=== PATIENT | male | born 1950 | race Caucasian/White ===

== ENCOUNTER → 2017-04-29 | Outpatient (CLI) | payer MEDICARE ==
[2017-04-29 09:25] LABS: ALT 41 U/L (21-72); AST 29 U/L (17-59); Cholesterol 135 mg/dL (<200); HDL Cholesterol 42 mg/dL (40-60); Triglycerides 126 mg/dL (<150)
== END | disposition home or self-care (01) ==
LOC: LABWHC1 08:36
PROVIDERS: ATTEND Internal Medicine Interventional Cardiology
DX: E78.2 Mixed hyperlipidemia (principal)
CPT/HCPCS: 36415; 80061; 84450; 84460

== ENCOUNTER → 2017-10-21 | Outpatient (CLI) | payer MEDICARE ==
[2017-10-21 09:44] LABS: Basophils % (A) 1 %; Eosinophils # (A) 0.2 k/uL (0-0.7); Eosinophils % (A) 3 %; HCT 46.2 % (39.0-53.0); HDW 2.48; HGB 14.9 gm/dL (13.0-17.5); Luc # (Auto) 0.08; Luc % (Auto) 2; Lymphocytes # (A) 1.2 k/uL (1.0-4.8); Lymphocytes % (A) 25 %; MCH 28.5 pg (25.0-35.0); MCHC 32.2 g/dL (31.0-37.0); MCV 88.6 fL (80.0-100.0); Monocytes # (A) 0.5 k/uL (0-1.0); Monocytes % (A) 10 %; Neutrophils # (A) 2.8 k/uL (1.3-7.7); Neutrophils % (A) 59 %; RBC 5.21 m/uL (4.30-5.90); RDW 14.8 % (11.5-15.5); WBC 4.7 k/uL (3.8-10.6); WBC (Perox) 4.46
[2017-10-21 10:01] LABS: ALT 43 U/L (21-72); AST 32 U/L (17-59); Alkaline Phosphatase 36 U/L (38-126); Anion Gap 9 mmol/L; Blood Urea Nitrogen 24 mg/dL (9-20); Calcium 9.2 mg/dL (8.4-10.2); Carbon Dioxide 26 mmol/L (22-30); Chloride 108 mmol/L (98-107); Cholesterol 153 mg/dL (<200); Glucose 90 mg/dL (74-99); HDL Cholesterol 40 mg/dL (40-60); Non-African American GFR(MDRD) >60 (>60 ml/min/1.73 sqM); Sodium 143 mmol/L (137-145); Total Bilirubin 0.7 mg/dL (0.2-1.3); Total Protein 6.7 g/dL (6.3-8.2)
[2017-10-21 10:23] LABS: Prostate Specific Antigen 2.08 ng/mL (0.00-4.00)
[2017-10-21 10:36] LABS: Appearance,Urine Clear (Clear); Bilirubin,Urine Negative (Negative); Glucose,Urine (UA) Negative (Negative); Ketones,Urine Negative (Negative); Leukocyte Esterase,Urine Trace (Negative); Mucus,Urine Rare /hpf; Nitrite,Urine Negative (Negative); Particle Count 2015; Protein,Urine Negative (Negative); RBC,Urine 1 /hpf (0-5); Specific Gravity,Urine 1.017 (1.001-1.035); UA Billing (MACRO vs. MICRO) MICRO; Urobilinogen,Urine <2.0 mg/dL (<2.0); WBC,Urine 3 /hpf (0-5)
== END | disposition home or self-care (01) ==
LOC: LABWHC1 08:40
PROVIDERS: ATTEND Internal Medicine
DX: E78.5 Hyperlipidemia, unspecified (principal); E55.9 Vitamin D deficiency, unspecified; Z12.5 Encounter for screening for malignant neoplasm of prostate; Z13.9 Encounter for screening, unspecified
CPT/HCPCS: 36415; 80053; 80061; 81001; 82306; 84153; 85025; 86803

== ENCOUNTER 2018-01-30 21:24 | Emergency (ER) | payer MEDICARE ==
[2018-01-30 21:34] VITALS: RESP 18
--- NOTE | 2018-01-30 22:09 | ED ---
Head Injury HPI - General Chief complaint: Head Injury Stated complaint: Fell/Head injury Time Seen by Provider: 01/30/18 22:06 Source: patient Mode of arrival: ambulatory Limitations: no limitations - History of Present Illness Initial comments: Patient presents for follow-up head injury. Patient states she was outside when he got tangled up underneath his dog and tripped and fell. Patient hit the top of his head on a metal cabinet. Patient is on Coumadin. Patient states he walked into the house when he felt lightheaded and passed out a second time. Patient denies any injuries from a second fall. Patient states he has pain at site of laceration on the top of his head and behind right eye at this time. Patient denies vision changes, confusion, speech problems, numbness, weakness. Patient denies injuries to any other area of the body other than his head. Denies neck pain, back pain, extremity pain or swelling. Patient denies any abrasions or skin problems anywhere on his body except the top of his head. Patient has been ambulatory since accident without difficulty. MD Complaint: head injury, fall - Related Data Home Medications Medication Instructions Recorded Confirmed Cholecalciferol [Vitamin D3] 1,000 unit PO DAILY 01/30/18 01/30/18 Hydrochlorothiazide [Hydrodiuril] 25 mg PO DAILY 01/30/18 01/30/18 Lisinopril [Prinivil] 10 mg PO DAILY 01/30/18 01/30/18 Multivitamins, Thera [Multivitamin 1 tab PO DAILY 01/30/18 01/30/18 (formulary)] Simvastatin [Zocor] 10 mg PO HS 01/30/18 01/30/18 Warfarin Sodium [Coumadin] 5 mg PO MOFR 01/30/18 01/30/18 Warfarin Sodium [Warfarin Sodium] 2.5 mg PO SUTUWETHSA 01/30/18 01/30/18 Allergies/Adverse reactions: Allergies Allergy/AdvReac Type Severity Reaction Status Date / Time No Known Allergies Allergy Verified 01/30/18 22:24 Review of Systems ROS Statement: Those systems with pertinent positive or pertinent negative responses have been documented in the HPI. ROS Other: All systems not noted in ROS Statement are negative. Constitutional: Denies: fever, chills, weakness Eyes: Denies: eye pain, eye discharge, vision change ENT: Denies: ear pain, dental pain Respiratory: Denies: dyspnea Cardiovascular: Reports: syncope. Denies: chest pain, palpitations Endocrine: Denies: fatigue Gastrointestinal: Denies: abdominal pain, nausea, vomiting Genitourinary: Reports: other (Denies flank pain) Musculoskeletal: Denies: back pain, joint swelling, arthralgia Skin: Reports: other (Abrasion to the top of the) Neurological: Reports: headache. Denies: weakness, numbness, paresthesias, confusion, abnormal gait Past Medical History Past Medical History: Hyperlipidemia, Hypertension History of Any Multi-Drug Resistant Organisms: None Reported Past Surgical History: Cardiac Valve Replacement, Hernia Repair, Orthopedic Surgery, Tonsillectomy Additional Past Surgical History / Comment(s): Aortic valve replacement, bilateral shoulder repair Past Psychological History: No Psychological Hx Reported Smoking Status: Never smoker Past Alcohol Use History: Occasional Past Drug Use History: None Reported General Exam - General Exam Comments Initial Comments: Sitting up on side of bed. No acute shows. Conversing normally. Calm, pleasant. Does not appear in pain. Limitations: no limitations General appearance: alert, in no apparent distress Head exam: Present: normocephalic, other (2 cm V-shaped superficial laceration top of head, minimal bleeding. No facial abnormalities appreciated) Eye exam: Present: normal appearance, PERRL, EOMI. Absent: periorbital swelling , periorbital tenderness (Pupils equal and reactive bilaterally. Eye movements intact bilaterally.) ENT exam: Present: normal exam, mucous membranes moist (Normal.) Neck exam: Present: other (C-collar in place. No midline tenderness.). Absent : tenderness Respiratory exam: Present: normal lung sounds bilaterally. Absent: respiratory distress, wheezes, rales, rhonchi Cardiovascular Exam: Present: regular rate, normal rhythm GI/Abdominal exam: Present: soft. Absent: distended, tenderness Extremities exam: Present: normal inspection, full ROM, normal capillary refill , other (Full range of motion all extremities. No edema, bony tenderness, deformities of that Shoney's appreciated.). Absent: tenderness, joint swelling Back exam: Present: normal inspection. Absent: tenderness, paraspinal tenderness, vertebral tenderness Neurological exam: Present: alert, oriented X3, CN II-XII intact (Cranial nerves II through XII intact. Muscle strength 5 out of 5 in all extremity. Sensation intact in all extremities. Ambulatory in the ER without difficulty. Pertinent drift negative. Finger to nose chlorinated bilaterally.) Psychiatric exam: Present: normal affect, normal mood Skin exam: Present: warm, dry, normal color, other (Laceration top of head.) Course Vital Signs 01/30/18 21:26 Temperature 98.6 F Pulse Rate 62 Respiratory 18 Rate Blood Pressure 175/82 O2 Sat by Pulse 98 Oximetry Procedures - Laceration Laceration #1 Consent Obtained: verbal consent Time Out Performed: Yes Indication: laceration Site: scalp Description: linear Depth: simple, single layer Type of Sutures: other ([place]) Number of Sutures: 3 Technique: simple, interrupted Patient Tolerated Procedure: well Medical Decision Making - Medical Decision Making Pt roomed 22:06 22:07 Imaging and lab orders placed. 22:28 EKG sinus rhythm with PACs, rate 63, no ST or T-wave changes appreciated. INR 3.2 23:11 CT head/neck negative. Transfer team [facility] paged for overnight observation of patient given syncope and coumadin use. 23:28 Laceration repaired with 3 fani, patient tolerated procedure well. No competitions. Bacitracin and gauze applied. Notified by lab some blood hemolyzed, RN redrawing labs now 23:34 Spoke with physician at [facility], updated patient condition and results, agrees to transfer, accepting physician Dr. Cooper. Chest x-ray showed no acute process per ED. Patient family updated with all results and plan. Patient agrees to transfer. EMTALA signed. Will transfer. Awaiting results of basic metabolic profile and, will not delay transfer, blood already drawn, results will be available for follow-up by [facility] physician team. 23:37 Transfer ordered placed. - Lab Data Result diagrams: 01/30/18 22:31 Lab Results 01/30/18 01/30/18 Range/Units 22:31 22:31 WBC 5.4 (3.8-10.6) k/uL RBC 5.46 (4.30-5.90) m/uL Hgb 16.1 (13.0-17.5) gm/dL Hct 46.0 (39.0-53.0) % MCV 84.3 (80.0-100.0) fL MCH 29.5 (25.0-35.0) pg MCHC 35.0 (31.0-37.0) g/dL RDW 13.5 (11.5-15.5) % Plt Count 212 (150-450) k/uL Neutrophils % 58 % Lymphocytes % 28 % Monocytes % 7 % Eosinophils % 4 % Basophils % 1 % Neutrophils # 3.1 (1.3-7.7) k/uL Lymphocytes # 1.5 (1.0-4.8) k/uL Monocytes # 0.4 (0-1.0) k/uL Eosinophils # 0.2 (0-0.7) k/uL Basophils # 0.1 (0-0.2) k/uL PT 28.6 H (9.0-12.0) sec INR 3.2 H (<1.2) APTT 32.9 H (22.0-30.0) sec Disposition Clinical Impression: Laceration of scalp, Closed head injury Disposition: OTHER INSTITUTION NOT DEFINED Referrals: Guillaume Latham MD [Primary Care Provider] - 1-2 days - Out of Hospital Transfer - Req. Specs Out of Hospital Transfer - Requested Specifics: Other Emergency Center ([facility])
[2018-01-30 22:49] LABS: Basophils # (A) 0.1 k/uL (0-0.2); Basophils % (A) 1 %; Eosinophils # (A) 0.2 k/uL (0-0.7); Eosinophils % (A) 4 %; HGB 16.1 gm/dL (13.0-17.5); Lymphocytes # (A) 1.5 k/uL (1.0-4.8); Lymphocytes % (A) 28 %; MCH 29.5 pg (25.0-35.0); MCV 84.3 fL (80.0-100.0); Mean Platelet Volume 9.9; Monocytes # (A) 0.4 k/uL (0-1.0); Monocytes % (A) 7 %; Neutrophils # (A) 3.1 k/uL (1.3-7.7); Neutrophils % (A) 58 %; Platelet Count 212 k/uL (150-450); RBC 5.46 m/uL (4.30-5.90); RDW 13.5 % (11.5-15.5); WBC 5.4 k/uL (3.8-10.6)
[2018-01-30 22:57] LABS: INR 3.2 (<1.2); Partial Thromboplastin Time 32.9 sec (22.0-30.0); Prothrombin Time 28.6 sec (9.0-12.0)
--- NOTE | 2018-01-30 23:11 | CT ---
EXAMINATION TYPE: CT brain carlos alberto lawson con DATE OF EXAM: 01/30/2018 COMPARISON: NONE HISTORY: Fall. Neck pain. Headache. CT DLP: 1752.6 mGycm Automated exposure control for dose reduction was used. TECHNIQUE: CT scan of the head and cervical spine are performed without contrast. FINDINGS: Ventricles of normal size. There is no mass effect nor midline shift. There is no sign of intracranial hemorrhage. The calvarium is intact. There is a small mucous retention cyst in the ante rior left and right maxillary sinus. There are mucus retention cysts at the floor of the maxillary si nuses. Cervical vertebra have normal alignment. There is narrowing of C6-7 disc space. Posterior elements ar e intact there is mild spurring of the endplates. Skull base is intact. IMPRESSION: Negative CT scan of the brain. Mild degenerative changes in the cervical spine. No fracture.
--- NOTE | 2018-01-30 23:42 | XR ---
EXAMINATION TYPE: XR chest 2V DATE OF EXAM: 01/30/2018 COMPARISON: NONE HISTORY: Syncope TECHNIQUE: Frontal and lateral views of the chest are obtained. FINDINGS: There is no heart failure nor confluent pneumonic infiltrate. Costophrenic angles are johnny r. There are sternal wires. Thoracic aorta is atheromatous. There are chest leads. Bony thorax is int act. IMPRESSION: No active cardiopulmonary disease.
[2018-01-30] MEDS ORDERED: traMADol 50 MG TAB PO STA (23:44)
[2018-01-30 23:55] LABS: Anion Gap 8 mmol/L; Blood Urea Nitrogen 21 mg/dL (9-20); Calcium 9.2 mg/dL (8.4-10.2); Carbon Dioxide 28 mmol/L (22-30); Chloride 106 mmol/L (98-107); Glucose 102 mg/dL (74-99); Potassium 3.8 mmol/L (3.5-5.1); Sodium 142 mmol/L (137-145)
[2018-01-31 00:07] VITALS: BP 136/85; PULSE 60; TEMP 98.1
== END 2018-01-31 00:20 | disposition other institution (70) ==
LOC: EC 21:24
DX: S01.01XA Laceration without foreign body of scalp, initial encounter (principal); E78.5 Hyperlipidemia, unspecified; I10 Essential (primary) hypertension; Z79.01 Long term (current) use of anticoagulants; Z79.899 Other long term (current) drug therapy; W01.0XXA Fall on same level from slipping, tripping and stumbling without subsequent striking against object, initial encounter; Y92.009 Unspecified place in unspecified non-institutional (private) residence as the place of occurrence of the external cause
CPT/HCPCS: 12001; 36415; 70450; 71046; 72125; 80048; 85025; 85610; 85730; 86850; 86900; 86901; 93005; 99285

== ENCOUNTER → 2018-04-05 | Outpatient (CLI) | payer MEDICARE ==
[2018-04-05 08:52] LABS: ALT 38 U/L (21-72); AST 30 U/L (17-59); Cholesterol 140 mg/dL (<200); HDL Cholesterol 37 mg/dL (40-60); LDL Cholesterol,Calculated 75 mg/dL (0-99); Triglycerides 140 mg/dL (<150)
== END | disposition home or self-care (01) ==
LOC: LABWHC1 07:57
PROVIDERS: ATTEND Nurse Practitioner Adult Health
DX: E78.2 Mixed hyperlipidemia (principal)
CPT/HCPCS: 36415; 80061; 84450; 84460

== ENCOUNTER → 2018-11-02 | Outpatient (CLI) | payer MEDICARE ==
[2018-11-02 17:42] LABS: LDL Cholesterol,Calculated 59.8 mg/dL (0.0-131.0); VLDL Calculation 25.2 mg/dL (5.00-40.00)
== END | disposition home or self-care (01) ==
LOC: LABWHC1 10:12
PROVIDERS: ATTEND Internal Medicine Interventional Cardiology
DX: E78.2 Mixed hyperlipidemia (principal)
CPT/HCPCS: 36415; 80061; 84450; 84460

== ENCOUNTER → 2018-11-30 | Outpatient (CLI) | payer MEDICARE ==
[2018-11-30 12:14] LABS: HCT 49.8 % (39.0-53.0); HGB 16.2 gm/dL (13.0-17.5); MCH 28.9 pg (25.0-35.0); MCHC 32.6 g/dL (31.0-37.0); MCV 88.6 fL (80.0-100.0); Mean Platelet Volume 8.2; Platelet Count 261 k/uL (150-450); RBC 5.62 m/uL (4.30-5.90); RDW 14.4 % (11.5-15.5); WBC 6.5 k/uL (3.8-10.6)
[2018-11-30 21:23] LABS: Albumin 4.5 g/dL (3.80-4.90); Albumin/Globulin Ratio 2.14 (1.20-2.10); Anion Gap 10.6 mmol/L (4.00-12.00); Calcium 9.2 mg/dL (8.7-10.3); Carbon Dioxide 28.4 mmol/L (21.6-31.8); Globulin 2.1 g/dL (1.6-3.3); Potassium 4.1 mmol/L (3.5-5.5); Total Bilirubin 0.7 mg/dL (0.2-1.2); Total Protein 6.6 g/dL (6.2-8.2)
== END | disposition home or self-care (01) ==
LOC: LABWHC1 11:18
PROVIDERS: ATTEND Internal Medicine Interventional Cardiology
DX: I48.91 Unspecified atrial fibrillation (principal)
CPT/HCPCS: 36415; 80053; 84443; 85027

== ENCOUNTER 2018-12-30 06:24 | Day surgery (SDC) | payer MEDICARE ==
[2018-12-27 14:49] VITALS: BMI 37.6
[2018-12-30] MEDS ORDERED: SODIUM CHLORIDE 0.9% 1,000 ML IV SCH ×2 (06:29→08:15)
[2018-12-30] MEDS ORDERED: LACTATED RINGERS 1,000 ML IV SCH (06:29)
[2018-12-30] MEDS ORDERED: PROPOFOL 10 MG/ML 20 ML VIAL IV ONE (07:29)
[2018-12-30] MEDS: BENZOCAINE SPRAY 1 CAN MUCOUS MEM ONE ×3 (07:30→07:50)
[2018-12-30] MEDS ORDERED: SODIUM CHLORIDE 0.9% 1,000 ML IV ONE (07:33)
[2018-12-30] MEDS ORDERED: WARFARIN 5 MG TAB PO SCH (08:15)
[2018-12-30 08:28] VITALS: TEMP 97
[2018-12-30 08:32] VITALS: PULSE 76; RESP 20
[2018-12-30] MEDS ORDERED: ACETAMINOPHEN TAB 500 MG TAB PO SCH (09:00)
[2018-12-30] MEDS ORDERED: MULTIVITAMINS, THERA 1 EACH TAB PO SCH (09:00)
[2018-12-30] MEDS ORDERED: CHOLECALCIFEROL 1,000 UNIT TAB PO SCH (09:00)
[2018-12-30 09:11] LABS: INR 3.2 (<1.2); Prothrombin Time 31.2 sec (9.0-12.0)
--- NOTE | 2018-12-30 09:28 | ECHOT ---
TRANSESOPHAGEAL ECHOCARDIOGRAM INDICATION: Evaluation of left atrial appendage. PROCEDURE: After explaining the procedure to the patient as well as the risks and the complications, blood pressure, heart rate with O2 saturation was monitored. The throat was sprayed with Cetacaine. He received sedation per anesthesia department. The probe was introduced into the esophagus without difficulty. Images were obtained. Following that the probe was removed. There was no immediate complication. FINDINGS: Left atrial size is dilated. Left atrial appendage is normal. Left ventricular size and systolic function normal. There is evidence of interatrial highly mobile septum. The aortic valve is a prosthetic aortic valve with normal appearance and functioning. Mitral valve appears to be normal. Tricuspid valve appears to be normal. Descending thoracic aorta appears to be normal. There was no pericardial effusion. Contrast bubble study revealed no evidence of shunting across the interatrial septum. Doppler pulse wave and color Doppler obtained and revealed a mild mitral with moderate tricuspid regurgitation. There was physiologic regurgitation in the aortic valve. No shunting was noted by color Doppler study. CONCLUSION: 1. Dilated left atrium with normal appearance of left atrial appendage. 2. Normal left ventricular size and systolic function. 3. Prosthetic aortic valve with normal appearance and function. 4. Mild mitral with moderate tricuspid regurgitation with no significant pulmonary hypertension. 5. No shunting across the interatrial septum. 6. Normal appearance of the descending thoracic aorta. MMODL / IJN: [id number] /
--- NOTE | 2018-12-30 10:31 | CE ---
CARDIAC ELECTROPHYSIOLOGY REPORT INDICATION: Atrial fibrillation. PROCEDURE: After explaining the procedure to the patient, its risks and complication, after performing transesophageal echocardiogram, obtaining sedated state and synchronized biphasic cardioversion using 200 joules was performed with congregational of normal sinus rhythm. There was no immediate complication. VANESSA / MICHAELA: [id number] /
[2018-12-30 11:03] VITALS: BP 113/62
[2018-12-30] MEDS ORDERED: SIMVASTATIN 10 MG PO SCH (21:00)
[2018-12-31] MEDS ORDERED: WARFARIN 5 MG TAB PO SCH (08:13)
[2018-12-31] MEDS ORDERED: HYDROCHLOROTHIAZIDE 25 MG TAB PO SCH (09:00)
[2018-12-31] MEDS ORDERED: LISINOPRIL 10 MG TAB PO SCH (09:00)
== END 2018-12-30 10:00 | disposition home or self-care (01) ==
LOC: CATHCVL 06:24
PROVIDERS: ATTEND Internal Medicine Interventional Cardiology
DX: I48.1 Persistent atrial fibrillation (principal); I08.1 Rheumatic disorders of both mitral and tricuspid valves; I45.4 Nonspecific intraventricular block; Z95.2 Presence of prosthetic heart valve; I10 Essential (primary) hypertension; E78.2 Mixed hyperlipidemia; G47.33 Obstructive sleep apnea (adult) (pediatric); I25.10 Atherosclerotic heart disease of native coronary artery without angina pectoris; Z95.1 Presence of aortocoronary bypass graft; Z79.01 Long term (current) use of anticoagulants; Z79.899 Other long term (current) drug therapy
CPT/HCPCS: 93312; 93320; 93325; 92960; 85610; J2704; 93005

== ENCOUNTER 2019-01-03 07:07 | Emergency (ER) | payer MEDICARE ==
[2019-01-03 07:16] VITALS: RESP 18; TEMP 97.9
[2019-01-03] MEDS ORDERED: SODIUM CHLORIDE 0.9% 1,000 ML IV STA ×2 (07:25→07:30)
--- NOTE | 2019-01-03 07:37 | ED ---
General Adult HPI - General Chief complaint: Arrhythmia/Palpitations Stated complaint: dizziness Time Seen by Provider: 01/03/19 07:21 Source: patient, RN notes reviewed, old records reviewed Mode of arrival: wheelchair Limitations: no limitations - History of Present Illness Initial comments: Patient 68-year-old male presented to the emergency room today with chief complaint of increased dizziness. Patient states that symptoms started yesterday. States he was feeling a little bit throughout the day. States 4 AM symptoms became more persistent. States worse when laying down and better when sitting up. Patient does admit that is also had felt a little short of breath. Does admit to history of A. fib had a recent cardiac ablation performed just [address] Hillman. Patient also admits to feeling nauseous. Patient denies any other complaints or symptoms. Patient denies any recent fever, chills , chest pain, back pain, abdominal pain, vomiting, numbness or tingling, dysuria or hematuria, constipation or diarrhea, headaches or visual changes, or any other complaints. - Related Data Home Medications Medication Instructions Recorded Confirmed Cholecalciferol [Vitamin D3] 1,000 unit PO DAILY 01/30/18 12/30/18 Hydrochlorothiazide [Hydrodiuril] 25 mg PO DAILY 01/30/18 12/27/18 Lisinopril [Prinivil] 10 mg PO DAILY 01/30/18 12/27/18 Multivitamins, Thera [Multivitamin 1 tab PO DAILY 01/30/18 12/30/18 (formulary)] Simvastatin [Zocor] 10 mg PO HS 01/30/18 12/27/18 Warfarin Sodium 2.5 mg PO SUMOTUWETHSA 01/30/18 12/30/18 Warfarin Sodium [Coumadin] 5 mg PO FR 01/30/18 12/30/18 Acetaminophen [Tylenol Extra 500 mg PO DAILY 12/27/18 12/30/18 Strength] Allergies Allergy/AdvReac Type Severity Reaction Status Date / Time No Known Allergies Allergy Verified 12/27/18 14:44 Review of Systems ROS Statement: Those systems with pertinent positive or pertinent negative responses have been documented in the HPI. ROS Other: All systems not noted in ROS Statement are negative. Past Medical History Past Medical History: Atrial Fibrillation, Hyperlipidemia, Hypertension Additional Past Medical History / Comment(s): SEE H & P FOR CARDIAC HX History of Any Multi-Drug Resistant Organisms: None Reported Past Surgical History: Cardiac Valve Replacement, Hernia Repair, Orthopedic Surgery, Tonsillectomy Additional Past Surgical History / Comment(s): Aortic valve replacement, bilateral shoulder repair. COLONOSCOPY cardioversion Past Anesthesia/Blood Transfusion Reactions: No Reported Reaction Past Psychological History: No Psychological Hx Reported Smoking Status: Never smoker Past Alcohol Use History: Rare Past Drug Use History: None Reported - Past Family History Father Family Medical History: Cancer Brother(s) Family Medical History: Cancer Additional Family Medical History / Comment(s): 1/2 BROTHER General Exam - General Exam Comments Initial Comments: General: The patient is awake and alert, in no distress, and does not appear acutely ill. Eye: There is normal conjunctiva bilaterally. No signs of icterus. Ears, nose, mouth and throat: There are moist mucous membranes and no oral lesions. Neck: The neck is supple. Cardiovascular: There is a regular rate and rhythm. No murmur, rub or gallop is appreciated. Respiratory: Lungs are clear to auscultation, respirations are non-labored, breath sounds are equal. No wheezes, stridor, rales, or rhonchi. Gastrointestinal: Abdomen soft nontender Musculoskeletal: Normal ROM, no tenderness. Strength 5/5. Sensation intact. Pulses equal bilaterally 2+. Neurological: A&O x 3. CN II-XII intact, There are no obvious motor or sensory deficits. Coordination appears grossly intact. Speech is normal. Skin: Skin is warm and dry and no rashes or lesions are noted. Psychiatric: Cooperative, appropriate mood & affect, normal judgment. Limitations: no limitations Course Vital Signs 01/03/19 07:11 Temperature 97.9 F Pulse Rate 67 Respiratory 18 Rate Blood Pressure 139/90 O2 Sat by Pulse 98 Oximetry EKG Findings - EKG Comments: EKG Findings:: EKG performed at 0725: Shows normal sinus rhythm at 68 bpm. SC interval 176. QRS 124 per QT/QTc 410/435. No acute ST changes. Medical Decision Making - Medical Decision Making Patient reexamined at this time shows no signs of distress is resting comfortably. He denies any dizziness, shortness of breath, chest pain at this time. Patient states is feeling better. Was given liter bolus. EKG shows normal sinus rhythm. Nursing staff did admit that they were in the room and did see his heart rate jumped (140s just for a few seconds. Patient has had no other abnormal rhythm. Patient's labs been reviewed unremarkable. Chest x- rays negative for any acute abnormality. Case discussed with attending physician Dr. Pitts who did discuss with on-call tongue carrier Dr. Peace recommends the patient is comfortable that he may be discharged to follow-up. - Lab Data Result diagrams: 01/03/19 07:37 01/03/19 07:37 Lab Results 01/03/19 01/03/19 01/03/19 Range/Units 07:37 07:37 07:37 WBC 5.8 (3.8-10.6) k/uL RBC 5.70 (4.30-5.90) m/uL Hgb 16.0 (13.0-17.5) gm/dL Hct 50.0 (39.0-53.0) % MCV 87.7 (80.0-100.0) fL MCH 28.0 (25.0-35.0) pg MCHC 31.9 (31.0-37.0) g/dL RDW 14.2 (11.5-15.5) % Plt Count 241 (150-450) k/uL Neutrophils % 65 % Lymphocytes % 20 % Monocytes % 8 % Eosinophils % 3 % Basophils % 1 % Neutrophils # 3.8 (1.3-7.7) k/uL Lymphocytes # 1.2 (1.0-4.8) k/uL Monocytes # 0.5 (0-1.0) k/uL Eosinophils # 0.2 (0-0.7) k/uL Basophils # 0.1 (0-0.2) k/uL PT (9.0-12.0) sec INR (<1.2) APTT (22.0-30.0) sec Sodium 143 (137-145) mmol/L Potassium 4.1 (3.5-5.1) mmol/L Chloride 107 (98-107) mmol/L Carbon Dioxide 28 (22-30) mmol/L Anion Gap 8 mmol/L BUN 23 H (9-20) mg/dL Creatinine 0.83 (0.66-1.25) mg/dL Est GFR (CKD-EPI)AfAm >90 (>60 ml/min/1.73 sqM) Est GFR (CKD-EPI)NonAf >90 (>60 ml/min/1.73 sqM) Glucose 91 (74-99) mg/dL Calcium 9.7 (8.4-10.2) mg/dL Magnesium 1.8 (1.6-2.3) mg/dL Total Bilirubin 0.8 (0.2-1.3) mg/dL AST 39 (17-59) U/L ALT 54 (21-72) U/L Alkaline Phosphatase 36 L (38-126) U/L Total Creatine Kinase 101 (55-170) U/L CK-MB (CK-2) 1.4 (0.0-2.4) ng/mL CK-MB (CK-2) Rel Index 1.4 Troponin I <0.012 (0.000-0.034) ng/mL Total Protein 7.1 (6.3-8.2) g/dL Albumin 4.4 (3.5-5.0) g/dL 01/03/19 Range/Units 07:37 WBC (3.8-10.6) k/uL RBC (4.30-5.90) m/uL Hgb (13.0-17.5) gm/dL Hct (39.0-53.0) % MCV (80.0-100.0) fL MCH (25.0-35.0) pg MCHC (31.0-37.0) g/dL RDW (11.5-15.5) % Plt Count (150-450) k/uL Neutrophils % % Lymphocytes % % Monocytes % % Eosinophils % % Basophils % % Neutrophils # (1.3-7.7) k/uL Lymphocytes # (1.0-4.8) k/uL Monocytes # (0-1.0) k/uL Eosinophils # (0-0.7) k/uL Basophils # (0-0.2) k/uL PT 26.1 H (9.0-12.0) sec INR 2.7 H (<1.2) APTT 35.9 H (22.0-30.0) sec Sodium (137-145) mmol/L Potassium (3.5-5.1) mmol/L Chloride (98-107) mmol/L Carbon Dioxide (22-30) mmol/L Anion Gap mmol/L BUN (9-20) mg/dL Creatinine (0.66-1.25) mg/dL Est GFR (CKD-EPI)AfAm (>60 ml/min/1.73 sqM) Est GFR (CKD-EPI)NonAf (>60 ml/min/1.73 sqM) Glucose (74-99) mg/dL Calcium (8.4-10.2) mg/dL Magnesium (1.6-2.3) mg/dL Total Bilirubin (0.2-1.3) mg/dL AST (17-59) U/L ALT (21-72) U/L Alkaline Phosphatase (38-126) U/L Total Creatine Kinase (55-170) U/L CK-MB (CK-2) (0.0-2.4) ng/mL CK-MB (CK-2) Rel Index Troponin I (0.000-0.034) ng/mL Total Protein (6.3-8.2) g/dL Albumin (3.5-5.0) g/dL Disposition Clinical Impression: Palpitations Disposition: HOME SELF-CARE Condition: Good Instructions (If sedation given, give patient instructions): Heart Palpitations (ED) Additional Instructions: Please use medication as discussed. Please follow-up with tongue carrier/family doctor in the next 2 days of symptoms have not improved. Please return to emergency room if the symptoms increase or worsen or for any other concerns. Is patient prescribed a controlled substance at d/c from ED?: No Referrals: Guillaume Latham MD [Primary Care Provider] - 1-2 days Time of Disposition: 09:15
--- NOTE | 2019-01-03 08:00 | XR ---
EXAMINATION TYPE: XR chest 2V DATE OF EXAM: 01/03/2019 COMPARISON: Chest x-ray January 30, 2018. HISTORY: Chest pain, history of atrial fibrillation. TECHNIQUE: Frontal and lateral views of the chest are obtained. FINDINGS: Overlying sternal wires and mediastinal clips are present bilaterally. There is chronic emp hysematous change without suspicious new focal air space opacity, pleural effusion, or pneumothorax s een. There is persistent left basilar linear scarring and/or atelectasis. The cardiac silhouette siz e is stable and enlarged with ectatic thoracic aorta. Metallic anchors right humeral head from prior rotator cuff surgery are redemonstrated.. IMPRESSION: Chronic emphysematous change and cardiomegaly without acute pulmonary process.
[2019-01-03 08:05] LABS: INR 2.7 (<1.2); Partial Thromboplastin Time 35.9 sec (22.0-30.0); Prothrombin Time 26.1 sec (9.0-12.0)
[2019-01-03 08:07] LABS: Basophils # (A) 0.1 k/uL (0-0.2); Basophils % (A) 1 %; Eosinophils # (A) 0.2 k/uL (0-0.7); Eosinophils % (A) 3 %; Lymphocytes # (A) 1.2 k/uL (1.0-4.8); Lymphocytes % (A) 20 %; MCHC 31.9 g/dL (31.0-37.0); MCV 87.7 fL (80.0-100.0); Mean Platelet Volume 7.7; Monocytes # (A) 0.5 k/uL (0-1.0); Monocytes % (A) 8 %; Neutrophils # (A) 3.8 k/uL (1.3-7.7); Neutrophils % (A) 65 %; Platelet Count 241 k/uL (150-450); RDW 14.2 % (11.5-15.5); WBC 5.8 k/uL (3.8-10.6)
[2019-01-03 08:16] LABS: ALT 54 U/L (21-72); AST 39 U/L (17-59); Albumin 4.4 g/dL (3.5-5.0); Alkaline Phosphatase 36 U/L (38-126); Anion Gap 8 mmol/L; Blood Urea Nitrogen 23 mg/dL (9-20); Calcium 9.7 mg/dL (8.4-10.2); Carbon Dioxide 28 mmol/L (22-30); Chloride 107 mmol/L (98-107); Glucose 91 mg/dL (74-99); Magnesium 1.8 mg/dL (1.6-2.3); Potassium 4.1 mmol/L (3.5-5.1); Sodium 143 mmol/L (137-145); Total Bilirubin 0.8 mg/dL (0.2-1.3); Total Protein 7.1 g/dL (6.3-8.2)
[2019-01-03 08:33] LABS: Creatine Kinase 101 U/L (55-170)
[2019-01-03 08:46] LABS: Creatine Kinase MB 1.4 ng/mL (0.0-2.4); Troponin I <0.012 ng/mL (0.000-0.034)
[2019-01-03 09:32] VITALS: BP 130/80; PULSE 60
== END 2019-01-03 09:21 | disposition home or self-care (01) ==
LOC: EC 07:07
DX: R00.2 Palpitations (principal); R42 Dizziness and giddiness; R06.02 Shortness of breath; R11.0 Nausea; I48.91 Unspecified atrial fibrillation; E78.5 Hyperlipidemia, unspecified; I10 Essential (primary) hypertension; Z79.01 Long term (current) use of anticoagulants; Z79.891 Long term (current) use of opiate analgesic; Z79.899 Other long term (current) drug therapy; Z95.2 Presence of prosthetic heart valve; Z98.890 Other specified postprocedural states
CPT/HCPCS: 36415; 71046; 80053; 82550; 82553; 83735; 84484; 85025; 85610; 85730; 93005; 96360; 99285

== ENCOUNTER → 2019-01-12 | Outpatient (CLI) | payer MEDICARE ==
[2019-01-12 11:47] LABS: INR 2.9 (<1.2)
[2019-01-12 11:48] LABS: HCT 51.7 % (39.0-53.0); HGB 16.4 gm/dL (13.0-17.5); MCH 28.6 pg (25.0-35.0); MCHC 31.7 g/dL (31.0-37.0); MCV 90.1 fL (80.0-100.0); Mean Platelet Volume 7.6; Platelet Count 256 k/uL (150-450); RBC 5.74 m/uL (4.30-5.90); RDW 14.2 % (11.5-15.5); WBC 7.2 k/uL (3.8-10.6)
[2019-01-12 12:00] LABS: Potassium 4.4 mmol/L (3.5-5.1)
== END ==
LOC: LABPAT 11:00
PROVIDERS: ATTEND Internal Medicine Interventional Cardiology
DX: Z01.812 Encounter for preprocedural laboratory examination (principal); I48.1 Persistent atrial fibrillation; E78.1 Pure hyperglyceridemia
CPT/HCPCS: 80051; 82565; 84520; 85027; 85610

== ENCOUNTER → 2019-01-19 | Day surgery (SDC) | payer MEDICARE ==
[2019-01-16 15:12] VITALS: BMI 37.6
[~2019-01-19] MED LIST: ACETAMINOPHEN TAB 500 MG TAB PO PRN; CHOLECALCIFEROL 1,000 UNIT TAB PO SCH; FLECAINIDE 50 MG TAB PO SCH; HYDROCHLOROTHIAZIDE 25 MG TAB PO SCH; LACTATED RINGERS 1,000 ML IV SCH; LISINOPRIL 10 MG TAB PO SCH; MULTIVITAMINS, THERA 1 EACH TAB PO SCH; PROPOFOL 10 MG/ML 20 ML VIAL IV ONE; SIMVASTATIN 10 MG PO SCH; SODIUM CHLORIDE 0.9% 1,000 ML IV SCH; WARFARIN 5 MG TAB PO SCH
[2019-01-19 06:40] VITALS: TEMP 98
[2019-01-19 06:52] LABS: INR 3.7 (<1.2); Prothrombin Time 35.2 sec (9.0-12.0)
[2019-01-19 07:38] VITALS: RESP 16
[2019-01-19 08:51] VITALS: BP 112/72; PULSE 64
--- NOTE | 2019-01-19 08:55 | CE ---
CARDIAC ELECTROPHYSIOLOGY REPORT [facility] PROCEDURE NOTE: INDICATION: Atrial fibrillation. PROCEDURE: After explaining the procedure to the patient, its risks and complications, blood pressure, heart rate, O2 saturation were monitored. Sedation was obtained with the Anesthesia Department. Following that, a synchronized biphasic cardioversion using 200 joules was performed with jainism of normal sinus rhythm. There was no immediate complication. VANESSA / MICHAELA: [id number] /
== END | disposition home or self-care (01) ==
LOC: CATHCVL 06:11
PROVIDERS: ATTEND Internal Medicine Interventional Cardiology
DX: I48.1 Persistent atrial fibrillation (principal); I25.10 Atherosclerotic heart disease of native coronary artery without angina pectoris; I10 Essential (primary) hypertension; Z95.2 Presence of prosthetic heart valve; E78.2 Mixed hyperlipidemia; Z79.01 Long term (current) use of anticoagulants; Z95.1 Presence of aortocoronary bypass graft; Z79.899 Other long term (current) drug therapy; G47.33 Obstructive sleep apnea (adult) (pediatric); K21.9 Gastro-esophageal reflux disease without esophagitis
CPT/HCPCS: 92960; 85610; J2704

== ENCOUNTER → 2019-02-14 | Outpatient (CLI) | payer MEDICARE ==
--- NOTE | 2019-02-14 23:50 | CONS ---
CONSULTATION This is a 68-year-old male patient referred to me for evaluation for sleep apnea. The patient is obese and has anatomic features to suggest obstructive sleep apnea. He snores. He denies having any major tiredness or sleepiness or hypersomnia during the day. Nevertheless, he has an extensive cardiac history. The patient has history of coronary artery disease and history of aortic valve replacement and he currently has a mechanical valve in place and is on long-term anticoagulation. More recently, he was found to be in atrial fibrillation, which was an incidental finding that was identified by his manager of creative services. For that reason, further investigation for sleep apnea was requested. He is under a significant amount of stress. Despite his age, he is still working in construction and he has been having some social problems, as the patient has gone through a divorce and he feels depressed. This has caused a significant amount of weight gain, as the patient's current weight is around 264, which is considerably up compared to his baseline. The patient goes to bed around 10:30 p.m., wakes up at 6 a.m. in the morning. He averages around 7 hours of sleep. He does snore. PAST MEDICAL HISTORY: 1. Hypertension. 2. Hyperlipidemia. 3. Coronary artery disease. 4. Aortic valve replacement with a mechanical valve. 5. Atrial fibrillation. 6. Obesity. PAST SURGICAL HISTORY: 1. Aortic valve replacement with mechanical valve. 2. Hernia surgery. 3. Shoulder surgery. 4. Tonsillectomy. DRUG ALLERGIES: NOT KNOWN. OUTPATIENT MEDICATIONS: List includes: 1. Lisinopril 10 mg p.o. daily. 2. Hydrochlorothiazide 25 mg p.o. daily. 3. Synthroid 10 p.o. daily. 4. Warfarin 2.5 mg 5 days a week. 5. Multivitamin 1 tablet a day. 6. Tylenol 1 tablet a day. 7. Vitamin D3 1000 units daily. SOCIAL HISTORY: The patient is a manager of construction. No history of alcoholism. No history of IV drugs. No history of smoking. FAMILY HISTORY: Negative for sleep apnea. REVIEW OF SYSTEMS: Fourteen-point review of systems was done. He is a mouth breather. He has chronic nasal congestion. He has used nasal strips in the past. Denies having any excessive fatigue or sleepiness during the day. Denies having any witnessed apneas. No insomnia. No nocturia. No grinding of the teeth. No sleepwalking. No anxiety or panic attacks. No heartburn. No restlessness in the lower extremities. PHYSICAL EXAMINATION: BP is 120/84, pulse 68, respirations 16, temperature 98.1, saturation 96% on room air. Weight is 264. Height is 5 feet 9 inches, BMI 38.9. Neck size is 17-1/2 inches. GENERAL APPEARANCE: Calm, comfortable. Head is atraumatic, normocephalic. NECK: Supple. Mallampati class IV. There is no goiter or neck masses. LUNGS: Clear to auscultation. Heart sounds are regular rate and rhythm. Normal S1, S2. No S3, S4. No murmurs. ABDOMEN: Soft, nontender. No organomegaly. EXTREMITIES: No edema. No cyanosis or clubbing. Neurologically he is alert and oriented x3. There is no focal neurological deficit. PSYCHIATRIC: Negative for anxiety or depression. IMPRESSION: 1. Obstructive sleep apnea clinically suspected, currently under investigation. The patient has an extensive cardiac history. He has typical anatomic features, as the patient has a BMI of 38.9, Mallampati class IV, he has gained weight recently and he snores loudly. Nevertheless he denies having any major tiredness or sleepiness during the day. He still works actively in construction and his cardiovascular status is stable. 2. Snoring. 3. Hypertension. 4. Hyperlipidemia. 5. Coronary artery disease. 6. Aortic valve replacement with a mechanical valve. 7. Chronic atrial fibrillation. 8. Obesity with a body mass index of 38.9. 9. Suspect depression. PLAN: 1. Encourage weight loss. 2. Will proceed with a polysomnogram to investigate this patient for sleep apnea, sleep breathing disorder. Will make a decision on treatment needs based on the severity of the disease if present. Meanwhile, the patient will be encouraged to lose weight and optimize sleep hygiene measures. Continue the same cardiac medication and will continue to follow. MMODL / IJN: [id number] /
== END ==
LOC: SLEEP 14:33
PROVIDERS: ATTEND Internal Medicine Critical Care Medicine
DX: R06.83 Snoring (principal); I10 Essential (primary) hypertension; E78.5 Hyperlipidemia, unspecified; I25.10 Atherosclerotic heart disease of native coronary artery without angina pectoris; I48.2 Chronic atrial fibrillation; E66.9 Obesity, unspecified; Z68.38 Body mass index [BMI] 38.0-38.9, adult; Z95.2 Presence of prosthetic heart valve; Z79.01 Long term (current) use of anticoagulants; Z79.899 Other long term (current) drug therapy
CPT/HCPCS: 99211

== ENCOUNTER → 2019-03-28 | Outpatient (CLI) | payer MEDICARE ==
[2019-03-28 17:29] LABS: Albumin 4.5 g/dL (3.80-4.90); Albumin/Globulin Ratio 2.37 (1.60-3.17); Anion Gap 9.4 mmol/L (4.00-12.00); Calcium 9.3 mg/dL (8.7-10.3); Carbon Dioxide 26.6 mmol/L (21.6-31.8); Globulin 1.9 g/dL (1.6-3.3); LDL Cholesterol,Calculated 58.4 mg/dL (0.0-131.0); Total Bilirubin 1.1 mg/dL (0.3-1.2); Total Protein 6.4 g/dL (6.2-8.2); VLDL Calculation 18.6 mg/dL (5.00-40.00)
== END | disposition home or self-care (01) ==
LOC: LABWHC1 08:44
PROVIDERS: ATTEND Internal Medicine Interventional Cardiology
DX: Z12.5 Encounter for screening for malignant neoplasm of prostate (principal); E78.5 Hyperlipidemia, unspecified
CPT/HCPCS: 36415; 80053; 80061; 84153

== ENCOUNTER → 2019-06-13 | Outpatient (CLI) | payer MEDICARE ==
--- NOTE | 2019-06-13 17:38 | PN ---
PROGRESS NOTE This is a 69-year-old male patient with known history of obstructive sleep apnea with an AHI of 47, consistent with severe disease. The patient is currently on CPAP pressure of 9 cm of water. The patient is coming in for a compliancy check. The patient still seems to be doing very well. He is very compliant. He has been averaging around 6.6 hours of CPAP use per night. CPAP use for more than 4 hours is 29/30. Leak is 30 L/minute. AHI is down to 2.2. The patient is doing well. No major complaints otherwise for now. No cough. No sputum production. No chest tightness or wheezing. No palpitations. He is quite refreshed during the day and he seems to be alert and responding to CPAP therapy. REVIEW OF SYSTEMS: Fourteen-point review of systems was done. Positive findings are all mentioned above in the history of present illness. PHYSICAL EXAMINATION: VITAL SIGNS: BP is 125/78, pulse 84, respiration 16. [place] score is down to 1. Temperature 98.4. Weight is 260, saturation 95% on room air. GENERAL APPEARANCE: Calm, comfortable. Head is atraumatic, normocephalic. NECK: Supple. There is no JVD or goiter or neck masses. LUNGS: Diminished; otherwise clear. HEART: Heart sounds are irregular. Positive S1, S2. The patient is having underlying atrial fibrillation. ABDOMEN: Soft, nontender. EXTREMITIES: No edema. No cyanosis or clubbing. NEUROLOGIC: The patient is alert and oriented x3. There are no focal neurological deficits. PSYCHIATRICALLY the patient has no anxiety or depression. IMPRESSION: 1. Symptomatic obstructive sleep apnea, apnea/hypopnea index of 47, currently on CPAP with a pressure of 9. 2. Obesity; stable weight. 3. Hypersomnia, improved with CPAP therapy. 4. Chronic atrial fibrillation. 5. Hypertension. 6. Hyperlipidemia. 7. History of aortic valve replacement. 8. Coronary artery disease with previous bypass surgery. PLAN: 1. Continue CPAP therapy at a pressure of 9. 2. Encourage weight loss. 3. Implement good sleep hygiene measures. 4. Compliance was checked, and the patient is extremely compliant. Will continue to follow. Will continue with the treatment. Keep CPAP at the pressure of 9. Switch this patient from a Jackson FX to a Brevida medium-large size. See me back in a year's time in followup, earlier if needed. MMODL / IJN: [id number] /
== END | disposition home or self-care (01) ==
LOC: SLEEP 14:34
PROVIDERS: ATTEND Internal Medicine Critical Care Medicine
DX: G47.33 Obstructive sleep apnea (adult) (pediatric) (principal); E66.9 Obesity, unspecified; I48.2 Chronic atrial fibrillation; I10 Essential (primary) hypertension; E78.5 Hyperlipidemia, unspecified; I25.10 Atherosclerotic heart disease of native coronary artery without angina pectoris; Z95.1 Presence of aortocoronary bypass graft; Z95.2 Presence of prosthetic heart valve; Z99.89 Dependence on other enabling machines and devices

== ENCOUNTER → 2019-10-02 | Outpatient (CLI) | payer MEDICARE ==
[2019-10-02 16:31] LABS: Chol/HDL Ratio 3.28; LDL Cholesterol,Calculated 75.4 mg/dL (0.0-131.0); VLDL Calculation 15.6 mg/dL (5.00-40.00)
== END | disposition home or self-care (01) ==
LOC: LABWHC1 09:48
PROVIDERS: ATTEND Internal Medicine Interventional Cardiology
DX: E78.2 Mixed hyperlipidemia (principal)
CPT/HCPCS: 36415; 80061; 84450; 84460

== ENCOUNTER 2019-10-18 08:06 | Emergency (ER) | payer MEDICARE ==
[2019-10-18 08:12] VITALS: TEMP 97.9
[2019-10-18] MEDS ORDERED: ASPIRIN 81 MG PO STA (08:20)
--- NOTE | 2019-10-18 08:29 | ED ---
General Adult HPI - General Chief complaint: Neuro Symptoms/Deficit Stated complaint: confusion Time Seen by Provider: 10/18/19 08:14 Source: patient, family Mode of arrival: ambulatory Limitations: no limitations - History of Present Illness Initial comments: Dictation was produced using [employer] dictation software. please excuse any gr ammatical, word or spelling errors. Chief Complaint: 69-year-old male presents today with episode of confusion. History of Present Illness: [id number] male he presents today with an e pisode of confusion. Approximately 5:45 AM upon waking patient had an episode of repetitive speech. Patient is brought in by the who reports that patient passed a lot of of strange questions that he typically nosing answer to. States is somewhat lasted for couple minutes. was concerned patient is having a stroke and brought to the emergency department. Patient is recently started on URI medications. Patient has no complete at this time. Denies any numbness and paresthesias. No history of strokes. Patient is on Coumadin for cardiac valve and atrial fibrillation. The ROS documented in this emergency department record has been reviewed and confirmed by me. Those systems with pertinent positive or negative responses have been documented in the HPI. All other systems are other negative and/or noncontributory. PHYSICAL EXAM: General Impression: Alert and oriented x3, not in acute distress HEENT: Normocephalic atraumatic, extra-ocular movements intact, pupils equal and reactive to light bilaterally, mucous membranes moist. Cardiovascular: Heart regular rate and rhythm, S1&S2 audible, no murmurs, rubs or gallops Chest: Lungs clear to auscultation bilaterally, no rhonchi, no wheeze, no rales Abdomen: Bowel sounds present, abdomen soft, non-tender, non-distended, no organomegaly Musculoskeletal: Pulses present and equal in all extremities, no peripheral edema Motor: no focal deficits noted Neurological: CN II-XII grossly intact, no focal motor or sensory deficits noted, NIH of 0 Skin: Intact with no visualized rashes Psych: Normal affect and mood ED course: 69-year-old male presents with episode of confusion. As upon arrival are within acceptable limits. Clinical presentation concerning for transient ischemic attack.Laboratory evaluation obtained. Patient given aspirin. Mild leukocytosis of 11.2. INR is 2.0. Metabolic panel is unremarkable. Rest of labs is negative. Brain CT shows no acute findings except Maxillary sinusitis. Patient observed in the emergency department for several hours with no changes in condition. Patient is to be asymptomatic. Discussed with patient that his symptoms and clinical presentation is concerning for tra nsient ischemic attack. Patient adamant about being discharged given that tomorrow is Thanksgiving. Patient does not want to be admitted. Discussed with patient that TIAs can sometimes be a precursor for larger stroke within 48 hours. Patient understands and he will return to emergency department immediately if he has recurrence of symptoms. Patient otherwise told to follow- up with primary care physician. EKG interpretation: Ventricular rate 90, A. fib, QRS 126, QTC 472. No DE prolongation, no QTC prolongation, no ST or T-wave changes noted. EKG compared to there were 07/11/2019 showing no changes. Overall, this EKG is unremarkable - Related Data Home Medications Medication Instructions Recorded Confirmed Cholecalciferol [Vitamin D3] 1,000 unit PO DAILY 01/30/18 10/18/19 Hydrochlorothiazide [Hydrodiuril] 25 mg PO DAILY 01/30/18 10/18/19 Lisinopril [Prinivil] 10 mg PO DAILY 01/30/18 10/18/19 Multivitamins, Thera [Multivitamin 1 tab PO DAILY 01/30/18 10/18/19 (formulary)] Simvastatin [Zocor] 10 mg PO HS 01/30/18 10/18/19 Warfarin Sodium 2.5 mg PO SUMOWETHFRSA 01/30/18 10/18/19 Warfarin Sodium [Coumadin] 5 mg PO TU 01/30/18 10/18/19 Acetaminophen [Tylenol Extra 500 mg PO DAILY PRN 12/27/18 10/18/19 Strength] Amoxicillin 875 mg PO BID 10/18/19 10/18/19 Fluticasone Propionate 2 spray EA NOSTRIL DAILY 10/18/19 10/18/19 methylPREDNISolone Dose Pack See Taper PO DIRECTED 10/18/19 10/18/19 [Medrol Dose Pack] Allergies Allergy/AdvReac Type Severity Reaction Status Date / Time No Known Allergies Allergy Verified 10/18/19 09:31 Review of Systems ROS Statement: Those systems with pertinent positive or pertinent negative responses have been documented in the HPI. ROS Other: All systems not noted in ROS Statement are negative. Past Medical History Past Medical History: Atrial Fibrillation, Hyperlipidemia, Hypertension Additional Past Medical History / Comment(s): SEE H & P FOR CARDIAC HX History of Any Multi-Drug Resistant Organisms: None Reported Past Surgical History: Cardiac Valve Replacement, Hernia Repair, Orthopedic Surgery, Tonsillectomy Additional Past Surgical History / Comment(s): Aortic valve replacement, bilateral shoulder repair, cardioversion Past Anesthesia/Blood Transfusion Reactions: No Reported Reaction Past Psychological History: Anxiety Smoking Status: Never smoker Past Alcohol Use History: Occasional Past Drug Use History: None Reported - Past Family History Father Family Medical History: Cancer Brother(s) Family Medical History: Cancer Additional Family Medical History / Comment(s): 1/2 BROTHER General Exam Limitations: no limitations Course Vital Signs 10/18/19 08:09 Temperature 97.9 F Pulse Rate 75 Respiratory 18 Rate Blood Pressure 140/87 O2 Sat by Pulse 99 Oximetry Medical Decision Making - Lab Data Result diagrams: 10/18/19 08:20 10/18/19 08:20 Lab Results 10/18/19 10/18/19 10/18/19 Range/Units 08:20 08:20 08:20 WBC 11.2 H (3.8-10.6) k/uL RBC 5.27 (4.30-5.90) m/uL Hgb 15.7 (13.0-17.5) gm/dL Hct 47.7 (39.0-53.0) % MCV 90.5 (80.0-100.0) fL MCH 29.8 (25.0-35.0) pg MCHC 32.9 (31.0-37.0) g/dL RDW 13.5 (11.5-15.5) % Plt Count 237 (150-450) k/uL Neutrophils % 88 % Lymphocytes % 5 % Monocytes % 5 % Eosinophils % 1 % Basophils % 0 % Neutrophils # 9.9 H (1.3-7.7) k/uL Lymphocytes # 0.6 L (1.0-4.8) k/uL Monocytes # 0.5 (0-1.0) k/uL Eosinophils # 0.1 (0-0.7) k/uL Basophils # 0.1 (0-0.2) k/uL PT 20.0 H (9.0-12.0) sec INR 2.0 H (<1.2) APTT 32.1 H (22.0-30.0) sec Sodium 142 (137-145) mmol/L Potassium 4.1 (3.5-5.1) mmol/L Chloride 106 (98-107) mmol/L Carbon Dioxide 27 (22-30) mmol/L Anion Gap 9 mmol/L BUN 24 H (9-20) mg/dL Creatinine 0.82 (0.66-1.25) mg/dL Est GFR (CKD-EPI)AfAm >90 (>60 ml/min/1.73 sqM) Est GFR (CKD-EPI)NonAf >90 (>60 ml/min/1.73 sqM) Glucose 112 H (74-99) mg/dL Calcium 9.5 (8.4-10.2) mg/dL Total Bilirubin 0.9 (0.2-1.3) mg/dL AST 44 (17-59) U/L ALT 56 (21-72) U/L Alkaline Phosphatase 46 (38-126) U/L Troponin I (0.000-0.034) ng/mL Total Protein 7.3 (6.3-8.2) g/dL Albumin 4.4 (3.5-5.0) g/dL 10/18/19 Range/Units 08:20 WBC (3.8-10.6) k/uL RBC (4.30-5.90) m/uL Hgb (13.0-17.5) gm/dL Hct (39.0-53.0) % MCV (80.0-100.0) fL MCH (25.0-35.0) pg MCHC (31.0-37.0) g/dL RDW (11.5-15.5) % Plt Count (150-450) k/uL Neutrophils % % Lymphocytes % % Monocytes % % Eosinophils % % Basophils % % Neutrophils # (1.3-7.7) k/uL Lymphocytes # (1.0-4.8) k/uL Monocytes # (0-1.0) k/uL Eosinophils # (0-0.7) k/uL Basophils # (0-0.2) k/uL PT (9.0-12.0) sec INR (<1.2) APTT (22.0-30.0) sec Sodium (137-145) mmol/L Potassium (3.5-5.1) mmol/L Chloride (98-107) mmol/L Carbon Dioxide (22-30) mmol/L Anion Gap mmol/L BUN (9-20) mg/dL Creatinine (0.66-1.25) mg/dL Est GFR (CKD-EPI)AfAm (>60 ml/min/1.73 sqM) Est GFR (CKD-EPI)NonAf (>60 ml/min/1.73 sqM) Glucose (74-99) mg/dL Calcium (8.4-10.2) mg/dL Total Bilirubin (0.2-1.3) mg/dL AST (17-59) U/L ALT (21-72) U/L Alkaline Phosphatase (38-126) U/L Troponin I <0.012 (0.000-0.034) ng/mL Total Protein (6.3-8.2) g/dL Albumin (3.5-5.0) g/dL Disposition Clinical Impression: Mental status change resolved Disposition: HOME SELF-CARE Condition: Fair Instructions (If sedation given, give patient instructions): Transient Ischemic Attack (ED) Is patient prescribed a controlled substance at d/c from ED?: No Referrals: Guillaume Latham MD [Primary Care Provider] - 1-2 days Time of Disposition: 09:52
[2019-10-18 08:39] LABS: Basophils # (A) 0.1 k/uL (0-0.2); Basophils % (A) 0 %; Eosinophils # (A) 0.1 k/uL (0-0.7); Eosinophils % (A) 1 %; HCT 47.7 % (39.0-53.0); HGB 15.7 gm/dL (13.0-17.5); Lymphocytes # (A) 0.6 k/uL (1.0-4.8); Lymphocytes % (A) 5 %; MCH 29.8 pg (25.0-35.0); MCHC 32.9 g/dL (31.0-37.0); MCV 90.5 fL (80.0-100.0); Mean Platelet Volume 8.4; Monocytes # (A) 0.5 k/uL (0-1.0); Monocytes % (A) 5 %; Neutrophils # (A) 9.9 k/uL (1.3-7.7); Neutrophils % (A) 88 %; Platelet Count 237 k/uL (150-450); RBC 5.27 m/uL (4.30-5.90); RDW 13.5 % (11.5-15.5); WBC 11.2 k/uL (3.8-10.6)
[2019-10-18 08:51] LABS: ALT 56 U/L (21-72); AST 44 U/L (17-59); African American GFR (CKD) >90 (>60 ml/min/1.73 sqM); Albumin 4.4 g/dL (3.5-5.0); Alkaline Phosphatase 46 U/L (38-126); Anion Gap 9 mmol/L; Blood Urea Nitrogen 24 mg/dL (9-20); Calcium 9.5 mg/dL (8.4-10.2); Carbon Dioxide 27 mmol/L (22-30); Chloride 106 mmol/L (98-107); Glucose 112 mg/dL (74-99); Non-African American GFR(CKD) >90 (>60 ml/min/1.73 sqM); Potassium 4.1 mmol/L (3.5-5.1); Sodium 142 mmol/L (137-145); Total Bilirubin 0.9 mg/dL (0.2-1.3); Total Protein 7.3 g/dL (6.3-8.2)
[2019-10-18 08:53] LABS: Partial Thromboplastin Time 32.1 sec (22.0-30.0)
--- NOTE | 2019-10-18 08:58 | XR ---
EXAMINATION TYPE: XR chest 1V portable DATE OF EXAM: 10/18/2019 COMPARISON: Prior chest x-ray January 03, 2019. HISTORY: Altered mental status and weakness. TECHNIQUE: Single frontal view of the chest is obtained. FINDINGS: There is no focal air space opacity, pleural effusion, or pneumothorax seen. The cardiac silhouette size is stable and enlarged. Overlying sternal wires and mediastinal clips are redemonstr ated. The osseous structures are intact. IMPRESSION: Cardiomegaly without acute pulmonary process.
--- NOTE | 2019-10-18 09:05 | CT ---
EXAMINATION TYPE: CT brain wo con DATE OF EXAM: 10/18/2019 HISTORY: episode of confusion CT DLP: 1047.4 mGycm. Automated Exposure Control for Dose Reduction was Utilized. TECHNIQUE: CT scan of the head is performed without contrast. COMPARISON: CT brain January 30, 2018. FINDINGS: There is no acute intracranial hemorrhage or midline shift identified. There is diffuse v entricular and sulcal prominence consistent with diffuse age-related cerebral atrophy. There is low- attenuation in the periventricular white matter consistent with chronic small vessel ischemic change. There is no air-fluid level and visualized portion of left maxillary sinus. IMPRESSION: No acute intracranial hemorrhage or midline shift. There is mild diffuse age-related ce rebral atrophy and chronic small vessel ischemic change redemonstrated. New left acute maxillary sinu sitis.
[2019-10-18 09:59] VITALS: BP 129/98; PULSE 86; RESP 16
== END 2019-10-18 09:50 | disposition home or self-care (01) ==
LOC: EC 08:06
DX: R41.0 Disorientation, unspecified (principal); D72.829 Elevated white blood cell count, unspecified; J32.0 Chronic maxillary sinusitis; I48.91 Unspecified atrial fibrillation; E78.5 Hyperlipidemia, unspecified; I10 Essential (primary) hypertension; Z79.01 Long term (current) use of anticoagulants; Z79.51 Long term (current) use of inhaled steroids; Z79.52 Long term (current) use of systemic steroids; Z79.899 Other long term (current) drug therapy; Z95.2 Presence of prosthetic heart valve; Z98.890 Other specified postprocedural states; Z53.20 Procedure and treatment not carried out because of patient's decision for unspecified reasons
CPT/HCPCS: 36415; 70450; 71045; 80053; 84484; 85025; 85610; 85730; 93005; 99285

== ENCOUNTER → 2020-04-25 | Outpatient (CLI) | payer MEDICARE ==
[2020-04-25 18:10] LABS: African American GFR (CKD) 101.4 (60.0-200.0); Albumin 4.1 g/dL (3.80-4.90); Albumin/Globulin Ratio 2.05 (1.60-3.17); Anion Gap 6.3 mmol/L (4.00-12.00); BUN/Creat Ratio 23.33 Ratio (12.00-20.00); Calcium 9.4 mg/dL (8.7-10.3); Carbon Dioxide 29.7 mmol/L (21.6-31.8); Chol/HDL Ratio 2.76; Non-African American GFR(CKD) 87.5 (60.0-200.0); Potassium 4.1 mmol/L (3.5-5.5); Total Bilirubin 0.8 mg/dL (0.3-1.2); Total Protein 6.1 g/dL (6.2-8.2)
== END | disposition home or self-care (01) ==
LOC: LABWHC1 09:12
PROVIDERS: ATTEND Internal Medicine Interventional Cardiology
DX: E78.2 Mixed hyperlipidemia (principal)
CPT/HCPCS: 36415; 80053; 80061

== ENCOUNTER → 2020-10-02 | Outpatient (CLI) | payer MEDICARE ==
[2020-10-02 16:05] LABS: Albumin 4.3 g/dL (3.80-4.90); Albumin/Globulin Ratio 2.05 (1.60-3.17); Anion Gap 8.3 mmol/L (4.00-12.00); BUN/Creat Ratio 21.82 Ratio (12.00-20.00); Calcium 9.6 mg/dL (8.7-10.3); Carbon Dioxide 25.7 mmol/L (21.6-31.8); Chol/HDL Ratio 3.26; Globulin 2.1 g/dL (1.6-3.3); Non-African American GFR(CKD) 68.1 (60.0-200.0); Potassium 4.4 mmol/L (3.5-5.5); Total Bilirubin 0.8 mg/dL (0.2-1.2); Total Protein 6.4 g/dL (6.2-8.2)
== END | disposition home or self-care (01) ==
LOC: LABWHC1 07:59
PROVIDERS: ATTEND Internal Medicine Interventional Cardiology
DX: E78.2 Mixed hyperlipidemia (principal)
CPT/HCPCS: 36415; 80053; 80061

== ENCOUNTER → 2020-10-14 | Outpatient (CLI) | payer MEDICARE ==
[2020-10-14 08:25] LABS: African American GFR (CKD) >90 (>60 ml/min/1.73 sqM); Blood Urea Nitrogen 22 mg/dL (9-20); Non-African American GFR(CKD) 82 (>60 ml/min/1.73 sqM)
--- NOTE | 2020-10-14 10:44 | CT ---
EXAMINATION TYPE: CT angio chest DATE OF EXAM: 10/14/2020 COMPARISON: None HISTORY: Thoracic aortic aneurysm CT DLP: 1395.20 mGycm CONTRAST: CTA thoracic aorta with 3-D reconstruction is performed and without and with IV Contrast, patient inj ected with 100 ml mL of Isovue 370. Contrast CTA of the thoracic aorta was performed from the lung apex through the upper abdomen. 3D re construction imaging obtained at a separate workstation. CT Chest: THORACIC AORTA: Ascending thoracic aortic aneurysm measuring 6.2 cm AP dimension. No complicating fac tors are seen. Mild scattered atheromatous change noted. LUNGS: The lungs are clear and free of infiltrate or atelectasis. No pulmonary nodule or mass is det ected. No pleural effusion or CT evidence of interstitial lung disease. MEDIASTINUM: No evidence for mediastinal hematoma. The heart is enlarged. No evidence for mediast inal mass or adenopathy. HILAR STRUCTURES: No evidence for mass. No hilar adenopathy is appreciated. OTHER: No significant abnormality. IMPRESSION- Uncomplicated ascending thoracic aortic aneurysm as noted.
== END | disposition home or self-care (01) ==
LOC: RADCTMAIN 07:42
PROVIDERS: ATTEND Internal Medicine Interventional Cardiology
DX: I71.2 Thoracic aortic aneurysm, without rupture (principal)
CPT/HCPCS: 82565; 84520; 71275; 36415; Q9967

== ENCOUNTER → 2020-11-26 | Outpatient (CLI) | payer MEDICARE ==
--- NOTE | 2020-11-26 16:14 | PN ---
PROGRESS NOTE Rishi is 70, coming in for an annual check regarding obstructive sleep apnea. The patient's last evaluation was on 06/13/2019. Over the past year and a half, the patient was identified to have a thoracic aortic aneurysm. He was referred to Dr. Mehrdad Cole for a surgical evaluation. His aneurysm is apparently more than 5 cm in size. Note that the patient has undergone previous cardiac surgery, including an aortic valve replacement. The patient has a mechanical aortic valve. The patient has chronic atrial fibrillation, maintained on long-term anticoagulation with warfarin. I have treated him for obstructive sleep apnea, which was severe with an AHI of 47, and the patient has been extremely compliant with CPAP therapy over the years. He is currently on a CPAP pressure of 9 cm of water, which is the same pressure that he was on back in 2019. Based on compliancy data for 30 days, the patient has been averaging around 7.9 hours of CPAP use per night with a leak of 22 L/minute. His AHI is down to 3.2. He is still using the Brevida M-L size nasal mask. No nighttime chest pain or shortness of breath. He has some increased swelling in lower extremities. No nocturnal angina, palpitation, heartburn or shortness of breath. No aerophagia. Medications include warfarin, simvastatin 10 mg p.o. daily, hydrochlorothiazide 25 mg p.o. daily, lisinopril 10 mg p.o. daily, vitamin D3 2000 units daily, zinc, regular Tylenol on an as-needed basis, and warfarin dose being adjusted to maintain INR between 2 and 3. REVIEW OF SYSTEMS: Fourteen-point review of systems was done, and positive findings are all mentioned above in the history of present illness. PHYSICAL EXAMINATION: BP is 124/76, pulse 82, respirations 16, temperature 98.4, saturation 97% on room air. Height is 5 feet 9 inches. Weight is 267, BMI 39.4. GENERAL APPEARANCE: Calm, comfortable. HEAD: Atraumatic, normocephalic. NECK: Supple. No JVD. No goiter or neck masses. LUNGS: Clear to auscultation. HEART: Heart sounds are irregular. Positive S1, S2. There is an aortic valve click, which is a mechanical valve click, over the precordium. ABDOMEN: Soft, nontender. No organomegaly. EXTREMITIES: No edema. No cyanosis or clubbing. NEUROLOGIC: Awake and alert. There is no focal neurological deficit. IMPRESSION: 1. Obstructive sleep apnea, severe; AHI of 47, successfully treated with a CPAP pressure of 9. 2. Obesity. Weight is stable. 3. Chronic atrial fibrillation. 4. History of aortic valve replacement, mechanical valve. 5. Thoracic aortic aneurysm, under investigation. 6. Hypertension. 7. Hyperlipidemia. PLAN: 1. Continue CPAP therapy at the same level of pressure, which is 9 cm of water. 2. Refill the patient's Brevida M-L nasal mask. 3. Offer the patient a ClimateLine. 4. Gradually drop the humidity. Current humidity level is 6. 5. Follow up with Cardiology and Cardiothoracic Surgery. Will continue to follow. ALEXL / ABBEN: [id number] / PEDRO
== END | disposition home or self-care (01) ==
LOC: SLEEP 13:35
PROVIDERS: ATTEND Internal Medicine Critical Care Medicine
DX: G47.33 Obstructive sleep apnea (adult) (pediatric) (principal); E66.9 Obesity, unspecified; I48.20 Chronic atrial fibrillation, unspecified; I71.2 Thoracic aortic aneurysm, without rupture; I10 Essential (primary) hypertension; E78.5 Hyperlipidemia, unspecified; Z95.2 Presence of prosthetic heart valve; Z99.89 Dependence on other enabling machines and devices

== ENCOUNTER → 2020-12-09 | Outpatient (CLI) | payer MEDICARE ==
[2020-12-09 09:19] LABS: Basophils # (A) 0.1 k/uL (0-0.2); Basophils % (A) 1 %; Eosinophils # (A) 0.1 k/uL (0-0.7); Eosinophils % (A) 2 %; HCT 48.6 % (39.0-53.0); HGB 16.4 gm/dL (13.0-17.5); Lymphocytes # (A) 1.3 k/uL (1.0-4.8); Lymphocytes % (A) 28 %; MCH 30.3 pg (25.0-35.0); MCHC 33.7 g/dL (31.0-37.0); MCV 89.9 fL (80.0-100.0); Mean Platelet Volume 8.7; Monocytes # (A) 0.4 k/uL (0-1.0); Monocytes % (A) 8 %; Neutrophils # (A) 2.8 k/uL (1.3-7.7); Neutrophils % (A) 59 %; Platelet Count 221 k/uL (150-450); RBC 5.41 m/uL (4.30-5.90); RDW 13.5 % (11.5-15.5); WBC 4.7 k/uL (3.8-10.6)
[2020-12-09 09:24] LABS: INR 2.7 (<1.2); Partial Thromboplastin Time 32.6 sec (22.0-30.0); Prothrombin Time 25.7 sec (9.0-12.0)
[2020-12-09 09:29] LABS: Appearance,Urine Clear (Clear); Bilirubin,Urine Negative (Negative); Blood,Urine Negative (Negative); Color,Urine Yellow; Glucose,Urine (UA) Negative (Negative); Ketones,Urine Negative (Negative); Leukocyte Esterase,Urine Trace (Negative); Mucus,Urine Rare /hpf; Nitrite,Urine Negative (Negative); PH, Urine 5.5 (5.0-8.0); Protein,Urine Negative (Negative); RBC,Urine 1 /hpf (0-5); Specific Gravity,Urine 1.026 (1.001-1.035); Urobilinogen,Urine <2.0 mg/dL (<2.0); WBC,Urine 1 /hpf (0-5)
[2020-12-09 09:37] LABS: Magnesium 1.8 mg/dL (1.6-2.3)
== END | disposition home or self-care (01) ==
LOC: LABPAT 08:28
PROVIDERS: ATTEND Internal Medicine Interventional Cardiology
DX: Z01.818 Encounter for other preprocedural examination (principal); U07.1 COVID-19; I71.2 Thoracic aortic aneurysm, without rupture
CPT/HCPCS: 80051; 82565; 83735; 82947; 84520; 85025; 85610; 85730; 81001; 87086; 36415; U0003; C9803; U0005

== ENCOUNTER 2020-12-10 10:27 | Inpatient (IN) | payer MEDICARE ==
[2020-12-10] MEDS ORDERED: HEPARIN SODIUM,PORCINE 5,000 UNIT/ML 1 ML VIAL IV PRN (11:22)
[2020-12-10] MEDS ORDERED: ACETAMINOPHEN TAB 500 MG TAB PO PRN (11:32)
[2020-12-10 11:46] LABS: Basophils # (A) 0.1 k/uL (0-0.2); Basophils % (A) 1 %; Eosinophils # (A) 0.1 k/uL (0-0.7); Eosinophils % (A) 2 %; HCT 47.6 % (39.0-53.0); HGB 15.6 gm/dL (13.0-17.5); Lymphocytes % (A) 20 %; MCH 29.4 pg (25.0-35.0); MCHC 32.8 g/dL (31.0-37.0); MCV 89.6 fL (80.0-100.0); Mean Platelet Volume 8.5; Monocytes # (A) 0.4 k/uL (0-1.0); Monocytes % (A) 7 %; Neutrophils # (A) 3.5 k/uL (1.3-7.7); Neutrophils % (A) 68 %; Platelet Count 204 k/uL (150-450); RBC 5.31 m/uL (4.30-5.90); RDW 13.4 % (11.5-15.5); WBC 5.1 k/uL (3.8-10.6)
[2020-12-10 12:09] LABS: INR 2.1 (<1.2); Partial Thromboplastin Time 30.7 sec (22.0-30.0); Prothrombin Time 20.7 sec (9.0-12.0)
--- NOTE | 2020-12-10 14:27 | US ---
EXAMINATION TYPE: US carotid duplex BILAT DATE OF EXAM: 12/10/2020 COMPARISON: NONE CLINICAL HISTORY: pre open heart. Pre op cardiac surgery EXAM MEASUREMENTS: RIGHT: Peak Systolic Velocity (PSV) cm/sec ----- Right CCA: 70.3 ----- Right ICA: 82.1 ----- Right ECA: 88.2 ICA/CCA ratio: 1.2 RIGHT: End Diastole cm/sec ----- Right CCA: 25.1 ----- Right ICA: 25.7 ----- Right ECA: 28.5 LEFT: Peak Systolic Velocity (PSV) cm/sec ----- Left CCA: 63.7 ----- Left ICA: 60.6 ----- Left ECA: 77.8 ICA/CCA ratio: 1.0 LEFT: End Diastole cm/sec ----- Left CCA: 26.3 ----- Left ICA: 26.3 ----- Left ECA: 22.7 VERTEBRALS (direction of flow): Right Vertebral: Antegrade Left Vertebral: Antegrade Rhythm: Arrhythmia Bilateral intimal thickening, no elevated velocities, no significant stenosis. Grayscale, color Dopp ler, spectral Doppler imaging performed of the carotid arteries. Waveform analysis does not show sign ificant stenosis. IMPRESSION: No hemodynamic significant stenosis of the proximal internal carotid arteries, indirect measurement of carotid stenosis. Technologist reports cardiac arrhythmia. Criteria for Assigning % of Stenosis / Diameter reduction (Estimation based on the indirect measurements of the internal carotid artery velocities (ICA PSV). 1. Normal (no stenosis)=ICA PSV < 125 cm/s: ratio < 2.0: ICA EDV<40 cm/s. 2. Less than 50% stenosis=ICA PSV < 125 cm/s: ratio < 2.0: ICA EDV<40 cm/s. 3. 50 to 69% stenosis=ICA PSV of 125 to 230 cm/s: ration 2.0 ? 4.0: ICA EDV 40-100 cm/s. 4. Greater than 70% stenosis to near occlusion= ICA PSV > 230 cm/s: ratio > 4.0: ICA EDV > 100 cm/s. 5. Near occlusion= ICA PSV velocities may be low or undetectable: variable ratio and ICA EDV. 6. Total occlusion=unable to detect flow.
[2020-12-10] MEDS: HEPARIN SOD,PORK IN 0.45% NACL 25,000 UNIT in 0.45% NACL 1 250ML.BAG IV SCH (14:45)
[2020-12-10] MEDS: SODIUM CHLORIDE 0.9% 500 ML 500 ML IV SCH (14:49)
--- NOTE | 2020-12-10 15:02 | XR ---
EXAMINATION TYPE: XR chest 2V DATE OF EXAM: 12/10/2020 COMPARISON: Chest x-ray 10/18/2019 HISTORY: Preop cardiac surgery TECHNIQUE: Frontal and lateral views of the chest are obtained. FINDINGS: There is no focal air space opacity, pleural effusion, or pneumothorax seen. Patient is po st median sternotomy and there are overlying leads. Postop change noted the right shoulder. There is eventration of the right hemidiaphragm. Aorta appears tortuous and possibly ectatic.. Cardiac mediast inal silhouette is stable. The osseous structures are intact. IMPRESSION: Stable heart size. Aortic aneurysm.
--- NOTE | 2020-12-10 16:35 | P.GSHP ---
History of Present Illness H&P Date: 12/10/20 This is a 70-year-old active gentleman who follows on an outpatient basis with Dr. Guillaume Latham for primary care, Dr. Hillman for cardiology, and Dr. Vazquez for sleep apnea management. He has a history of bicuspid aortic valve with a #25 St. Gian mechanical aortic valve replacement in December 1994. He has been doing well ever since. He had a recent computed tomography scan of the chest which read as showing an ascending aortic aneurysm 62 mm in diameter by the radiologist's measurement. He was seen in consultation by Dr. Cole at the request of Dr. Hillman for ascending aorta replacement. He is being admitted for bridge from Coumadin to be placed on heparin because of his mechanical valve and chronic atrial fibrillation. He will need to have cardiac catheterization which has been scheduled for tomorrow morning to rule out any coronary artery disease that would require concomitant coronary bypass surgery. He may be considered for Viera maze procedure at the time of the ascending aortic root aneurysm repair if the cardiac adhesions do not preclude this. The usual perioperative course of open-heart surgery were discussed in detail with the patient and his fiance, including the possibility of needing concomitant bypass surgery or maze procedure with the primary focus on replacement of the ascending aorta, all risks and benefits were reviewed, all questions were answered and the patient did consent to surgery. - Review of Systems Comment: Review of systems was completed and was negative except as noted - Cardiovascular Cardiovascular: Reports dyspnea on exertion, Reports palpitations - Musculoskeletal Comment: Intermittent claudication Past Medical History Past Medical History: Atrial Fibrillation, Hyperlipidemia, Hypertension Additional Past Medical History / Comment(s): aortic insufficiency History of Any Multi-Drug Resistant Organisms: None Reported Past Surgical History: Cardiac Valve Replacement, Hernia Repair, Orthopedic S urgery, Tonsillectomy Additional Past Surgical History / Comment(s): #25 St. Gian mechanical aortic valve replacement December 1994,bilateral shoulder repair, cardioversion Past Anesthesia/Blood Transfusion Reactions: No Reported Reaction Past Psychological History: Anxiety Smoking Status: Never smoker Past Alcohol Use History: Rare Past Drug Use History: None Reported - Past Family History Father Family Medical History: Cancer Brother(s) Family Medical History: Cancer Additional Family Medical History / Comment(s): 1/2 BROTHER Medications and Allergies Home Medications Medication Instructions Recorded Confirmed Type Lisinopril [Prinivil] 10 mg PO DAILY 01/30/18 12/10/20 History Simvastatin [Zocor] 10 mg PO HS 01/30/18 12/10/20 History Warfarin Sodium 2.5 mg PO SUMOTUWETHFR@209901/30/18 12/10/20 History Warfarin Sodium [Coumadin] 5 mg PO SA@209901/30/18 12/10/20 History hydroCHLOROthiazide [Hydrodiuril] 50 mg PO DAILY 01/30/18 12/10/20 History Acetaminophen [Tylenol Extra 500 mg PO DAILY PRN 12/27/18 12/10/20 History Strength] Cholecalciferol [Vitamin D3 (25 25 mcg PO DAILY 12/10/20 12/10/20 History Mcg = 1000 Iu)] Multivit-Min/Folic/Vit K/Lycop 1 tab PO DAILY 12/10/20 12/10/20 History [Men's Multivitamin Tablet] Allergies Allergy/AdvReac Type Severity Reaction Status Date / Time No Known Allergies Allergy Verified 12/10/20 11:18 Surgical - Exam - General well developed, well nourished, no distress, no pain, obese - Eyes PERRL, normal ocular movement - ENT no hearing loss - Neck no masses, no bruits, trachea midline - Respiratory Lungs sounds clear bilaterally. Respirations even, nonlabored. Currently on room air with oxygen saturation 98%. Able to achieve 2500 mL on his incentive spirometry. No chest wall deformities. No clubbing or cyanosis present. - Cardiovascular S1, S2 present, positive valvular click. Irregular rate and rhythm, controlled atrial fibrillation on telemetry with heart rate in the 60s. Palpable peripheral pulses bilaterally. No edema present. No calf pain or tenderness noted. - Abdomen Abdomen: soft, non tender, bowel sounds - Genitourinary Deferred - Rectum Deferred - Integumentary Well-healed scar to anterior chest wall no rash, no growths - Neurologic normal coordination, normal sensation - Musculoskeletal normal gait, normal posture - Psychiatric oriented to time, oriented to person, oriented to place, speech is normal, memory intact Results - Labs 12/10/20 11:30 Abnormal Lab Results - Last 24 Hours (Table) 12/10/20 Range/Units 11:30 PT 20.7 H (9.0-12.0) sec INR 2.1 H (<1.2) APTT 30.7 H (22.0-30.0) sec - Imaging Chest x-ray: report reviewed, image reviewed Assessment and Plan Assessment: 1. Ascending aortic aneurysm, 62 mm per radiology read on CT, [address] Cole's read 2. History of bicuspid aortic valve with mechanical aortic valve replacement in December 1994 3. Chronic atrial fibrillation, currently on Coumadin for anticoagulation with previous cardioversion 4. History of hypertension 5. History of hyperlipidemia, treated, cholesterol 124, LDL 25 6. Obstructive sleep apnea with home CPAP use 7. Obesity 8. Never smoker with preoperative FEV1 91% of predicted Plan: 1. Our plan is for ascending aorta replacement secondary to aneurysm with possible modified Viera maze on , 12/12/[address] Cole. 2. The patient is to have a heart catheterization tomorrow morning with Dr. Hillman to evaluate for coronary artery disease requiring bypass on as well 3. The patient's Coumadin was stopped 12/07/2019, IV heparin to be started for bridging 4. Outstanding preoperative open heart testing was ordered 5. CPAP per pulmonology. Encourage incentive spirometry use 6. Increase activity, ambulate as tolerated 7. Continue current medication regimen 8. Management of other medical comorbidities primary care service 9. More recommendations to follow based on heart catheterization findings Time with Patient: Greater than 30
[2020-12-10] MEDS ORDERED: ALPRAZolam 0.5 MG TAB PO PRN (16:56)
[2020-12-10] MEDS ORDERED: NITROGLYCERIN SL TABS 0.4 MG TAB SUBLINGUAL PRN (16:56)
[2020-12-10] MEDS ORDERED: ALPRAZolam 0.25 MG TAB PO PRN (16:56)
[2020-12-10] MEDS: ASPIRIN 81 MG PO SCH (18:33)
[2020-12-10] MEDS: ATORVASTATIN 10 MG TAB PO SCH (20:39)
[2020-12-10 21:36] LABS: Hemoglobin A1C 5.6 % (4.0-6.0)
[2020-12-10 22:14] LABS: Hepatitis A Antibody IgM Non-Reactive (Non-Reactive); Hepatitis B Core IgM Non-Reactive (Non-Reactive); Hepatitis B Surface Antigen Non-Reactive (Non-Reactive); Hepatitis C IgG Antibody Non-Reactive (Non-Reactive)
[2020-12-11] MEDS ORDERED: ASPIRIN 325 MG TAB PO PRN (05:00)
[2020-12-11] MEDS ORDERED: SODIUM CHLORIDE 0.9% 1,000 ML in EMPTY BAG 1 BAG IV ONE (05:00)
[2020-12-11] MEDS ORDERED: ATORVASTATIN 80 MG TAB PO PRN (05:00)
[2020-12-11] MEDS: HEPARIN SOD,PORK IN 0.45% NACL 25,000 UNIT in 0.45% NACL 1 250ML.BAG IV SCH ×2 (05:00→13:28)
[2020-12-11] MEDS ORDERED: HEPARIN SODIUM,PORCINE 10,000 UNIT in SODIUM CHLORIDE 0.9% 1,000 ML IRRIGATION PRN (07:00)
[2020-12-11] MEDS ORDERED: HEPARIN SODIUM,PORCINE 2,500 UNIT in SODIUM CHLORIDE 0.9% 250 ML IRRIGATION PRN (07:00)
[2020-12-11 08:34] LABS: Basophils % (A) 1 %; Eosinophils # (A) 0.1 k/uL (0-0.7); Eosinophils % (A) 3 %; HCT 44.2 % (39.0-53.0); HGB 14.7 gm/dL (13.0-17.5); Lymphocytes % (A) 27 %; MCH 29.8 pg (25.0-35.0); MCHC 33.2 g/dL (31.0-37.0); MCV 89.7 fL (80.0-100.0); Mean Platelet Volume 9.2; Monocytes # (A) 0.3 k/uL (0-1.0); Monocytes % (A) 8 %; Neutrophils # (A) 2.3 k/uL (1.3-7.7); Neutrophils % (A) 60 %; Platelet Count 178 k/uL (150-450); RBC 4.92 m/uL (4.30-5.90); RDW 13.4 % (11.5-15.5); WBC 3.9 k/uL (3.8-10.6)
[2020-12-11] MEDS ORDERED: fentaNYL (PF) 50 MCG/ML 2 ML AMP ONE (08:52)
[2020-12-11] MEDS ORDERED: VERAPAMIL 2.5 MG/ML 2 ML AMP ONE (08:52)
[2020-12-11] MEDS ORDERED: LIDOCAINE 1% INJ 10MG/ML (20 ML MDV) ONE (08:52)
[2020-12-11] MEDS ORDERED: HEPARIN SODIUM 1,000 UN/ML (10ML VL) ONE (08:52)
[2020-12-11 08:55] LABS: INR 1.8 (<1.2); Prothrombin Time 17.8 sec (9.0-12.0)
[2020-12-11 08:58] LABS: Partial Thromboplastin Time 119.9 sec (22.0-30.0)
[2020-12-11] MEDS ORDERED: CHOLECALCIFEROL 25 MCG (1000 IU) TABLET PO SCH (09:00)
[2020-12-11] MEDS ORDERED: MULTIVITAMINS, THERA 1 EACH TAB PO SCH (09:00)
[2020-12-11] MEDS ORDERED: lisinopriL 10 MG TAB PO SCH (09:00)
[2020-12-11] MEDS ORDERED: IV FLUID CONTINUATION 1,000 ML IV ONE (09:00)
[2020-12-11 09:02] LABS: ALT 34 U/L (4-49); AST 35 U/L (17-59); African American GFR (CKD) >90 (>60 ml/min/1.73 sqM); Albumin 3.9 g/dL (3.5-5.0); Alkaline Phosphatase 35 U/L (38-126); Anion Gap 2 mmol/L; Blood Urea Nitrogen 17 mg/dL (9-20); Calcium 8.9 mg/dL (8.4-10.2); Carbon Dioxide 30 mmol/L (22-30); Chloride 108 mmol/L (98-107); Glucose 97 mg/dL (74-99); Non-African American GFR(CKD) 89 (>60 ml/min/1.73 sqM); Sodium 140 mmol/L (137-145); Total Bilirubin 0.8 mg/dL (0.2-1.3); Total Protein 6.6 g/dL (6.3-8.2)
[2020-12-11] MEDS ORDERED: fentaNYL (PF) 50 MCG/ML 2 ML AMP IV ONE (09:30)
[2020-12-11] MEDS ORDERED: LIDOCAINE 1% INJ 10MG/ML (20 ML MDV) SQ ONE (09:33)
[2020-12-11] MEDS ORDERED: VERAPAMIL SYRINGE (5 MG/10 ML) INTRAARTER ONE (09:35)
[2020-12-11] MEDS ORDERED: HEPARIN SODIUM 1,000 UN/ML (10ML VL) IV ONE (09:40)
[2020-12-11] MEDS ORDERED: IOPAMIDOL-370 125ML BTL INJ ONE (09:41)
[2020-12-11] MEDS ORDERED: RX INFO: IV CONTRAST WAS GIVEN 1 EACH MISC MISCELLANE PRN (10:01)
[2020-12-11] MEDS ORDERED: HEPARIN SODIUM,PORCINE 5,000 UNIT/ML 1 ML VIAL IV PRN (10:03)
--- NOTE | 2020-12-11 10:06 | P.PN ---
Subjective Progress Note Date: 12/11/20 On 12/11/2020 the patient is being seen in follow-up. He is very much, comfortable. Not having any chest pain. No respiratory distress. He underwent a cardiac catheterization and the coronaries came back within normal limits. He remains on IV heparin. Coumadin was discontinued. The PTT was elevated and the dose of IV heparin is being titrated and adjusted. Meanwhile, the patient has a spirometry that showed an FEV1 of 91% of predicted. The patient is using incentive spirometer and he is pulling up more than 2500 mL of air. He remains in atrial fibrillation. No other significant events otherwise for now. The tentative plan is to proceed with repair of a thoracic ascending aortic aneurysm by Dr. Mehrdad Cole in the morning. Objective - Vital Signs Vital signs: Vital Signs Temp 97.6 F 12/11/20 07:59 Pulse 97 12/11/20 07:59 Resp 18 12/11/20 07:59 BP 134/93 12/11/20 07:59 Pulse Ox 97 12/11/20 07:59 Intake & Output 12/10/20 12/11/20 12/11/20 18:59 06:59 18:59 Intake Total 600 250.000 75 Balance 600 250.000 75 Weight 118.1 kg 117.3 kg Intake: IV 75 Intake, IV Titration 250.000 Amount Heparin Sod,Pork in 0.45% 250.000 NaCl 25,000 unit In 0.45 % NaCl 1 250ml.bag @ 18 UNITS/KG/HR 21.258 mls/hr IV .[id number] [facility] Rx#: [id number] Oral 600 Other: Voiding Method Toilet Toilet # Voids 1 1 - Exam Gen. appearance, comfortable no acute distress Head exam was generally normal. There was no scleral icterus or corneal arcus. Mucous membranes were moist. Neck was supple and without jugular venous distension, thyromegaly, or carotid bruits. Carotids were easily palpable bilaterally. There was no adenopathy. Lungs were clear to auscultation and percussion, and with normal diaphragmatic excursion. No wheezes or rales were noted. Heart sounds are irregular and there is a positive mechanical valve click heard over the precordium Abdominal exam revealed normal bowel sounds. The abdomen was soft, non-tender, and without masses, organomegaly, or appreciable enlargement of the abdominal aorta. Examination of the extremities revealed easily palpable radial, femoral and pedal pulses. There was no cyanosis, clubbing or edema. Pulses in lower extremities are slightly diminished. Examination of the skin revealed no evidence of significant rashes, suspicious appearing nevi or other concerning lesions. Neurologically, the patient is awake and alert and the patient does not have any focal neurological deficit. Cranial nerves are essentially intact. - Labs CBC & Chem 7: 12/11/20 08:21 12/11/20 08:21 Labs: Abnormal Lab Results - Last 24 Hours (Table) 12/10/20 12/10/20 12/11/20 Range/Units 11:30 21:08 08:21 PT 20.7 H 17.8 H (9.0-12.0) sec INR 2.1 H 1.8 H (<1.2) APTT 30.7 H 177.9 H* 119.9 H* (22.0-30.0) sec Chloride (98-107) mmol/L Alkaline Phosphatase (38-126) U/L 12/11/20 Range/Units 08:21 PT (9.0-12.0) sec INR (<1.2) APTT (22.0-30.0) sec Chloride 108 H (98-107) mmol/L Alkaline Phosphatase 35 L (38-126) U/L Microbiology - Last 24 Hours (Table) 12/10/20 15:00 Nasal Screen MRSA/MSSA - Preliminary Nasopharyngeal Swab Assessment and Plan Plan: 1 ascending aortic aneurysm, 6.2 cm, being considered for elective aneurysmal repair by cardiothoracic surgery. The patient was admitted to the hospital accordingly. Cardiac catheterization was done and was within normal limits and the patient is tentatively scheduled to undergo his repair of an aortic aneurysm tomorrow at 7:30 AM. He remains off anticoagulation. He is on the on IV heparin. 2 history of bicuspid aortic valve post aortic valve replacement with a St. Gian mechanical valve 3 chronic atrial fibrillation maintained on long-term anticoagulation with warfarin 4 obstructive sleep apnea an AHI of 47 currently on CPAP 5 obesity with a BMI of 37.4 6 hypertension 7 hyperlipidemia Plan Carotid Dopplers with no significant stenosis. Cardiac catheterization showed normal coronaries Continued IV heparin overnight IV heparin bedside spirometry showed an FEV1 of 91% of predicted Continue using incentive spirometer We managed the ventilator. will continue to follow
[2020-12-11] MEDS: ASPIRIN 81 MG PO SCH (10:10)
[2020-12-11] MEDS: SODIUM CHLORIDE 0.9% 500 ML 500 ML IV SCH (10:10)
[2020-12-11] MEDS ORDERED: PHYTONADIONE 2 MG in SODIUM CHLORIDE 0.9% 50 ML IVPB STA (10:13)
[2020-12-11] MEDS ORDERED: SODIUM CHLORIDE 0.9% 1,000 ML IV SCH (10:15)
[2020-12-11] MEDS ORDERED: MD COMMUNICATION TO PHARMACY 1 EACH MISC PO ONE (10:28)
--- NOTE | 2020-12-11 10:38 | CC ---
CARDIAC CATHETERIZATION REPORT Mr. Luong is a 70-year-old male with known history of aortic valve disease, status post aortic valve replacement, history of hypertension, hyperlipidemia, and chronic persistent atrial fibrillation, who recently was noted progression of dilatation of the ascending aorta. He was evaluated by Dr. Cole and to undergo surgical repair. In view of that, recommendation was made regarding cardiac catheterization to evaluate his cardiac status prior to his upcoming surgery. Risks as well as the complications were discussed with the patient who is in full understanding and agreement. PROCEDURE: Patient was brought to medical lab technician in a fasting semi-sedated state after receiving fentanyl and Benadryl and achieving moderate conscious sedated state. Using Xylocaine anesthesia and Seldinger technique, a 6-St Lucian sheath was introduced in the right radial artery. Selective right and left coronary angiography performed using 5-St Lucian 4 bend right and left Lc catheters. Multiple views of the coronary artery including hemiaxial views were obtained. Following that, catheter and sheath were removed. Hemostasis was obtained with deployment of TR band. There was no immediate complication. The patient was returned to his room in stable condition. Of note, the patient received 5000 units of intravenous heparin as well as intra-arterial verapamil. FINDINGS: FLUOROSCOPY: Showed a normal functioning of a dual disc aortic valve. LEFT MAIN: This is a short size vessel, bifurcating into left circumflex, left anterior descending artery. Left main coronary artery has no evidence of high-grade stenosis. LEFT ANTERIOR DESCENDING ARTERY: This is a large-sized vessel reaching to the apex with a wraparound apex segment giving rise to a large proximal diagonal branch. The left anterior descending artery as well as branches have no evidence of obstructive coronary artery disease. LEFT CIRCUMFLEX: This is a nondominant vessel giving rise to two obtuse marginal branches. The left circumflex as well as branches have no evidence of obstructive coronary artery disease RIGHT CORONARY ARTERY: This is a large dominant vessel bifurcating distally PDA and posterolateral segment branches. The right coronary artery as well as branches have no evidence of obstructive coronary artery disease. There was calcification involving the inferior pericardium. CONCLUSION: 1. Normal coronary arteries. 2. Normal functioning of a prosthetic aortic valve. RECOMMENDATION: In view of finding anatomy, patient will proceed with his scheduled surgical intervention. The finding as well as recommendations were discussed with the patient and his family over the phone and they consented an agreement. Duration of the sedation is 11 minutes. MMODL / IJN: [id number] /
--- NOTE | 2020-12-11 11:08 | P.PN ---
Subjective Progress Note Date: 12/11/20 Principal diagnosis: Ascending aortic aneurysm. Previous medical history of bicuspid aortic valve with mechanical aortic valve replacement in December 1994, chronic atrial fibrillation, currently on Coumadin for anticoagulation with previous cardioversion, hypertension, hyperlipidemia, obstructive sleep apnea with home CPAP use, obesity, never smoker with preoperative FEV1 91% of predicted The patient is currently laying in bed in no acute distress having just returned from [employer]. Denies chest pain or shortness of breath. Remains in controlled atrial fibrillation and hemodynamically stable. Heart catheterization revealed normal coronary arteries. Patient has no new questions at this time. Objective - Vital Signs Vital signs: Vital Signs Temp 97.6 F 12/11/20 07:59 Pulse 62 12/11/20 10:46 Resp 18 12/11/20 10:01 BP 114/81 12/11/20 10:46 Pulse Ox 94 L 12/11/20 10:46 Intake & Output 12/10/20 12/11/20 12/11/20 18:59 06:59 18:59 Intake Total 600 250.000 75 Balance 600 250.000 75 Weight 118.1 kg 117.3 kg Intake: IV 75 Intake, IV Titration 250.000 Amount Heparin Sod,Pork in 0.45% 250.000 NaCl 25,000 unit In 0.45 % NaCl 1 250ml.bag @ 18 UNITS/KG/HR 21.258 mls/hr IV .[id number] [facility] Rx#: [id number] Oral 600 Other: Voiding Method Toilet Toilet # Voids 1 1 - Constitutional General appearance: Present: cooperative, no acute distress, obese - Respiratory Details: Lungs sounds clear bilaterally. Respirations even, nonlabored. Currently on room air with oxygen saturation 98%. Able to achieve 2750 mL on his incentive spirometry. - Cardiovascular Details: S1, S2 present, positive valvular click. Irregular rate and rhythm, controlled atrial fibrillation on telemetry with heart rate in the 60s. Palpable peripheral pulses bilaterally. No edema present. No calf pain or tenderness noted. - Gastrointestinal Gastrointestinal Comment(s): Abdomen soft, nontender, nondistended. Active bowel sounds x 4 quadrants. Tolerating oral intake - Genitourinary Genitourinary Comment(s): Continues to void - Integumentary Integumentary Comment(s): Skin is warm and dry. Well-healed scar to anterior chest wall. - Neurologic Neurologic: Present: CNII-XII intact - Musculoskeletal Musculoskeletal: Present: strength equal bilaterally - Psychiatric Psychiatric: Present: A&O x's 3, appropriate affect, intact judgment & insight - Allied health notes Allied health notes reviewed: nursing - Labs CBC & Chem 7: 12/11/20 08:21 12/11/20 08:21 Labs: Abnormal Lab Results - Last 24 Hours (Table) 12/09/20 12/10/20 12/10/20 Range/Units 08:35 11:30 21:08 PT 20.7 H (9.0-12.0) sec INR 2.1 H (<1.2) APTT 30.7 H 177.9 H* (22.0-30.0) sec Chloride (98-107) mmol/L Alkaline Phosphatase (38-126) U/L Crossmatch See Detail 12/11/20 12/11/20 Range/Units 08:21 08:21 PT 17.8 H (9.0-12.0) sec INR 1.8 H (<1.2) APTT 119.9 H* (22.0-30.0) sec Chloride 108 H (98-107) mmol/L Alkaline Phosphatase 35 L (38-126) U/L Crossmatch Microbiology - Last 24 Hours (Table) 12/10/20 15:00 Nasal Screen MRSA/MSSA - Preliminary Nasopharyngeal Swab - Imaging and Cardiology Chest x-ray: report reviewed, image reviewed heart cath film reviewed Assessment and Plan Assessment: 1. Ascending aortic aneurysm, 62 mm per radiology read on CT, [address] Cole's read 2. History of bicuspid aortic valve with mechanical aortic valve replacement in December 1994 3. Chronic atrial fibrillation, currently on Coumadin for anticoagulation with previous cardioversion 4. History of hypertension 5. History of hyperlipidemia, treated, cholesterol 124, LDL 25 6. Obstructive sleep apnea with home CPAP use 7. Obesity 8. Never smoker with preoperative FEV1 91% of predicted 9. Normal coronaries Plan: 1. Our plan is for ascending aorta replacement secondary to aneurysm with possible modified Viera maze on , 12/12/[address] Cole. 2. NPO after midnight 3. The patient's Coumadin was stopped 12/07/2019, IV heparin to be restarted when OK with Dr. Hillman. Stop heparin at 04:00 12/12/20. 4. INR 1.8. Will give 2 mg IV vitamin K. Will redraw PT/INR tonight at 18:00 and results to be called to Dr. Cole 5. CPAP per pulmonology. Encourage incentive spirometry use 6. Increase activity, ambulate as tolerated 7. Continue current medication regimen. Beta jerrell to be added if no contraindication-will speak to cardiology 8. Management of other medical comorbidities primary care service 9. More recommendations to follow based on heart catheterization findings Time with Patient: Greater than 30
--- NOTE | 2020-12-11 12:50 | P.CRDCN ---
History of Present Illness Consult date: 12/11/20 History of present illness: CHIEF COMPLAINT: Heart cath HISTORY OF PRESENT ILLNESS: This is a 70-year-old male with a past medical history significant for atrial fibrillation, hyperlipidemia, hypertension, and mechanical aortic valve replacement in 1994. Patient follows in the office with Dr. Hillman. We have been asked to see the patient in consultation for cardiac cath. Patient had a recent CTA revealing ascending aortic aneurysm measuring 6.2 cm. Patient is scheduled for ascending aorta replacement with possible [place] procedure tomorrow with Dr. Cole. DIAGNOSTICS: Telemetry reveals atrial fibrillation with controlled ventricular rate Chest xray stable heart size. Aortic aneurysm. Laboratory data: WBC 3.9. Hemoglobin 14.7. Platelet count 178. INR 1.8. Sodium 140. Potassium 4.0. BUN 17. Creatinine 0.85. Current home cardiac medications include hydrochlorothiazide 50 mg daily, Coumadin 5 mg Wednesday and 2.5 mg the remaining days, Zocor 10 mg daily, lisinopril 10 mg daily REVIEW OF SYSTEMS: At the time of my exam: CONSTITUTIONAL: Denies fever or chills. HEENT: Denies blurred vision, vision changes, or eye pain. Denies hemoptysis CARDIOVASCULAR: Denies chest pain, orthopnea, PND or palpitations RESPIRATORY: No shortness of breath. GASTROINTESTINAL: Denies abdominal pain. Denies nausea or vomiting. HEMATOLOGIC: Denies bleeding disorders. GENITOURINARY: Denies any blood in urine. SKIN: Denies pruitis. Denies rash. PHYSICAL EXAM: VITAL SIGNS: Reviewed. GENERAL: Well-developed in no acute distress. HEENT: Head is normocephalic. Pupils are equal, round. Sclerae anicteric. Mucous membranes of the mouth are moist. Neck supple. No JVD or thyromegaly LUNGS: Respirations even and unlabored. Lungs essentially clear to auscultation bilaterally. HEART: Irregular rate and rhythm. S1 and S2 heard. ABDOMEN: Soft. Nondistended. Nontender. EXTREMITIES: Normal range of motion. No clubbing or cyanosis. Peripheral pulses intact. No lower extremity edema NEUROLOGIC: Awake and alert. Oriented x 3. ASSESSMENT: Ascending aortic aneurysm measuring 6.2 cm Chronic persistent atrial fibrillation, on anticoagulation with Coumadin History of mechanical aortic valve replacement, 1994 Hypertension Hyperlipidemia Obstructive sleep apnea PLAN: Patient to undergo cardiac cath today with Dr. Hillman He is scheduled for surgery tomorrow with Dr. Cole Nurse practitioner note has been reviewed by physician. Signing provider agrees with the documented findings, assessment, and plan of care. Past Medical History Past Medical History: Atrial Fibrillation, Hyperlipidemia, Hypertension Additional Past Medical History / Comment(s): aortic insufficiency History of Any Multi-Drug Resistant Organisms: None Reported Past Surgical History: Cardiac Valve Replacement, Hernia Repair, Orthopedic Surgery, Tonsillectomy Additional Past Surgical History / Comment(s): #25 [facility] mechanical aortic valve replacement December 1994,bilateral shoulder repair, cardioversion Past Anesthesia/Blood Transfusion Reactions: No Reported Reaction Past Psychological History: Anxiety Smoking Status: Never smoker Past Alcohol Use History: Rare Past Drug Use History: None Reported - Past Family History Father Family Medical History: Cancer Brother(s) Family Medical History: Cancer Additional Family Medical History / Comment(s): 1/2 BROTHER Medications and Allergies Home Medications Medication Instructions Recorded Confirmed Type Lisinopril [Prinivil] 10 mg PO DAILY 01/30/18 12/10/20 History Simvastatin [Zocor] 10 mg PO HS 01/30/18 12/10/20 History Warfarin Sodium 2.5 mg PO SUMOTUWETHFR@209901/30/18 12/10/20 History Warfarin Sodium [Coumadin] 5 mg PO SA@2100 01/30/18 12/10/20 History hydroCHLOROthiazide [Hydrodiuril] 50 mg PO DAILY 01/30/18 12/10/20 History Acetaminophen [Tylenol Extra 500 mg PO DAILY PRN 12/27/18 12/10/20 History Strength] Cholecalciferol [Vitamin D3 (25 25 mcg PO DAILY 12/10/20 12/10/20 History Mcg = 1000 Iu)] Multivit-Min/Folic/Vit K/Lycop 1 tab PO DAILY 12/10/20 12/10/20 History [Men's Multivitamin Tablet] Allergies Allergy/AdvReac Type Severity Reaction Status Date / Time No Known Allergies Allergy Verified 12/10/20 11:18 Physical Exam Vitals: Vital Signs Temp Pulse Pulse Resp BP Pulse Ox 12/11/20 12:01 55 L 113/81 96 12/11/20 11:46 57 L 117/81 97 12/11/20 11:30 98.1 F 73 114/81 95 12/11/20 11:16 64 116/79 97 12/11/20 11:13 97.5 F L 70 16 116/79 97 12/11/20 11:00 61 115/71 97 12/11/20 10:46 62 114/81 94 L 12/11/20 10:31 72 132/79 96 12/11/20 10:16 55 L 131/86 98 12/11/20 10:01 64 18 123/73 12/11/20 07:59 97.6 F 97 18 134/93 97 12/11/20 04:00 97.6 F 77 16 115/78 98 12/11/20 01:43 61 16 12/11/20 00:00 97.8 F 61 16 112/74 99 12/10/20 20:43 97.2 F L 60 17 116/81 96 12/10/20 20:00 60 17 12/10/20 14:00 78 18 Intake and Output 12/10/20 12/11/20 12/11/20 22:59 06:59 14:59 Intake Total 169.001 80.999 75 Balance 169.001 80.999 75 Intake: IV 75 Intake, IV Titration 169.001 80.999 Amount Heparin Sod,Pork in 0.45% 169.001 80.999 NaCl 25,000 unit In 0.45 % NaCl 1 250ml.bag @ 18 UNITS/KG/HR 21.258 mls/hr IV .[id number] REPLACED BY [facility] Rx#: [id number] Other: Voiding Method Toilet # Voids 1 1 Weight 117.3 kg Results 12/11/20 08:21 12/11/20 08:21 Cardiac Enzymes 12/11/20 Range/Units 08:21 AST 35 (17-59) U/L Coagulation 12/10/20 12/11/20 Range/Units 21:08 08:21 PT 17.8 H (9.0-12.0) sec APTT 177.9 H* 119.9 H* (22.0-30.0) sec CBC 12/11/20 Range/Units 08:21 WBC 3.9 (3.8-10.6) k/uL RBC 4.92 (4.30-5.90) m/uL Hgb 14.7 (13.0-17.5) gm/dL Hct 44.2 (39.0-53.0) % Plt Count 178 (150-450) k/uL Comprehensive Metabolic Panel 12/11/20 Range/Units 08:21 Sodium 140 (137-145) mmol/L Potassium 4.0 (3.5-5.1) mmol/L Chloride 108 H (98-107) mmol/L Carbon Dioxide 30 (22-30) mmol/L BUN 17 (9-20) mg/dL Creatinine 0.85 (0.66-1.25) mg/dL Glucose 97 (74-99) mg/dL Calcium 8.9 (8.4-10.2) mg/dL AST 35 (17-59) U/L ALT 34 (4-49) U/L Alkaline Phosphatase 35 L (38-126) U/L Total Protein 6.6 (6.3-8.2) g/dL Albumin 3.9 (3.5-5.0) g/dL Current Medications Generic Name Dose Route Start Last Admin Trade Name Freq PRN Reason Stop Dose Admin Acetaminophen 500 mg 12/10/20 11:32 12/10/20 18:33 Acetaminophen Tab 500 Mg Tab PO 500 mg Q6HR PRN Administration Pain Alprazolam 0.25 mg 12/10/20 16:56 Alprazolam 0.25 Mg Tab PO Q6HR PRN Mild Anxiety Alprazolam 0.5 mg 12/10/20 16:56 12/10/20 23:49 Alprazolam 0.5 Mg Tab PO 0.5 mg Q6HR PRN Administration Moderate Anxiety Aspirin 81 mg 12/10/20 16:30 12/11/20 10:10 Aspirin 81 Mg PO Not Given DAILY CHAO Aspirin 325 mg 12/11/20 05:00 12/11/20 08:46 Aspirin 325 Mg Tab PO 325 mg ONCE PRN Administration CVL Aspirin 81 mg 12/12/20 05:00 Aspirin 81 Mg PO 12/12/20 05:01 ONCE ONE Atorvastatin Calcium 10 mg 12/10/20 21:00 12/10/20 20:39 Atorvastatin 10 Mg Tab PO 10 mg HS CHAO Administration Atorvastatin Calcium 80 mg 12/11/20 05:00 Atorvastatin 80 Mg Tab PO ONCE PRN CVL Atorvastatin Calcium 10 mg 12/12/20 05:00 Atorvastatin 10 Mg Tab PO 12/12/20 05:01 ONCE ONE Calcium Chloride 1,000 mg 12/12/20 05:00 Calcium Chloride 100 Mg/Ml 10 Ml Syringe IVP 12/12/20 05:01 ONCE ONE Chlorhexidine Gluconate 15 ml 12/12/20 05:00 Chlorhexidine Gluconate 15 Ml Cup MUCOUS MEM 12/12/20 05:01 ONCE ONE Cholecalciferol 25 mcg 12/11/20 09:00 Cholecalciferol 25 Mcg (1000 Iu) Tablet PO DAILY CHAO Heparin Sodium (Porcine) 0 unit 12/11/20 10:03 Heparin Sodium,Porcine 5,000 Unit/Ml 1 Ml Vial IV PER PROTOCOL PRN Low PTT Protocol Heparin Sodium (Porcine) 10,000 unit 12/12/20 05:00 Heparin Sodium 1,000 Un/Ml (10ml Vl) IV 12/12/20 05:01 ONCE ONE Heparin Sodium (Porcine) 30,000 unit 12/12/20 05:00 Heparin Sodium,Porcine 30 Ml 1,000 Unit/Ml Vial IV 12/12/20 05:01 ONCE ONE Heparin Sodium (Porcine) 30,000 unit 12/12/20 05:00 Heparin Sodium,Porcine 30 Ml 1,000 Unit/Ml Vial IV 12/12/20 05:01 ONCE ONE Heparin Sodium (Porcine) 30,000 unit 12/12/20 05:00 Heparin Sodium,Porcine 30 Ml 1,000 Unit/Ml Vial IV 12/12/20 05:01 ONCE ONE Sodium Chloride 500 mls @ 20 mls/hr 12/10/20 11:45 12/11/20 10:10 Saline 0.9% IV Not Given .Q24H CHAO Sodium Chloride 1,000 ml/ IV 1,000 mls @ 118.1 mls/hr 12/11/20 05:00 12/11/20 05:02 Solution IV 12/11/20 13:28 118.1 mls/hr .Q8H29M ONE Administration 1 ML/KG/HR Heparin Sodium (Porcine) 10, 1,001 mls @ 999 mls/hr 12/11/20 07:00 000 unit/ Sodium Chloride IRRIGATION 12/11/20 23:00 ONCE PRN INTRA-OP Heparin Sodium (Porcine) 2,500 250.5 mls @ 250 mls/hr 12/11/20 07:00 unit/ Sodium Chloride IRRIGATION 12/11/20 23:00 ONCE PRN INTRA-OP Sodium Chloride 1,000 mls @ 75 mls/hr 12/11/20 10:15 12/11/20 10:10 Saline 0.9% IV 12/11/20 13:34 75 mls/hr .[id number] CHAO Administration Heparin Sodium/Sodium Chloride 250 mls @ 10 mls/hr 12/11/20 12:15 25,000 unit/ Sodium Chloride IV .Q24H [facility]AO Protocol 8.525 UNITS/KG/HR Heparin Sodium (Porcine) 5,000 501 mls @ 0 mls/hr 12/12/20 05:00 unit/ Sodium Chloride IV 12/12/20 05:01 ONCE ONE As Directed Protamine Sulfate 250 mg/ IV 25 mls @ 0 mls/hr 12/12/20 05:00 Solution IV 12/12/20 05:01 ONCE ONE As Directed Nitroglycerin/Dextrose 50 mg/ 250 mls @ 1.5 mls/hr 12/12/20 05:00 IV Solution IV .Q24H [facility]AO Protocol 5 MCG/MIN Albumin Human 50 ml/ IV 50 mls @ 100 mls/hr 12/12/20 05:00 Solution IVPB 12/12/20 05:29 ONCE ONE Albumin Human 50 ml/ IV 50 mls @ 100 mls/hr 12/12/20 05:00 Solution IVPB 12/12/20 05:29 ONCE ONE Clevidipine 25 mg/ IV Solution 50 mls @ 2 mls/hr 12/12/20 05:00 IV .Q24H [facility]AO Protocol 1 MG/HR Phenylephrine HCl 40 mg/ 254 mls @ 0 mls/hr 12/12/20 05:00 Sodium Chloride IV 12/12/20 05:01 .Q0M ONE Protocol Per Protocol Albumin Human 500 ml/ IV 500 mls @ 250 mls/hr 12/12/20 05:00 Solution IVPB 12/12/20 06:59 ONCE ONE Albumin Human 500 ml/ IV 500 mls @ 250 mls/hr 12/12/20 05:00 Solution IVPB 12/12/20 06:59 ONCE ONE Albumin Human 500 ml/ IV 500 mls @ 250 mls/hr 12/12/20 05:00 Solution IVPB 12/12/20 06:59 ONCE ONE Albumin Human 500 ml/ IV 500 mls @ 250 mls/hr 12/12/20 05:00 Solution IVPB 12/12/20 06:59 ONCE ONE Albumin Human 500 ml/ IV 500 mls @ 250 mls/hr 12/12/20 05:00 Solution IVPB 12/12/20 06:59 ONCE ONE Albumin Human 500 ml/ IV 500 mls @ 250 mls/hr 12/12/20 05:00 Solution IVPB 12/12/20 06:59 ONCE ONE Norepinephrine Bitartrate 4 mg 254 mls @ 0 mls/hr 12/12/20 05:00 / Sodium Chloride IV .Q0M [facility]AO Titrate Propofol 1,000 mg/ IV Solution 100 mls @ 0 mls/hr 12/12/20 05:00 IV .Q0M PRN Per Protocol Protocol Titrate Lactated Ringer's 1,000 mls @ 10 mls/hr 12/12/20 05:00 Lactated Ringers IV .Q24H [facility]AO Cefazolin Sodium 2 gm/ Sodium 50 mls @ 100 mls/hr 12/12/20 05:00 Chloride IVPB 12/12/20 05:29 ONCE ONE Cefazolin Sodium 1,000 mg/ 1,000 mls @ 999 mls/hr 12/12/20 05:00 Sodium Chloride IRRIGATION 12/12/20 06:00 ONCE ONE Cefazolin Sodium 2 gm/ Sodium 50 mls @ 100 mls/hr 12/12/20 05:00 Chloride IVPB 12/12/20 05:29 ONCE ONE Sodium Bicarbonate 20 ml/ 1,033.5 mls @ 0 mls/hr 12/12/20 05:00 Lidocaine HCl 270 mg/ Plegisol PERFUSION Cardioplegic Solution .Q0M NR Protocol Per Protocol Tranexamic Acid 2,000 mg/ 200 mls @ 0 mls/hr 12/12/20 05:00 Sodium Chloride IV 12/12/20 05:01 .Q0M ONE Protocol Per Protocol Insulin Human Regular 100 unit 100 mls @ 0 mls/hr 12/12/20 05:00 / Sodium Chloride IV .Q0M [facility]AO Protocol Titrate Magnesium Sulfate 16.24 meq 12/12/20 05:00 Magnesium Sulfate Syg 4.06 Meq/Ml Syringe IV 12/12/20 05:01 ONCE ONE Mannitol 12.5 gm 12/12/20 05:00 Mannitol 25% 12.5 Gm/50 Ml Vial IV 12/12/20 05:01 ONCE ONE Mannitol 12.5 gm 12/12/20 05:00 Mannitol 25% 12.5 Gm/50 Ml Vial IV 12/12/20 05:01 ONCE ONE Metoprolol Tartrate 12.5 mg 12/12/20 05:00 Metoprolol Tartrate 12.5 Mg Tab PO 12/12/20 05:01 ONCE ONE Metoprolol Tartrate 12.5 mg 12/11/20 21:00 Metoprolol Tartrate 12.5 Mg Tab PO BID REPLACED BY [facility] Miscellaneous Information 1 each 12/11/20 10:01 Rx Info: Iv Contrast Was Given 1 Each Misc MISCELLANE 12/13/20 10:01 DAILY PRN Per Protocol Multivitamins 1 each 12/11/20 09:00 Multivitamins, Thera 1 Each Tab PO DAILY REPLACED BY [facility] Nitroglycerin 0.4 mg 12/10/20 16:56 Nitroglycerin Sl Tabs 0.4 Mg Tab SUBLINGUAL Q5M PRN Chest Pain Nitroglycerin/Dextrose 1 mg 12/12/20 05:00 Nitroglycerin-D5w Pmx 25 Mg/250 Ml Btl IV 12/12/20 05:01 ONCE ONE Phenylephrine HCl 0 mg 12/12/20 05:00 Phenylephrine 10 Mg/Ml Vial IV 12/12/20 05:01 ONCE ONE Protamine Sulfate 250 mg 12/12/20 05:00 Protamine Sulfate 10 Mg/Ml 25 Ml Vial IV 12/12/20 05:01 ONCE ONE Sodium Bicarbonate 50 ml 12/12/20 05:00 Sodium Bicarb 8.4% 50 Ml Syr (1 Meq/Ml) IV 12/12/20 05:01 ONCE ONE Intake and Output 12/10/20 12/11/20 12/11/20 22:59 06:59 14:59 Intake Total 169.001 80.999 75 Balance 169.001 80.999 75 Intake: IV 75 Intake, IV Titration 169.001 80.999 Amount Heparin Sod,Pork in 0.45% 169.001 80.999 NaCl 25,000 unit In 0.45 % NaCl 1 250ml.bag @ 18 UNITS/KG/HR 21.258 mls/hr IV .[id number] REPLACED BY [facility] Rx#: [id number] Other: Voiding Method Toilet # Voids 1 1 Weight 117.3 kg 12/11/20 08:21 12/11/20 08:21
[2020-12-11 17:34] LABS: INR 1.6 (<1.2); Partial Thromboplastin Time 47.9 sec (22.0-30.0); Prothrombin Time 15.9 sec (9.0-12.0)
[2020-12-11] MEDS ORDERED: PHYTONADIONE 1 MG in SODIUM CHLORIDE 0.9% 50 ML IVPB STA (17:58)
--- NOTE | 2020-12-11 18:51 | P.CONS ---
History of Present Illness - Reason for Consult Consult date: 12/11/20 Medical management Requesting physician: Mehrdad Cole - Chief Complaint Ascending aorta aneurysm - History of Present Illness Consultation: This is a pleasant 70-year-old patient of Dr. Guillaume Latham. Chronic stable medical conditions include atrial fibrillation, hypertension, hyperlipidemia, [facility] mechanical aortic valve replacement in December 1994. Patient was admitted yesterday, to be bridged to from warfarin to heparin, with a view to cardiothoracic surgery. This morning patient underwent a cardiac catheterization that showed normal coronaries. Currently laying in bed. No chest pain or shortness of breath. No fever no chills. Review of systems: GEN.: EYES: None HEENT: None NECK: None RESPIRATORY: None CARDIOVASCULAR: None GASTROINTESTINAL: None GENITOURINARY: None MUSCULOSKELETAL: None LYMPHATICS: None HEMATOLOGICAL: None PSYCHIATRY: None NEUROLOGICAL: None Past medical history to include: Atrial fibrillation, hypertension, hyperlipidemia, [facility] mechanical aortic valve replacement in December 1994. Social history: No history of smoking. Alcohol rarely. Physical examination: VITAL SIGNS: 97.5, 70, 16, 116/79, 97% on room air GENERAL: [BMI 37.1, laying in bed, awake. EYES: Pupils equal. Conjunctiva normal. HEENT: External appearance of nose and ears normal, oral cavity grossly normal. NECK: JVD not raised; masses not palpable. HEART: Irregular; no edema. LUNGS: Respiratory rate normal; clear to auscultation. ABDOMEN: Soft, nontender, liver spleen not palpable, no masses palpable. PSYCH: Alert and oriented x3; mood and affect normal. NEUROLOGICAL: Cranial nerves grossly intact; no facial asymmetry, power and sensation grossly intact. LYMPHATICS: No lymph nodes palpable in the axilla and neck INVESTIGATIONS, reviewed in the clinical context: White count 3.9 hemoglobin 14.7 platelets 178 INR 1.8 potassium 4 creatinine 0.85 Chest x-ray film personally reviewed by me-some cardiomegaly Carotid Doppler-no significant stenosis Assessment: -Persistent atrial fibrillation chronically on Coumadin -Essential hypertension -Hyperlipidemia -IV heparin monitoring -History of mechanical aortic valve, -Ascending aortic aneurysm 62 mm pending surgery -Patient is medically stable to proceed for surgery. -Cardiac catheterization-normal coronaries Plan: Home medications resumed. Coumadin has been held. Patient put on IV heparin. scheduled for surgery. Care is discussed with the patient. Thank you Dr. Cole Past Medical History Past Medical History: Atrial Fibrillation, Hyperlipidemia, Hypertension Additional Past Medical History / Comment(s): aortic insufficiency History of Any Multi-Drug Resistant Organisms: None Reported Past Surgical History: Cardiac Valve Replacement, Hernia Repair, Orthopedic Surgery, Tonsillectomy Additional Past Surgical History / Comment(s): #25 [facility] mechanical aortic valve replacement December 1994,bilateral shoulder repair, cardioversion Past Anesthesia/Blood Transfusion Reactions: No Reported Reaction Past Psychological History: Anxiety Smoking Status: Never smoker Past Alcohol Use History: Rare Past Drug Use History: None Reported - Past Family History Father Family Medical History: Cancer Brother(s) Family Medical History: Cancer Additional Family Medical History / Comment(s): 1/2 BROTHER Medications and Allergies Home Medications Medication Instructions Recorded Confirmed Type Lisinopril [Prinivil] 10 mg PO DAILY 01/30/18 12/10/20 History Simvastatin [Zocor] 10 mg PO HS 01/30/18 12/10/20 History Warfarin Sodium 2.5 mg PO SUMOTUWETHFR@209901/30/18 12/10/20 History Warfarin Sodium [Coumadin] 5 mg PO SA@2100 01/30/18 12/10/20 History hydroCHLOROthiazide [Hydrodiuril] 50 mg PO DAILY 01/30/18 12/10/20 History Acetaminophen [Tylenol Extra 500 mg PO DAILY PRN 12/27/18 12/10/20 History Strength] Cholecalciferol [Vitamin D3 (25 25 mcg PO DAILY 12/10/20 12/10/20 History Mcg = 1000 Iu)] Multivit-Min/Folic/Vit K/Lycop 1 tab PO DAILY 12/10/20 12/10/20 History [Men's Multivitamin Tablet] Allergies Allergy/AdvReac Type Severity Reaction Status Date / Time No Known Allergies Allergy Verified 12/10/20 11:18 Physical Exam Vitals: Vital Signs Temp Pulse Resp BP Pulse Ox 12/11/20 07:59 97.6 F 97 18 134/93 97 12/11/20 04:00 97.6 F 77 16 115/78 98 12/11/20 01:43 61 16 12/11/20 00:00 97.8 F 61 16 112/74 99 12/10/20 20:43 97.2 F L 60 17 116/81 96 12/10/20 20:00 60 17 12/10/20 14:00 78 18 12/10/20 10:36 98.1 F 78 18 119/82 98 Intake and Output 12/10/20 12/11/20 12/11/20 22:59 06:59 14:59 Intake Total 169.001 80.999 Balance 169.001 80.999 Intake: Intake, IV Titration 169.001 80.999 Amount Heparin Sod,Pork in 0.45% 169.001 80.999 NaCl 25,000 unit In 0.45 % NaCl 1 250ml.bag @ 18 UNITS/KG/HR 21.258 mls/hr IV .[id number] COUNTS INCLUDE 234 BEDS AT THE [facility] Rx#: [id number] Other: Voiding Method Toilet # Voids 1 1 Weight 117.3 kg Results CBC & Chem 7: 12/11/20 08:21 12/11/20 08:21 Labs: Abnormal Lab Results - Last 24 Hours (Table) 12/10/20 12/10/20 12/11/20 Range/Units 11:30 21:08 08:21 PT 20.7 H 17.8 H (9.0-12.0) sec INR 2.1 H 1.8 H (<1.2) APTT 30.7 H 177.9 H* 119.9 H* (22.0-30.0) sec Chloride (98-107) mmol/L Alkaline Phosphatase (38-126) U/L 12/11/20 Range/Units 08:21 PT (9.0-12.0) sec INR (<1.2) APTT (22.0-30.0) sec Chloride 108 H (98-107) mmol/L Alkaline Phosphatase 35 L (38-126) U/L Microbiology - Last 24 Hours (Table) 12/10/20 15:00 Nasal Screen MRSA/MSSA - Preliminary Nasopharyngeal Swab
[2020-12-11] MEDS: ATORVASTATIN 10 MG TAB PO SCH (20:55)
[2020-12-11] MEDS ORDERED: METOPROLOL TARTRATE 12.5 MG TAB PO SCH (21:00)
[2020-12-12 04:23] LABS: Basophils % (A) 1 %; Eosinophils # (A) 0.1 k/uL (0-0.7); Eosinophils % (A) 3 %; HCT 45.9 % (39.0-53.0); HGB 14.9 gm/dL (13.0-17.5); Lymphocytes # (A) 1.2 k/uL (1.0-4.8); Lymphocytes % (A) 27 %; MCH 29.4 pg (25.0-35.0); MCHC 32.4 g/dL (31.0-37.0); MCV 90.9 fL (80.0-100.0); Mean Platelet Volume 8.6; Monocytes # (A) 0.3 k/uL (0-1.0); Monocytes % (A) 7 %; Neutrophils # (A) 2.8 k/uL (1.3-7.7); Neutrophils % (A) 60 %; Platelet Count 183 k/uL (150-450); RBC 5.06 m/uL (4.30-5.90); RDW 13.7 % (11.5-15.5); WBC 4.6 k/uL (3.8-10.6)
[2020-12-12 04:34] LABS: INR 1.3 (<1.2); Prothrombin Time 13.4 sec (9.0-12.0)
[2020-12-12] MEDS ORDERED: ALBUMIN HUMAN 5% 500 ML in EMPTY BAG 1 BAG IVPB ONE ×6 (05:00)
[2020-12-12] MEDS ORDERED: PHENYLEPHRINE 10 MG/ML VIAL IV ONE (06:00)
[2020-12-12] MEDS ORDERED: NITROGLYCERIN-D5W PMX 25 MG/250 ML BTL IV ONE (06:00)
[2020-12-12] MEDS ORDERED: LACTATED RINGERS 1,000 ML IV SCH (06:00)
[2020-12-12] MEDS ORDERED: TRANEXAMIC ACID 2,000 MG in SODIUM CHLORIDE 0.9% 80 ML IV ONE (06:00)
[2020-12-12] MEDS ORDERED: ASPIRIN 81 MG PO ONE (06:00)
[2020-12-12] MEDS ORDERED: HEPARIN SODIUM,PORCINE 5,000 UNIT in SODIUM CHLORIDE 0.9% 500 ML 500 ML IV ONE (06:00)
[2020-12-12] MEDS ORDERED: NOREPINEPHRINE 4 MG in SODIUM CHLORIDE 0.9% 250 ML IV SCH (06:00)
[2020-12-12] MEDS ORDERED: PROTAMINE SULFATE 250 MG in EMPTY BAG 1 BAG IV ONE (06:00)
[2020-12-12] MEDS ORDERED: HEPARIN SODIUM 1,000 UN/ML (10ML VL) IV ONE (06:00)
[2020-12-12] MEDS ORDERED: ALBUMIN HUMAN 25% 50 ML in EMPTY BAG 1 BAG IVPB ONE (06:00)
[2020-12-12] MEDS ORDERED: SODIUM BICARB 8.4% 50 ML SYR (1 MEQ/ML) IV ONE (06:00)
[2020-12-12] MEDS ORDERED: NITROGLYCERIN-D5W PMX 50 MG in DEXTROSE/WATER 1 250ML.BAG IV SCH (06:00)
[2020-12-12] MEDS ORDERED: METOPROLOL TARTRATE 12.5 MG TAB PO ONE (06:00)
[2020-12-12] MEDS ORDERED: MANNITOL 25% 12.5 GM/50 ML VIAL IV ONE ×2 (06:00)
[2020-12-12] MEDS ORDERED: MAGNESIUM SULFATE SYG 4.06 MEQ/ML SYRINGE IV ONE (06:00)
[2020-12-12] MEDS ORDERED: INSULIN REGULAR 100 UNIT in SODIUM CHLORIDE 0.9% 100 ML IV SCH (06:00)
[2020-12-12] MEDS ORDERED: CHLORHEXIDINE GLUCONATE 15 ML CUP MUCOUS MEM ONE (06:00)
[2020-12-12] MEDS ORDERED: CARDIOPLEGIC SOLN (K+ 16 MEQ/L 1,000 ML with SOD BICARB SYR 8.4% (1 MEQ/ML) 20 ML, LIDO... PERFUSION NR ×3 (06:00)
[2020-12-12] MEDS ORDERED: CLEVIDIPINE BUTYRATE 25 MG in EMPTY BAG 1 BAG IV SCH (06:00)
[2020-12-12] MEDS ORDERED: PHENYLEPHRINE 40 MG in SODIUM CHLORIDE 0.9% 250 ML IV ONE (06:00)
[2020-12-12] MEDS ORDERED: CALCIUM CHLORIDE 100 MG/ML 10 ML SYRINGE IVP ONE (06:00)
[2020-12-12] MEDS ORDERED: ATORVASTATIN 10 MG TAB PO ONE (06:00)
[2020-12-12] MEDS ORDERED: ceFAZolin 1,000 MG in SODIUM CHLORIDE 0.9% IRRIGATIO 1,000 ML IRRIGATION ONE (06:00)
[2020-12-12] MEDS ORDERED: PROTAMINE SULFATE 10 MG/ML 25 ML VIAL IV ONE ×2 (06:00→07:50)
[2020-12-12] MEDS ORDERED: LACTATED RINGERS 1,000 ML IV ONE (06:20)
[2020-12-12 06:27] LABS: African American GFR (CKD) >90 (>60 ml/min/1.73 sqM); Blood Urea Nitrogen 18 mg/dL (9-20); Calcium 9.1 mg/dL (8.4-10.2); Carbon Dioxide 26 mmol/L (22-30); Chloride 110 mmol/L (98-107); Glucose 95 mg/dL (74-99); Non-African American GFR(CKD) 89 (>60 ml/min/1.73 sqM)
[2020-12-12 07:21] LABS: Anion Gap 4 mmol/L; Potassium 4.3 mmol/L (3.5-5.1); Sodium 140 mmol/L (137-145)
[2020-12-12] MEDS ORDERED: SODIUM CHLORIDE 0.9% IRRIG 1,000 ML BTL IRRIGATION ONE (07:50)
[2020-12-12] MEDS ORDERED: SUFentanil 50 MCG/ML 2ML AMP ONE (07:50)
[2020-12-12] MEDS ORDERED: MIDAZOLAM 2 MG/2 ML VIAL ONE (07:50)
[2020-12-12] MEDS ORDERED: SODIUM CHLORIDE 0.9% 250 ML BAG ONE (07:50)
[2020-12-12] MEDS ORDERED: CALCIUM CHLORIDE 100 MG/ML 10 ML SYRINGE ONE (07:50)
[2020-12-12] MEDS ORDERED: TRANEXAMIC ACID 1,000 MG/10 ML VIAL ONE (07:50)
[2020-12-12] MEDS ORDERED: HEPARIN SODIUM,PORCINE 10,000 UNIT/ML 1 ML VIAL ONE (07:50)
[2020-12-12] MEDS ORDERED: ELECTROLYTE-R (PH 7.4) 1,000 ML IV.SOLN IV ONE (07:50)
[2020-12-12] MEDS ORDERED: VECURONIUM 10 MG VIAL IV ONE (07:50)
[2020-12-12] MEDS ORDERED: fentaNYL (PF) 50 MCG/ML 2 ML AMP ONE (07:50)
[2020-12-12] MEDS ORDERED: PROPOFOL 10 MG/ML 20 ML VIAL IV ONE (07:50)
[2020-12-12] MEDS ORDERED: SUCCINYLCHOLINE CHLORIDE 100 MG/5 ML SYR IV ONE (07:50)
[2020-12-12] MEDS ORDERED: ceFAZolin 1,000 MG VIAL ONE (07:50)
[2020-12-12] MEDS ORDERED: SODIUM CHLORIDE 0.9% 100 ML BAG ONE (07:50)
[2020-12-12] MEDS ORDERED: ePHEDrine SULFATE/0.9% NACL/PF 50 MG/5 ML SYRINGE IV ONE (07:50)
[2020-12-12] MEDS ORDERED: LIDOCAINE 2% SYG (PF) 100 MG/5 ML ONE (07:50)
[2020-12-12] MEDS ORDERED: ALBUMIN HUMAN 5% (25gm) 500 ML VIAL IVPB ONE (07:50)
[2020-12-12] MEDS ORDERED: PHENYLEPHRINE 10 MG/ML VIAL ONE (07:50)
[2020-12-12 08:39] LABS: ABG Base Excess -0.9 mmol/L; ABG HCO3 23 mmol/L (21-25); ABG Hematocrit 42 % (34.0-46.0); ABG Ionized Calcium 4.6 mg/dL (4.5-5.3); ABG PCO2 37 mmHg (35-45); ABG PH 7.41 (7.35-7.45); ABG PO2 299 mmHg (83-108); ABG Potassium Whole Blood 4.2 mmol/L (3.4-4.5); ABG Sodium Whole Blood 140 mmol/L (135-146); ABG TCO2 25 mmol/L (19-24)
--- NOTE | 2020-12-12 09:40 | P.ANPRN ---
Procedure Note - Anesthesia - Invasive Line Right Central Line Time Out Performed: Yes ([id number]) Date of Procedure: 12/12/20 Time of Procedure: 07:18 Location of Patient: Phase I Preparation: Sterile Prep, Sterile Dressing Arterial Line Location: Radial Ultrasound Used: Yes Purpose - Visualization and Identification of Vasculature: Yes Needle Guage: 18g angio Image Stored and Saved: Yes Narrative: Central line placement per sterile protocol utilized. Right Neck prepped. Ultrasound used. +local +angio +CVP +jwire +uneventful dilation and introduction right IJ Cordis. Non Pulsitile, bled and flushed. Secured. Right [place]anny Time Out Performed: Yes ([id number]) Date of Procedure: 12/12/20 Time of Procedure: 07:25 Location of Patient: Phase I Preparation: Sterile Prep, Sterile Dressing Arterial Line Location: Radial Ultrasound Used: No Purpose - Visualization and Identification of Vasculature: No Image Stored and Saved: No Narrative: Central line placement per sterile protocol utilized. [place] floated under sterile protocol in one attempt to PA 53cm. No Wedge.
[2020-12-12 11:03] LABS: ABG Base Excess -1.4 mmol/L; ABG Glucose Whole Blood 98 mg/dL (75-99); ABG HCO3 24 mmol/L (21-25); ABG Hematocrit 38 % (34.0-46.0); ABG Ionized Calcium 4.7 mg/dL (4.5-5.3); ABG Lactic Acid Whole Blood 1.2 mmol/L (0.5-1.6); ABG PCO2 42 mmHg (35-45); ABG PH 7.37 (7.35-7.45); ABG Potassium Whole Blood 4.4 mmol/L (3.4-4.5); ABG Sodium Whole Blood 139 mmol/L (135-146); ABG TCO2 25 mmol/L (19-24)
[2020-12-12 11:40] LABS: ABG Glucose Whole Blood 95 mg/dL (75-99); ABG HCO3 24 mmol/L (21-25); ABG Hematocrit 33 % (34.0-46.0); ABG Ionized Calcium 4.5 mg/dL (4.5-5.3); ABG Oxygen Saturation 99.6 % (94-97); ABG PCO2 51 mmHg (35-45); ABG PH 7.28 (7.35-7.45); ABG PO2 255 mmHg (83-108); ABG Sodium Whole Blood 138 mmol/L (135-146); ABG TCO2 26 mmol/L (19-24)
[2020-12-12 12:10] LABS: ABG Base Excess -3.1 mmol/L; ABG Glucose Whole Blood 114 mg/dL (75-99); ABG HCO3 23 mmol/L (21-25); ABG Hematocrit 34 % (34.0-46.0); ABG Ionized Calcium 4.5 mg/dL (4.5-5.3); ABG Lactic Acid Whole Blood 1.1 mmol/L (0.5-1.6); ABG PCO2 44 mmHg (35-45); ABG PH 7.33 (7.35-7.45); ABG PO2 391 mmHg (83-108); ABG Sodium Whole Blood 139 mmol/L (135-146); ABG TCO2 24 mmol/L (19-24)
[2020-12-12 12:34] LABS: ABG Base Excess -1.9 mmol/L; ABG Glucose Whole Blood 119 mg/dL (75-99); ABG HCO3 24 mmol/L (21-25); ABG Hematocrit 33 % (34.0-46.0); ABG Ionized Calcium 4.4 mg/dL (4.5-5.3); ABG Lactic Acid Whole Blood 1.2 mmol/L (0.5-1.6); ABG PCO2 41 mmHg (35-45); ABG PH 7.36 (7.35-7.45); ABG PO2 317 mmHg (83-108); ABG Potassium Whole Blood 5.1 mmol/L (3.4-4.5); ABG Sodium Whole Blood 139 mmol/L (135-146); ABG TCO2 25 mmol/L (19-24)
[2020-12-12 13:13] LABS: ABG Base Excess -1.8 mmol/L; ABG Glucose Whole Blood 119 mg/dL (75-99); ABG HCO3 23 mmol/L (21-25); ABG Hematocrit 32 % (34.0-46.0); ABG Ionized Calcium 4.3 mg/dL (4.5-5.3); ABG Lactic Acid Whole Blood 1.8 mmol/L (0.5-1.6); ABG PCO2 41 mmHg (35-45); ABG PH 7.37 (7.35-7.45); ABG PO2 377 mmHg (83-108); ABG Sodium Whole Blood 140 mmol/L (135-146); ABG TCO2 25 mmol/L (19-24)
[2020-12-12] MEDS ORDERED: EPINEPHrine 4 MG in DEXTROSE 5% IN WATER 250 ML IV ONE ×2 (13:15)
[2020-12-12 13:50] LABS: ABG Base Excess -4.9 mmol/L; ABG Glucose Whole Blood 121 mg/dL (75-99); ABG HCO3 22 mmol/L (21-25); ABG Hematocrit 30 % (34.0-46.0); ABG Ionized Calcium 5.3 mg/dL (4.5-5.3); ABG Oxygen Saturation 99.7 % (94-97); ABG PCO2 48 mmHg (35-45); ABG PH 7.27 (7.35-7.45); ABG PO2 348 mmHg (83-108); ABG Potassium Whole Blood 4.4 mmol/L (3.4-4.5); ABG Sodium Whole Blood 140 mmol/L (135-146); ABG TCO2 24 mmol/L (19-24)
[2020-12-12 14:45] LABS: ABG Glucose Whole Blood 84 mg/dL (75-99)
[2020-12-12 14:46] LABS: ABG Lactic Acid Whole Blood 1.1 mmol/L (0.5-1.6)
[2020-12-12 14:47] LABS: ABG PO2 >420 mmHg (83-108)
[2020-12-12 14:50] LABS: ABG Lactic Acid Whole Blood 2.9 mmol/L (0.5-1.6)
[2020-12-12 14:52] LABS: Allen Test Performed? Yes
[2020-12-12 14:53] LABS: Allen Test Performed? Yes
[2020-12-12 14:53] LABS: Allen Test Performed? Yes
[2020-12-12 14:53] LABS: Allen Test Performed? Yes
[2020-12-12] MEDS ORDERED: EPINEPHrine 4 MG in DEXTROSE 5% IN WATER 250 ML IV SCH ×2 (16:00)
[2020-12-12] MEDS ORDERED: Potassium Replacement Protocol 1 EACH MISC MISCELLANE PRN (16:03)
[2020-12-12] MEDS ORDERED: Phosphorus Replacement Protoco 1 EACH MISC MISCELLANE PRN (16:03)
[2020-12-12] MEDS ORDERED: hydrALAZINE HCL 20 MG/ML 1 ML VIAL IVP PRN (16:03)
[2020-12-12] MEDS ORDERED: CALCIUM GLUCONATE 2 GM in SODIUM CHLORIDE 0.9% 100 ML IVPB PRN (16:03)
[2020-12-12] MEDS ORDERED: Magnesium Replacement Protocol 1 EACH MISC MISCELLANE PRN (16:03)
[2020-12-12] MEDS ORDERED: IPRATROPIUM-ALBUTEROL 3 ML NEB INHALATION PRN (16:03)
[2020-12-12] MEDS ORDERED: ALBUMIN HUMAN 5% 250 ML in EMPTY BAG 1 BAG IVPB PRN (16:03)
[2020-12-12] MEDS ORDERED: BENZOCAINE/MENTHOL LOZENG 1 EACH LOZENGE MUCOUS MEM PRN (16:03)
[2020-12-12] MEDS: HEPARIN SOD,PORK IN 0.45% NACL 25,000 UNIT in 0.45% NACL 1 250ML.BAG IV SCH (16:08)
[2020-12-12 16:37] LABS: Glucose,Whole Blood 133 mg/dL (75-99)
--- NOTE | 2020-12-12 16:37 | P.OP ---
Date of Procedure: 12/12/20 Preoperative Diagnosis: Ascending aortic aneurysm, status post aortic valve replacement with [employer] Gian aortic valve prosthesis 15 years ago for bicuspid aortic valve Postoperative Diagnosis: Same Procedure(s) Performed: Redo sternotomy, resection of a ascending aorta and noncoronary sinus of Valsalva aneurysms with replacement with a 32 mm tailored tube graft, percutaneous placement intra-aortic balloon pump via left transfemoral approach Implants: 32 mm Dacron tube graft Anesthesia: GETA Surgeon: Mehrdad Cole Mechanical Engineering Technician #1: Ugo Barajas Estimated Blood Loss (ml): 500 IV fluids (ml): 2,500 Urine output (ml): 1,000 Pathology: other (Ascending aorta) Condition: stable Disposition: ICU Indications for Procedure: 70-year-old male who is 15 years status post replacement of the aortic valve with a [address] Gian mechanical valve for bicuspid aortic stenosis. He had noted aortic dilatation at that time and has been followed closely since that time. His ascending aorta has been slowly increasing in size. Most recent CT was read as showing a 6 cm ascending aorta. Elective repair was recommended and scheduled. CT clearly demonstrated that the root of the aorta was also significantly enlarged the exact etiology of this was not clear. Operative Findings: Intrapericardial adhesions were very dense and challenging. The inferior pericardium in particular was dense and heavily calcified. This made dissection along the diaphragm nearly impossible. Dissection around the right atrium was also quite difficult. Dissection around the aortic aneurysm was difficult but not quite as challenging. The ascending aorta was markedly enlarged and the aneurysm extended up to a short neck just below the takeoff of the innominate artery. It clearly extended down into the root. 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 The graft repair was accomplished. On attempting to separate from cardiopulmonary bypass the heart clearly dilated and was struggling. We went back on bypass and a balloon pump was placed for obvious biventricular dysfunction. Following this we were able to successfully weaned from cardioplegic bypass. Ventricular function remained good by echocardiogram and by cardiac output measurements. Patient hemodynamics gradually improved after weaning from cardiotomy bypass a second time and we were able to successfully close the chest. Description of Procedure: The patient was brought to the operating room, placed supine on the operating table, anesthetized and intubated. T probe was placed. The patient was appropriately positioned area the anterior chest and lower extremities were sterilely prepped and draped. The old sternal incision scar was excised. Incision was carried down to the sternum. Sternal wires were identified and cut but not cold. Redo saw was used to divide the sternum in the midline. Sternal wires were then pulled. The sternum was freed from the right ventricle and we opened into the pleural spaces bilaterally. Standard sternal retractor was placed. We began dissection along the diaphragm and found very very dense adhesions and heavy calcifications which made the dissection very difficult. We moved her dissection onto the right atrium repair also the dissection was quite difficult. We continued our dissection up to the ascending aorta were able to dissected out proximal portion of the ascending aorta. Dissection was carried more distally and we encountered the innominate vein. It was mobilized and retracted superiorly and dissection carried up to the proximal arch. The takeoff of the innominate artery and left carotid arteries were identified. We then carried our dissection back onto the ascending aorta dissecting laterally both on the right and left sides and dissecting it away from the pulmonary artery. Dissection was carried down onto the right atrium were able to free the right atrium and identify the right superior pulmonary vein. Dissection was continued down through the inferior vena cava was identified further dissection of the inferior wall to try to get to the coronary sinus was near impossible. We decided a Holter dissection at this point. We were able to cannulate the aorta just at the takeoff of the innominate artery and clamp just below this. Patient was systemically heparinized and cannulation sutures were placed. Cannulation sutures were also placed in the region of the right atrial appendage. Patient was cannulated with a 7 mm soft flow cannula in the aorta and a two-stage venous cannula through the right atrium into the inferior vena cava. Antegrade cardioplegia line was placed in the midascending aorta. Pursestring suture was placed in the right superior pulmonary vein. The patient was placed on cardiac primary bypass and stabilized. Left atrial sump was placed through the right superior pulmonary vein. Aorta was crossclamped and the heart was arrested with cold crystalloid cardioplegia. The ascending aorta was now further dissected out and divided distally about a centimeter half below the clamp. Cardioplegia line was removed. Aorta was opened longitudinally the sinotubular junction was identified and aortic aorta was divided at the sinotubular junction. The non-coronary cusp was clearly markedly dilated and this was excised. Antegrade cardioplegia was now given through the right and left coronaries directly. A 32 graft was chosen and brought up onto the field and appropriately tailored in order to fill in the noncoronary cost. Single layer running anastomosis of 3-0 Prolene was placed with the graft on the inside and reinforced with a strip of Chase felt on the outside. On completion of the proximal anastomosis it was checked and noted to be good. Coronary ostia were well away from the suture line. We now tailored the distal end of the graft and did our distal anastomosis again with her single layer running suture line of 3- 0 Prolene reinforced with Chase felt on the outside. After completion of the distal anastomosis the patient was placed into steep Trendelenburg and an 18- gauge needle was used to vent the ascending aortic graft. This was connected to the aortic vent line. Cross-clamp was removed and pacing wires were placed. Patient was in A. fib preoperatively and was paced initially but eventually converted to normal sinus rhythm and did not require pacing. The graft was evaluated and hemostasis was felt to be adequate. The heart was very boggy and slow to return to function. Some low-dose epinephrine was started and after a period of reperfusion we weaned the patient from [place] cardiopulmonary bypass on low dose epi. He appeared stable and the atrial cannula was removed and the pursestring tied. Shortly after this the patient became hypotensive and did not respond to normal measures. Therefore replaced the right atrial two-stage cannula with a new pursestring. Patient was placed back on cardio primary bypass and stabilized. Right femoral artery was punctured and a 16-Somali Angiocath was placed but the site placement of the wire in the descending thoracic aorta on JASEN there appeared to be an iliac stenosis and we dissected back a good blood pressure measurements here. This line was removed. We repl aced it on the left under ultrasound guidance and got a good functioning a line. This was then exchanged for an intra-aortic balloon pump. Patient was started on Primacor and Levophed and after a period of reperfusion successfully weaned from cardiopulmonary bypass. This time the patient remained hemodynamically stable. He was decannulated in standard fashion. The atrial cannulation site was reinforced with a 5-0 Prolene. The aortic cannulation site was reinforced with a 4-0 Prolene suture. Heparin was reversed with protamine and some fresh frozen and platelets were given. Hemostasis gradually improved. After fairly prolonged period of getting good hemostasis and assuring that we had stable hemodynamics that were improving over time requiring decreased dose of inotropic we felt comfortable to prepare to close. I lateral pleural spaces were drained with 32-Somali chest tubes. The inferior wall the heart was drained with a 36 right angle cannula in the anterior also with a 36 right angle cannula. Chest was irrigated with antibiotic solution. After assuring good hemostasis the sternum was closed with 8 sternal wires. Fascia was closed with 0 Ethibond. Subcutaneous and subcuticular layers with layers of Vicryl suture. Skin glue and dry sterile dressings were applied the patient was transferred to the unit in stable condition.
[2020-12-12] MEDS: NOREPINEPHRINE 4 MG in SODIUM CHLORIDE 0.9% 250 ML IV SCH (16:43)
[2020-12-12] MEDS: INSULIN REGULAR 100 UNIT in SODIUM CHLORIDE 0.9% 100 ML IV SCH (16:51)
[2020-12-12] MEDS: IPRATROPIUM-ALBUTEROL 3 ML NEB INHALATION SCH ×3 (16:57→20:12)
--- NOTE | 2020-12-12 16:57 | XR ---
EXAMINATION TYPE: XR chest 1V portable DATE OF EXAM: 12/12/2020 COMPARISON: 12/10/2020 HISTORY: Cardiac surgery TECHNIQUE: 2 views FINDINGS: There are sternal wires. There is right jugular catheter with tip in the main pulmonary art susan. There is left side chest tube over the left cardiac border. There is right-sided chest tube. I s ee no pneumothorax. Trachea is midline. There is nasogastric tube. Endotracheal tube is 1.5 cm from t he pati. There is no heart failure. Lungs are clear of consolidation. There is probably some atelec tasis left lower lobe. IMPRESSION: Mild atelectasis left lower lobe. No heart failure.
[2020-12-12 17:01] LABS: Allen Test Performed? Yes
[2020-12-12 17:02] LABS: ABG Base Excess -2.9 mmol/L; ABG HCO3 23 mmol/L (21-25); ABG Oxygen Saturation 98.6 % (94-97); ABG PCO2 45 mmHg (35-45); ABG PH 7.32 (7.35-7.45); ABG PO2 115 mmHg (83-108); ABG TCO2 25 mmol/L (19-24)
[2020-12-12] MEDS: MILRINONE-D5W PMX 20 MG in DEXTROSE/WATER 1 100ML.BAG IV SCH (17:09)
[2020-12-12 17:15] LABS: Glucose,Whole Blood 141 mg/dL (75-99)
[2020-12-12 17:16] LABS: Basophils % (A) 0 %; Eosinophils % (A) 0 %; Lymphocytes # (A) 0.6 k/uL (1.0-4.8); Lymphocytes % (A) 5 %; MCH 29.7 pg (25.0-35.0); MCHC 32.4 g/dL (31.0-37.0); MCV 91.7 fL (80.0-100.0); Monocytes # (A) 0.6 k/uL (0-1.0); Monocytes % (A) 6 %; Neutrophils # (A) 9.2 k/uL (1.3-7.7); Neutrophils % (A) 87 %; Platelet Count 133 k/uL (150-450); RBC 3.71 m/uL (4.30-5.90); RDW 13.9 % (11.5-15.5); WBC 10.5 k/uL (3.8-10.6)
[2020-12-12 17:21] LABS: INR 1.3 (<1.2); Partial Thromboplastin Time 25.2 sec (22.0-30.0); Prothrombin Time 13.7 sec (9.0-12.0)
[2020-12-12] MEDS: LACTATED RINGERS 1,000 ML IV SCH (17:21)
[2020-12-12 17:25] LABS: Ionized Calcium 5.1 mg/dL (4.5-5.3)
--- NOTE | 2020-12-12 17:48 | P.PN ---
Progress Note - Text Progress Note Date: 12/12/20 - Chief Complaint Ascending aorta aneurysm - History of Present Illness Consultation: This is a pleasant 70-year-old patient of Dr. Guillaume Latham. Chronic stable medical conditions include atrial fibrillation, hypertension, hyperlipidemia, [employer] Gian's mechanical aortic valve replacement in December 1994. Patient was admitted yesterday, to be bridged to from warfarin to heparin, with a view to cardiothoracic surgery. December 11-cardiac catheterization that showed normal coronaries. Today-underwent aortic arch aneurysm replacement. EBL-500 mL. In the ICU. 2 chest tubes. On the ventilator with FiO2 100% and a PEEP of 10. Snyder cathet er. Sedated. Review of systems: Patient intubated Active Medications Hydrocodone Bitart/Acetaminophen (Hydrocodone/Apap 5-325mg 1 Each Tab) 2 each PO Q4HR PRN PRN Reason: Severe Pain Hydrocodone Bitart/Acetaminophen (Hydrocodone/Apap 5-325mg 1 Each Tab) 1 each PO Q4HR PRN PRN Reason: Moderate Pain Albuterol/Ipratropium (Ipratropium-Albuterol 3 Ml Neb) 3 ml INHALATION RT-Q2H PRN PRN Reason: Shortness Of Breath Or Wheezing Albuterol/Ipratropium (Ipratropium-Albuterol 3 Ml Neb) 3 ml INHALATION RT-Q4H COUNT INCLUDES THE [facility] Stop: 12/12/20 21:36 Last Admin: 12/12/20 16:57 Dose: 3 ml Documented by: Albuterol/Ipratropium (Ipratropium-Albuterol 3 Ml Neb) 3 ml INHALATION RT-QID COUNT INCLUDES THE [facility] Aspirin (Aspirin 325 Mg Tab) 325 mg PO DAILY COUNT INCLUDES THE [facility] Atorvastatin Calcium (Atorvastatin 40 Mg Tab) 40 mg PO DAILY COUNT INCLUDES THE [facility] Benzocaine/Menthol (Benzocaine/Menthol Lozeng 1 Each Lozenge) 1 each MUCOUS MEM Q2H PRN PRN Reason: Sore Throat Bisacodyl (Bisacodyl 10 Mg Supp) 10 mg RECTAL DAILY PRN PRN Reason: Constipation Heparin Sodium (Porcine) (Heparin Sodium,Porcine 5,000 Unit/Ml 1 Ml Vial) 5,000 unit SQ Q8HR COUNT INCLUDES THE [facility] Hydralazine HCl (Hydralazine Hcl 20 Mg/Ml 1 Ml Vial) 10 mg IVP Q1H PRN PRN Reason: Blood Pressure - High Epinephrine HCl 4 mg/ Dextrose (/Water) 250 mls @ 4.436 mls/hr IV .Q24H [facility]; Protocol Milrinone Lactate/Dextrose 20 (mg/ IV Solution) 100 mls @ 17.745 mls/hr IV .Q5H39M [facility] Last Admin: 12/12/20 17:09 Dose: 0.5 mcg/kg/min, 17.745 mls/hr Documented by: Norepinephrine Bitartrate 4 mg (/ Sodium Chloride) 254 mls @ 22.536 mls/hr IV .[id number] [facility]; Protocol Last Titration: 12/12/20 17:00 Dose: 0 mcg/kg/min, 0 mls/hr Documented by: Clevidipine 25 mg/ IV Solution 50 mls @ 2 mls/hr IV .Q24H [facility]; Protocol Albumin Human 250 ml/ IV (Solution) 250 mls @ 250 mls/hr IVPB Q1HR PRN PRN Reason: For Volume Stop: 12/14/20 16:04 Lactated Ringer's (Lactated Ringers) 1,000 mls @ 50 mls/hr IV .Q20H [facility] Last Admin: 12/12/20 17:21 Dose: 50 mls/hr Documented by: Propofol 1,000 mg/ IV Solution 100 mls @ 0 mls/hr IV .Q0M [facility]; Protocol Last Admin: 12/12/20 16:56 Dose: 20 mcg/kg/min, 14.196 mls/hr Documented by: Dexmedetomidine HCl 400 mcg/ (IV Solution) 100 mls @ 0 mls/hr IV .Q0M [facility]; Protocol Stop: 12/13/20 16:04 Cefazolin Sodium 2 gm/ Sodium (Chloride) 50 mls @ 100 mls/hr IVPB Q8HR [facility] Stop: 12/13/20 08:29 Last Admin: 12/12/20 17:19 Dose: 100 mls/hr Documented by: Calcium Gluconate 2 gm/ Sodium (Chloride) 120 mls @ 100 mls/hr IVPB ONCE PRN PRN Reason: Ionized Calcium less than 4.4 Stop: 01/11/21 16:04 Insulin Human Regular 100 unit (/ Sodium Chloride) 101 mls @ 0 mls/hr IV .Q0M [facility]; Protocol Last Admin: 12/12/20 16:51 Dose: 1.5 mls/hr, 1.5 mls/hr Documented by: Magnesium Hydroxide (Magnesium Hydroxide 2,400 Mg/10 Ml Cup) 2,400 mg PO BID DE N PRN Reason: Constipation Metoclopramide HCl (Metoclopramide 5 Mg/Ml 2 Ml Vial) 10 mg IVP Q4H PRN PRN Reason: Nausea And Vomiting Metoprolol Tartrate (Metoprolol Tartrate 12.5 Mg Tab) 12.5 mg PO BID COUNT INCLUDES THE [facility] Miscellaneous Information (Potassium Replacement Protocol 1 Each Mis) 1 each MISCELLANE DAILY PRN; Protocol PRN Reason: Per Protocol Miscellaneous Information (Magnesium Replacement Protocol 1 Each [facility]) 1 each MISCELLANE DAILY PRN; Protocol PRN Reason: Per Protocol Miscellaneous Information (Phosphorus Replacement Protoco 1 Each [facility]) 1 each MISCELLANE DAILY PRN; Protocol PRN Reason: Per Protocol Ondansetron HCl (Ondansetron 4 Mg/2 Ml Vial) 4 mg IVP Q6HR PRN PRN Reason: Nausea And Vomiting Oxycodone HCl (Oxycodone Hcl 5 Mg Tab) 10 mg PO Q4H PRN PRN Reason: Severe Pain Stop: 12/13/20 05:59 Oxycodone HCl (Oxycodone Hcl 5 Mg Tab) 5 mg PO Q4H PRN PRN Reason: Moderate Pain Stop: 12/13/20 05:59 Pantoprazole Sodium (Pantoprazole 40 Mg/10 Ml Vial) 40 mg IVP DAILY COUNT INCLUDES THE [facility] Senna/Docusate Sodium (Sennosides-Docusate Sodium 1 Each Tab) 2 each PO HS COUNT INCLUDES THE [facility] Sodium Chloride (Sodium Chloride 0.9% Flush 10 Ml Syringe) 10 ml IV BID COUNT INCLUDES THE [facility] Past medical history to include: Atrial fibrillation, hypertension, hyperlipidemia, [employer] Gian's mechanical aortic valve replacement in December 1994. Social history: No history of smoking. Alcohol rarely. Physical examination: VITAL SIGNS: 97, 78, 18, 99/57, 100% on the ventilator GENERAL:, laying in bed, intubated EYES: Pupils equal. Conjunctiva normal. HEENT: External appearance of nose and ears normal, oral cavity endotracheal tube NECK: JVD not raised; masses not palpable. HEART: Irregular; no edema. LUNGS: Respiratory rate normal; decreased breath sounds. 2 chest tubes ABDOMEN: Soft, nontender, liver spleen not palpable, no masses palpable. Snyder catheter PSYCH: Sedated NEUROLOGICAL: Cranial nerves grossly intact; no facial asymmetry, INVESTIGATIONS, reviewed in the clinical context: December 12: White count 10.5 hemoglobin 11 platelets 133 potassium 4.3 creatinine 0.86 White count 3.9 hemoglobin 14.7 platelets 178 INR 1.8 potassium 4 creatinine 0.85 Chest x-ray film personally reviewed by me-some cardiomegaly Carotid Doppler-no significant stenosis Assessment: -Status post ascending aortic aneurysm repair, , with redo sternotomy -Persistent atrial fibrillation chronically on Coumadin -Essential hypertension -Hyperlipidemia -History of mechanical aortic valve, -Ascending aortic aneurysm 62 mm pending surgery -Dilutional thrombocytopenia -Acute postprocedure blood loss anemia, as expected from surgery -Acute hypoxic respiratory on ventilator support, postoperatively -Cardiac catheterization-normal coronaries Plan: Continue current medication treatment plan. [address] On the ventilator. Follow supportive care. Patient IV clevidipine and IV insulin. Thank you Dr. Cole
[2020-12-12 17:52] LABS: ALT 21 U/L (4-49); AST 42 U/L (17-59); African American GFR (CKD) >90 (>60 ml/min/1.73 sqM); Albumin 2.3 g/dL (3.5-5.0); Alkaline Phosphatase <20 U/L (38-126); Anion Gap 4 mmol/L; Blood Urea Nitrogen 16 mg/dL (9-20); Carbon Dioxide 23 mmol/L (22-30); Chloride 113 mmol/L (98-107); Glucose 125 mg/dL (74-99); Magnesium 2.4 mg/dL (1.6-2.3); Non-African American GFR(CKD) 88 (>60 ml/min/1.73 sqM); Sodium 140 mmol/L (137-145); Total Bilirubin 1.8 mg/dL (0.2-1.3); Total Protein 4.2 g/dL (6.3-8.2)
[2020-12-12] MEDS: CLEVIDIPINE BUTYRATE 25 MG in EMPTY BAG 1 BAG IV SCH (18:15)
[2020-12-12 18:29] LABS: Glucose,Whole Blood 154 mg/dL (75-99)
[2020-12-12 18:59] LABS: Glucose,Whole Blood 157 mg/dL (75-99)
[2020-12-12 19:22] LABS: Basophils % (A) 0 %; Eosinophils % (A) 0 %; HCT 32.9 % (39.0-53.0); HGB 11.1 gm/dL (13.0-17.5); Lymphocytes # (A) 0.3 k/uL (1.0-4.8); Lymphocytes % (A) 3 %; MCH 30.5 pg (25.0-35.0); MCHC 33.8 g/dL (31.0-37.0); MCV 90.2 fL (80.0-100.0); Mean Platelet Volume 10.7; Monocytes # (A) 0.5 k/uL (0-1.0); Monocytes % (A) 4 %; Neutrophils # (A) 9.9 k/uL (1.3-7.7); Neutrophils % (A) 92 %; Platelet Count 123 k/uL (150-450); RBC 3.65 m/uL (4.30-5.90); RDW 13.4 % (11.5-15.5); WBC 10.8 k/uL (3.8-10.6)
[2020-12-12 20:02] LABS: Glucose,Whole Blood 162 mg/dL (75-99)
[2020-12-12 20:58] LABS: Glucose,Whole Blood 156 mg/dL (75-99)
[2020-12-12 21:18] LABS: Ionized Calcium 5.2 mg/dL (4.5-5.3)
[2020-12-12 21:25] LABS: Albumin 2.9 g/dL (3.5-5.0); Calcium 8.4 mg/dL (8.4-10.2); Potassium 3.6 mmol/L (3.5-5.1); Total Bilirubin 1.8 mg/dL (0.2-1.3); Total Protein 4.9 g/dL (6.3-8.2)
[2020-12-12] MEDS ORDERED: POTASSIUM BICARBONATE/CIT AC 20 MEQ TABLET.EFF NG-TUBE SCH (22:00)
[2020-12-12 22:16] LABS: Glucose,Whole Blood 151 mg/dL (75-99)
[2020-12-12 22:22] LABS: Basophils % (A) 0 %; Eosinophils % (A) 0 %; HCT 31.1 % (39.0-53.0); HGB 10.6 gm/dL (13.0-17.5); Lymphocytes # (A) 0.2 k/uL (1.0-4.8); Lymphocytes % (A) 2 %; MCH 30.8 pg (25.0-35.0); MCHC 34.2 g/dL (31.0-37.0); Mean Platelet Volume 10.5; Monocytes # (A) 0.5 k/uL (0-1.0); Monocytes % (A) 5 %; Neutrophils # (A) 8.9 k/uL (1.3-7.7); Neutrophils % (A) 92 %; Platelet Count 137 k/uL (150-450); RBC 3.45 m/uL (4.30-5.90); RDW 13.6 % (11.5-15.5); WBC 9.7 k/uL (3.8-10.6)
[2020-12-12 23:18] LABS: Glucose,Whole Blood 142 mg/dL (75-99)
[2020-12-13 00:09] LABS: Glucose,Whole Blood 143 mg/dL (75-99)
[2020-12-13] MEDS: HEPARIN SODIUM,PORCINE 5,000 UNIT/ML 1 ML VIAL SQ SCH ×4 (00:15→23:56)
[2020-12-13] MEDS: MILRINONE-D5W PMX 20 MG in DEXTROSE/WATER 1 100ML.BAG IV SCH ×5 (00:44→21:58)
[2020-12-13] MEDS ORDERED: POTASSIUM BICARBONATE/CIT AC 20 MEQ TABLET.EFF NG-TUBE SCH ×2 (01:00→08:00)
[2020-12-13 01:16] LABS: Glucose,Whole Blood 137 mg/dL (75-99)
[2020-12-13 02:09] LABS: Glucose,Whole Blood 134 mg/dL (75-99)
[2020-12-13 03:08] LABS: Glucose,Whole Blood 130 mg/dL (75-99)
[2020-12-13 03:59] LABS: Glucose,Whole Blood 126 mg/dL (75-99)
[2020-12-13 04:07] LABS: Basophils % (A) 0 %; Eosinophils % (A) 0 %; HCT 31.6 % (39.0-53.0); HGB 10.8 gm/dL (13.0-17.5); Lymphocytes # (A) 0.3 k/uL (1.0-4.8); Lymphocytes % (A) 3 %; MCH 30.5 pg (25.0-35.0); MCHC 34.3 g/dL (31.0-37.0); Mean Platelet Volume 10.1; Monocytes # (A) 0.6 k/uL (0-1.0); Monocytes % (A) 6 %; Neutrophils # (A) 8.4 k/uL (1.3-7.7); Neutrophils % (A) 90 %; Platelet Count 139 k/uL (150-450); RBC 3.55 m/uL (4.30-5.90); RDW 13.5 % (11.5-15.5); WBC 9.4 k/uL (3.8-10.6)
[2020-12-13 04:18] LABS: Ionized Calcium 5.2 mg/dL (4.5-5.3)
[2020-12-13 04:26] LABS: Albumin 2.9 g/dL (3.5-5.0); Calcium 8.3 mg/dL (8.4-10.2); Magnesium 2.1 mg/dL (1.6-2.3); Total Protein 4.9 g/dL (6.3-8.2)
[2020-12-13 04:45] LABS: ABG Base Excess -0.5 mmol/L; ABG HCO3 24 mmol/L (21-25); ABG Oxygen Saturation 96.7 % (94-97); ABG PCO2 39 mmHg (35-45); ABG PH 7.41 (7.35-7.45); ABG PO2 76 mmHg (83-108); ABG TCO2 25 mmol/L (19-24)
[2020-12-13 05:13] LABS: Glucose,Whole Blood 120 mg/dL (75-99)
[2020-12-13 05:38] LABS: Allen Test Performed? no
[2020-12-13 06:17] LABS: Glucose,Whole Blood 118 mg/dL (75-99)
[2020-12-13 07:15] LABS: Glucose,Whole Blood 115 mg/dL (75-99)
--- NOTE | 2020-12-13 07:21 | XR ---
EXAMINATION TYPE: XR chest 1V portable DATE OF EXAM: 12/13/2020 COMPARISON: 12/12/2020 HISTORY: Postop TECHNIQUE: Single frontal view of the chest is obtained. FINDINGS: ET, NG tube, Vincent-Manny catheter, chest tube and mediastinal drains stable. No sizable pneu mothorax. Bilateral infiltrate and pleural effusion with cardiomegaly and postoperative changes. Aort ic balloon pump marker overlying the proximal descending thoracic aorta. Prominence the left medial l leti which could be on the basis of the aorta or area of consolidation. Patient is rotated which could partially account for the finding. IMPRESSION: 1. Postoperative change with by basilar infiltrate and small effusion correlate for mild venous conge stion. 2. There is a lobulation of the upper left mediastinum near the expected location of the aorta. Patie nt is slightly rotated. This should be correlated clinically and with repeat chest x-ray as clinicall y warranted.
[2020-12-13] MEDS: IPRATROPIUM-ALBUTEROL 3 ML NEB INHALATION SCH ×4 (07:28→19:00)
[2020-12-13] MEDS ORDERED: MAGNESIUM SULFATE-D5W PMX 1 GM in DEXTROSE/WATER 1 100ML.BAG IVPB ONE (08:00)
[2020-12-13 08:02] LABS: Glucose,Whole Blood 112 mg/dL (75-99)
[2020-12-13] MEDS: ACETAMINOPHEN IV (For NPO) 1,000 MG in EMPTY BAG 1 BAG IVPB SCH ×3 (08:29→20:09)
[2020-12-13] MEDS: NOREPINEPHRINE 4 MG in SODIUM CHLORIDE 0.9% 250 ML IV SCH ×2 (08:31→14:29)
[2020-12-13] MEDS ORDERED: MAGNESIUM HYDROXIDE 2,400 MG/10 ML CUP PO PRN (09:00)
[2020-12-13] MEDS ORDERED: PANTOPRAZOLE 40 MG/10 ML VIAL IVP SCH (09:00)
[2020-12-13] MEDS ORDERED: ASPIRIN 325 MG TAB PO SCH (09:00)
[2020-12-13] MEDS ORDERED: bisacodyL 10 MG SUPP RECTAL PRN (09:00)
[2020-12-13] MEDS ORDERED: METOPROLOL TARTRATE 12.5 MG TAB PO SCH (09:00)
[2020-12-13 09:14] LABS: Glucose,Whole Blood 97 mg/dL (75-99)
[2020-12-13] MEDS: DEXMEDETOMIDINE/0.9% NACL(PMX) 400 MCG in EMPTY BAG 1 BAG IV SCH ×2 (09:42→15:18)
[2020-12-13 10:07] LABS: Glucose,Whole Blood 119 mg/dL (75-99)
[2020-12-13] MEDS: ATORVASTATIN 40 MG TAB PO SCH (10:25)
[2020-12-13] MEDS: PHENYLEPHRINE 40 MG in SODIUM CHLORIDE 0.9% 250 ML IV SCH ×2 (10:25→22:55)
[2020-12-13 11:07] LABS: Glucose,Whole Blood 110 mg/dL (75-99)
[2020-12-13 11:57] LABS: Glucose,Whole Blood 108 mg/dL (75-99)
[2020-12-13] MEDS: LACTATED RINGERS 1,000 ML IV SCH (12:10)
[2020-12-13 13:34] LABS: Glucose,Whole Blood 107 mg/dL (75-99)
--- NOTE | 2020-12-13 13:59 | P.PN ---
Subjective Progress Note Date: 12/13/20 On 12/13/2020 mom seeing the patient for a follow-up. Noted the patient was taken to the operating room yesterday. The patient had redo sternotomy, resection of an ascending aortic aneurysm with a replacement of a 32 mm tailored tube graft. Percutaneous placement of intra-aortic balloon pump was done as the patient required intra-aortic balloon pump for hemodynamic support intraoperatively. The patient was brought into the intensive care unit intubated on a mechanical ventilator. The patient is currently on assist control mode at the rate of 20 with a tidal volume of 550 and PEEP of 10 with an FiO2 of 70%. Morning blood gases showed a pH of 7.41 with a pCO2 of 39 and pO2 of 76 and above-mentioned vent setting. Ever pressures are not elevated. Chest x-ray showing routine postoperative changes. The patient has a right pleural chest tube, left pleural chest tube and 2 mediastinal chest tubes all of them are in place. The patient has a Mandaree-Manny catheter and the patient has an orogastric and orotracheal tube both of them are being in place. The output from the right and left pleural chest tubes are minimal in the order of 20 mL's over the past 8 hours, the mediastinal chest tubes is producing approximately 70 mL's over the past 8 hours and for 32 mL over the past 12 hours. Output from the chest tubes are minimal for now. The patient is in a normal sinus rhythm. The patient has an intra-aortic balloon pump in her urine this morning the augmentation was 1:1 and augment the blood pressure was 80. The patient had pulmonary artery pressures of 36/21. Cardiac index was 2.8 and the CVP was 9. The patient was having episodes of nonsustained V. tach. He was on epinephrine drip earlier this morning and epinephrine drip was gradually weaned off. Levo fed was also weaned off. The patient was ultimately switched to Chuck-Synephrine drip. Note that these aren't short runs of nonsustained V. tach not causing any significant hemodynamic instability. The patient remains sedated with propofol. Hemoglobin today is at 10.8. Intraoperatively the patient required a total of 4 units of platelets and 4 units of fresh frozen plasma. Objective - Vital Signs Vital signs: Vital Signs Temp 99.5 F 12/13/20 12:00 Pulse 71 12/13/20 12:00 Resp 12 12/13/20 12:00 BP 93/47 12/12/20 18:22 Pulse Ox 99 12/13/20 12:00 Intake & Output 12/12/20 12/13/20 12/13/20 18:59 06:59 18:59 Intake Total 3045.746 1726.827 761.714 Output Total 4028 1342 250 Balance -982.254 384.827 511.714 Weight 129.5 kg Intake: IV 529 1221.6 543.6 CO/CI 100 350 120 Lactated Ringers 1,000 ml 150 600 350 @ 50 mls/hr IV .Q20H [facility] Rx#:[id number] Pressure bags 27 108 63 Primacor 63.6 10.6 ceFAZolin 2 gm In Sodium 200 100 Chloride 0.9% 50 ml @ 100 mls/hr IVPB ONCE ONE Rx# :[id number] Intake, IV Titration 43.746 505.227 218.114 Amount Clevidipine Butyrate 25 0.533 mg In Empty Bag 1 bag @ 1 MG/HR 2 mls/hr IV .Q24H [facility] Rx#:[id number] EPINEPHrine 4 mg In 17.724 34.862 68.328 Dextrose 5% in Water 250 ml @ 0.01 MCG/KG/MIN 4. 436 mls/hr IV .Q24H [facility] Rx#:[id number] Insulin Regular 100 unit 2.2 61.925 22.542 In Sodium Chloride 0.9% 100 ml @ Per Protocol IV .Q0M [facility] Rx#:[id number] Milrinone-D5w Pmx 20 mg 4.614 In Dextrose/Water 1 100ml .bag @ 0.3 MCG/KG/MIN 10. 647 mls/hr IV .Q9H24M [facility] Rx#:[id number] Milrinone-D5w Pmx 20 mg 100.000 In Dextrose/Water 1 100ml .bag @ 0.5 MCG/KG/MIN 17. 745 mls/hr IV .Q5H39M [facility] Rx#:[id number] Norepinephrine 4 mg In 2.705 96.530 3.305 Sodium Chloride 0.9% 250 ml @ 0.05 MCG/KG/MIN 22. 536 mls/hr IV .[id number] [facility] Rx#:[id number] Phenylephrine 40 mg In 19.325 Sodium Chloride 0.9% 250 ml @ 0.5 MCG/KG/MIN 24.67 mls/hr IV .[id number] [facility] Rx#:[id number] propofoL 1,000 mg In 20.584 211.910 100 Empty Bag 1 bag @ Titrate IV .Q0M [facility] Rx#: [id number] Blood Product 2473 Ffp 24 Cpd Unit 299 [id number] Ffp 24 Cpd Unit 318 [id number] Ffp 24 Cpd Unit 320 [id number] Ffp 24 Cpd Unit 330 [id number] Platelet Irr Pheresis Pas 285 -C Unit [id number] Platelet Pheresis Pas 312 Psoralen Unit [id number] Output: Chest Tube Drainage 173 592 90 Left/Right Pleural 88 245 20 Medistinal x 2 85 347 70 Gastric Drainage 150 Urine 855 600 160 Estimated Blood Loss 3000 Other: Voiding Method Indwelling Catheter Indwelling Catheter Indwelling Catheter ABP, PAP, CO, CI - Last Documented Arterial Blood Pressure 105/51 Pulmonary Artery Pressure 38/21 Cardiac Output 5.9 Cardiac Index 2.9 - Exam Gen. appearance, comfortable and the patient is currently sedated on propofol resting comfortably in bed. The patient is supine and the patient is connected to an intra-aortic balloon pump Head exam was generally normal. There was no scleral icterus or corneal arcus. Mucous membranes were moist. Neck was supple and without jugular venous distension, thyromegaly, or carotid bruits. Carotids were easily palpable bilaterally. There was no adenopathy. The patient has an orogastric and orotracheal tube in place. The patient also has a right internal jugular Mandaree-Manny catheter which is also in place.Lungs were clear to auscultation and percussion, and with normal diaphragmatic excursion. No wheezes or rales were noted. The sternal wound is dry clean and intact. The patient is a right pleural left pleural and 2 mediastinal chest tubes. Heart sounds aegulal and there is a positive mechanical valve click heard over the precordium, there is also a friction rub heard throughout the precordium. Abdominal exam revealed normal bowel sounds. The abdomen was soft, non-tender, and without masses, organomegaly, or appreciable enlargement of the abdominal ao rta. Examination of the extremities revealed easily palpable radial, femoral and pedal pulses. There was no cyanosis, clubbing or edema. Pulses in lower extremities are slightly diminished. the patient also has a intra-aortic balloon pump that his been introduced through the left femoral artery. Exit site is dry clean and intact. Examination of the skin revealed no evidence of significant rashes, suspicious appearing nevi or other concerning lesions. Neurologically, the patient isedated, comfortable - Labs CBC & Chem 7: 12/13/20 03:55 12/13/20 03:55 Labs: Abnormal Lab Results - Last 24 Hours (Table) 12/09/20 12/12/20 12/12/20 Range/Units 08:35 16:03 16:03 WBC (3.8-10.6) k/uL RBC 3.71 L (4.30-5.90) m/uL Hgb 11.0 L D (13.0-17.5) gm/dL Hct 34.0 L (39.0-53.0) % Plt Count 133 L (150-450) k/uL Neutrophils # 9.2 H (1.3-7.7) k/uL Lymphocytes # 0.6 L (1.0-4.8) k/uL PT 13.7 H (9.0-12.0) sec INR 1.3 H (<1.2) Fibrinogen 174 L (200-500) mg/dL ABG pH (7.35-7.45) ABG pO2 (83-108) mmHg ABG Total CO2 (19-24) mmol/L ABG O2 Saturation (94-97) % Chloride (98-107) mmol/L Glucose (74-99) mg/dL POC Glucose (mg/dL) (75-99) mg/dL Calcium (8.4-10.2) mg/dL Magnesium (1.6-2.3) mg/dL Total Bilirubin (0.2-1.3) mg/dL AST (17-59) U/L Alkaline Phosphatase (38-126) U/L Total Protein (6.3-8.2) g/dL Albumin (3.5-5.0) g/dL Crossmatch See Detail 12/12/20 12/12/20 12/12/20 Range/Units 16:03 16:35 16:57 WBC (3.8-10.6) k/uL RBC (4.30-5.90) m/uL Hgb (13.0-17.5) gm/dL Hct (39.0-53.0) % Plt Count (150-450) k/uL Neutrophils # (1.3-7.7) k/uL Lymphocytes # (1.0-4.8) k/uL PT (9.0-12.0) sec INR (<1.2) Fibrinogen (200-500) mg/dL ABG pH 7.32 L (7.35-7.45) ABG pO2 115 H (83-108) mmHg ABG Total CO2 25 H (19-24) mmol/L ABG O2 Saturation 98.6 H (94-97) % Chloride 113 H (98-107) mmol/L Glucose 125 H (74-99) mg/dL POC Glucose (mg/dL) 133 H (75-99) mg/dL Calcium 8.0 L (8.4-10.2) mg/dL Magnesium 2.4 H (1.6-2.3) mg/dL Total Bilirubin 1.8 H (0.2-1.3) mg/dL AST (17-59) U/L Alkaline Phosphatase <20 L (38-126) U/L Total Protein 4.2 L (6.3-8.2) g/dL Albumin 2.3 L (3.5-5.0) g/dL Crossmatch 12/12/20 12/12/20 12/12/20 Range/Units 17:10 18:18 18:58 WBC (3.8-10.6) k/uL RBC (4.30-5.90) m/uL Hgb (13.0-17.5) gm/dL Hct (39.0-53.0) % Plt Count (150-450) k/uL Neutrophils # (1.3-7.7) k/uL Lymphocytes # (1.0-4.8) k/uL PT (9.0-12.0) sec INR (<1.2) Fibrinogen (200-500) mg/dL ABG pH (7.35-7.45) ABG pO2 (83-108) mmHg ABG Total CO2 (19-24) mmol/L ABG O2 Saturation (94-97) % Chloride (98-107) mmol/L Glucose (74-99) mg/dL POC Glucose (mg/dL) 141 H 154 H 157 H (75-99) mg/dL Calcium (8.4-10.2) mg/dL Magnesium (1.6-2.3) mg/dL Total Bilirubin (0.2-1.3) mg/dL AST (17-59) U/L Alkaline Phosphatase (38-126) U/L Total Protein (6.3-8.2) g/dL Albumin (3.5-5.0) g/dL Crossmatch 12/12/20 12/12/20 12/12/20 Range/Units 19:18 20:00 20:49 WBC 10.8 H (3.8-10.6) k/uL RBC 3.65 L (4.30-5.90) m/uL Hgb 11.1 L (13.0-17.5) gm/dL Hct 32.9 L (39.0-53.0) % Plt Count 123 L (150-450) k/uL Neutrophils # 9.9 H (1.3-7.7) k/uL Lymphocytes # 0.3 L (1.0-4.8) k/uL PT (9.0-12.0) sec INR (<1.2) Fibrinogen (200-500) mg/dL ABG pH (7.35-7.45) ABG pO2 (83-108) mmHg ABG Total CO2 (19-24) mmol/L ABG O2 Saturation (94-97) % Chloride 110 H (98-107) mmol/L Glucose 156 H (74-99) mg/dL POC Glucose (mg/dL) 162 H (75-99) mg/dL Calcium (8.4-10.2) mg/dL Magnesium (1.6-2.3) mg/dL Total Bilirubin 1.8 H (0.2-1.3) mg/dL AST 68 H (17-59) U/L Alkaline Phosphatase 30 L (38-126) U/L Total Protein 4.9 L (6.3-8.2) g/dL Albumin 2.9 L (3.5-5.0) g/dL Crossmatch 12/12/20 12/12/20 12/12/20 Range/Units 20:49 22:13 22:18 WBC (3.8-10.6) k/uL RBC 3.45 L (4.30-5.90) m/uL Hgb 10.6 L (13.0-17.5) gm/dL Hct 31.1 L (39.0-53.0) % Plt Count 137 L (150-450) k/uL Neutrophils # 8.9 H (1.3-7.7) k/uL Lymphocytes # 0.2 L (1.0-4.8) k/uL PT (9.0-12.0) sec INR (<1.2) Fibrinogen (200-500) mg/dL ABG pH (7.35-7.45) ABG pO2 (83-108) mmHg ABG Total CO2 (19-24) mmol/L ABG O2 Saturation (94-97) % Chloride (98-107) mmol/L Glucose (74-99) mg/dL POC Glucose (mg/dL) 156 H 151 H (75-99) mg/dL Calcium (8.4-10.2) mg/dL Magnesium (1.6-2.3) mg/dL Total Bilirubin (0.2-1.3) mg/dL AST (17-59) U/L Alkaline Phosphatase (38-126) U/L Total Protein (6.3-8.2) g/dL Albumin (3.5-5.0) g/dL Crossmatch 12/12/20 12/13/20 12/13/20 Range/Units 23:15 00:07 01:08 WBC (3.8-10.6) k/uL RBC (4.30-5.90) m/uL Hgb (13.0-17.5) gm/dL Hct (39.0-53.0) % Plt Count (150-450) k/uL Neutrophils # (1.3-7.7) k/uL Lymphocytes # (1.0-4.8) k/uL PT (9.0-12.0) sec INR (<1.2) Fibrinogen (200-500) mg/dL ABG pH (7.35-7.45) ABG pO2 (83-108) mmHg ABG Total CO2 (19-24) mmol/L ABG O2 Saturation (94-97) % Chloride (98-107) mmol/L Glucose (74-99) mg/dL POC Glucose (mg/dL) 142 H 143 H 137 H (75-99) mg/dL Calcium (8.4-10.2) mg/dL Magnesium (1.6-2.3) mg/dL Total Bilirubin (0.2-1.3) mg/dL AST (17-59) U/L Alkaline Phosphatase (38-126) U/L Total Protein (6.3-8.2) g/dL Albumin (3.5-5.0) g/dL Crossmatch 12/13/20 12/13/20 12/13/20 Range/Units 02:04 03:00 03:55 WBC (3.8-10.6) k/uL RBC 3.55 L (4.30-5.90) m/uL Hgb 10.8 L (13.0-17.5) gm/dL Hct 31.6 L (39.0-53.0) % Plt Count 139 L (150-450) k/uL Neutrophils # 8.4 H (1.3-7.7) k/uL Lymphocytes # 0.3 L (1.0-4.8) k/uL PT (9.0-12.0) sec INR (<1.2) Fibrinogen (200-500) mg/dL ABG pH (7.35-7.45) ABG pO2 (83-108) mmHg ABG Total CO2 (19-24) mmol/L ABG O2 Saturation (94-97) % Chloride (98-107) mmol/L Glucose (74-99) mg/dL POC Glucose (mg/dL) 134 H 130 H (75-99) mg/dL Calcium (8.4-10.2) mg/dL Magnesium (1.6-2.3) mg/dL Total Bilirubin (0.2-1.3) mg/dL AST (17-59) U/L Alkaline Phosphatase (38-126) U/L Total Protein (6.3-8.2) g/dL Albumin (3.5-5.0) g/dL Crossmatch 12/13/20 12/13/20 12/13/20 Range/Units 03:55 03:56 04:44 WBC (3.8-10.6) k/uL RBC (4.30-5.90) m/uL Hgb (13.0-17.5) gm/dL Hct (39.0-53.0) % Plt Count (150-450) k/uL Neutrophils # (1.3-7.7) k/uL Lymphocytes # (1.0-4.8) k/uL PT (9.0-12.0) sec INR (<1.2) Fibrinogen (200-500) mg/dL ABG pH (7.35-7.45) ABG pO2 76 L (83-108) mmHg ABG Total CO2 25 H (19-24) mmol/L ABG O2 Saturation (94-97) % Chloride 110 H (98-107) mmol/L Glucose 125 H (74-99) mg/dL POC Glucose (mg/dL) 126 H (75-99) mg/dL Calcium 8.3 L (8.4-10.2) mg/dL Magnesium (1.6-2.3) mg/dL Total Bilirubin (0.2-1.3) mg/dL AST 84 H (17-59) U/L Alkaline Phosphatase 29 L (38-126) U/L Total Protein 4.9 L (6.3-8.2) g/dL Albumin 2.9 L (3.5-5.0) g/dL Crossmatch 12/13/20 12/13/20 12/13/20 Range/Units 05:12 06:09 07:11 WBC (3.8-10.6) k/uL RBC (4.30-5.90) m/uL Hgb (13.0-17.5) gm/dL Hct (39.0-53.0) % Plt Count (150-450) k/uL Neutrophils # (1.3-7.7) k/uL Lymphocytes # (1.0-4.8) k/uL PT (9.0-12.0) sec INR (<1.2) Fibrinogen (200-500) mg/dL ABG pH (7.35-7.45) ABG pO2 (83-108) mmHg ABG Total CO2 (19-24) mmol/L ABG O2 Saturation (94-97) % Chloride (98-107) mmol/L Glucose (74-99) mg/dL POC Glucose (mg/dL) 120 H 118 H 115 H (75-99) mg/dL Calcium (8.4-10.2) mg/dL Magnesium (1.6-2.3) mg/dL Total Bilirubin (0.2-1.3) mg/dL AST (17-59) U/L Alkaline Phosphatase (38-126) U/L Total Protein (6.3-8.2) g/dL Albumin (3.5-5.0) g/dL Crossmatch 12/13/20 12/13/20 12/13/20 Range/Units 08:01 10:06 11:06 WBC (3.8-10.6) k/uL RBC (4.30-5.90) m/uL Hgb (13.0-17.5) gm/dL Hct (39.0-53.0) % Plt Count (150-450) k/uL Neutrophils # (1.3-7.7) k/uL Lymphocytes # (1.0-4.8) k/uL PT (9.0-12.0) sec INR (<1.2) Fibrinogen (200-500) mg/dL ABG pH (7.35-7.45) ABG pO2 (83-108) mmHg ABG Total CO2 (19-24) mmol/L ABG O2 Saturation (94-97) % Chloride (98-107) mmol/L Glucose (74-99) mg/dL POC Glucose (mg/dL) 112 H 119 H 110 H (75-99) mg/dL Calcium (8.4-10.2) mg/dL Magnesium (1.6-2.3) mg/dL Total Bilirubin (0.2-1.3) mg/dL AST (17-59) U/L Alkaline Phosphatase (38-126) U/L Total Protein (6.3-8.2) g/dL Albumin (3.5-5.0) g/dL Crossmatch 12/13/20 12/13/20 Range/Units 11:55 13:33 WBC (3.8-10.6) k/uL RBC (4.30-5.90) m/uL Hgb (13.0-17.5) gm/dL Hct (39.0-53.0) % Plt Count (150-450) k/uL Neutrophils # (1.3-7.7) k/uL Lymphocytes # (1.0-4.8) k/uL PT (9.0-12.0) sec INR (<1.2) Fibrinogen (200-500) mg/dL ABG pH (7.35-7.45) ABG pO2 (83-108) mmHg ABG Total CO2 (19-24) mmol/L ABG O2 Saturation (94-97) % Chloride (98-107) mmol/L Glucose (74-99) mg/dL POC Glucose (mg/dL) 108 H 107 H (75-99) mg/dL Calcium (8.4-10.2) mg/dL Magnesium (1.6-2.3) mg/dL Total Bilirubin (0.2-1.3) mg/dL AST (17-59) U/L Alkaline Phosphatase (38-126) U/L Total Protein (6.3-8.2) g/dL Albumin (3.5-5.0) g/dL Crossmatch Assessment and Plan Plan: 1 reduced sternotomy, resection of an ascending aortic aneurysm and placement of a 32 mm tailored tube graft for a ascending aortic aneurysm, 6.2 cm, and the patient is postop day #1. The patient has normal coronaries. The patient also post aortic valve replacement many years back and the patient is a mechanical aortic valve in place. 2 intraoperative hypotension and low cardiac output requiring intra-aortic balloon pump which is currently still augmenting at 1:1, and the patient has a cardiac index of 2.8. The pressors are being gradually weaned off and the patient has been switched to new Synephrine as the patient was having some nonsustained episodes of V. tach while being on a combination of epinephrine and norepinephrine. 3 multiple episodes of nonsustained V. tach 4 post thoracotomy the patient remains intubated on mechanical ventilator. The patient has right pleural, left pleural and mediastinal chest tubes 5 history of bicuspid aortic valve post aortic valve replacement with a [employer] Gian mechanical valve 6 chronic atrial fibrillation maintained on long-term anticoagulation with warfarin on outpatient basis and the patient is currently on no anticoagulants 4 obstructive sleep apnea an AHI of 47 currently on CPAP 5 obesity with a BMI of 37.4 6 hypertension 7 hyperlipidemia Plan Continue ventilator support for now and off left-sided on 60% Wean off the intra-aortic balloon pump to 1:2 augmentation and monitored hemodynamics and gradually wean off the Chuck-Synephrine The patient sedated with propofol for now Monitor the output from the chest tubes Monitor hemodynamics Will ultimately removed intra-aortic balloon pump that the patient remains stable and subsequently start weaning trials on this patient. For now, keep the patient sedated Discussed the case with cardiothoracic surgery Will monitor the cardiac rhythm and will initiate amiodarone if the patient continues to have episodes of nonsustained V. tach will continue to follow, condition is critical. The solution was done and more than 30 minutes. Further, this is to follow regarding weaning process and extubation based on the patient's overall clinical response. Time with Patient: Greater than 30
[2020-12-13 14:12] LABS: ABG Base Excess 2.6 mmol/L; ABG HCO3 27 mmol/L (21-25); ABG PCO2 38 mmHg (35-45); ABG PH 7.45 (7.35-7.45); ABG PO2 108 mmHg (83-108); ABG TCO2 28 mmol/L (19-24); Allen Test Performed? Yes
[2020-12-13 14:26] LABS: Glucose,Whole Blood 97 mg/dL (75-99)
--- NOTE | 2020-12-13 14:46 | P.PN ---
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 Patient required intra-aortic balloon pump for hemodynamic support. Patient is intensive care unit still intubated and sedated. Patient does have intractable balloon pump still working at 1:1 ratio and his cardiac index has been between 2.5-3.3. Patient is in sinus rhythm but have short runs of nonsustained V. tach. Patient was on epinephrine and also Levophed drips which were discontinued and patient is currently on Chuck-Synephrine. Chest tubes are in place. Patient has [place]-Manny catheter. Patient's hemoglobin is about 10. We'll make consider using either beta jerrell or amiodarone. Patient continues to have nonsustained V. tach. Patient doesn't have an underlying ischemic heart disease. Objective - Vital Signs Vital signs: Vital Signs Temp 99.5 F 12/13/20 12:00 Pulse 73 12/13/20 14:00 Resp 20 12/13/20 14:00 BP 93/47 12/12/20 18:22 Pulse Ox 96 12/13/20 14:00 Intake & Output 12/12/20 12/13/20 12/13/20 18:59 06:59 18:59 Intake Total 3045.746 1726.827 830.714 Output Total 4028 1342 310 Balance -982.254 384.827 520.714 Weight 129.5 kg Intake: IV 529 1221.6 612.6 CO/CI 100 350 130 Lactated Ringers 1,000 ml 150 600 400 @ 50 mls/hr IV .[facility]H [facility] Rx#:[id number] Pressure bags 27 108 72 Primacor 63.6 10.6 ceFAZolin 2 gm In Sodium 200 100 Chloride 0.9% 50 ml @ 100 mls/hr IVPB ONCE ONE Rx# :[id number] Intake, IV Titration 43.746 505.227 218.114 Amount Clevidipine Butyrate 25 0.533 mg In Empty Bag 1 bag @ 1 MG/HR 2 mls/hr IV .Q24H [facility] Rx#:[id number] EPINEPHrine 4 mg In 17.724 34.862 68.328 Dextrose 5% in Water 250 ml @ 0.01 MCG/KG/MIN 4. 436 mls/hr IV .Q24H [facility] Rx#:[id number] Insulin Regular 100 unit 2.2 61.925 22.542 In Sodium Chloride 0.9% 100 ml @ Per Protocol IV .Q0M [facility] Rx#:[id number] Milrinone-D5w Pmx 20 mg 4.614 In Dextrose/Water 1 100ml .bag @ 0.3 MCG/KG/MIN 10. 647 mls/hr IV .Q9H24M [facility] Rx#:[id number] Milrinone-D5w Pmx 20 mg 100.000 In Dextrose/Water 1 100ml .bag @ 0.5 MCG/KG/MIN 17. 745 mls/hr IV .Q5H39M [facility] Rx#:[id number] Norepinephrine 4 mg In 2.705 96.530 3.305 Sodium Chloride 0.9% 250 ml @ 0.05 MCG/KG/MIN 22. 536 mls/hr IV .[id number] [facility] Rx#:[id number] Phenylephrine 40 mg In 19.325 Sodium Chloride 0.9% 250 ml @ 0.5 MCG/KG/MIN 24.67 mls/hr IV .I53T37V [facility] Rx#:[id number] propofoL 1,000 mg In 20.584 211.910 100 Empty Bag 1 bag @ Titrate IV .Q0M [facility] Rx#: [id number] Blood Product 2473 Ffp 24 Cpd Unit 299 [id number] Ffp 24 Cpd Unit 318 [id number] Ffp 24 Cpd Unit 320 [id number] Ffp 24 Cpd Unit 330 [id number] Platelet Irr Pheresis Pas 285 -C Unit [id number] Platelet Pheresis Pas 312 Psoralen Unit [id number] Output: Chest Tube Drainage 173 592 90 Left/Right Pleural 88 245 20 Medistinal x 2 85 347 70 Gastric Drainage 150 Urine 855 600 220 Estimated Blood Loss 3000 Other: Voiding Method Indwelling Catheter Indwelling Catheter Indwelling Catheter ABP, PAP, CO, CI - Last Documented Arterial Blood Pressure 102/49 Pulmonary Artery Pressure 37/19 Cardiac Output 6.5 Cardiac Index 2.8 - Exam GENERAL EXAM: Patient is still intubated and sedated HEENT: Normocephalic. NECK: No masses, no nuchal rigidity. CHEST: Postsurgical LUNGS: Equal air entry HEART: [S1 and S2 normal ABDOMEN: Soft SKIN: No rashes CENTRAL NERVOUS SYSTEM: Sedated EXTREMITIES: No cyanosis, clubbing or edema. - Labs CBC & Chem 7: 12/13/20 03:55 12/13/20 03:55 Labs: Abnormal Lab Results - Last 24 Hours (Table) 12/09/20 12/12/20 12/12/20 Range/Units 08:35 16:03 16:03 WBC (3.8-10.6) k/uL RBC 3.71 L (4.30-5.90) m/uL Hgb 11.0 L D (13.0-17.5) gm/dL Hct 34.0 L (39.0-53.0) % Plt Count 133 L (150-450) k/uL Neutrophils # 9.2 H (1.3-7.7) k/uL Lymphocytes # 0.6 L (1.0-4.8) k/uL PT 13.7 H (9.0-12.0) sec INR 1.3 H (<1.2) Fibrinogen 174 L (200-500) mg/dL ABG pH (7.35-7.45) ABG pO2 (83-108) mmHg ABG HCO3 (21-25) mmol/L ABG Total CO2 (19-24) mmol/L ABG O2 Saturation (94-97) % Chloride (98-107) mmol/L Glucose (74-99) mg/dL POC Glucose (mg/dL) (75-99) mg/dL Calcium (8.4-10.2) mg/dL Magnesium (1.6-2.3) mg/dL Total Bilirubin (0.2-1.3) mg/dL AST (17-59) U/L Alkaline Phosphatase (38-126) U/L Total Protein (6.3-8.2) g/dL Albumin (3.5-5.0) g/dL Crossmatch See Detail 12/12/20 12/12/20 12/12/20 Range/Units 16:03 16:35 16:57 WBC (3.8-10.6) k/uL RBC (4.30-5.90) m/uL Hgb (13.0-17.5) gm/dL Hct (39.0-53.0) % Plt Count (150-450) k/uL Neutrophils # (1.3-7.7) k/uL Lymphocytes # (1.0-4.8) k/uL PT (9.0-12.0) sec INR (<1.2) Fibrinogen (200-500) mg/dL ABG pH 7.32 L (7.35-7.45) ABG pO2 115 H (83-108) mmHg ABG HCO3 (21-25) mmol/L ABG Total CO2 25 H (19-24) mmol/L ABG O2 Saturation 98.6 H (94-97) % Chloride 113 H (98-107) mmol/L Glucose 125 H (74-99) mg/dL POC Glucose (mg/dL) 133 H (75-99) mg/dL Calcium 8.0 L (8.4-10.2) mg/dL Magnesium 2.4 H (1.6-2.3) mg/dL Total Bilirubin 1.8 H (0.2-1.3) mg/dL AST (17-59) U/L Alkaline Phosphatase <20 L (38-126) U/L Total Protein 4.2 L (6.3-8.2) g/dL Albumin 2.3 L (3.5-5.0) g/dL Crossmatch 12/12/20 12/12/20 12/12/20 Range/Units 17:10 18:18 18:58 WBC (3.8-10.6) k/uL RBC (4.30-5.90) m/uL Hgb (13.0-17.5) gm/dL Hct (39.0-53.0) % Plt Count (150-450) k/uL Neutrophils # (1.3-7.7) k/uL Lymphocytes # (1.0-4.8) k/uL PT (9.0-12.0) sec INR (<1.2) Fibrinogen (200-500) mg/dL ABG pH (7.35-7.45) ABG pO2 (83-108) mmHg ABG HCO3 (21-25) mmol/L ABG Total CO2 (19-24) mmol/L ABG O2 Saturation (94-97) % Chloride (98-107) mmol/L Glucose (74-99) mg/dL POC Glucose (mg/dL) 141 H 154 H 157 H (75-99) mg/dL Calcium (8.4-10.2) mg/dL Magnesium (1.6-2.3) mg/dL Total Bilirubin (0.2-1.3) mg/dL AST (17-59) U/L Alkaline Phosphatase (38-126) U/L Total Protein (6.3-8.2) g/dL Albumin (3.5-5.0) g/dL Crossmatch 12/12/20 12/12/20 12/12/20 Range/Units 19:18 20:00 20:49 WBC 10.8 H (3.8-10.6) k/uL RBC 3.65 L (4.30-5.90) m/uL Hgb 11.1 L (13.0-17.5) gm/dL Hct 32.9 L (39.0-53.0) % Plt Count 123 L (150-450) k/uL Neutrophils # 9.9 H (1.3-7.7) k/uL Lymphocytes # 0.3 L (1.0-4.8) k/uL PT (9.0-12.0) sec INR (<1.2) Fibrinogen (200-500) mg/dL ABG pH (7.35-7.45) ABG pO2 (83-108) mmHg ABG HCO3 (21-25) mmol/L ABG Total CO2 (19-24) mmol/L ABG O2 Saturation (94-97) % Chloride 110 H (98-107) mmol/L Glucose 156 H (74-99) mg/dL POC Glucose (mg/dL) 162 H (75-99) mg/dL Calcium (8.4-10.2) mg/dL Magnesium (1.6-2.3) mg/dL Total Bilirubin 1.8 H (0.2-1.3) mg/dL AST 68 H (17-59) U/L Alkaline Phosphatase 30 L (38-126) U/L Total Protein 4.9 L (6.3-8.2) g/dL Albumin 2.9 L (3.5-5.0) g/dL Crossmatch 12/12/20 12/12/20 12/12/20 Range/Units 20:49 22:13 22:18 WBC (3.8-10.6) k/uL RBC 3.45 L (4.30-5.90) m/uL Hgb 10.6 L (13.0-17.5) gm/dL Hct 31.1 L (39.0-53.0) % Plt Count 137 L (150-450) k/uL Neutrophils # 8.9 H (1.3-7.7) k/uL Lymphocytes # 0.2 L (1.0-4.8) k/uL PT (9.0-12.0) sec INR (<1.2) Fibrinogen (200-500) mg/dL ABG pH (7.35-7.45) ABG pO2 (83-108) mmHg ABG HCO3 (21-25) mmol/L ABG Total CO2 (19-24) mmol/L ABG O2 Saturation (94-97) % Chloride (98-107) mmol/L Glucose (74-99) mg/dL POC Glucose (mg/dL) 156 H 151 H (75-99) mg/dL Calcium (8.4-10.2) mg/dL Magnesium (1.6-2.3) mg/dL Total Bilirubin (0.2-1.3) mg/dL AST (17-59) U/L Alkaline Phosphatase (38-126) U/L Total Protein (6.3-8.2) g/dL Albumin (3.5-5.0) g/dL Crossmatch 12/12/20 12/13/20 12/13/20 Range/Units 23:15 00:07 01:08 WBC (3.8-10.6) k/uL RBC (4.30-5.90) m/uL Hgb (13.0-17.5) gm/dL Hct (39.0-53.0) % Plt Count (150-450) k/uL Neutrophils # (1.3-7.7) k/uL Lymphocytes # (1.0-4.8) k/uL PT (9.0-12.0) sec INR (<1.2) Fibrinogen (200-500) mg/dL ABG pH (7.35-7.45) ABG pO2 (83-108) mmHg ABG HCO3 (21-25) mmol/L ABG Total CO2 (19-24) mmol/L ABG O2 Saturation (94-97) % Chloride (98-107) mmol/L Glucose (74-99) mg/dL POC Glucose (mg/dL) 142 H 143 H 137 H (75-99) mg/dL Calcium (8.4-10.2) mg/dL Magnesium (1.6-2.3) mg/dL Total Bilirubin (0.2-1.3) mg/dL AST (17-59) U/L Alkaline Phosphatase (38-126) U/L Total Protein (6.3-8.2) g/dL Albumin (3.5-5.0) g/dL Crossmatch 12/13/20 12/13/20 12/13/20 Range/Units 02:04 03:00 03:55 WBC (3.8-10.6) k/uL RBC 3.55 L (4.30-5.90) m/uL Hgb 10.8 L (13.0-17.5) gm/dL Hct 31.6 L (39.0-53.0) % Plt Count 139 L (150-450) k/uL Neutrophils # 8.4 H (1.3-7.7) k/uL Lymphocytes # 0.3 L (1.0-4.8) k/uL PT (9.0-12.0) sec INR (<1.2) Fibrinogen (200-500) mg/dL ABG pH (7.35-7.45) ABG pO2 (83-108) mmHg ABG HCO3 (21-25) mmol/L ABG Total CO2 (19-24) mmol/L ABG O2 Saturation (94-97) % Chloride (98-107) mmol/L Glucose (74-99) mg/dL POC Glucose (mg/dL) 134 H 130 H (75-99) mg/dL Calcium (8.4-10.2) mg/dL Magnesium (1.6-2.3) mg/dL Total Bilirubin (0.2-1.3) mg/dL AST (17-59) U/L Alkaline Phosphatase (38-126) U/L Total Protein (6.3-8.2) g/dL Albumin (3.5-5.0) g/dL Crossmatch 12/13/20 12/13/20 12/13/20 Range/Units 03:55 03:56 04:44 WBC (3.8-10.6) k/uL RBC (4.30-5.90) m/uL Hgb (13.0-17.5) gm/dL Hct (39.0-53.0) % Plt Count (150-450) k/uL Neutrophils # (1.3-7.7) k/uL Lymphocytes # (1.0-4.8) k/uL PT (9.0-12.0) sec INR (<1.2) Fibrinogen (200-500) mg/dL ABG pH (7.35-7.45) ABG pO2 76 L (83-108) mmHg ABG HCO3 (21-25) mmol/L ABG Total CO2 25 H (19-24) mmol/L ABG O2 Saturation (94-97) % Chloride 110 H (98-107) mmol/L Glucose 125 H (74-99) mg/dL POC Glucose (mg/dL) 126 H (75-99) mg/dL Calcium 8.3 L (8.4-10.2) mg/dL Magnesium (1.6-2.3) mg/dL Total Bilirubin (0.2-1.3) mg/dL AST 84 H (17-59) U/L Alkaline Phosphatase 29 L (38-126) U/L Total Protein 4.9 L (6.3-8.2) g/dL Albumin 2.9 L (3.5-5.0) g/dL Crossmatch 12/13/20 12/13/20 12/13/20 Range/Units 05:12 06:09 07:11 WBC (3.8-10.6) k/uL RBC (4.30-5.90) m/uL Hgb (13.0-17.5) gm/dL Hct (39.0-53.0) % Plt Count (150-450) k/uL Neutrophils # (1.3-7.7) k/uL Lymphocytes # (1.0-4.8) k/uL PT (9.0-12.0) sec INR (<1.2) Fibrinogen (200-500) mg/dL ABG pH (7.35-7.45) ABG pO2 (83-108) mmHg ABG HCO3 (21-25) mmol/L ABG Total CO2 (19-24) mmol/L ABG O2 Saturation (94-97) % Chloride (98-107) mmol/L Glucose (74-99) mg/dL POC Glucose (mg/dL) 120 H 118 H 115 H (75-99) mg/dL Calcium (8.4-10.2) mg/dL Magnesium (1.6-2.3) mg/dL Total Bilirubin (0.2-1.3) mg/dL AST (17-59) U/L Alkaline Phosphatase (38-126) U/L Total Protein (6.3-8.2) g/dL Albumin (3.5-5.0) g/dL Crossmatch 12/13/20 12/13/20 12/13/20 Range/Units 08:01 10:06 11:06 WBC (3.8-10.6) k/uL RBC (4.30-5.90) m/uL Hgb (13.0-17.5) gm/dL Hct (39.0-53.0) % Plt Count (150-450) k/uL Neutrophils # (1.3-7.7) k/uL Lymphocytes # (1.0-4.8) k/uL PT (9.0-12.0) sec INR (<1.2) Fibrinogen (200-500) mg/dL ABG pH (7.35-7.45) ABG pO2 (83-108) mmHg ABG HCO3 (21-25) mmol/L ABG Total CO2 (19-24) mmol/L ABG O2 Saturation (94-97) % Chloride (98-107) mmol/L Glucose (74-99) mg/dL POC Glucose (mg/dL) 112 H 119 H 110 H (75-99) mg/dL Calcium (8.4-10.2) mg/dL Magnesium (1.6-2.3) mg/dL Total Bilirubin (0.2-1.3) mg/dL AST (17-59) U/L Alkaline Phosphatase (38-126) U/L Total Protein (6.3-8.2) g/dL Albumin (3.5-5.0) g/dL Crossmatch 12/13/20 12/13/20 12/13/20 Range/Units 11:55 13:33 14:04 WBC (3.8-10.6) k/uL RBC (4.30-5.90) m/uL Hgb (13.0-17.5) gm/dL Hct (39.0-53.0) % Plt Count (150-450) k/uL Neutrophils # (1.3-7.7) k/uL Lymphocytes # (1.0-4.8) k/uL PT (9.0-12.0) sec INR (<1.2) Fibrinogen (200-500) mg/dL ABG pH (7.35-7.45) ABG pO2 (83-108) mmHg ABG HCO3 27 H (21-25) mmol/L ABG Total CO2 28 H (19-24) mmol/L ABG O2 Saturation 99.0 H (94-97) % Chloride (98-107) mmol/L Glucose (74-99) mg/dL POC Glucose (mg/dL) 108 H 107 H (75-99) mg/dL Calcium (8.4-10.2) mg/dL Magnesium (1.6-2.3) mg/dL Total Bilirubin (0.2-1.3) mg/dL AST (17-59) U/L Alkaline Phosphatase (38-126) U/L Total Protein (6.3-8.2) g/dL Albumin (3.5-5.0) g/dL Crossmatch Assessment and Plan (1) Status post ascending aortic aneurysm repair Current Visit: Yes Status: Acute Code(s): Z98.890 - OTHER SPECIFIED POSTPROCEDURAL STATES; Z86.79 - PERSONAL HISTORY OF OTHER DISEASES OF THE CIRCULATORY SYSTEM SNOMED Code(s): 910113339 (2) History of aortic valve replacement Current Visit: Yes Status: Acute Code(s): Z95.2 - PRESENCE OF PROSTHETIC HEART VALVE SNOMED Code(s): 7406392634397 (3) Hypertension Current Visit: Yes Status: Acute Code(s): I10 - ESSENTIAL (PRIMARY) HYPERTENSION SNOMED Code(s): 14005753 (4) Hypotension Current Visit: Yes Status: Acute Code(s): I95.9 - HYPOTENSION, UNSPECIFIED SNOMED Code(s): 42434791 (5) Nonsustained ventricular tachycardia Current Visit: Yes Status: Acute Code(s): I47.2 - VENTRICULAR TACHYCARDIA SNOMED Code(s): 035181063 Plan: Continue current measures. May use beta blockers or amiodarone if patient continues to have nonsustained V. tach. Cardiac surgeon is contemplating about removing entatic balloon pump. Further recommendations depend upon the clinical course.
[2020-12-13 15:05] VITALS: BMI 40.9
[2020-12-13 15:13] LABS: Glucose,Whole Blood 112 mg/dL (75-99)
[2020-12-13 16:15] LABS: Calcium 8.1 mg/dL (8.4-10.2); Magnesium 2.3 mg/dL (1.6-2.3); Potassium 4.2 mmol/L (3.5-5.1)
[2020-12-13 16:15] LABS: Glucose,Whole Blood 100 mg/dL (75-99)
--- NOTE | 2020-12-13 16:29 | P.PN ---
Subjective Progress Note Date: 12/13/20 Principal diagnosis: Ascending aortic aneurysm. Past medical history significant for bicuspid aortic valve with mechanical aortic valve replacement in December of 1994, chronic at rial fibrillation, currently on Coumadin for anticoagulation with previous cardioversion, hypertension, hyperlipidemia, obstructive sleep apnea with home CPAP use, obesity, never smoker with preoperative FEV1 91% of predicted value. 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 Postoperative acute blood loss anemia, expected due to hemodilution and cardiopulmonary bypass. The patient is seen in follow-up today on 12/13/2020 at his bedside in the intensive care unit. He remains sedated on propofol drip at 33 mcg/kg/m, remains intubated with mechanical ventilator support, current mechanical ventilator settings are assist control 20, TV 550, FiO2 70%, PEEP of 10. Oxygen saturations on current mechanical ventilator settings are 98%. Arterial blood gas results this morning show a pH of 7.41, pCO2 39, pO2 76, HCO3 24, O2 sat 96.7% and a base excess of -0.5. Left femoral intra-aortic balloon pump remains in place and is currently on a 1:1 setting, current hemodynamics on the intra- aortic balloon pump RA blood pressure of 82/55 with a map of 69, augmented pressure of 80 mmHg, current arterial line blood pressures are 116/44 with a map of 71 mmHg, cardiac output 6.6, cardiac index 2.8, PA pressures 25/19 and CVP 12 mmHg. Mediastinal and pleural chest tubes remain in place to low continuous wall suction -20 cm H2O. No air leak is present. Draining thin serosanguineous drainage. Mediastinal chest tubes drained 180 mL output in the last 8 hours and 450 mL since surgery. Pleural chest tubes drained 100 mL output in the last 8 hours and 320 mL output since surgery. The patient is moving all 4 extremities appropriately and is following some simple commands at times. Remains on norepinephrine at 0.1 mcg/kg/m, epinephrine at 2 mcg/m and Primacor drip at 0.3 mcg/kg/m for hemodynamic support. Bedside monitor is showing normal sinus rhythm with frequent PACs heart rate 88 BPM, the patient has having occasional episodes of a wide complex tachycardia which last for about 5-10 beats. Objective - Vital Signs Vital signs: Vital Signs Temp 98.2 F 12/12/20 19:00 Pulse 90 12/13/20 07:29 Resp 22 12/13/20 06:00 BP 93/47 12/12/20 18:22 Pulse Ox 98 12/13/20 06:00 Intake & Output 12/12/20 12/13/20 12/13/20 18:59 06:59 18:59 Intake Total 3045.746 1726.827 63.892 Output Total 4028 1342 Balance -982.254 384.827 63.892 Weight 129.5 kg Intake: IV 529 1221.6 CO/CI 100 350 Lactated Ringers 1,000 ml 150 600 @ 50 mls/hr IV .Q20H [facility] Rx#:[id number] Pressure bags 27 108 Primacor 63.6 ceFAZolin 2 gm In Sodium 200 100 Chloride 0.9% 50 ml @ 100 mls/hr IVPB ONCE ONE Rx# :[id number] Intake, IV Titration 43.746 505.227 63.892 Amount Clevidipine Butyrate 25 0.533 mg In Empty Bag 1 bag @ 1 MG/HR 2 mls/hr IV .Q24H [facility] Rx#:[id number] EPINEPHrine 4 mg In 17.724 34.862 60.587 Dextrose 5% in Water 250 ml @ 0.01 MCG/KG/MIN 4. 436 mls/hr IV .Q24H [facility] Rx#:[id number] Insulin Regular 100 unit 2.2 61.925 In Sodium Chloride 0.9% 100 ml @ Per Protocol IV .Q0M [facility] Rx#:[id number] Milrinone-D5w Pmx 20 mg 100.000 In Dextrose/Water 1 100ml .bag @ 0.5 MCG/KG/MIN 17. 745 mls/hr IV .Q5H39M [facility] Rx#:[id number] Norepinephrine 4 mg In 2.705 96.530 3.305 Sodium Chloride 0.9% 250 ml @ 0.05 MCG/KG/MIN 22. 536 mls/hr IV .[id number] [facility] Rx#:[id number] propofoL 1,000 mg In 20.584 211.910 Empty Bag 1 bag @ Titrate IV .Q0M [facility] Rx#: [id number] Blood Product 2473 Ffp 24 Cpd Unit 299 [id number] Ffp 24 Cpd Unit 318 [id number] Ffp 24 Cpd Unit 320 [id number] Ffp 24 Cpd Unit 330 [id number] Platelet Irr Pheresis Pas 285 -C Unit [id number] Platelet Pheresis Pas 312 Psoralen Unit [id number] Output: Chest Tube Drainage 173 592 Left/Right Pleural 88 245 Medistinal x 2 85 347 Gastric Drainage 150 Urine 855 600 Estimated Blood Loss 3000 Other: Voiding Method Indwelling Catheter Indwelling Catheter ABP, PAP, CO, CI - Last Documented Arterial Blood Pressure 102/51 Pulmonary Artery Pressure 32/23 Cardiac Output 6.9 Cardiac Index 2.9 - Constitutional Constitutional Comment(s): Remain sedated with propofol drip, occasionally is following some simple commands appropriately with verbal stimuli and moving all 4 extremities appropriately. General appearance: Present: morbidly obese, no acute distress - EENT Eyes: Present: normal appearance. Absent: scleral icterus - Neck Details: Neck is supple, right IJ Cordis with [place]Manny catheter in place and function ing. - Respiratory Details: Lungs sounds essentially clear throughout, diminished to his bilateral bases. No wheezes, rhonchi or crackles. Respirations are symmetrical and nonlabored with mechanical ventilator support. Current mechanical ventilator settings are assist control 20, TV 550, FiO2 70%, PEEP of 10. Oxygen saturations 98% on current mechanical ventilator settings. ABG results this morning show a pH of 7.41, pCO2 39, pO2 76, HCO3 24, O2 sat 96.7%, base excess 0.5. Mediastinal and left and right pleural chest tubes in place to low continuous wall suction -20 cm H2O. No air leak is present. Draining thin serosanguineous drainage. - Cardiovascular Details: Regular rhythm and rate. S1 and S2 present, valvular click present, negative for S3, gallop or murmur. Bedside telemetry showing normal sinus rhythm with occasional PACs heart rate 88 BPM. Sternum is stable. Heart hugger in place. Atrial and ventricular epicardial pacemaker wires in place and connected to a backup bedside pacemaker generator on a VVI 50. Knee-high KELLE hose and sequential compression devices in place to his bilateral lower extremities. No edema present. Norepinephrine drip at 0.1 mcg/kg/m, epinephrine drip at 2 mcg/m and Primacor drip infusing at 0.3 mcg/kg/m. Right IJ Cordis with [place]-Manny catheter in place, currently hemodynamics showing a cardiac output 6.6, cardiac index 2.8, PA pressure 25/19 and CVP 12 mmHg. Left femoral intra-aortic balloon pump in place on a 1:1 setting, intra-aortic balloon pump arterial line pressures showing a blood pressure of 82/55 with a map of 69 mmHg and an augmented pressure of 78 mmHg. Right radial arterial line in place showing a current blood pressure of 116/44 with a map of 71 mmHg. Peripheral pulses palpable to his left dorsalis pedis, left radial, and Doppler pulse present to his right dorsalis pedis. - Gastrointestinal Gastrointestinal Comment(s): Abdomen is soft, nontender and nondistended. Hypoactive bowel sounds present in all 4 abdominal quadrants. No guarding or rigidity. No organomegaly appreciated. OG tube in place to low intermittent wall suction, 150 mL of drainage in the last 8 hours. - Genitourinary Genitourinary Comment(s): Snyder catheter for accurate I&O. Draining clear muna urine. 400 mL output in the last 8 hours. - Integumentary Integumentary Comment(s): Skin is warm and dry. No clubbing or cyanosis is present. Midline sternal incision is clean, dry and approximated. No drainage or redness is present. Left femoral IABP site soft to touch. - Neurologic Neurologic Comment(s): Currently sedated on propofol drip, unable to fully assess at this time. He is moving all 4 extremities appropriately with verbal stimuli and shaking his head yes and no appropriately with yes and no questions. - Musculoskeletal Musculoskeletal Comment(s): Currently sedated on propofol drip, unable to fully assess at this time. He is moving all 4 extremities appropriately with verbal stimuli and shaking his head yes and no appropriately with yes and no questions. - Psychiatric Psychiatric Comment(s): Currently sedated on propofol drip, unable to fully assess at this time. He is moving all 4 extremities appropriately with verbal stimuli and shaking his head yes and no appropriately with yes and no questions. - Allied health notes Allied health notes reviewed: nursing - Labs CBC & Chem 7: 12/13/20 03:55 12/13/20 03:55 Labs: Abnormal Lab Results - Last 24 Hours (Table) 12/09/20 12/12/20 12/12/20 Range/Units 08:35 16:03 16:03 WBC (3.8-10.6) k/uL RBC 3.71 L (4.30-5.90) m/uL Hgb 11.0 L D (13.0-17.5) gm/dL Hct 34.0 L (39.0-53.0) % Plt Count 133 L (150-450) k/uL Neutrophils # 9.2 H (1.3-7.7) k/uL Lymphocytes # 0.6 L (1.0-4.8) k/uL PT 13.7 H (9.0-12.0) sec INR 1.3 H (<1.2) Fibrinogen 174 L (200-500) mg/dL ABG pH (7.35-7.45) ABG pO2 (83-108) mmHg ABG Total CO2 (19-24) mmol/L ABG O2 Saturation (94-97) % Chloride (98-107) mmol/L Glucose (74-99) mg/dL POC Glucose (mg/dL) (75-99) mg/dL Calcium (8.4-10.2) mg/dL Magnesium (1.6-2.3) mg/dL Total Bilirubin (0.2-1.3) mg/dL AST (17-59) U/L Alkaline Phosphatase (38-126) U/L Total Protein (6.3-8.2) g/dL Albumin (3.5-5.0) g/dL Crossmatch See Detail 12/12/20 12/12/20 12/12/20 Range/Units 16:03 16:35 16:57 WBC (3.8-10.6) k/uL RBC (4.30-5.90) m/uL Hgb (13.0-17.5) gm/dL Hct (39.0-53.0) % Plt Count (150-450) k/uL Neutrophils # (1.3-7.7) k/uL Lymphocytes # (1.0-4.8) k/uL PT (9.0-12.0) sec INR (<1.2) Fibrinogen (200-500) mg/dL ABG pH 7.32 L (7.35-7.45) ABG pO2 115 H (83-108) mmHg ABG Total CO2 25 H (19-24) mmol/L ABG O2 Saturation 98.6 H (94-97) % Chloride 113 H (98-107) mmol/L Glucose 125 H (74-99) mg/dL POC Glucose (mg/dL) 133 H (75-99) mg/dL Calcium 8.0 L (8.4-10.2) mg/dL Magnesium 2.4 H (1.6-2.3) mg/dL Total Bilirubin 1.8 H (0.2-1.3) mg/dL AST (17-59) U/L Alkaline Phosphatase <20 L (38-126) U/L Total Protein 4.2 L (6.3-8.2) g/dL Albumin 2.3 L (3.5-5.0) g/dL Crossmatch 12/12/20 12/12/20 12/12/20 Range/Units 17:10 18:18 18:58 WBC (3.8-10.6) k/uL RBC (4.30-5.90) m/uL Hgb (13.0-17.5) gm/dL Hct (39.0-53.0) % Plt Count (150-450) k/uL Neutrophils # (1.3-7.7) k/uL Lymphocytes # (1.0-4.8) k/uL PT (9.0-12.0) sec INR (<1.2) Fibrinogen (200-500) mg/dL ABG pH (7.35-7.45) ABG pO2 (83-108) mmHg ABG Total CO2 (19-24) mmol/L ABG O2 Saturation (94-97) % Chloride (98-107) mmol/L Glucose (74-99) mg/dL POC Glucose (mg/dL) 141 H 154 H 157 H (75-99) mg/dL Calcium (8.4-10.2) mg/dL Magnesium (1.6-2.3) mg/dL Total Bilirubin (0.2-1.3) mg/dL AST (17-59) U/L Alkaline Phosphatase (38-126) U/L Total Protein (6.3-8.2) g/dL Albumin (3.5-5.0) g/dL Crossmatch 12/12/20 12/12/20 12/12/20 Range/Units 19:18 20:00 20:49 WBC 10.8 H (3.8-10.6) k/uL RBC 3.65 L (4.30-5.90) m/uL Hgb 11.1 L (13.0-17.5) gm/dL Hct 32.9 L (39.0-53.0) % Plt Count 123 L (150-450) k/uL Neutrophils # 9.9 H (1.3-7.7) k/uL Lymphocytes # 0.3 L (1.0-4.8) k/uL PT (9.0-12.0) sec INR (<1.2) Fibrinogen (200-500) mg/dL ABG pH (7.35-7.45) ABG pO2 (83-108) mmHg ABG Total CO2 (19-24) mmol/L ABG O2 Saturation (94-97) % Chloride 110 H (98-107) mmol/L Glucose 156 H (74-99) mg/dL POC Glucose (mg/dL) 162 H (75-99) mg/dL Calcium (8.4-10.2) mg/dL Magnesium (1.6-2.3) mg/dL Total Bilirubin 1.8 H (0.2-1.3) mg/dL AST 68 H (17-59) U/L Alkaline Phosphatase 30 L (38-126) U/L Total Protein 4.9 L (6.3-8.2) g/dL Albumin 2.9 L (3.5-5.0) g/dL Crossmatch 12/12/20 12/12/20 12/12/20 Range/Units 20:49 22:13 22:18 WBC (3.8-10.6) k/uL RBC 3.45 L (4.30-5.90) m/uL Hgb 10.6 L (13.0-17.5) gm/dL Hct 31.1 L (39.0-53.0) % Plt Count 137 L (150-450) k/uL Neutrophils # 8.9 H (1.3-7.7) k/uL Lymphocytes # 0.2 L (1.0-4.8) k/uL PT (9.0-12.0) sec INR (<1.2) Fibrinogen (200-500) mg/dL ABG pH (7.35-7.45) ABG pO2 (83-108) mmHg ABG Total CO2 (19-24) mmol/L ABG O2 Saturation (94-97) % Chloride (98-107) mmol/L Glucose (74-99) mg/dL POC Glucose (mg/dL) 156 H 151 H (75-99) mg/dL Calcium (8.4-10.2) mg/dL Magnesium (1.6-2.3) mg/dL Total Bilirubin (0.2-1.3) mg/dL AST (17-59) U/L Alkaline Phosphatase (38-126) U/L Total Protein (6.3-8.2) g/dL Albumin (3.5-5.0) g/dL Crossmatch 12/12/20 12/13/20 12/13/20 Range/Units 23:15 00:07 01:08 WBC (3.8-10.6) k/uL RBC (4.30-5.90) m/uL Hgb (13.0-17.5) gm/dL Hct (39.0-53.0) % Plt Count (150-450) k/uL Neutrophils # (1.3-7.7) k/uL Lymphocytes # (1.0-4.8) k/uL PT (9.0-12.0) sec INR (<1.2) Fibrinogen (200-500) mg/dL ABG pH (7.35-7.45) ABG pO2 (83-108) mmHg ABG Total CO2 (19-24) mmol/L ABG O2 Saturation (94-97) % Chloride (98-107) mmol/L Glucose (74-99) mg/dL POC Glucose (mg/dL) 142 H 143 H 137 H (75-99) mg/dL Calcium (8.4-10.2) mg/dL Magnesium (1.6-2.3) mg/dL Total Bilirubin (0.2-1.3) mg/dL AST (17-59) U/L Alkaline Phosphatase (38-126) U/L Total Protein (6.3-8.2) g/dL Albumin (3.5-5.0) g/dL Crossmatch 12/13/20 12/13/20 12/13/20 Range/Units 02:04 03:00 03:55 WBC (3.8-10.6) k/uL RBC 3.55 L (4.30-5.90) m/uL Hgb 10.8 L (13.0-17.5) gm/dL Hct 31.6 L (39.0-53.0) % Plt Count 139 L (150-450) k/uL Neutrophils # 8.4 H (1.3-7.7) k/uL Lymphocytes # 0.3 L (1.0-4.8) k/uL PT (9.0-12.0) sec INR (<1.2) Fibrinogen (200-500) mg/dL ABG pH (7.35-7.45) ABG pO2 (83-108) mmHg ABG Total CO2 (19-24) mmol/L ABG O2 Saturation (94-97) % Chloride (98-107) mmol/L Glucose (74-99) mg/dL POC Glucose (mg/dL) 134 H 130 H (75-99) mg/dL Calcium (8.4-10.2) mg/dL Magnesium (1.6-2.3) mg/dL Total Bilirubin (0.2-1.3) mg/dL AST (17-59) U/L Alkaline Phosphatase (38-126) U/L Total Protein (6.3-8.2) g/dL Albumin (3.5-5.0) g/dL Crossmatch 12/13/20 12/13/20 12/13/20 Range/Units 03:55 03:56 04:44 WBC (3.8-10.6) k/uL RBC (4.30-5.90) m/uL Hgb (13.0-17.5) gm/dL Hct (39.0-53.0) % Plt Count (150-450) k/uL Neutrophils # (1.3-7.7) k/uL Lymphocytes # (1.0-4.8) k/uL PT (9.0-12.0) sec INR (<1.2) Fibrinogen (200-500) mg/dL ABG pH (7.35-7.45) ABG pO2 76 L (83-108) mmHg ABG Total CO2 25 H (19-24) mmol/L ABG O2 Saturation (94-97) % Chloride 110 H (98-107) mmol/L Glucose 125 H (74-99) mg/dL POC Glucose (mg/dL) 126 H (75-99) mg/dL Calcium 8.3 L (8.4-10.2) mg/dL Magnesium (1.6-2.3) mg/dL Total Bilirubin (0.2-1.3) mg/dL AST 84 H (17-59) U/L Alkaline Phosphatase 29 L (38-126) U/L Total Protein 4.9 L (6.3-8.2) g/dL Albumin 2.9 L (3.5-5.0) g/dL Crossmatch 12/13/20 12/13/20 12/13/20 Range/Units 05:12 06:09 07:11 WBC (3.8-10.6) k/uL RBC (4.30-5.90) m/uL Hgb (13.0-17.5) gm/dL Hct (39.0-53.0) % Plt Count (150-450) k/uL Neutrophils # (1.3-7.7) k/uL Lymphocytes # (1.0-4.8) k/uL PT (9.0-12.0) sec INR (<1.2) Fibrinogen (200-500) mg/dL ABG pH (7.35-7.45) ABG pO2 (83-108) mmHg ABG Total CO2 (19-24) mmol/L ABG O2 Saturation (94-97) % Chloride (98-107) mmol/L Glucose (74-99) mg/dL POC Glucose (mg/dL) 120 H 118 H 115 H (75-99) mg/dL Calcium (8.4-10.2) mg/dL Magnesium (1.6-2.3) mg/dL Total Bilirubin (0.2-1.3) mg/dL AST (17-59) U/L Alkaline Phosphatase (38-126) U/L Total Protein (6.3-8.2) g/dL Albumin (3.5-5.0) g/dL Crossmatch - Imaging and Cardiology Chest x-ray: report reviewed, image reviewed Assessment and Plan Assessment: 1. Ascending aortic aneurysm, 62 mm per radiology read on CT, [address] Cole's read, status post redo sternotomy, resection of a ascending aorta and noncoronary sinus of Valsalva aneurysms with replacement with a 32 mm tailored tube graft 2. History of bicuspid aortic valve with mechanical aortic valve replacement in December 1994 3. Chronic atrial fibrillation, currently on Coumadin on an outpatient for anticoagulation with previous cardioversion 4. History of hypertension 5. History of hyperlipidemia, treated, cholesterol 124, LDL 25 6. Obstructive sleep apnea with home CPAP use 7. Obesity 8. Never smoker with preoperative FEV1 91% of predicted 9. Normal coronary arteries, status post selective left and right coronary angiography Plan: 1. Continue aspirin and statin. Will start on metoprolol tartrate heart rate once the patient is off the epinephrine and norepinephrine drips. Bedside monitor currently showing normal sinus rhythm with occasional PACs heart rate 88 BPM. 2. Mechanical ventilator management per pulmonary/critical care service. 3. Continue IABP, decrease setting to 1:2 setting. Continue to monitor cardiac output and index. Continue Primacor drip at 0.3 mcg/kg/m. 4. Will monitor daily labs and a chest x-rays. Electrolyte replacement per protocol. 5. Will wean off norepinephrine, continue to wean epinephrine drip as tolerate d, currently decreased to 1 mcg/m. Keep [place]-Manny catheter in place for hemodynamic monitoring. 6. Insulin management per primary care service. 7. Pain control with current medication regimen. Ofirmev 1000 mg every 6 hours IV piggyback added for pain control. 8. Will continue right radial arterial line, and chest tubes for another 24 hours. 9. Continue Snyder for another 24 hours for strict accurate intake and output. Continue daily weights. 10. Continue propofol drip for sedation. 11. Give magnesium sulfate 1 g IV piggyback 1 now. 12. More recommendations to follow based on patient's clinical course. Time with Patient: Greater than 30
[2020-12-13] MEDS: CLEVIDIPINE BUTYRATE 25 MG in EMPTY BAG 1 BAG IV SCH (16:31)
[2020-12-13] MEDS: METOPROLOL TARTRATE 12.5 MG TAB PO SCH (16:41)
[2020-12-13 17:27] LABS: Glucose,Whole Blood 96 mg/dL (75-99)
--- NOTE | 2020-12-13 17:45 | P.PN ---
Progress Note - Text Progress Note Date: 12/13/20 - Chief Complaint Ascending aorta aneurysm - History of Present Illness Consultation: This is a pleasant 70-year-old patient of Dr. Guillaume Latham. Chronic stable medical conditions include atrial fibrillation, hypertension, hyperlipidemia, [facility] mechanical aortic valve replacement in December 1994. Patient was admitted yesterday, to be bridged to from warfarin to heparin, with a view to cardiothoracic surgery. December 11-cardiac catheterization that showed normal coronaries. December 12: aortic arch aneurysm replacement. EBL-500 mL. Today-ICU:. On the ventilator with FiO2 60 and a PEEP of 10. Drips include norepinephrine, insulin, Precedex, milrinone. Has a Snyder catheter. Has had intermittent runs of V. tach on the telemetry. Chest tubes remain in place. Review of systems: Patient intubated Active Medications Hydrocodone Bitart/Acetaminophen (Hydrocodone/Apap 5-325mg 1 Each Tab) 2 each PO Q4HR PRN PRN Reason: Severe Pain Hydrocodone Bitart/Acetaminophen (Hydrocodone/Apap 5-325mg 1 Each Tab) 1 each PO Q4HR PRN PRN Reason: Moderate Pain Albuterol/Ipratropium (Ipratropium-Albuterol 3 Ml Neb) 3 ml INHALATION RT-Q2H PRN PRN Reason: Shortness Of Breath Or Wheezing Albuterol/Ipratropium (Ipratropium-Albuterol 3 Ml Neb) 3 ml INHALATION RT-QID [facility] Last Admin: 12/13/20 15:34 Dose: 3 ml Documented by: Aspirin (Aspirin 325 Mg Tab) 325 mg PO DAILY [facility] Last Admin: 12/13/20 10:25 Dose: 325 mg Documented by: Atorvastatin Calcium (Atorvastatin 40 Mg Tab) 40 mg PO DAILY [facility] Last Admin: 12/13/20 10:25 Dose: 40 mg Documented by: Benzocaine/Menthol (Benzocaine/Menthol Lozeng 1 Each Lozenge) 1 each MUCOUS MEM Q2H PRN PRN Reason: Sore Throat Bisacodyl (Bisacodyl 10 Mg Supp) 10 mg RECTAL DAILY PRN PRN Reason: Constipation Heparin Sodium (Porcine) (Heparin Sodium,Porcine 5,000 Unit/Ml 1 Ml Vial) 5,000 unit SQ Q8HR [facility] Last Admin: 12/13/20 16:41 Dose: 5,000 unit Documented by: Norepinephrine Bitartrate 4 mg (/ Sodium Chloride) 254 mls @ 22.536 mls/hr IV .[id number] [facility]; Protocol Last Admin: 12/13/20 14:29 Dose: Not Given Documented by: Clevidipine 25 mg/ IV Solution 50 mls @ 2 mls/hr IV .Q24H [facility]; Protocol Last Admin: 12/13/20 16:31 Dose: Not Given Documented by: Albumin Human 250 ml/ IV (Solution) 250 mls @ 250 mls/hr IVPB Q1HR PRN PRN Reason: For Volume Stop: 12/14/20 16:04 Lactated Ringer's (Lactated Ringers) 1,000 mls @ 50 mls/hr IV .Q20H [facility] Last Admin: 12/13/20 12:10 Dose: 50 mls/hr Documented by: Propofol 1,000 mg/ IV Solution 100 mls @ 0 mls/hr IV .Q0M [facility]; Protocol Last Titration: 12/13/20 10:07 Dose: Infused Documented by: Calcium Gluconate 2 gm/ Sodium (Chloride) 120 mls @ 100 mls/hr IVPB ONCE PRN PRN Reason: Ionized Calcium less than 4.4 Stop: 01/11/21 16:04 Insulin Human Regular 100 unit (/ Sodium Chloride) 101 mls @ 0 mls/hr IV .Q0M [facility]; Protocol Last Titration: 12/13/20 11:06 Dose: 0 mls/hr, 0 mls/hr Documented by: Milrinone Lactate/Dextrose 20 (mg/ IV Solution) 100 mls @ 10.647 mls/hr IV .Q9H24M [facility] Last Admin: 12/13/20 17:21 Dose: 0.2 mcg/kg/min, 7.098 mls/hr Documented by: Acetaminophen 1,000 mg/ IV (Solution) 100 mls @ 400 mls/hr IVPB Q6H [facility] Stop: 12/14/20 02:14 Last Admin: 12/13/20 13:45 Dose: 400 mls/hr Documented by: Phenylephrine HCl 40 mg/ (Sodium Chloride) 254 mls @ 24.67 mls/hr IV .[id number] [facility]; Protocol Last Titration: 12/13/20 17:20 Dose: Infused Documented by: Magnesium Hydroxide (Magnesium Hydroxide 2,400 Mg/10 Ml Cup) 2,400 mg PO BID PRN PRN Reason: Constipation Metoclopramide HCl (Metoclopramide 5 Mg/Ml 2 Ml Vial) 10 mg IVP Q4H PRN PRN Reason: Nausea And Vomiting Metoprolol Tartrate (Metoprolol Tartrate 12.5 Mg Tab) 12.5 mg PO BID [facility] Last Admin: 12/13/20 16:41 Dose: 12.5 mg Documented by: Miscellaneous Information (Potassium Replacement Protocol 1 Each Mis) 1 each MISCELLANE DAILY PRN; Protocol PRN Reason: Per Protocol Miscellaneous Information (Magnesium Replacement Protocol 1 Each [facility] [place]) 1 each MISCELLANE DAILY PRN; Protocol PRN Reason: Per Protocol Miscellaneous Information (Phosphorus Replacement Protoco 1 Each [facility] [place]) 1 each MISCELLANE DAILY PRN; Protocol PRN Reason: Per Protocol Ondansetron HCl (Ondansetron 4 Mg/2 Ml Vial) 4 mg IVP Q6HR PRN PRN Reason: Nausea And Vomiting Pantoprazole Sodium (Pantoprazole 40 Mg/10 Ml Vial) 40 mg IVP DAILY [facility] Last Admin: 12/13/20 10:24 Dose: 40 mg Documented by: Senna/Docusate Sodium (Sennosides-Docusate Sodium 1 Each Tab) 2 each PO HS [facility] Sodium Chloride (Sodium Chloride 0.9% Flush 10 Ml Syringe) 10 ml IV BID [facility] Last Admin: 12/13/20 10:26 Dose: 10 ml Documented by: Past medical history to include: Atrial fibrillation, hypertension, hyperlipidemia, [facility] mechanical aortic valve replacement in December 1994. Social history: No history of smoking. Alcohol rarely. Physical examination: VITAL SIGNS: 97, 78, 18, 99/57, 100% on the ventilator GENERAL:, laying in bed, intubated EYES: Pupils equal. Conjunctiva pale HEENT: External appearance of nose and ears normal, oral cavity endotracheal tube NECK: JVD not raised; masses not palpable. HEART: Irregular; no edema. LUNGS: Respiratory rate normal; decreased breath sounds. 2 chest tubes ABDOMEN: Soft, nontender, liver spleen not palpable, no masses palpable. Snyder catheter PSYCH: Sedated NEUROLOGICAL: Cranial nerves grossly intact; no facial asymmetry, INVESTIGATIONS, reviewed in the clinical context: December 13: White count 9.4 hemoglobin 10.8 potassium 4 creatinine 1.04 December 12: White count 10.5 hemoglobin 11 platelets 133 potassium 4.3 creatinine 0.86 White count 3.9 hemoglobin 14.7 platelets 178 INR 1.8 potassium 4 creatinine 0.85 Chest x-ray film personally reviewed by me-some cardiomegaly Carotid Doppler-no significant stenosis Assessment: -Status post ascending aortic aneurysm repair, , with redo sternotomy -Persistent atrial fibrillation chronically on Coumadin -Essential hypertension -Hyperlipidemia -History of mechanical aortic valve, -Ascending aortic aneurysm 62 mm pending surgery -Dilutional thrombocytopenia -Acute postprocedure blood loss anemia, as expected from surgery -Acute hypoxic respiratory on ventilator support, postoperatively -Cardiac catheterization-normal coronaries Plan: Continue current medication treatment plan. [address] On the ventilator. Follow supportive care. Thank you Dr. Cole
[2020-12-13 18:12] LABS: Glucose,Whole Blood 120 mg/dL (75-99)
--- NOTE | 2020-12-13 18:17 | P.PN ---
Progress Note - Text Progress Note Date: 12/13/20 The left groin was examined, there is no evidence of hematoma. The balloon pump was turned off. The pre-existing sheath and balloon were removed en sunita at 1:10 PM today and the artery was allowed to bleed both antegrade and retrograde for several beats. Direct pressure was held over this site for 30 minutes. There was no residual bleeding or hematoma noted. The groin itself was soft. The left lower extremity appears warm and well perfused. There is no immediate complications. He remained hemodynamically stable with a good follow-up cardiac index.
[2020-12-13] MEDS: HYDROcodone/APAP 5-325MG 1 EACH TAB PO PRN ×2 (18:42→21:47)
[2020-12-13 19:03] LABS: Glucose,Whole Blood 105 mg/dL (75-99)
[2020-12-13 20:08] LABS: Glucose,Whole Blood 124 mg/dL (75-99)
[2020-12-13 21:25] LABS: Glucose,Whole Blood 122 mg/dL (75-99)
[2020-12-13] MEDS: SENNOSIDES-DOCUSATE SODIUM 1 EACH TAB PO SCH (21:34)
[2020-12-13 22:06] LABS: Glucose,Whole Blood 123 mg/dL (75-99)
[2020-12-13 23:03] LABS: Glucose,Whole Blood 124 mg/dL (75-99)
[2020-12-14 00:09] LABS: Glucose,Whole Blood 126 mg/dL (75-99)
[2020-12-14 01:24] LABS: Glucose,Whole Blood 130 mg/dL (75-99)
[2020-12-14] MEDS: ACETAMINOPHEN IV (For NPO) 1,000 MG in EMPTY BAG 1 BAG IVPB SCH (02:17)
[2020-12-14 02:21] LABS: Glucose,Whole Blood 127 mg/dL (75-99)
[2020-12-14 03:03] LABS: Glucose,Whole Blood 116 mg/dL (75-99)
[2020-12-14] MEDS: HYDROcodone/APAP 5-325MG 1 EACH TAB PO PRN ×5 (03:11→21:12)
[2020-12-14 04:07] LABS: Glucose,Whole Blood 114 mg/dL (75-99)
[2020-12-14 04:17] LABS: Basophils % (A) 0 %; Eosinophils % (A) 0 %; HGB 9.9 gm/dL (13.0-17.5); Lymphocytes # (A) 0.6 k/uL (1.0-4.8); Lymphocytes % (A) 6 %; MCH 29.9 pg (25.0-35.0); MCHC 33.2 g/dL (31.0-37.0); MCV 90.1 fL (80.0-100.0); Mean Platelet Volume 10.2; Monocytes # (A) 0.5 k/uL (0-1.0); Monocytes % (A) 5 %; Neutrophils # (A) 8.2 k/uL (1.3-7.7); Neutrophils % (A) 87 %; Platelet Count 113 k/uL (150-450); RBC 3.32 m/uL (4.30-5.90); RDW 13.9 % (11.5-15.5); WBC 9.4 k/uL (3.8-10.6)
[2020-12-14 04:27] LABS: Ionized Calcium 5.1 mg/dL (4.5-5.3)
[2020-12-14 04:34] LABS: ALT 21 U/L (4-49); AST 61 U/L (17-59); African American GFR (CKD) >90 (>60 ml/min/1.73 sqM); Albumin 2.6 g/dL (3.5-5.0); Alkaline Phosphatase 30 U/L (38-126); Anion Gap 1 mmol/L; Blood Urea Nitrogen 24 mg/dL (9-20); Carbon Dioxide 27 mmol/L (22-30); Chloride 111 mmol/L (98-107); Glucose 112 mg/dL (74-99); Non-African American GFR(CKD) 88 (>60 ml/min/1.73 sqM); Potassium 4.2 mmol/L (3.5-5.1); Sodium 139 mmol/L (137-145); Total Bilirubin 1.5 mg/dL (0.2-1.3); Total Protein 4.7 g/dL (6.3-8.2)
[2020-12-14 05:06] LABS: Glucose,Whole Blood 109 mg/dL (75-99)
[2020-12-14 06:24] LABS: Glucose,Whole Blood 105 mg/dL (75-99)
[2020-12-14 07:11] LABS: Glucose,Whole Blood 111 mg/dL (75-99)
--- NOTE | 2020-12-14 07:21 | P.PN ---
Subjective Progress Note Date: 12/14/20 On 12/13/2020 mom seeing the patient for a follow-up. Noted the patient was taken to the operating room yesterday. The patient had redo sternotomy, resection of an ascending aortic aneurysm with a replacement of a 32 mm tailored tube graft. Percutaneous placement of intra-aortic balloon pump was done as the patient required intra-aortic balloon pump for hemodynamic support intraoperatively. The patient was brought into the intensive care unit intubated on a mechanical ventilator. The patient is currently on assist control mode at the rate of 20 with a tidal volume of 550 and PEEP of 10 with an FiO2 of 70%. Morning blood gases showed a pH of 7.41 with a pCO2 of 39 and pO2 of 76 and above-mentioned vent setting. Ever pressures are not elevated. Chest x-ray showing routine postoperative changes. The patient has a right pleural chest tube, left pleural chest tube and 2 mediastinal chest tubes all of them are in place. The patient has a [place]-Manny catheter and the patient has an orogastric and orotracheal tube both of them are being in place. The output from the right and left pleural chest tubes are minimal in the order of 20 mL's over the past 8 hours, the mediastinal chest tubes is producing approximately 70 mL's over the past 8 hours and for 32 mL over the past 12 hours. Output from the chest tubes are minimal for now. The patient is in a normal sinus rhythm. The patient has an intra-aortic balloon pump in her urine this morning the augmentation was 1:1 and augment the blood pressure was 80. The patient had pulmonary artery pressures of 36/21. Cardiac index was 2.8 and the CVP was 9. The patient was having episodes of nonsustained V. tach. He was on epinephrine drip earlier this morning and epinephrine drip was gradually weaned off. Levo fed was also weaned off. The patient was ultimately switched to Chuck-Synephrine drip. Note that these aren't short runs of nonsustained V. tach not causing any significant hemodynamic instability. The patient remains sedated with propofol. Hemoglobin today is at 10.8. Intraoperatively the patient required a total of 4 units of platelets and 4 units of fresh frozen plasma. On 12/14/2020, the patient is extubated sitting up on a chair on oxygen at 2 L per minute nasal cannula. Doing well. Still having sternal pain and the patient is taking Vernon for that. He was extubated yesterday to a BiPAP at around 6 PM. He was placed on a BiPAP at a pressure of 10/5 with an FiO2 of 40% and subsequently BiPAP was discontinued. In terms of pressors, the patient is currently off epinephrine. He is taking Primacor 0.2 mcg/kg per minute. He is off epinephrine. No further episodes of nonsustained V. tach. The patient had 2 rounds of SVT that converted spontaneously. Chuck-Synephrine is running at 0.7 mcg/kg per minute. He is on no sedation for now. Propofol has been discontinued. Precedex has been discontinued. Intra-aortic balloon pump has also been discontinued. OG tube is out. His chest x-ray from today shows adequate expansion of both lungs. Chest tubes are all in place and the patient has a right and left pleural chest tube and mediastinal chest tubes. The hemoglobin today is at 9.9 with a white cell 9.4 and a platelet count of 113. The pleural chest tubes have been approximately 40 mL over the past 12 hours. The pacer is unplugged. Current cardiac rhythm is sinus. Cardiac Index is at 2.6 with an output of. Most recent SVR is 799 Objective - Vital Signs Vital signs: Vital Signs Temp 99.5 F 12/13/20 12:00 Pulse 60 12/14/20 03:30 Resp 16 12/14/20 03:30 BP 93/47 12/12/20 18:22 Pulse Ox 98 12/14/20 03:30 Intake & Output 12/13/20 12/14/20 12/14/20 18:59 06:59 18:59 Intake Total 1562.265 933.186 Output Total 635 662 Balance 927.265 271.186 Weight 129.5 kg Intake: IV 937.6 792 ACETAMINOPHEN IV (For NPO 200 ) 1,000 mg In Empty Bag 1 bag @ 400 mls/hr IVPB Q6H [facility] Rx#:[id number] CO/CI 160 120 Lactated Ringers 1,000 ml 650 400 @ 50 mls/hr IV .Q20H [facility] Rx#:[id number] Pressure bags 117 72 Primacor 10.6 Intake, IV Titration 624.665 41.186 Amount Dexmedetomidine/0.9% NaCl 88.711 (Pmx) 400 mcg In Empty Bag 1 bag @ Titrate IV . Q0M [facility] Rx#:[id number] EPINEPHrine 4 mg In 68.328 Dextrose 5% in Water 250 ml @ 0.01 MCG/KG/MIN 4. 436 mls/hr IV .Q24H [facility] Rx#:[id number] Insulin Regular 100 unit 22.542 8.417 In Sodium Chloride 0.9% 100 ml @ Per Protocol IV .Q0M [facility] Rx#:[id number] Milrinone-D5w Pmx 20 mg 87.779 32.769 In Dextrose/Water 1 100ml .bag @ 0.3 MCG/KG/MIN 10. 647 mls/hr IV .Q9H24M [facility] Rx#:[id number] Norepinephrine 4 mg In 3.305 Sodium Chloride 0.9% 250 ml @ 0.05 MCG/KG/MIN 22. 536 mls/hr IV .[id number] [facility] Rx#:[id number] Phenylephrine 40 mg In 254.000 Sodium Chloride 0.9% 250 ml @ 0.5 MCG/KG/MIN 24.67 mls/hr IV .[id number] [facility] Rx#:[id number] propofoL 1,000 mg In 100 Empty Bag 1 bag @ Titrate IV .Q0M [facility] Rx#: [id number] Oral 100 Output: Chest Tube Drainage 180 220 Left/Right Pleural 20 90 Medistinal x 2 160 130 Urine 455 442 Other: Voiding Method Indwelling Catheter Indwelling Catheter ABP, PAP, CO, CI - Last Documented Arterial Blood Pressure 109/55 Pulmonary Artery Pressure 40/19 Cardiac Output 6.2 Cardiac Index 2.6 - Exam Gen. appearance, comfortable and the patient is 2 liter/min Head exam was generally normal. There was no scleral icterus or corneal arcus. Mucous membranes were moist. Neck was supple and without jugular venous distension, thyromegaly, or carotid bruits. Carotids were easily palpable bilaterally. There was no adenopathy. The patient has an orogastric and orotracheal tube in place. The patient also has a right internal jugular [place]-Manny catheter which is also in place.Lungs were clear to auscultation and percussion, and with normal diaphragmatic excursion. No wheezes or rales were noted. The sternal wound is dry clean and intact. The patient is a right pleural left pleural and 2 mediastinal chest tubes. Heart sounds aegulal and there is a positive mechanical valve click heard over the precordium, there is also a friction rub heard throughout the precordium. Abdominal exam revealed normal bowel sounds. The abdomen was soft, non-tender, and without masses, organomegaly, or appreciable enlargement of the abdominal aorta. Examination of the extremities revealed easily palpable radial, femoral and pedal pulses. There was no cyanosis, clubbing or edema. Pulses in lower extremities are slightly diminished. the patient also has a intra-aortic balloon pump that his been introduced through the left femoral artery. Exit site is dry clean and intact. Examination of the skin revealed no evidence of significant rashes, suspicious appearing nevi or other concerning lesions. Neurologically, the patient is alert and the patient has no neurological deficits - Labs CBC & Chem 7: 12/14/20 04:05 12/14/20 04:05 Labs: Abnormal Lab Results - Last 24 Hours (Table) 12/13/20 12/13/20 12/13/20 Range/Units 07:11 08:01 10:06 RBC (4.30-5.90) m/uL Hgb (13.0-17.5) gm/dL Hct (39.0-53.0) % Plt Count (150-450) k/uL Neutrophils # (1.3-7.7) k/uL Lymphocytes # (1.0-4.8) k/uL ABG HCO3 (21-25) mmol/L ABG Total CO2 (19-24) mmol/L ABG O2 Saturation (94-97) % Chloride (98-107) mmol/L BUN (9-20) mg/dL Glucose (74-99) mg/dL POC Glucose (mg/dL) 115 H 112 H 119 H (75-99) mg/dL Calcium (8.4-10.2) mg/dL Total Bilirubin (0.2-1.3) mg/dL AST (17-59) U/L Alkaline Phosphatase (38-126) U/L Total Protein (6.3-8.2) g/dL Albumin (3.5-5.0) g/dL 12/13/20 12/13/20 12/13/20 Range/Units 11:06 11:55 13:33 RBC (4.30-5.90) m/uL Hgb (13.0-17.5) gm/dL Hct (39.0-53.0) % Plt Count (150-450) k/uL Neutrophils # (1.3-7.7) k/uL Lymphocytes # (1.0-4.8) k/uL ABG HCO3 (21-25) mmol/L ABG Total CO2 (19-24) mmol/L ABG O2 Saturation (94-97) % Chloride (98-107) mmol/L BUN (9-20) mg/dL Glucose (74-99) mg/dL POC Glucose (mg/dL) 110 H 108 H 107 H (75-99) mg/dL Calcium (8.4-10.2) mg/dL Total Bilirubin (0.2-1.3) mg/dL AST (17-59) U/L Alkaline Phosphatase (38-126) U/L Total Protein (6.3-8.2) g/dL Albumin (3.5-5.0) g/dL 12/13/20 12/13/20 12/13/20 Range/Units 14:04 15:12 15:31 RBC (4.30-5.90) m/uL Hgb (13.0-17.5) gm/dL Hct (39.0-53.0) % Plt Count (150-450) k/uL Neutrophils # (1.3-7.7) k/uL Lymphocytes # (1.0-4.8) k/uL ABG HCO3 27 H (21-25) mmol/L ABG Total CO2 28 H (19-24) mmol/L ABG O2 Saturation 99.0 H (94-97) % Chloride 110 H (98-107) mmol/L BUN 23 H (9-20) mg/dL Glucose 117 H (74-99) mg/dL POC Glucose (mg/dL) 112 H (75-99) mg/dL Calcium 8.1 L (8.4-10.2) mg/dL Total Bilirubin (0.2-1.3) mg/dL AST (17-59) U/L Alkaline Phosphatase (38-126) U/L Total Protein (6.3-8.2) g/dL Albumin (3.5-5.0) g/dL 01/12/13/20 12/13/20 Range/Units 16:13 18:11 19:01 RBC (4.30-5.90) m/uL Hgb (13.0-17.5) gm/dL Hct (39.0-53.0) % Plt Count (150-450) k/uL Neutrophils # (1.3-7.7) k/uL Lymphocytes # (1.0-4.8) k/uL ABG HCO3 (21-25) mmol/L ABG Total CO2 (19-24) mmol/L ABG O2 Saturation (94-97) % Chloride (98-107) mmol/L BUN (9-20) mg/dL Glucose (74-99) mg/dL POC Glucose (mg/dL) 100 H 120 H 105 H (75-99) mg/dL Calcium (8.4-10.2) mg/dL Total Bilirubin (0.2-1.3) mg/dL AST (17-59) U/L Alkaline Phosphatase (38-126) U/L Total Protein (6.3-8.2) g/dL Albumin (3.5-5.0) g/dL 12/13/20 12/13/20 12/13/20 Range/Units 20:04 21:23 22:04 RBC (4.30-5.90) m/uL Hgb (13.0-17.5) gm/dL Hct (39.0-53.0) % Plt Count (150-450) k/uL Neutrophils # (1.3-7.7) k/uL Lymphocytes # (1.0-4.8) k/uL ABG HCO3 (21-25) mmol/L ABG Total CO2 (19-24) mmol/L ABG O2 Saturation (94-97) % Chloride (98-107) mmol/L BUN (9-20) mg/dL Glucose (74-99) mg/dL POC Glucose (mg/dL) 124 H 122 H 123 H (75-99) mg/dL Calcium (8.4-10.2) mg/dL Total Bilirubin (0.2-1.3) mg/dL AST (17-59) U/L Alkaline Phosphatase (38-126) U/L Total Protein (6.3-8.2) g/dL Albumin (3.5-5.0) g/dL 12/13/20 12/14/20 12/14/20 Range/Units 23:01 00:08 01:22 RBC (4.30-5.90) m/uL Hgb (13.0-17.5) gm/dL Hct (39.0-53.0) % Plt Count (150-450) k/uL Neutrophils # (1.3-7.7) k/uL Lymphocytes # (1.0-4.8) k/uL ABG HCO3 (21-25) mmol/L ABG Total CO2 (19-24) mmol/L ABG O2 Saturation (94-97) % Chloride (98-107) mmol/L BUN (9-20) mg/dL Glucose (74-99) mg/dL POC Glucose (mg/dL) 124 H 126 H 130 H (75-99) mg/dL Calcium (8.4-10.2) mg/dL Total Bilirubin (0.2-1.3) mg/dL AST (17-59) U/L Alkaline Phosphatase (38-126) U/L Total Protein (6.3-8.2) g/dL Albumin (3.5-5.0) g/dL 12/14/20 12/14/20 12/14/20 Range/Units 02:20 03:01 04:05 RBC 3.32 L (4.30-5.90) m/uL Hgb 9.9 L (13.0-17.5) gm/dL Hct 30.0 L (39.0-53.0) % Plt Count 113 L (150-450) k/uL Neutrophils # 8.2 H (1.3-7.7) k/uL Lymphocytes # 0.6 L (1.0-4.8) k/uL ABG HCO3 (21-25) mmol/L ABG Total CO2 (19-24) mmol/L ABG O2 Saturation (94-97) % Chloride (98-107) mmol/L BUN (9-20) mg/dL Glucose (74-99) mg/dL POC Glucose (mg/dL) 127 H 116 H (75-99) mg/dL Calcium (8.4-10.2) mg/dL Total Bilirubin (0.2-1.3) mg/dL AST (17-59) U/L Alkaline Phosphatase (38-126) U/L Total Protein (6.3-8.2) g/dL Albumin (3.5-5.0) g/dL 12/14/20 12/14/20 12/14/20 Range/Units 04:05 04:05 05:03 RBC (4.30-5.90) m/uL Hgb (13.0-17.5) gm/dL Hct (39.0-53.0) % Plt Count (150-450) k/uL Neutrophils # (1.3-7.7) k/uL Lymphocytes # (1.0-4.8) k/uL ABG HCO3 (21-25) mmol/L ABG Total CO2 (19-24) mmol/L ABG O2 Saturation (94-97) % Chloride 111 H (98-107) mmol/L BUN 24 H (9-20) mg/dL Glucose 112 H (74-99) mg/dL POC Glucose (mg/dL) 114 H 109 H (75-99) mg/dL Calcium 8.0 L (8.4-10.2) mg/dL Total Bilirubin 1.5 H (0.2-1.3) mg/dL AST 61 H (17-59) U/L Alkaline Phosphatase 30 L (38-126) U/L Total Protein 4.7 L (6.3-8.2) g/dL Albumin 2.6 L (3.5-5.0) g/dL 12/14/20 Range/Units 06:22 RBC (4.30-5.90) m/uL Hgb (13.0-17.5) gm/dL Hct (39.0-53.0) % Plt Count (150-450) k/uL Neutrophils # (1.3-7.7) k/uL Lymphocytes # (1.0-4.8) k/uL ABG HCO3 (21-25) mmol/L ABG Total CO2 (19-24) mmol/L ABG O2 Saturation (94-97) % Chloride (98-107) mmol/L BUN (9-20) mg/dL Glucose (74-99) mg/dL POC Glucose (mg/dL) 105 H (75-99) mg/dL Calcium (8.4-10.2) mg/dL Total Bilirubin (0.2-1.3) mg/dL AST (17-59) U/L Alkaline Phosphatase (38-126) U/L Total Protein (6.3-8.2) g/dL Albumin (3.5-5.0) g/dL Assessment and Plan Plan: 1 reduced sternotomy, resection of an ascending aortic aneurysm and placement of a 32 mm tailored tube graft for a ascending aortic aneurysm, 6.2 cm, and the patient is postop day #2. The patient has normal coronaries. The patient also post aortic valve replacement many years back and the patient is a mechanical aortic valve in place. 2 intraoperative hypotension and low cardiac output requiring intra-aortic balloon pump which was removed and the patient is currently hemodynamically stable on a combination of Primacor and the Chuck-Synephrine. Primacor is running at 0.2 g and Chuck-Synephrine at 0.7 mcg/kg per minute. 3 multiple episodes of nonsustained V. tach currently on metoprolol 12.5 mg twice a day and the patient is in sinus rhythm and has not had any episodes since yesterday. 4 post thoracotomy the patient was extubated to BiPAP currently on 2 L of oxygen by nasal cannula. The patient has right pleural, left pleural and mediastinal chest tubes 5 history of bicuspid aortic valve post aortic valve replacement with a [facility] [place] mechanical valve 6 chronic atrial fibrillation maintained on long-term anticoagulation with warfarin on outpatient basis and the patient is currently on no anticoagulants 4 obstructive sleep apnea an AHI of 47 currently on CPAP 5 obesity with a BMI of 37.4 6 hypertension 7 hyperlipidemia Plan Aortic balloon pump was discontinued Wean off Primacor drip Keep the Chuck-Synephrine for now as the patient's blood pressure is-dependent anemia Monitor the output from the chest tube Agree on beta blockers Incentive spirometer as the patient has some upper airway secretions Keep the patient ICU for now. We'll continue to follow. Chest x-ray was review ed and there is no acute abnormalities and the chest tubes are all in place and there is no signs of fluid overload.
[2020-12-14] MEDS: IPRATROPIUM-ALBUTEROL 3 ML NEB INHALATION SCH ×4 (08:27→19:41)
[2020-12-14] MEDS: PHENYLEPHRINE 40 MG in SODIUM CHLORIDE 0.9% 250 ML IV SCH (09:00)
[2020-12-14 09:26] LABS: Glucose,Whole Blood 132 mg/dL (75-99)
--- NOTE | 2020-12-14 09:49 | P.PN ---
Subjective Progress Note Date: 12/14/20 Principal diagnosis: Ascending aortic aneurysm. Past medical history significant for bicuspid aortic valve with mechanical aortic valve replacement in December of 1994, chronic at rial fibrillation, currently on Coumadin for anticoagulation with previous cardioversion, hypertension, hyperlipidemia, obstructive sleep apnea with home CPAP use, obesity, never smoker with preoperative FEV1 91% of predicted value. 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 Postoperative acute blood loss anemia, expected due to hemodilution and cardiopulmonary bypass. Postoperative hypotension requiring vasopressor support, unexpected The patient is seen in follow-up today on 12/14/2020 at his bedside in the intensive care unit. Currently he is sitting up to the bedside chair, is awake, alert and oriented 3. Complaining of pain to his chest tube insertion sites rating his pain 5 out of 10 on the pain scale and denies any complaints of shortness of breath. He is also complaining of a loose nonproductive cough. He was successfully extubated at 5:17 PM yesterday, currently he is on 2 L nasal c annula and his oxygen saturations are 96-97%. He is achieving 1000 mL on his incentive spirometry with encouragement. Right IJ [place]-Manny catheter remains in place with current hemodynamic showing a cardiac output of 5.8, cardiac index 2.5, PA pressures 30/12 and CVP 7 mmHg. Primacor drip remains infusing at 0.2 mcg/kg/m and Chuck-Synephrine is infusing at 0.7 mcg/kg/m for hemodynamic support. His intra-aortic balloon pump was discontinued yesterday at around 1:10 PM, manual pressure was held at the site for 30 minutes and he had a FemoStop in place to his left femoral insertion site for 6 hours post intra-aortic balloon pump removal. Mediastinal, left and right pleural chest tubes remain in place to low continuous wall suction -20 cm H2O. No air leak is present. Draining thin serosanguineous drainage. Mediastinal chest tubes drained 130 mL output last 8 hours and a 400 mL output in the last 24 hours. Pleural chest tubes drained 110 mL output in the last 8 hours, 200 mL output in the last 24 hours. Bedside telemetry is showing normal sinus rhythm with occasional PACs heart rate 64 BPM. His bedside nurse from the [employer] verification technician reports that he was having rare episodes of atrial fibrillation. Atrial and ventricular epicardial pacemaker wires remain in place and connected to a backup bedside pacemaker generator on a VVI mode of 50. He remains afebrile the last 24 hours. Objective - Vital Signs Vital signs: Vital Signs Temp 99.5 F 12/13/20 12:00 Pulse 60 12/14/20 08:28 Resp 17 12/14/20 08:00 BP 95/62 12/14/20 07:30 Pulse Ox 96 12/14/20 08:00 Intake & Output 12/13/20 12/14/20 12/14/20 18:59 06:59 18:59 Intake Total 9010.005 4895.186 385.4 Output Total 635 939 175 Balance 927.265 231.186 210.4 Weight 129.5 kg 130.5 kg Intake: IV 937.6 1029 59 ACETAMINOPHEN IV (For NPO 200 ) 1,000 mg In Empty Bag 1 bag @ 400 mls/hr IVPB Q6H [facility] Rx#:[id number] CO/CI 160 180 Lactated Ringers 1,000 ml 650 550 50 @ 50 mls/hr IV .Q20H [facility] Rx#:[id number] Pressure bags 117 99 9 Primacor 10.6 Intake, IV Titration 624.665 41.186 326.4 Amount Dexmedetomidine/0.9% NaCl 88.711 (Pmx) 400 mcg In Empty Bag 1 bag @ Titrate IV . Q0M [facility] Rx#:[id number] EPINEPHrine 4 mg In 68.328 Dextrose 5% in Water 250 ml @ 0.01 MCG/KG/MIN 4. 436 mls/hr IV .Q24H [facility] Rx#:[id number] Insulin Regular 100 unit 22.542 8.417 In Sodium Chloride 0.9% 100 ml @ Per Protocol IV .Q0M [facility] Rx#:[id number] Milrinone-D5w Pmx 20 mg 87.779 32.769 72.4 In Dextrose/Water 1 100ml .bag @ 0.1 MCG/KG/MIN 3. 549 mls/hr IV .Q24H [facility] Rx#:[id number] Norepinephrine 4 mg In 3.305 Sodium Chloride 0.9% 250 ml @ 0.05 MCG/KG/MIN 22. 536 mls/hr IV .[id number] [facility] Rx#:[id number] Phenylephrine 40 mg In 254.000 254 Sodium Chloride 0.9% 250 ml @ 0.5 MCG/KG/MIN 24.67 mls/hr IV .[id number] [facility] Rx#:[id number] propofoL 1,000 mg In 100 Empty Bag 1 bag @ Titrate IV .Q0M [facility] Rx#: [id number] Oral 100 Output: Chest Tube Drainage 180 360 110 Left/Right Pleural 20 160 60 Medistinal x 2 160 200 50 Urine 455 579 65 Other: Voiding Method Indwelling Catheter Indwelling Catheter ABP, PAP, CO, CI - Last Documented Arterial Blood Pressure 106/50 Pulmonary Artery Pressure 36/16 Cardiac Output 5.8 Cardiac Index 2.5 - Constitutional General appearance: Present: cooperative, no acute distress, obese - EENT Eyes: Present: normal appearance. Absent: scleral icterus ENT: Present: hearing grossly normal - Neck Details: Neck is supple, no JVD. Right IJ Cordis and [place]-Manny catheter in place and functioning. - Respiratory Details: Lung sounds with coarse rhonchi throughout, diminished to his bilateral bases. Respirations are symmetrical and nonlabored. Oxygen saturation are 96% on 2 L nasal cannula. Achieving 1000 mL on his incentive spirometry. Mediastinal, left and right pleural chest tubes remain in place to low continuous wall suction -20 cm H2O. No air leak is present. Draining thin serosanguineous drainage. Mediastinal chest tubes drained 130 mL output last 8 hours and a 400 mL output in the last 24 hours. Pleural chest tubes drained 110 mL output in the last 8 hours, 200 mL output in the last 24 hours. - Cardiovascular Details: Regular rhythm and rate. S1 and S2 present, negative for S3, gallop or murmur. Sternum is stable. Bedside telemetry showing normal sinus rhythm heart rate 64 BPM. Atrial and ventricular epicardial pacemaker wires in place and connected to a backup bedside pacemaker generator on a VVI mode of 50. Heart hugger is in place and he is demonstrating appropriate use. Knee-high KELLE hose and sequential compression devices in place to his bilateral lower extremities. Right IJ Cordis and [place]-Manny catheter in place with current hemodynamic showing a cardiac output 5.8, cardiac index 2.5, PA pressures 30/12, CVP 7 mmHg. No edema present. - Gastrointestinal Gastrointestinal Comment(s): Abdomen is soft, nontender and nondistended. Hypoactive bowel sounds present in all 4 abdominal quadrants. No guarding or rigidity. No organomegaly. Tolerating oral intake. - Genitourinary Genitourinary Comment(s): Snyder catheter for accurate I&O. Draining clear muna urine, 370 mL output the last 8 hours. - Integumentary Integumentary Comment(s): Skin is warm and dry. No clubbing or cyanosis is present. Midline sternal incision is clean, dry and approximated. No drainage or redness is present. - Neurologic Neurologic: Present: CNII-XII intact. Absent: focal deficits - Musculoskeletal Musculoskeletal: Present: generalized weakness, strength equal bilaterally - Psychiatric Psychiatric: Present: A&O x's 3, appropriate affect, intact judgment & insight - Allied health notes Allied health notes reviewed: nursing - Labs CBC & Chem 7: 12/14/20 04:05 12/14/20 04:05 Labs: Abnormal Lab Results - Last 24 Hours (Table) 12/13/20 12/13/20 12/13/20 Range/Units 10:06 11:06 11:55 RBC (4.30-5.90) m/uL Hgb (13.0-17.5) gm/dL Hct (39.0-53.0) % Plt Count (150-450) k/uL Neutrophils # (1.3-7.7) k/uL Lymphocytes # (1.0-4.8) k/uL ABG HCO3 (21-25) mmol/L ABG Total CO2 (19-24) mmol/L ABG O2 Saturation (94-97) % Chloride (98-107) mmol/L BUN (9-20) mg/dL Glucose (74-99) mg/dL POC Glucose (mg/dL) 119 H 110 H 108 H (75-99) mg/dL Calcium (8.4-10.2) mg/dL Total Bilirubin (0.2-1.3) mg/dL AST (17-59) U/L Alkaline Phosphatase (38-126) U/L Total Protein (6.3-8.2) g/dL Albumin (3.5-5.0) g/dL 12/13/20 12/13/2012/13/21 Range/Units 13:33 14:04 15:12 RBC (4.30-5.90) m/uL Hgb (13.0-17.5) gm/dL Hct (39.0-53.0) % Plt Count (150-450) k/uL Neutrophils # (1.3-7.7) k/uL Lymphocytes # (1.0-4.8) k/uL ABG HCO3 27 H (21-25) mmol/L ABG Total CO2 28 H (19-24) mmol/L ABG O2 Saturation 99.0 H (94-97) % Chloride (98-107) mmol/L BUN (9-20) mg/dL Glucose (74-99) mg/dL POC Glucose (mg/dL) 107 H 112 H (75-99) mg/dL Calcium (8.4-10.2) mg/dL Total Bilirubin (0.2-1.3) mg/dL AST (17-59) U/L Alkaline Phosphatase (38-126) U/L Total Protein (6.3-8.2) g/dL Albumin (3.5-5.0) g/dL 12/13/20 12/13/20 12/13/20 Range/Units 15:31 16:13 18:11 RBC (4.30-5.90) m/uL Hgb (13.0-17.5) gm/dL Hct (39.0-53.0) % Plt Count (150-450) k/uL Neutrophils # (1.3-7.7) k/uL Lymphocytes # (1.0-4.8) k/uL ABG HCO3 (21-25) mmol/L ABG Total CO2 (19-24) mmol/L ABG O2 Saturation (94-97) % Chloride 110 H (98-107) mmol/L BUN 23 H (9-20) mg/dL Glucose 117 H (74-99) mg/dL POC Glucose (mg/dL) 100 H 120 H (75-99) mg/dL Calcium 8.1 L (8.4-10.2) mg/dL Total Bilirubin (0.2-1.3) mg/dL AST (17-59) U/L Alkaline Phosphatase (38-126) U/L Total Protein (6.3-8.2) g/dL Albumin (3.5-5.0) g/dL 12/13/20 12/13/20 12/13/20 Range/Units 19:01 20:04 21:23 RBC (4.30-5.90) m/uL Hgb (13.0-17.5) gm/dL Hct (39.0-53.0) % Plt Count (150-450) k/uL Neutrophils # (1.3-7.7) k/uL Lymphocytes # (1.0-4.8) k/uL ABG HCO3 (21-25) mmol/L ABG Total CO2 (19-24) mmol/L ABG O2 Saturation (94-97) % Chloride (98-107) mmol/L BUN (9-20) mg/dL Glucose (74-99) mg/dL POC Glucose (mg/dL) 105 H 124 H 122 H (75-99) mg/dL Calcium (8.4-10.2) mg/dL Total Bilirubin (0.2-1.3) mg/dL AST (17-59) U/L Alkaline Phosphatase (38-126) U/L Total Protein (6.3-8.2) g/dL Albumin (3.5-5.0) g/dL 12/13/20 12/13/20 12/14/20 Range/Units 22:04 23:01 00:08 RBC (4.30-5.90) m/uL Hgb (13.0-17.5) gm/dL Hct (39.0-53.0) % Plt Count (150-450) k/uL Neutrophils # (1.3-7.7) k/uL Lymphocytes # (1.0-4.8) k/uL ABG HCO3 (21-25) mmol/L ABG Total CO2 (19-24) mmol/L ABG O2 Saturation (94-97) % Chloride (98-107) mmol/L BUN (9-20) mg/dL Glucose (74-99) mg/dL POC Glucose (mg/dL) 123 H 124 H 126 H (75-99) mg/dL Calcium (8.4-10.2) mg/dL Total Bilirubin (0.2-1.3) mg/dL AST (17-59) U/L Alkaline Phosphatase (38-126) U/L Total Protein (6.3-8.2) g/dL Albumin (3.5-5.0) g/dL 12/14/20 12/14/20 12/14/20 Range/Units 01: 02:20 03:01 RBC (4.30-5.90) m/uL Hgb (13.0-17.5) gm/dL Hct (39.0-53.0) % Plt Count (150-450) k/uL Neutrophils # (1.3-7.7) k/uL Lymphocytes # (1.0-4.8) k/uL ABG HCO3 (21-25) mmol/L ABG Total CO2 (19-24) mmol/L ABG O2 Saturation (94-97) % Chloride (98-107) mmol/L BUN (9-20) mg/dL Glucose (74-99) mg/dL POC Glucose (mg/dL) 130 H 127 H 116 H (75-99) mg/dL Calcium (8.4-10.2) mg/dL Total Bilirubin (0.2-1.3) mg/dL AST (17-59) U/L Alkaline Phosphatase (38-126) U/L Total Protein (6.3-8.2) g/dL Albumin (3.5-5.0) g/dL 12/14/20 12/14/20 12/14/20 Range/Units 04:05 04:05 04:05 RBC 3.32 L (4.30-5.90) m/uL Hgb 9.9 L (13.0-17.5) gm/dL Hct 30.0 L (39.0-53.0) % Plt Count 113 L (150-450) k/uL Neutrophils # 8.2 H (1.3-7.7) k/uL Lymphocytes # 0.6 L (1.0-4.8) k/uL ABG HCO3 (21-25) mmol/L ABG Total CO2 (19-24) mmol/L ABG O2 Saturation (94-97) % Chloride 111 H (98-107) mmol/L BUN 24 H (9-20) mg/dL Glucose 112 H (74-99) mg/dL POC Glucose (mg/dL) 114 H (75-99) mg/dL Calcium 8.0 L (8.4-10.2) mg/dL Total Bilirubin 1.5 H (0.2-1.3) mg/dL AST 61 H (17-59) U/L Alkaline Phosphatase 30 L (38-126) U/L Total Protein 4.7 L (6.3-8.2) g/dL Albumin 2.6 L (3.5-5.0) g/dL 12/14/20 12/14/20 12/14/20 Range/Units 05:03 06:22 07:09 RBC (4.30-5.90) m/uL Hgb (13.0-17.5) gm/dL Hct (39.0-53.0) % Plt Count (150-450) k/uL Neutrophils # (1.3-7.7) k/uL Lymphocytes # (1.0-4.8) k/uL ABG HCO3 (21-25) mmol/L ABG Total CO2 (19-24) mmol/L ABG O2 Saturation (94-97) % Chloride (98-107) mmol/L BUN (9-20) mg/dL Glucose (74-99) mg/dL POC Glucose (mg/dL) 109 H 105 H 111 H (75-99) mg/dL Calcium (8.4-10.2) mg/dL Total Bilirubin (0.2-1.3) mg/dL AST (17-59) U/L Alkaline Phosphatase (38-126) U/L Total Protein (6.3-8.2) g/dL Albumin (3.5-5.0) g/dL - Imaging and Cardiology Chest x-ray: report reviewed, image reviewed Assessment and Plan Assessment: 1. Ascending aortic aneurysm, 62 mm per radiology read on CT, [address] Cole's read, status post redo sternotomy, resection of a ascending aorta and noncoronary sinus of Valsalva aneurysms with replacement with a 32 mm tailored tube graft 2. History of bicuspid aortic valve with mechanical aortic valve replacement in December 1994 3. Chronic atrial fibrillation, currently on Coumadin on an outpatient for anticoagulation with previous cardioversion 4. History of hypertension 5. History of hyperlipidemia, treated, cholesterol 124, LDL 25 6. Obstructive sleep apnea with home CPAP use 7. Obesity 8. Never smoker with preoperative FEV1 91% of predicted 9. Normal coronary arteries, status post selective left and right coronary angiography 10. Postoperative acute blood loss anemia, expected due to hemodilution and cardiopulmonary bypass 11. Postoperative hypotension requiring vasopressor support, unexpected Plan: 1. Continue aspirin 81 mg by mouth daily, statin and beta jerrell. We will increase metoprolol tartrate as tolerated. Wean Chuck-Synephrine drip for blood pressure greater than 100 mmHg or map greater than 70 mmHg. 2. Wean oxygen as tolerated. Bronchodilators and oxygen management per pulmonary/critical care management. 3. Keep right IJ Cordis and [place]-Manny catheter in place, continue to monitor cardiac output and index. Decrease Primacor drip to 0.1 mcg/kg/m. 4. Will monitor daily labs and a chest x-rays. Electrolyte replacement per protocol. 5. Remove mediastinal chest tubes. Split right and left pleural chest tubes and keep to low continuous wall suction -20 cm H2O. Continue to record accurate I's and O's. 6. Insulin management per primary care service. 7. Pain control with current medication regimen. 8. Will continue right radial arterial line, and chest tubes for another 24 hours. 9. Continue Snyder for another 24 hours for strict accurate intake and output. Continue daily weights. 10. Start Coumadin 5 mg by mouth today, monitor daily PT/INRs. 11. Keep atrial and ventricular epicardial pacemaker wires in place and connected to backup bedside pacemaker generator on a VVI 50. Anticipate removal of his epicardial pacemaker wires tomorrow 12/15/2020. 12. Start Lasix 20 mg IV twice a day. Start potassium chloride ER 10 mEq by mouth daily while on Lasix. 13. Increase activity as tolerated. Physical therapy/occupational therapy and cardiac rehabilitation following. 14. More recommendations to follow based on patient's clinical course. Time with Patient: Greater than 30
[2020-12-14] MEDS: FUROSEMIDE 10 MG/ML 2 ML VIAL IV SCH ×2 (10:13→21:12)
[2020-12-14] MEDS: HEPARIN SODIUM,PORCINE 5,000 UNIT/ML 1 ML VIAL SQ SCH ×2 (10:13→16:16)
[2020-12-14] MEDS: ONDANSETRON 4 MG/2 ML VIAL IVP PRN (10:19)
[2020-12-14] MEDS: METOPROLOL TARTRATE 12.5 MG TAB PO SCH (10:51)
[2020-12-14] MEDS: ASPIRIN 81 MG PO SCH (10:53)
[2020-12-14] MEDS: ATORVASTATIN 40 MG TAB PO SCH (10:53)
[2020-12-14] MEDS: PANTOPRAZOLE 40 MG TABLET PO SCH (10:55)
[2020-12-14] MEDS: INSULIN REGULAR 100 UNIT in SODIUM CHLORIDE 0.9% 100 ML IV SCH (11:30)
[2020-12-14 11:40] LABS: Glucose,Whole Blood 112 mg/dL (75-99)
--- NOTE | 2020-12-14 11:49 | XR ---
EXAMINATION TYPE: XR chest 1V portable DATE OF EXAM: 12/14/2020 COMPARISON: 12/13/2020 INDICATION: Post cardiac surgery TECHNIQUE: Single frontal view of the chest is obtained. FINDINGS: The heart size is enlarged. The pulmonary vasculature is normal. Left lower lobe infiltrate is present. This may be improving. Right [place]-Manny catheter is present, tip is in the region of the right main pulmonary artery. A media stinal tube is present. Bilateral chest tubes are present. No pneumothorax is evident. IMPRESSION: 1. Mild infiltrate at the left base may be improving. 2. Multiple lines and catheters discussed above
[2020-12-14] MEDS ORDERED: METOPROLOL TARTRATE 12.5 MG TAB PO STA (12:00)
[2020-12-14] MEDS: NOREPINEPHRINE 4 MG in SODIUM CHLORIDE 0.9% 250 ML IV SCH (12:24)
[2020-12-14 12:31] LABS: Glucose,Whole Blood 119 mg/dL (75-99)
[2020-12-14] MEDS: KETOROLAC 15 MG/ML 1 ML VIAL IVP SCH ×2 (13:17→17:54)
[2020-12-14 13:24] LABS: Glucose,Whole Blood 115 mg/dL (75-99)
[2020-12-14 14:20] LABS: Glucose,Whole Blood 117 mg/dL (75-99)
[2020-12-14] MEDS: MILRINONE-D5W PMX 20 MG in DEXTROSE/WATER 1 100ML.BAG IV SCH (14:59)
[2020-12-14] MEDS: METOCLOPRAMIDE 5 MG/ML 2 ML VIAL IVP PRN (15:04)
--- NOTE | 2020-12-14 15:20 | P.PN ---
Subjective Progress Note Date: 12/14/20 This is a 70-year-old gentleman with history of aortic valve replacement who is status post surgery for repair of the aneurysm and ascending aorta. Patient required intra-aortic balloon pump for hemodynamic support. Patient is intensive care unit still intubated and sedated. Patient does have intractable balloon pump still working at 1:1 ratio and his cardiac index has been between 2.5-3.3. Patient is in sinus rhythm but have short runs of nonsustained V. tach. Patient was on epinephrine and also Levophed drips which were discontinued and patient is currently on Chuck-Synephrine. Chest tubes are in place. Patient has [place]-Manny catheter. Patient's hemoglobin is about 10. We'll make consider using either beta jerrell or amiodarone. Patient continues to have nonsustained V. tach. Patient doesn't have an underlying ischemic heart disease. 12/14/2020: This patient is extubated and sitting in the chair. Still complaining of chest pain and seemed to be uncomfortable. Alert and oriented. Also has mild cough. His cardiac index is about 2.5. His heart and saturations are 96% on 2 L Cannula. His PA pressures 30/12. He is on Chuck-Synephrine and no other drips. His maintaining sinus rhythm and mildly sinus bradycardia. Patient also developed SVT and is being treated with small dose of beta jerrell. No ventricular arrhythmias today. His lab work is stable with mild anemia. Overall patient seemed to be progressing fairly well. Continue current medical therapy Objective - Vital Signs Vital signs: Vital Signs Temp 37.5 F L 12/14/20 12:00 Pulse 95 12/14/20 15:00 Resp 13 12/14/20 15:00 BP 113/70 12/14/20 15:00 Pulse Ox 99 12/14/20 15:00 Intake & Output 12/13/20 12/14/20 12/14/20 18:59 06:59 18:59 Intake Total 3039.719 7599.186 927.207 Output Total 889 709 3681 Balance 927.265 231.186 -77.793 Weight 129.5 kg 130.5 kg Intake: IV 937.6 1029 461 ACETAMINOPHEN IV (For NPO 200 ) 1,000 mg In Empty Bag 1 bag @ 400 mls/hr IVPB Q6H [facility] Rx#:[id number] CO/CI 160 180 60 Lactated Ringers 1,000 ml 650 550 320 @ 20 mls/hr IV .Q24H [facility] Rx#:[id number] Pressure bags 117 99 81 Primacor 10.6 Intake, IV Titration 624.665 41.186 466.207 Amount Dexmedetomidine/0.9% NaCl 88.711 (Pmx) 400 mcg In Empty Bag 1 bag @ Titrate IV . Q0M [facility] Rx#:[id number] EPINEPHrine 4 mg In 68.328 Dextrose 5% in Water 250 ml @ 0.01 MCG/KG/MIN 4. 436 mls/hr IV .Q24H [facility] Rx#:[id number] Insulin Regular 100 unit 22.542 8.417 5.916 In Sodium Chloride 0.9% 100 ml @ Per Protocol IV .Q0M [facility] Rx#:[id number] Milrinone-D5w Pmx 20 mg 87.779 32.769 96.592 In Dextrose/Water 1 100ml .bag @ 0.1 MCG/KG/MIN 3. 549 mls/hr IV .Q24H [facility] Rx#:[id number] Norepinephrine 4 mg In 3.305 Sodium Chloride 0.9% 250 ml @ 0.05 MCG/KG/MIN 22. 536 mls/hr IV .[id number] [facility] Rx#:[id number] Phenylephrine 40 mg In 254.000 363.699 Sodium Chloride 0.9% 250 ml @ 0.5 MCG/KG/MIN 24.67 mls/hr IV .[id number] [facility] Rx#:[id number] propofoL 1,000 mg In 100 Empty Bag 1 bag @ Titrate IV .Q0M [facility] Rx#: [id number] Oral 100 Output: Chest Tube Drainage 180 360 295 Left Lateral Chest 15 Left/Right Pleural 20 160 130 Medistinal x 2 160 200 90 Right Lateral Chest 60 Urine 455 579 710 Other: Voiding Method Indwelling Catheter Indwelling Catheter Indwelling Catheter ABP, PAP, CO, CI - Last Documented Arterial Blood Pressure 124/75 Pulmonary Artery Pressure 34/16 Cardiac Output 6.7 Cardiac Index 2.9 - Exam GENERAL EXAM: Patient is extubated and sitting in the chair. Alert and oriented HEENT: Normocephalic. NECK: No masses, no nuchal rigidity. CHEST: Postsurgical LUNGS: Equal air entry HEART: [S1 and S2 normal ABDOMEN: Soft SKIN: No rashes CENTRAL NERVOUS SYSTEM: Sedated EXTREMITIES: No cyanosis, clubbing or edema. - Labs CBC & Chem 7: 12/14/20 04:05 12/14/20 04:05 Labs: Abnormal Lab Results - Last 24 Hours (Table) 12/13/20 12/13/20 12/13/20 Range/Units 15:31 16:13 18:11 RBC (4.30-5.90) m/uL Hgb (13.0-17.5) gm/dL Hct (39.0-53.0) % Plt Count (150-450) k/uL Neutrophils # (1.3-7.7) k/uL Lymphocytes # (1.0-4.8) k/uL Chloride 110 H (98-107) mmol/L BUN 23 H (9-20) mg/dL Glucose 117 H (74-99) mg/dL POC Glucose (mg/dL) 100 H 120 H (75-99) mg/dL Calcium 8.1 L (8.4-10.2) mg/dL Total Bilirubin (0.2-1.3) mg/dL AST (17-59) U/L Alkaline Phosphatase (38-126) U/L Total Protein (6.3-8.2) g/dL Albumin (3.5-5.0) g/dL 12/13/20 12/13/20 12/13/20 Range/Units 19:01 20:04 21:23 RBC (4.30-5.90) m/uL Hgb (13.0-17.5) gm/dL Hct (39.0-53.0) % Plt Count (150-450) k/uL Neutrophils # (1.3-7.7) k/uL Lymphocytes # (1.0-4.8) k/uL Chloride (98-107) mmol/L BUN (9-20) mg/dL Glucose (74-99) mg/dL POC Glucose (mg/dL) 105 H 124 H 122 H (75-99) mg/dL Calcium (8.4-10.2) mg/dL Total Bilirubin (0.2-1.3) mg/dL AST (17-59) U/L Alkaline Phosphatase (38-126) U/L Total Protein (6.3-8.2) g/dL Albumin (3.5-5.0) g/dL 12/13/20 12/13/20 12/14/20 Range/Units 22:04 23:01 00:08 RBC (4.30-5.90) m/uL Hgb (13.0-17.5) gm/dL Hct (39.0-53.0) % Plt Count (150-450) k/uL Neutrophils # (1.3-7.7) k/uL Lymphocytes # (1.0-4.8) k/uL Chloride (98-107) mmol/L BUN (9-20) mg/dL Glucose (74-99) mg/dL POC Glucose (mg/dL) 123 H 124 H 126 H (75-99) mg/dL Calcium (8.4-10.2) mg/dL Total Bilirubin (0.2-1.3) mg/dL AST (17-59) U/L Alkaline Phosphatase (38-126) U/L Total Protein (6.3-8.2) g/dL Albumin (3.5-5.0) g/dL 12/14/20 12/14/20 12/14/20 Range/Units 01: 02:20 03:01 RBC (4.30-5.90) m/uL Hgb (13.0-17.5) gm/dL Hct (39.0-53.0) % Plt Count (150-450) k/uL Neutrophils # (1.3-7.7) k/uL Lymphocytes # (1.0-4.8) k/uL Chloride (98-107) mmol/L BUN (9-20) mg/dL Glucose (74-99) mg/dL POC Glucose (mg/dL) 130 H 127 H 116 H (75-99) mg/dL Calcium (8.4-10.2) mg/dL Total Bilirubin (0.2-1.3) mg/dL AST (17-59) U/L Alkaline Phosphatase (38-126) U/L Total Protein (6.3-8.2) g/dL Albumin (3.5-5.0) g/dL 12/14/20 12/14/20 12/14/20 Range/Units 04:05 04:05 04:05 RBC 3.32 L (4.30-5.90) m/uL Hgb 9.9 L (13.0-17.5) gm/dL Hct 30.0 L (39.0-53.0) % Plt Count 113 L (150-450) k/uL Neutrophils # 8.2 H (1.3-7.7) k/uL Lymphocytes # 0.6 L (1.0-4.8) k/uL Chloride 111 H (98-107) mmol/L BUN 24 H (9-20) mg/dL Glucose 112 H (74-99) mg/dL POC Glucose (mg/dL) 114 H (75-99) mg/dL Calcium 8.0 L (8.4-10.2) mg/dL Total Bilirubin 1.5 H (0.2-1.3) mg/dL AST 61 H (17-59) U/L Alkaline Phosphatase 30 L (38-126) U/L Total Protein 4.7 L (6.3-8.2) g/dL Albumin 2.6 L (3.5-5.0) g/dL 12/14/20 12/14/20 12/14/20 Range/Units 05:03 06:22 07:09 RBC (4.30-5.90) m/uL Hgb (13.0-17.5) gm/dL Hct (39.0-53.0) % Plt Count (150-450) k/uL Neutrophils # (1.3-7.7) k/uL Lymphocytes # (1.0-4.8) k/uL Chloride (98-107) mmol/L BUN (9-20) mg/dL Glucose (74-99) mg/dL POC Glucose (mg/dL) 109 H 105 H 111 H (75-99) mg/dL Calcium (8.4-10.2) mg/dL Total Bilirubin (0.2-1.3) mg/dL AST (17-59) U/L Alkaline Phosphatase (38-126) U/L Total Protein (6.3-8.2) g/dL Albumin (3.5-5.0) g/dL 12/14/20 12/14/20 12/14/20 Range/Units 09:24 11:39 12:29 RBC (4.30-5.90) m/uL Hgb (13.0-17.5) gm/dL Hct (39.0-53.0) % Plt Count (150-450) k/uL Neutrophils # (1.3-7.7) k/uL Lymphocytes # (1.0-4.8) k/uL Chloride (98-107) mmol/L BUN (9-20) mg/dL Glucose (74-99) mg/dL POC Glucose (mg/dL) 132 H 112 H 119 H (75-99) mg/dL Calcium (8.4-10.2) mg/dL Total Bilirubin (0.2-1.3) mg/dL AST (17-59) U/L Alkaline Phosphatase (38-126) U/L Total Protein (6.3-8.2) g/dL Albumin (3.5-5.0) g/dL 12/14/20 12/14/20 Range/Units 13:23 14:18 RBC (4.30-5.90) m/uL Hgb (13.0-17.5) gm/dL Hct (39.0-53.0) % Plt Count (150-450) k/uL Neutrophils # (1.3-7.7) k/uL Lymphocytes # (1.0-4.8) k/uL Chloride (98-107) mmol/L BUN (9-20) mg/dL Glucose (74-99) mg/dL POC Glucose (mg/dL) 115 H 117 H (75-99) mg/dL Calcium (8.4-10.2) mg/dL Total Bilirubin (0.2-1.3) mg/dL AST (17-59) U/L Alkaline Phosphatase (38-126) U/L Total Protein (6.3-8.2) g/dL Albumin (3.5-5.0) g/dL Assessment and Plan (1) Status post ascending aortic aneurysm repair Current Visit: Yes Status: Acute Code(s): Z98.890 - OTHER SPECIFIED POSTPROCEDURAL STATES; Z86.79 - PERSONAL HISTORY OF OTHER DISEASES OF THE CIRCULATORY SYSTEM SNOMED Code(s): 509438832 (2) History of aortic valve replacement Current Visit: Yes Status: Acute Code(s): Z95.2 - PRESENCE OF PROSTHETIC HEART VALVE SNOMED Code(s): 1614482180588 (3) Hypertension Current Visit: Yes Status: Acute Code(s): I10 - ESSENTIAL (PRIMARY) HYPERTENSION SNOMED Code(s): 11445421 (4) Hypotension Current Visit: Yes Status: Acute Code(s): I95.9 - HYPOTENSION, UNSPECIFIED SNOMED Code(s): 34358019 (5) Nonsustained ventricular tachycardia Current Visit: Yes Status: Acute Code(s): I47.2 - VENTRICULAR TACHYCARDIA SNOMED Code(s): 781016244 Plan: Status post surgery for thoracic aortic aneurysm. Progressing fairly well. Extubated and sitting in the chair. Maintaining sinus rhythm. Blood work is stable with mild anemia. Continue current medical therapy.
[2020-12-14] MEDS: POTASSIUM CHLORIDE ER 10 MEQ TAB.ER.PRT PO SCH (16:16)
[2020-12-14 16:23] LABS: Glucose,Whole Blood 113 mg/dL (75-99)
[2020-12-14] MEDS: LACTATED RINGERS 1,000 ML IV SCH (16:26)
--- NOTE | 2020-12-14 17:37 | P.PN ---
Progress Note - Text Progress Note Date: 12/14/20 - Chief Complaint Ascending aorta aneurysm - History of Present Illness Consultation: This is a pleasant 70-year-old patient of Dr. Guillaume Latham. Chronic stable medical conditions include atrial fibrillation, hypertension, hyperlipidemia, [facility] mechanical aortic valve replacement in December 1994. Patient was admitted yesterday, to be bridged to from warfarin to heparin, with a view to cardiothoracic surgery. December 11-cardiac catheterization that showed normal coronaries. December 12: aortic arch aneurysm replacement. EBL-500 mL. Today-ICU:. Sitting up in a chair. Awake. Tired. Chest tubes in place. Drips include Chuck-Synephrine, insulin,milrinone. Review of systems: Attempted Active Medications Hydrocodone Bitart/Acetaminophen (Hydrocodone/Apap 5-325mg 1 Each Tab) 2 each PO Q4HR PRN PRN Reason: Severe Pain Last Admin: 12/14/20 17:15 Dose: 2 each Documented by: Hydrocodone Bitart/Acetaminophen (Hydrocodone/Apap 5-325mg 1 Each Tab) 1 each PO Q4HR PRN PRN Reason: Moderate Pain Last Admin: 12/14/20 03:11 Dose: 1 each Documented by: Albuterol/Ipratropium (Ipratropium-Albuterol 3 Ml Neb) 3 ml INHALATION RT-Q2H PRN PRN Reason: Shortness Of Breath Or Wheezing Albuterol/Ipratropium (Ipratropium-Albuterol 3 Ml Neb) 3 ml INHALATION RT-QID [facility] Last Admin: 12/14/20 15:37 Dose: 3 ml Documented by: Aspirin (Aspirin 81 Mg) 81 mg PO DAILY [facility] Last Admin: 12/14/20 10:53 Dose: 81 mg Documented by: Atorvastatin Calcium (Atorvastatin 40 Mg Tab) 40 mg PO DAILY [facility] Last Admin: 12/14/20 10:53 Dose: 40 mg Documented by: Benzocaine/Menthol (Benzocaine/Menthol Lozeng 1 Each Lozenge) 1 each MUCOUS MEM Q2H PRN PRN Reason: Sore Throat Bisacodyl (Bisacodyl 10 Mg Supp) 10 mg RECTAL DAILY PRN PRN Reason: Constipation Furosemide (Furosemide 10 Mg/Ml 2 Ml Vial) 20 mg IV Q12HR [facility] Last Admin: 12/14/20 10:13 Dose: 20 mg Documented by: Heparin Sodium (Porcine) (Heparin Sodium,Porcine 5,000 Unit/Ml 1 Ml Vial) 5,000 unit SQ Q8HR [facility] Last Admin: 12/14/20 16:16 Dose: 5,000 unit Documented by: Lactated Ringer's (Lactated Ringers) 1,000 mls @ 20 mls/hr IV .Q24H [facility] Last Admin: 12/14/20 16:26 Dose: 20 mls/hr Documented by: Calcium Gluconate 2 gm/ Sodium (Chloride) 120 mls @ 100 mls/hr IVPB ONCE PRN PRN Reason: Ionized Calcium less than 4.4 Stop: 01/11/21 16:04 Insulin Human Regular 100 unit (/ Sodium Chloride) 101 mls @ 0 mls/hr IV .Q0M [facility]; Protocol Last Titration: 12/14/20 11:30 Dose: 0 mls/hr, 0 mls/hr Documented by: Milrinone Lactate/Dextrose 20 (mg/ IV Solution) 100 mls @ 3.549 mls/hr IV .Q24H [facility] Last Admin: 12/14/20 14:59 Dose: 0.1 mcg/kg/min, 3.549 mls/hr Documented by: Phenylephrine HCl 40 mg/ (Sodium Chloride) 254 mls @ 24.67 mls/hr IV .[id number] [facility]; Protocol Last Titration: 12/14/20 17:07 Dose: 0.3 mcg/kg/min, 14.802 mls/hr Documented by: Ketorolac Tromethamine (Ketorolac 15 Mg/Ml 1 Ml Vial) 15 mg IVP Q6HR [facility] Stop: 12/17/20 13:05 Last Admin: 12/14/20 13:17 Dose: 15 mg Documented by: Magnesium Hydroxide (Magnesium Hydroxide 2,400 Mg/10 Ml Cup) 2,400 mg PO BID PRN PRN Reason: Constipation Metoclopramide HCl (Metoclopramide 5 Mg/Ml 2 Ml Vial) 10 mg IVP Q4H PRN PRN Reason: Nausea And Vomiting Last Admin: 12/14/20 15:04 Dose: 10 mg Documented by: Metoprolol Tartrate (Metoprolol Tartrate 25 Mg Tab) 25 mg PO BID [facility] Miscellaneous Information (Potassium Replacement Protocol 1 Each Misc) 1 each MISCELLANE DAILY PRN; Protocol PRN Reason: Per Protocol Miscellaneous Information (Magnesium Replacement Protocol 1 Each [facility] 1 each MISCELLANE DAILY PRN; Protocol PRN Reason: Per Protocol Miscellaneous Information (Phosphorus Replacement Protoco 1 Each [facility] 1 each MISCELLANE DAILY PRN; Protocol PRN Reason: Per Protocol Miscellaneous Information (Warfarin Per Pharmacy) 0 each MISCELLANE DIRECTED PRN PRN Reason: PHARMACY DOSING WARFARIN Ondansetron HCl (Ondansetron 4 Mg/2 Ml Vial) 4 mg IVP Q6HR PRN PRN Reason: Nausea And Vomiting Last Admin: 12/14/20 10:19 Dose: 4 mg Documented by: Pantoprazole Sodium (Pantoprazole 40 Mg Tablet) 40 mg PO AC-BRKFST [facility] Last Admin: 12/14/20 10:55 Dose: 40 mg Documented by: Potassium Chloride (Potassium Chloride Er 10 Meq Tab.Er.Prt) 10 meq PO DAILY [facility] Last Admin: 12/14/20 16:16 Dose: 10 meq Documented by: Senna/Docusate Sodium (Sennosides-Docusate Sodium 1 Each Tab) 2 each PO HS [facility] Last Admin: 12/13/20 21:34 Dose: 2 each Documented by: Sodium Chloride (Sodium Chloride 0.9% Flush 10 Ml Syringe) 10 ml IV BID [facility] Last Admin: 12/14/20 11:00 Dose: 10 ml Documented by: Warfarin Sodium (Warfarin 5 Mg Tab) 5 mg PO ONCE@1800 ONE; Protocol Stop: 12/14/20 18:01 Past medical history to include: Atrial fibrillation, hypertension, hyperlipidemia, [facility] mechanical aortic valve replacement in December 1994. Social history: No history of smoking. Alcohol rarely. Physical examination: VITAL SIGNS: 37.5, 76, 16, 101/55, 98% on 2 L GENERAL:, Sitting up in a chair, awake, tired EYES: Pupils equal. Conjunctiva pale HEENT: External appearance of nose and ears normal, oral cavity endotracheal tube NECK: JVD not raised; masses not palpable. HEART: Irregular; no edema. LUNGS: Respiratory rate normal; decreased breath sounds. Chest tubes in place ABDOMEN: Soft, nontender, liver spleen not palpable, no masses palpable. Snyder catheter PSYCH: Answering questions NEUROLOGICAL: Cranial nerves grossly intact; no facial asymmetry, INVESTIGATIONS, reviewed in the clinical context: December 14: White count 9.4 hemoglobin 9.9 platelets 113 potassium 4.2 creatinine 0.88 albumin 2.6 December 13: White count 9.4 hemoglobin 10.8 potassium 4 creatinine 1.04 December 12: White count 10.5 hemoglobin 11 platelets 133 potassium 4.3 creatinine 0.86 White count 3.9 hemoglobin 14.7 platelets 178 INR 1.8 potassium 4 creatinine 0.85 Chest x-ray film personally reviewed by me-some cardiomegaly Carotid Doppler-no significant stenosis Assessment: -Status post ascending aortic aneurysm repair, , with redo sternotomy -Persistent atrial fibrillation chronically on Coumadin -Essential hypertension -Hyperlipidemia -History of mechanical aortic valve, -Ascending aortic aneurysm 62 mm pending surgery -Dilutional thrombocytopenia -Acute postprocedure blood loss anemia, as expected from surgery -Acute hypoxic respiratory on ventilator support, postoperatively -Cardiac catheterization-normal coronaries -Hypoalbuminemia-reactant Plan: Continue current medication treatment plan. [address] Drips as above. Diet advanced as tolerated. Thank you Dr. Cole
[2020-12-14] MEDS ORDERED: WARFARIN 5 MG TAB PO ONE (18:00)
[2020-12-14 18:13] LABS: Glucose,Whole Blood 114 mg/dL (75-99)
[2020-12-14 20:10] LABS: Glucose,Whole Blood 107 mg/dL (75-99)
[2020-12-14] MEDS ORDERED: METOPROLOL TARTRATE 25 MG TAB PO SCH (21:00)
[2020-12-14] MEDS: SENNOSIDES-DOCUSATE SODIUM 1 EACH TAB PO SCH (21:13)
[2020-12-14 21:50] LABS: Glucose,Whole Blood 121 mg/dL (75-99)
[2020-12-15 00:07] LABS: Glucose,Whole Blood 113 mg/dL (75-99)
[2020-12-15] MEDS: KETOROLAC 15 MG/ML 1 ML VIAL IVP SCH ×4 (00:14→17:58)
[2020-12-15] MEDS: HEPARIN SODIUM,PORCINE 5,000 UNIT/ML 1 ML VIAL SQ SCH ×2 (00:14→08:45)
[2020-12-15] MEDS: PHENYLEPHRINE 40 MG in SODIUM CHLORIDE 0.9% 250 ML IV SCH ×2 (00:36→08:44)
[2020-12-15 02:05] LABS: Glucose,Whole Blood 117 mg/dL (75-99)
[2020-12-15] MEDS: HYDROcodone/APAP 5-325MG 1 EACH TAB PO PRN ×2 (03:26→09:03)
[2020-12-15 03:57] LABS: Glucose,Whole Blood 119 mg/dL (75-99)
[2020-12-15 04:28] LABS: ALT 22 U/L (4-49); AST 50 U/L (17-59); African American GFR (CKD) >90 (>60 ml/min/1.73 sqM); Albumin 2.6 g/dL (3.5-5.0); Alkaline Phosphatase 33 U/L (38-126); Anion Gap 1 mmol/L; Blood Urea Nitrogen 33 mg/dL (9-20); Calcium 8.1 mg/dL (8.4-10.2); Carbon Dioxide 28 mmol/L (22-30); Chloride 110 mmol/L (98-107); Glucose 116 mg/dL (74-99); Non-African American GFR(CKD) 88 (>60 ml/min/1.73 sqM); Potassium 4.3 mmol/L (3.5-5.1); Sodium 139 mmol/L (137-145); Total Bilirubin 0.9 mg/dL (0.2-1.3); Total Protein 4.8 g/dL (6.3-8.2)
[2020-12-15 04:33] LABS: Basophils % (A) 0 %; Eosinophils # (A) 0.1 k/uL (0-0.7); Eosinophils % (A) 2 %; HCT 29.8 % (39.0-53.0); HGB 9.6 gm/dL (13.0-17.5); Lymphocytes # (A) 0.6 k/uL (1.0-4.8); Lymphocytes % (A) 10 %; MCH 29.4 pg (25.0-35.0); MCHC 32.2 g/dL (31.0-37.0); MCV 91.3 fL (80.0-100.0); Mean Platelet Volume 9.5; Monocytes # (A) 0.3 k/uL (0-1.0); Monocytes % (A) 5 %; Neutrophils # (A) 4.6 k/uL (1.3-7.7); Neutrophils % (A) 82 %; RBC 3.26 m/uL (4.30-5.90); RDW 13.9 % (11.5-15.5); WBC 5.6 k/uL (3.8-10.6)
[2020-12-15 04:40] LABS: INR 1.1 (<1.2); Prothrombin Time 11.3 sec (9.0-12.0)
[2020-12-15 06:22] LABS: Anisocytosis (M) Present; Large Platelets Present; Polychromasia Present
[2020-12-15 06:23] LABS: Glucose,Whole Blood 123 mg/dL (75-99)
[2020-12-15 06:23] LABS: Platelet Count 84 k/uL (150-450)
[2020-12-15] MEDS: PANTOPRAZOLE 40 MG TABLET PO SCH (06:54)
--- NOTE | 2020-12-15 07:10 | P.PN ---
Subjective Progress Note Date: 12/15/20 On 12/13/2020 mom seeing the patient for a follow-up. Noted the patient was taken to the operating room yesterday. The patient had redo sternotomy, resection of an ascending aortic aneurysm with a replacement of a 32 mm tailored tube graft. Percutaneous placement of intra-aortic balloon pump was done as the patient required intra-aortic balloon pump for hemodynamic support intraoperatively. The patient was brought into the intensive care unit intubated on a mechanical ventilator. The patient is currently on assist control mode at the rate of 20 with a tidal volume of 550 and PEEP of 10 with an FiO2 of 70%. Morning blood gases showed a pH of 7.41 with a pCO2 of 39 and pO2 of 76 and above-mentioned vent setting. Ever pressures are not elevated. Chest x-ray showing routine postoperative changes. The patient has a right pleural chest tube, left pleural chest tube and 2 mediastinal chest tubes all of them are in place. The patient has a [place]Manny catheter and the patient has an orogastric and orotracheal tube both of them are being in place. The output from the right and left pleural chest tubes are minimal in the order of 20 mL's over the past 8 hours, the mediastinal chest tubes is producing approximately 70 mL's over the past 8 hours and for 32 mL over the past 12 hours. Output from the chest tubes are minimal for now. The patient is in a normal sinus rhythm. The patient has an intra-aortic balloon pump in her urine this morning the augmentation was 1:1 and augment the blood pressure was 80. The patient had pulmonary artery pressures of 36/21. Cardiac index was 2.8 and the CVP was 9. The patient was having episodes of nonsustained V. tach. He was on epinephrine drip earlier this morning and epinephrine drip was gradually weaned off. Levo fed was also weaned off. The patient was ultimately switched to Chuck-Synephrine drip. Note that these aren't short runs of nonsustained V. tach not causing any significant hemodynamic instability. The patient remains sedated with propofol. Hemoglobin today is at 10.8. Intraoperatively the patient required a total of 4 units of platelets and 4 units of fresh frozen plasma. On 12/14/2020, the patient is extubated sitting up on a chair on oxygen at 2 L per minute nasal cannula. Doing well. Still having sternal pain and the patient is taking [place] for that. He was extubated yesterday to a BiPAP at around 6 PM. He was placed on a BiPAP at a pressure of 10/5 with an FiO2 of 40% and subsequently BiPAP was discontinued. In terms of pressors, the patient is currently off epinephrine. He is taking Primacor 0.2 mcg/kg per minute. He is off epinephrine. No further episodes of nonsustained V. tach. The patient had 2 rounds of SVT that converted spontaneously. Chuck-Synephrine is running at 0.7 mcg/kg per minute. He is on no sedation for now. Propofol has been discontinued. Precedex has been discontinued. Intra-aortic balloon pump has also been discontinued. OG tube is out. His chest x-ray from today shows adequate expansion of both lungs. Chest tubes are all in place and the patient has a right and left pleural chest tube and mediastinal chest tubes. The hemoglobin today is at 9.9 with a white cell 9.4 and a platelet count of 113. The pleural chest tubes have been approximately 40 mL over the past 12 hours. The pacer is unplugged. Current cardiac rhythm is sinus. Cardiac Index is at 2.6 with an output of. Most recent SVR is 799 12/15, the patient remains extubated on 2 L of oxygen by nasal cannula. He is sitting up on a chair. He is calm and comfortable using his progress pulling approximately 800 mL. Mediastinal chest tube chest is a removed. The left pleural chest tube has drained 65 mL over the past 8 hours in the right pleural chest tube was drained around 125 mL over the past 8 hours. He is off the Chuck- Synephrine. He is on Primacor at 0.1 g. Is off the insulin drip. His chest x-ray shows some limited atelectatic changes in the left lung base. Otherwise the right lung is clear. I do not appreciate any pneumothorax. [place]Manny catheter is in a good location. The chest tubes including the right pleural and left pleural or both in a good location. Urine output is no order of Lasix. She is easily and 25-30 mL an hour and the patient received a dose of Lasix 20 mg. The patient is back into atrial fibrillation. The patient is in a controll ed rate. He was started back on Coumadin at a dose of 5 mg by mouth daily. PT/INR is being monitored. He is using an EPAP overnight at a minimum pressure of 5 and a maximum of 12. The Primacor will be weaned off today. Index is at 2.5. No further episodes of nonsustained V. tach. The patient is in a atrial fibrillation rhythm. The patient also is on beta blockers. Hemoglobin today is at 9.6. Objective - Vital Signs Vital signs: Vital Signs Temp 37.3 F L 12/14/20 16:00 Pulse 97 12/15/20 06:30 Resp 14 12/15/20 06:30 BP 120/86 12/15/20 06:00 Pulse Ox 99 12/15/20 06:30 Intake & Output 12/14/20 12/15/20 12/15/20 18:59 06:59 18:59 Intake Total 1081.903 657.557 Output Total 1124 1013 Balance -42.097 -355.443 Weight 127.6 kg Intake: IV 568 548 CO/CI 80 180 Lactated Ringers 1,000 ml 380 260 @ 20 mls/hr IV .Q24H [facility] Rx#:[id number] Pressure bags 108 108 Intake, IV Titration 513.903 69.557 Amount Insulin Regular 100 unit 5.916 5.333 In Sodium Chloride 0.9% 100 ml @ Per Protocol IV .Q0M [facility] Rx#:[id number] Milrinone-D5w Pmx 20 mg 96.592 In Dextrose/Water 1 100ml .bag @ 0.1 MCG/KG/MIN 3. 549 mls/hr IV .Q24H [facility] Rx#:[id number] Phenylephrine 40 mg In 411.395 64.224 Sodium Chloride 0.9% 250 ml @ 0.5 MCG/KG/MIN 24.67 mls/hr IV .[id number] [facility] Rx#:[id number] Oral 40 Output: Chest Tube Drainage 330 248 Left Lateral Chest 30 70 Left/Right Pleural 130 Medistinal x 2 90 Right Lateral Chest 80 178 Urine 794 765 Other: Voiding Method Indwelling Catheter Indwelling Catheter ABP, PAP, CO, CI - Last Documented Arterial Blood Pressure 195/181 Pulmonary Artery Pressure 27/17 Cardiac Output 5.8 Cardiac Index 2.5 - Exam Gen. appearance, comfortable and the patient is 2 liter/min Head exam was generally normal. There was no scleral icterus or corneal arcus. Mucous membranes were moist. Neck was supple and without jugular venous distension, thyromegaly, or carotid bruits. Carotids were easily palpable bilaterally. There was no adenopathy. The patient has an orogastric and orotracheal tube in place. The patient also has a right internal jugular [place]Manny catheter which is also in place.Lungs were clear to auscultation and percussion, and with normal diaphragmatic excursion. No wheezes or rales were noted. The sternal wound is dry clean and intact. The patient is a right pleural left pleural Heart sounds aegulal and there is a positive mechanical valve click heard over the precordium, there is also a friction rub heard throughout the precordium. Abdominal exam revealed normal bowel sounds. The abdomen was soft, non-tender, and without masses, organomegaly, or appreciable enlargement of the abdominal aorta. Examination of the extremities revealed easily palpable radial, femoral and pedal pulses. There was no cyanosis, clubbing or edema. Pulses in lower extremities are slightly diminished. the patient also has a intra-aortic balloon pump that his been introduced through the left femoral artery. Exit site is dry clean and intact. Examination of the skin revealed no evidence of significant rashes, suspicious appearing nevi or other concerning lesions. Neurologically, the patient is alert and the patient has no neurological deficits - Labs CBC & Chem 7: 12/15/20 03:55 12/15/20 03:55 Labs: Abnormal Lab Results - Last 24 Hours (Table) 12/14/20 12/14/20 12/14/20 Range/Units 07:09 09:24 11:39 RBC (4.30-5.90) m/uL Hgb (13.0-17.5) gm/dL Hct (39.0-53.0) % Plt Count (150-450) k/uL Lymphocytes # (1.0-4.8) k/uL Chloride (98-107) mmol/L BUN (9-20) mg/dL Glucose (74-99) mg/dL POC Glucose (mg/dL) 111 H 132 H 112 H (75-99) mg/dL Calcium (8.4-10.2) mg/dL Alkaline Phosphatase (38-126) U/L Total Protein (6.3-8.2) g/dL Albumin (3.5-5.0) g/dL 12/14/20 12/14/20 12/14/20 Range/Units 12:29 13:23 14:18 RBC (4.30-5.90) m/uL Hgb (13.0-17.5) gm/dL Hct (39.0-53.0) % Plt Count (150-450) k/uL Lymphocytes # (1.0-4.8) k/uL Chloride (98-107) mmol/L BUN (9-20) mg/dL Glucose (74-99) mg/dL POC Glucose (mg/dL) 119 H 115 H 117 H (75-99) mg/dL Calcium (8.4-10.2) mg/dL Alkaline Phosphatase (38-126) U/L Total Protein (6.3-8.2) g/dL Albumin (3.5-5.0) g/dL 12/14/20 12/14/20 12/14/20 Range/Units 16:22 18:12 20:09 RBC (4.30-5.90) m/uL Hgb (13.0-17.5) gm/dL Hct (39.0-53.0) % Plt Count (150-450) k/uL Lymphocytes # (1.0-4.8) k/uL Chloride (98-107) mmol/L BUN (9-20) mg/dL Glucose (74-99) mg/dL POC Glucose (mg/dL) 113 H 114 H 107 H (75-99) mg/dL Calcium (8.4-10.2) mg/dL Alkaline Phosphatase (38-126) U/L Total Protein (6.3-8.2) g/dL Albumin (3.5-5.0) g/dL 12/14/20 12/15/20 12/15/20 Range/Units 21:48 00:05 02:04 RBC (4.30-5.90) m/uL Hgb (13.0-17.5) gm/dL Hct (39.0-53.0) % Plt Count (150-450) k/uL Lymphocytes # (1.0-4.8) k/uL Chloride (98-107) mmol/L BUN (9-20) mg/dL Glucose (74-99) mg/dL POC Glucose (mg/dL) 121 H 113 H 117 H (75-99) mg/dL Calcium (8.4-10.2) mg/dL Alkaline Phosphatase (38-126) U/L Total Protein (6.3-8.2) g/dL Albumin (3.5-5.0) g/dL 12/15/20 12/15/20 12/15/20 Range/Units 03:54 03:55 03:55 RBC 3.26 L (4.30-5.90) m/uL Hgb 9.6 L (13.0-17.5) gm/dL Hct 29.8 L (39.0-53.0) % Plt Count 84 L (150-450) k/uL Lymphocytes # 0.6 L (1.0-4.8) k/uL Chloride 110 H (98-107) mmol/L BUN 33 H (9-20) mg/dL Glucose 116 H (74-99) mg/dL POC Glucose (mg/dL) 119 H (75-99) mg/dL Calcium 8.1 L (8.4-10.2) mg/dL Alkaline Phosphatase 33 L (38-126) U/L Total Protein 4.8 L (6.3-8.2) g/dL Albumin 2.6 L (3.5-5.0) g/dL 12/15/20 Range/Units 06:21 RBC (4.30-5.90) m/uL Hgb (13.0-17.5) gm/dL Hct (39.0-53.0) % Plt Count (150-450) k/uL Lymphocytes # (1.0-4.8) k/uL Chloride (98-107) mmol/L BUN (9-20) mg/dL Glucose (74-99) mg/dL POC Glucose (mg/dL) 123 H (75-99) mg/dL Calcium (8.4-10.2) mg/dL Alkaline Phosphatase (38-126) U/L Total Protein (6.3-8.2) g/dL Albumin (3.5-5.0) g/dL Assessment and Plan Plan: 1 reduced sternotomy, resection of an ascending aortic aneurysm and placement of a 32 mm tailored tube graft for a ascending aortic aneurysm, 6.2 cm, and the patient is postop day #3. The patient has normal coronaries. The patient also post aortic valve replacement many years back and the patient is a mechanical aortic valve in place. 2 intraoperative hypotension and low cardiac output requiring intra-aortic balloon pump which was removed and the patient is currently hemodynamically stable on a combination of Primacor and the Chuck-Synephrine drip was discontinued. The SVR is also improving and the patient will be taken off the Primacor today. He is hemodynamically stable. He is sustaining his own blood pressure. He has diminished urine output. A chest x-ray is clear. Some atelectatic changes present on left lung base. 3 multiple episodes of nonsustained V. tach currently on metoprolol 12.5 mg twice a day and the patient is in sinus rhythm and has not had any episodes since 48 hours and the patient is currently in back atrial fibrillation. 4 post thoracotomy the patient was extubated to BiPAP currently on 2 L of oxygen by nasal cannula. The patient has right pleural, left pleural and mediastinal chest tubes 5 history of bicuspid aortic valve post aortic valve replacement with a [facility] mechanical valve 6 chronic atrial fibrillation maintained on long-term anticoagulation with warfarin on outpatient basis and the patient is currently on no anticoagulants 4 obstructive sleep apnea an AHI of 47 currently on CPAP 5 obesity with a BMI of 37.4 6 hypertension 7 hyperlipidemia 10 chronic atrial fibrillation and the patient was restarted back on warfarin given a dose of 5 mg yesterday with daily PT/INR monitoring. Plan Wean off Primacor drip Monitor the output and [place]Manny catheter may be taken off today Agree on beta blockers Incentive spirometer as the patient has some upper airway secretions continued anti coagulation with warfarin with daily PT/INR monitoring The patient is off Chuck-Synephrine Ambulate in the hallway Discontinue the insulin drip and put the patient was advised to coverage Keep in the ICU for another 24 hours for further monitoring. We are looking into removing the chest tubes and the [place]Manny catheter today. Keep the patient ICU for now. We'll continue to follow.
[2020-12-15] MEDS: IPRATROPIUM-ALBUTEROL 3 ML NEB INHALATION SCH ×4 (07:30→20:42)
[2020-12-15] MEDS: METOCLOPRAMIDE 5 MG/ML 2 ML VIAL IVP PRN (07:48)
--- NOTE | 2020-12-15 07:52 | XR ---
EXAMINATION TYPE: XR chest 1V DATE OF EXAM: 12/15/2020 COMPARISON: 12/14/2020 INDICATION: Chest tube status and cough TECHNIQUE: Single frontal view of the chest is obtained. FINDINGS: The heart size is enlarged. The pulmonary vasculature is normal. There is mild infiltrate at the left base. Bilateral chest tubes are present. No pneumothorax is evid ent. [place]-Manny catheter is present with tip in the right main pulmonary artery region. Sternotomy wir es are in the midline. IMPRESSION: 1. Lines and catheters discussed above. 2. Mild atelectasis may be at the left base. 3. No pneumothorax
[2020-12-15] MEDS: ASPIRIN 81 MG PO SCH (08:56)
[2020-12-15] MEDS: ATORVASTATIN 40 MG TAB PO SCH (08:56)
[2020-12-15] MEDS: METOPROLOL TARTRATE 25 MG TAB PO SCH ×3 (08:56→21:17)
[2020-12-15] MEDS: POTASSIUM CHLORIDE ER 10 MEQ TAB.ER.PRT PO SCH (08:56)
[2020-12-15] MEDS: FUROSEMIDE 10 MG/ML 2 ML VIAL IV SCH ×2 (08:56→21:17)
--- NOTE | 2020-12-15 09:15 | P.PN ---
Subjective Progress Note Date: 12/15/20 Principal diagnosis: Ascending aortic aneurysm. Past medical history significant for bicuspid aortic valve with mechanical aortic valve replacement in December of 1994, chronic at rial fibrillation, currently on Coumadin for anticoagulation with previous cardioversion, hypertension, hyperlipidemia, obstructive sleep apnea with home CPAP use, obesity, never smoker with preoperative FEV1 91% of predicted value. POD #3 redo sternotomy, resection of ascending aorta and noncoronary sinus of valsalva aneurysms with replacement with a 32 mm tailored tube graft, percutaneous placement intra-aortic balloon pump via left transfemoral approach. Postoperative acute blood loss anemia, expected due to hemodilution and cardiopulmonary bypass. Postoperative hypotension requiring vasopressor support, unexpected The patient is seen in follow-up today on 12/15/2020 at his bedside in the intensive care unit. Currently he is sitting up to the bedside chair, is awake, alert and oriented 3. He reports that his pain to his chest tube insertion site is much improved today from yesterday and he denies any complaints of shortness of breath. Oxygen saturation are 98% on room air and he is achieving 1250 mL on his incentive spirometry with encouragement. Chuck-Synephrine drip has been off for a few hours and he is currently hemodynamically stable. Primacor drip remains infusing at 0.1 mcg/kg/m, right IJ Cordis and [place]-Manny catheter remains in place with current hemodynamic showing a cardiac output of 5.8, cardiac index 2.5, PA pressures 23/14 and CVP 5 mmHg. Left and right pleural chest tubes remain in place to low continuous wall suction -20 cm H2O. No air leak is present. Draining thin serosanguineous drainage with 100 mL output in the last 24 hours from his left pleural chest tube and 250 mL output in the last 24 hours from his right pleural chest tube. Atrial and ventricular epicardial pacemaker wires remain in place and are grounded. Bedside telemetry showing atrial fibrillation with a heart rate of 100 BPM. Lab results this morning show a hemoglobin 9.6, hematocrit 29.8, platelets 84, BUN 33, creatinine 0.89, PTT 11.3, and INR 1.1. He did receive a dose of Coumadin 5 mg by mouth yesterday as he has a mechanical aortic valve and a history of chronic atrial fibrillation. He remains afebrile the last 24 hours. Objective - Vital Signs Vital signs: Vital Signs Temp 37.2 F L 12/15/20 08:00 Pulse 108 H 12/15/20 08:30 Resp 13 12/15/20 08:30 BP 117/70 12/15/20 08:30 Pulse Ox 93 L 12/15/20 08:30 Intake & Output 12/14/20 12/15/20 12/15/20 18:59 06:59 18:59 Intake Total 1081.903 657.557 134.843 Output Total 1124 1013 84 Balance -42.097 -355.443 50.843 Weight 127.6 kg Intake: IV 568 548 78 CO/CI 80 180 20 Lactated Ringers 1,000 ml 380 260 40 @ 20 mls/hr IV .Q24H [facility] Rx#:[id number] Pressure bags 108 108 18 Intake, IV Titration 513.903 69.557 56.843 Amount Insulin Regular 100 unit 5.916 5.333 In Sodium Chloride 0.9% 100 ml @ Per Protocol IV .Q0M [facility] Rx#:[id number] Milrinone-D5w Pmx 20 mg 96.592 56.843 In Dextrose/Water 1 100ml .bag @ 0.1 MCG/KG/MIN 3. 549 mls/hr IV .Q24H [facility] Rx#:[id number] Phenylephrine 40 mg In 411.395 64.224 Sodium Chloride 0.9% 250 ml @ 0.5 MCG/KG/MIN 24.67 mls/hr IV .[id number] [facility] Rx#:[id number] Oral 40 Output: Chest Tube Drainage 330 248 29 Left Lateral Chest 30 70 9 Left/Right Pleural 130 Medistinal x 2 90 Right Lateral Chest 80 178 20 Urine 794 765 55 Other: Voiding Method Indwelling Catheter Indwelling Catheter # Bowel Movements 1 ABP, PAP, CO, CI - Last Documented Arterial Blood Pressure 195/181 Pulmonary Artery Pressure 262/262 Cardiac Output 6.2 Cardiac Index 2.6 - Constitutional General appearance: Present: cooperative, no acute distress, obese - EENT Eyes: Present: normal appearance. Absent: scleral icterus ENT: Present: hearing grossly normal - Neck Details: Neck is supple, no JVD. Right IJ Cordis with [place]ipt[place]-Manny catheter remains in place and functioning. - Respiratory Details: Lungs sounds essentially clear throughout, few scattered crackles to his bilateral bases. Respirations are symmetrical and nonlabored. Oxygen saturation are 98% on room air. Achieving 1250 mL on his incentive spirometry. Left and right pleural chest tubes remain in place to low continuous wall suction -20 cm H2O. No air air leak is present. Draining thin serosanguineous drainage with 100 mL out of his left pleural chest tube in the last 24 hours and 250 mL output from his right pleural chest tube in the last 24 hours. - Cardiovascular Details: Irregular rhythm with controlled rate. S1 and S2 present, negative for S3, gallop or murmur. Sternum is stable. Bedside telemetry showing atrial fibrillation heart rate 100 BPM. Right IJ Cordis and Tipt[place]-Manny catheter in place with [place] hemodynamic showing a cardiac output of 5.8, cardiac index 2.5, PA pressures 23/14, CVP 5 mmHg. Heart hugger is in place and he is de monstrating appropriate use. Atrial and ventricular epicardial pacemaker wires in place grounded. Knee-high KELLE hose and sequential compression devices in place to his bilateral lower extremities. Right radial arterial line in place and functioning. Primacor drip infusing at 0.1 mcg/kg/m. - Gastrointestinal Gastrointestinal Comment(s): Abdomen is soft, nontender and nondistended. Active bowel sounds present all 4 abdominal quadrants. No guarding or rigidity. No organomegaly appreciated. Tolerating oral intake. Bowel movement this a.m. - Genitourinary Genitourinary Comment(s): Snyder catheter for accurate I&O. Draining clear muna urine. 540 mL output in the last 8 hours. - Integumentary Integumentary Comment(s): skin is warm and dry. No clubbing or cyanosis present. Midline sternal incision is clean, dry and approximated. No drainage or redness is present. - Neurologic Neurologic: Present: CNII-XII intact. Absent: focal deficits - Musculoskeletal Musculoskeletal: Present: gait normal, generalized weakness, strength equal bilaterally - Psychiatric Psychiatric Comment(s): Flat affect. Psychiatric: Present: A&O x's 3, intact judgment & insight - Allied health notes Allied health notes reviewed: nursing - Labs CBC & Chem 7: 12/15/20 03:55 12/15/20 03:55 Labs: Abnormal Lab Results - Last 24 Hours (Table) 12/14/20 12/14/20 12/14/20 Range/Units 09:24 11:39 12:29 RBC (4.30-5.90) m/uL Hgb (13.0-17.5) gm/dL Hct (39.0-53.0) % Plt Count (150-450) k/uL Lymphocytes # (1.0-4.8) k/uL Chloride (98-107) mmol/L BUN (9-20) mg/dL Glucose (74-99) mg/dL POC Glucose (mg/dL) 132 H 112 H 119 H (75-99) mg/dL Calcium (8.4-10.2) mg/dL Alkaline Phosphatase (38-126) U/L Total Protein (6.3-8.2) g/dL Albumin (3.5-5.0) g/dL 12/14/20 12/14/20 12/14/20 Range/Units 13:23 14:18 16:22 RBC (4.30-5.90) m/uL Hgb (13.0-17.5) gm/dL Hct (39.0-53.0) % Plt Count (150-450) k/uL Lymphocytes # (1.0-4.8) k/uL Chloride (98-107) mmol/L BUN (9-20) mg/dL Glucose (74-99) mg/dL POC Glucose (mg/dL) 115 H 117 H 113 H (75-99) mg/dL Calcium (8.4-10.2) mg/dL Alkaline Phosphatase (38-126) U/L Total Protein (6.3-8.2) g/dL Albumin (3.5-5.0) g/dL 12/14/20 12/14/20 12/14/20 Range/Units 18:12 20:09 21:48 RBC (4.30-5.90) m/uL Hgb (13.0-17.5) gm/dL Hct (39.0-53.0) % Plt Count (150-450) k/uL Lymphocytes # (1.0-4.8) k/uL Chloride (98-107) mmol/L BUN (9-20) mg/dL Glucose (74-99) mg/dL POC Glucose (mg/dL) 114 H 107 H 121 H (75-99) mg/dL Calcium (8.4-10.2) mg/dL Alkaline Phosphatase (38-126) U/L Total Protein (6.3-8.2) g/dL Albumin (3.5-5.0) g/dL 12/15/20 12/15/20 12/15/20 Range/Units 00:05 02:04 03:54 RBC (4.30-5.90) m/uL Hgb (13.0-17.5) gm/dL Hct (39.0-53.0) % Plt Count (150-450) k/uL Lymphocytes # (1.0-4.8) k/uL Chloride (98-107) mmol/L BUN (9-20) mg/dL Glucose (74-99) mg/dL POC Glucose (mg/dL) 113 H 117 H 119 H (75-99) mg/dL Calcium (8.4-10.2) mg/dL Alkaline Phosphatase (38-126) U/L Total Protein (6.3-8.2) g/dL Albumin (3.5-5.0) g/dL 12/15/20 12/15/20 12/15/20 Range/Units 03:55 03:55 06:21 RBC 3.26 L (4.30-5.90) m/uL Hgb 9.6 L (13.0-17.5) gm/dL Hct 29.8 L (39.0-53.0) % Plt Count 84 L (150-450) k/uL Lymphocytes # 0.6 L (1.0-4.8) k/uL Chloride 110 H (98-107) mmol/L BUN 33 H (9-20) mg/dL Glucose 116 H (74-99) mg/dL POC Glucose (mg/dL) 123 H (75-99) mg/dL Calcium 8.1 L (8.4-10.2) mg/dL Alkaline Phosphatase 33 L (38-126) U/L Total Protein 4.8 L (6.3-8.2) g/dL Albumin 2.6 L (3.5-5.0) g/dL - Imaging and Cardiology Chest x-ray: report reviewed, image reviewed Assessment and Plan Assessment: 1. Ascending aortic aneurysm, 62 mm per radiology read on CT, [address] Cole's read, status post redo sternotomy, resection of a ascending aorta and noncoronary sinus of Valsalva aneurysms with replacement with a 32 mm tailored tube graft 2. History of bicuspid aortic valve with mechanical aortic valve replacement in December 1994 3. Chronic atrial fibrillation, currently on Coumadin on an outpatient for anticoagulation with previous cardioversion 4. History of hypertension 5. History of hyperlipidemia, treated, cholesterol 124, LDL 25 6. Obstructive sleep apnea with home CPAP use 7. Obesity 8. Never smoker with preoperative FEV1 91% of predicted 9. Normal coronary arteries, status post selective left and right coronary angiography 10. Postoperative acute blood loss anemia, expected due to hemodilution and cardiopulmonary bypass 11. Postoperative hypotension requiring vasopressor support, unexpected, resolved Plan: 1. Continue aspirin 81 mg by mouth daily, statin and beta jerrell. We will increase metoprolol tartrate 25 mg by mouth 3 times a day. 2. Bronchodilators and oxygen management per pulmonary/critical care management. 3. Remove IJ Cordis and Tipton-Manny catheter. Keep right IJ Cordis and placed for continuous CVP monitoring. 4. Will monitor daily labs and a chest x-rays. Electrolyte replacement per protocol. 5. Remove right and left pleural chest tubes. 6. Insulin management per primary care service. 7. Pain control with current medication regimen. Toradol has been added, acetaminophen 1000 mg by mouth every 6 hours when necessary pain has been added. [place] has been discontinued. 8. Discontinue right radial arterial line, and Snyder catheter. Continue to record accurate I's and O's. 9. Atrial and ventricular epicardial pacemaker wires were removed at 8:50 AM today without incident. The patient will be on bed rest for 1 hour post pacemaker wire removal. 10. Coumadin 5 mg by mouth today, continued to monitor daily PT/INRs. 11. Discontinue heparin subcu as his platelets are 84 today, send HIT panel. 12. Continue Lasix 20 mg IV twice a day. Continue potassium chloride ER 10 mEq by mouth daily while on Lasix. 13. Increase activity as tolerated. Physical therapy/occupational therapy and cardiac rehabilitation following. 14. We will keep in the intensive care unit for another day for monitoring, anticipate transfer to cardiac stepdown unit tomorrow 12/16/2020. 15. Encourage use of his incentive spirometry 10 times every hour while awake. 16. More recommendations to follow based on patient's clinical course. Time with Patient: Greater than 30
[2020-12-15] MEDS ORDERED: metOLazone 2.5 MG TAB PO SCH (10:00)
--- NOTE | 2020-12-15 12:15 | P.PN ---
Subjective Progress Note Date: 12/15/20 This is a 70-year-old gentleman with history of aortic valve replacement who is status post surgery for repair of the aneurysm and ascending aorta. Patient required intra-aortic balloon pump for hemodynamic support. Patient is intensive care unit still intubated and sedated. Patient does have intractable balloon pump still working at 1:1 ratio and his cardiac index has been between 2.5-3.3. Patient is in sinus rhythm but have short runs of nonsustained V. tach. Patient was on epinephrine and also Levophed drips which were discontinued and patient is currently on Chuck-Synephrine. Chest tubes are in place. Patient has [place]-Manny catheter. Patient's hemoglobin is about 10. We'll make consider using either beta jerrell or amiodarone. Patient continues to have nonsustained V. tach. Patient doesn't have an underlying ischemic heart disease. 12/14/2020: This patient is extubated and sitting in the chair. Still complaining of chest pain and seemed to be uncomfortable. Alert and oriented. Also has mild cough. His cardiac index is about 2.5. His heart and saturations are 96% on 2 L Cannula. His PA pressures 30/12. He is on Chuck-Synephrine and no other drips. His maintaining sinus rhythm and mildly sinus bradycardia. Patient also developed SVT and is being treated with small dose of beta jerrell. No ventricular arrhythmias today. His lab work is stable with mild anemia. Overall patient seemed to be progressing fairly well. Continue current medical therapy 12/15/2020: Patient is doing much better. Chest pain has improved. Patient is atrial fibrillation with controlled ventricular response. He is on beta blockers. Hemodynamically otherwise stable. Patient is eating. His lungs are clear. Heart is irregular. We'll continue current medical therapy. Possible transfer to telemetry unit tomorrow Objective - Vital Signs Vital signs: Vital Signs Temp 37.2 F L 12/15/20 08:00 Pulse 99 12/15/20 11:20 Resp 19 12/15/20 10:00 BP 107/59 12/15/20 10:00 Pulse Ox 95 12/15/20 10:00 Intake & Output 12/14/20 12/15/20 12/15/20 18:59 06:59 18:59 Intake Total 1081.903 657.557 433.843 Output Total 1124 1013 324 Balance -42.097 -355.443 109.843 Weight 127.6 kg Intake: IV 568 548 127 CO/CI 80 180 20 Lactated Ringers 1,000 ml 380 260 80 @ 20 mls/hr IV .Q24H [facility] Rx#:[id number] Pressure bags 108 108 27 Intake, IV Titration 513.903 69.557 56.843 Amount Insulin Regular 100 unit 5.916 5.333 In Sodium Chloride 0.9% 100 ml @ Per Protocol IV .Q0M [facility] Rx#:[id number] Milrinone-D5w Pmx 20 mg 96.592 56.843 In Dextrose/Water 1 100ml .bag @ 0.1 MCG/KG/MIN 3. 549 mls/hr IV .Q24H [facility] Rx#:[id number] Phenylephrine 40 mg In 411.395 64.224 Sodium Chloride 0.9% 250 ml @ 0.5 MCG/KG/MIN 24.67 mls/hr IV .[id number] [facility] Rx#:[id number] Oral 40 250 Output: Chest Tube Drainage 330 248 49 Left Lateral Chest 30 70 19 Left/Right Pleural 130 Medistinal x 2 90 Right Lateral Chest 80 178 30 Urine 794 765 275 Other: Voiding Method Indwelling Catheter Indwelling Catheter Indwelling Catheter # Bowel Movements 1 ABP, PAP, CO, CI - Last Documented Arterial Blood Pressure 195/181 Pulmonary Artery Pressure 262/262 Cardiac Output 6.2 Cardiac Index 2.6 - Exam GENERAL EXAM: Patient is extubated and sitting in the chair. Alert and oriented HEENT: Normocephalic. NECK: No masses, no nuchal rigidity. CHEST: Postsurgical LUNGS: Equal air entry HEART: [S1 and S2 normal ABDOMEN: Soft SKIN: No rashes CENTRAL NERVOUS SYSTEM: Sedated EXTREMITIES: No cyanosis, clubbing or edema. - Labs CBC & Chem 7: 12/15/20 03:55 12/15/20 03:55 Labs: Abnormal Lab Results - Last 24 Hours (Table) 12/14/20 12/14/20 12/14/20 Range/Units 12:29 13:23 14:18 RBC (4.30-5.90) m/uL Hgb (13.0-17.5) gm/dL Hct (39.0-53.0) % Plt Count (150-450) k/uL Lymphocytes # (1.0-4.8) k/uL Chloride (98-107) mmol/L BUN (9-20) mg/dL Glucose (74-99) mg/dL POC Glucose (mg/dL) 119 H 115 H 117 H (75-99) mg/dL Calcium (8.4-10.2) mg/dL Alkaline Phosphatase (38-126) U/L Total Protein (6.3-8.2) g/dL Albumin (3.5-5.0) g/dL 12/14/20 12/14/20 12/14/20 Range/Units 16:22 18:12 20:09 RBC (4.30-5.90) m/uL Hgb (13.0-17.5) gm/dL Hct (39.0-53.0) % Plt Count (150-450) k/uL Lymphocytes # (1.0-4.8) k/uL Chloride (98-107) mmol/L BUN (9-20) mg/dL Glucose (74-99) mg/dL POC Glucose (mg/dL) 113 H 114 H 107 H (75-99) mg/dL Calcium (8.4-10.2) mg/dL Alkaline Phosphatase (38-126) U/L Total Protein (6.3-8.2) g/dL Albumin (3.5-5.0) g/dL 12/14/20 12/15/20 12/15/20 Range/Units 21:48 00:05 02:04 RBC (4.30-5.90) m/uL Hgb (13.0-17.5) gm/dL Hct (39.0-53.0) % Plt Count (150-450) k/uL Lymphocytes # (1.0-4.8) k/uL Chloride (98-107) mmol/L BUN (9-20) mg/dL Glucose (74-99) mg/dL POC Glucose (mg/dL) 121 H 113 H 117 H (75-99) mg/dL Calcium (8.4-10.2) mg/dL Alkaline Phosphatase (38-126) U/L Total Protein (6.3-8.2) g/dL Albumin (3.5-5.0) g/dL 12/15/20 12/15/20 12/15/20 Range/Units 03:54 03:55 03:55 RBC 3.26 L (4.30-5.90) m/uL Hgb 9.6 L (13.0-17.5) gm/dL Hct 29.8 L (39.0-53.0) % Plt Count 84 L (150-450) k/uL Lymphocytes # 0.6 L (1.0-4.8) k/uL Chloride 110 H (98-107) mmol/L BUN 33 H (9-20) mg/dL Glucose 116 H (74-99) mg/dL POC Glucose (mg/dL) 119 H (75-99) mg/dL Calcium 8.1 L (8.4-10.2) mg/dL Alkaline Phosphatase 33 L (38-126) U/L Total Protein 4.8 L (6.3-8.2) g/dL Albumin 2.6 L (3.5-5.0) g/dL 12/15/20 Range/Units 06:21 RBC (4.30-5.90) m/uL Hgb (13.0-17.5) gm/dL Hct (39.0-53.0) % Plt Count (150-450) k/uL Lymphocytes # (1.0-4.8) k/uL Chloride (98-107) mmol/L BUN (9-20) mg/dL Glucose (74-99) mg/dL POC Glucose (mg/dL) 123 H (75-99) mg/dL Calcium (8.4-10.2) mg/dL Alkaline Phosphatase (38-126) U/L Total Protein (6.3-8.2) g/dL Albumin (3.5-5.0) g/dL Assessment and Plan (1) Status post ascending aortic aneurysm repair Current Visit: Yes Status: Acute Code(s): Z98.890 - OTHER SPECIFIED POSTPROCEDURAL STATES; Z86.79 - PERSONAL HISTORY OF OTHER DISEASES OF THE CIRCULATORY SYSTEM SNOMED Code(s): 054409697 (2) History of aortic valve replacement Current Visit: Yes Status: Acute Code(s): Z95.2 - PRESENCE OF PROSTHETIC HEART VALVE SNOMED Code(s): 0543408316589 (3) Hypertension Current Visit: Yes Status: Acute Code(s): I10 - ESSENTIAL (PRIMARY) HYPERTENSION SNOMED Code(s): 34494541 (4) Hypotension Current Visit: Yes Status: Acute Code(s): I95.9 - HYPOTENSION, UNSPECIFIED SNOMED Code(s): 82878071 (5) Nonsustained ventricular tachycardia Current Visit: Yes Status: Acute Code(s): I47.2 - VENTRICULAR TACHYCARDIA SNOMED Code(s): 878498192 Plan: Patient is critically doing well. In atrial fibrillation with controlled ventricular response. One more day in ICU. Possible transfer to telemetry tomorrow
[2020-12-15 12:33] LABS: Glucose,Whole Blood 99 mg/dL (75-99)
[2020-12-15 17:52] LABS: Glucose,Whole Blood 108 mg/dL (75-99)
[2020-12-15] MEDS: INSULIN ASPART (NovoLOG) 100 UNIT/ML VIAL SQ SCH ×2 (17:54→21:11)
[2020-12-15] MEDS ORDERED: WARFARIN 5 MG TAB PO ONE (18:00)
--- NOTE | 2020-12-15 20:37 | P.PN ---
Progress Note - Text Progress Note Date: 12/15/20 - Chief Complaint Ascending aorta aneurysm Consultation: This is a pleasant 70-year-old patient of Dr. Guillaume Latham. Chronic stable medical conditions include atrial fibrillation, hypertension, hyperlipidemia, [facility] mechanical aortic valve replacement in December 1994. Patient was admitted yesterday, to be bridged to from warfarin to heparin, with a view to cardiothoracic surgery. December 11-cardiac catheterization that showed normal coronaries. December 12: aortic arch aneurysm replacement. EBL-500 mL. Today-ICU:. Sitting up in a chair. Awake. Feels a bit tired. All chest tubes are being taken off. Off drips. Review of systems: Was done for constitutional, cardiovascular, GI, pulmonary. relevant finding as above Active Medications Acetaminophen (Acetaminophen Tab 500 Mg Tab) 1,000 mg PO Q6HR PRN PRN Reason: Fever and/ or Mild Pain Albuterol/Ipratropium (Ipratropium-Albuterol 3 Ml Neb) 3 ml INHALATION RT-Q2H PRN PRN Reason: Shortness Of Breath Or Wheezing Albuterol/Ipratropium (Ipratropium-Albuterol 3 Ml Neb) 3 ml INHALATION RT-QID [facility] Last Admin: 12/15/20 16:42 Dose: 3 ml Documented by: Aspirin (Aspirin 81 Mg) 81 mg PO DAILY [facility] Last Admin: 12/15/20 08:56 Dose: 81 mg Documented by: Atorvastatin Calcium (Atorvastatin 40 Mg Tab) 40 mg PO DAILY [facility] Last Admin: 12/15/20 08:56 Dose: 40 mg Documented by: Benzocaine/Menthol (Benzocaine/Menthol Lozeng 1 Each Lozenge) 1 each MUCOUS MEM Q2H PRN PRN Reason: Sore Throat Bisacodyl (Bisacodyl 10 Mg Supp) 10 mg RECTAL DAILY PRN PRN Reason: Constipation Furosemide (Furosemide 10 Mg/Ml 2 Ml Vial) 20 mg IV Q12HR [facility] Last Admin: 12/15/20 08:56 Dose: 20 mg Documented by: Lactated Ringer's (Lactated Ringers) 1,000 mls @ 20 mls/hr IV .Q24H [facility] Last Admin: 12/14/20 16:26 Dose: 20 mls/hr Documented by: Calcium Gluconate 2 gm/ Sodium (Chloride) 120 mls @ 100 mls/hr IVPB ONCE PRN PRN Reason: Ionized Calcium less than 4.4 Stop: 01/11/21 16:04 Insulin Aspart (Insulin Aspart (Novolog) 100 Unit/Ml Vial) 0 unit SQ ACHS [facility]; Protocol Last Admin: 12/15/20 17:54 Dose: Not Given Documented by: Ketorolac Tromethamine (Ketorolac 15 Mg/Ml 1 Ml Vial) 15 mg IVP Q6HR [facility] Stop: 12/18/20 08:54 Last Admin: 12/15/20 17:58 Dose: 15 mg Documented by: Magnesium Hydroxide (Magnesium Hydroxide 2,400 Mg/10 Ml Cup) 2,400 mg PO BID PRN PRN Reason: Constipation Metolazone (Metolazone 2.5 Mg Tab) 2.5 mg PO DAILY [facility] Stop: 12/18/20 10:01 Last Admin: 12/15/20 10:10 Dose: 2.5 mg Documented by: Metoprolol Tartrate (Metoprolol Tartrate 25 Mg Tab) 25 mg PO TID [facility] Last Admin: 12/15/20 16:02 Dose: 25 mg Documented by: Miscellaneous Information (Potassium Replacement Protocol 1 Each Misc) 1 each MISCELLANE DAILY PRN; Protocol PRN Reason: Per Protocol Miscellaneous Information (Magnesium Replacement Protocol 1 Each Misc) 1 each MISCELLANE DAILY PRN; Protocol PRN Reason: Per Protocol Miscellaneous Information (Phosphorus Replacement Protoco 1 Each Misc) 1 each MISCELLANE DAILY PRN; Protocol PRN Reason: Per Protocol Miscellaneous Information (Warfarin Per Pharmacy) 0 each MISCELLANE DIRECTED PRN PRN Reason: PHARMACY DOSING WARFARIN Ondansetron HCl (Ondansetron 4 Mg/2 Ml Vial) 4 mg IVP Q6HR PRN PRN Reason: Nausea And Vomiting Last Admin: 12/14/20 10:19 Dose: 4 mg Documented by: Pantoprazole Sodium (Pantoprazole 40 Mg Tablet) 40 mg PO AC-BRKFST [facility] Last Admin: 12/15/20 06:54 Dose: 40 mg Documented by: Potassium Chloride (Potassium Chloride Er 10 Meq Tab.Er.Prt) 10 meq PO DAILY [facility] Last Admin: 12/15/20 08:56 Dose: 10 meq Documented by: Senna/Docusate Sodium (Sennosides-Docusate Sodium 1 Each Tab) 2 each PO HS [facility] Last Admin: 12/14/20 21:13 Dose: 2 each Documented by: Sodium Chloride (Sodium Chloride 0.9% Flush 10 Ml Syringe) 10 ml IV BID [facility] Last Admin: 12/15/20 08:56 Dose: Not Given Documented by: Past medical history to include: Atrial fibrillation, hypertension, hyperlipidemia, [facility] mechanical aortic valve replacement in December 1994. Social history: No history of smoking. Alcohol rarely. Physical examination: VITAL SIGNS: 99.4, 110, 12, 105/73, 96% room air GENERAL:, Sitting up in a chair, awake, EYES: Pupils equal. Conjunctiva pale HEENT: External appearance of nose and ears normal, oral cavity endotracheal tube NECK: JVD not raised; masses not palpable. HEART: Irregular; no edema. LUNGS: Respiratory rate normal; decreased breath sounds. Chest tubes- discontinued ABDOMEN: Soft, nontender, liver spleen not palpable, no masses palpable. Snyder catheter PSYCH: Awake, answering questions NEUROLOGICAL: Cranial nerves grossly intact; no facial asymmetry, INVESTIGATIONS, reviewed in the clinical context: December 15: Count 5.6 hemoglobin 9.6 potassium 4.3 creatinine 0.89 December 14: White count 9.4 hemoglobin 9.9 platelets 113 potassium 4.2 creatinine 0.88 albumin 2.6 December 13: White count 9.4 hemoglobin 10.8 potassium 4 creatinine 1.04 December 12: White count 10.5 hemoglobin 11 platelets 133 potassium 4.3 cre atinine 0.86 White count 3.9 hemoglobin 14.7 platelets 178 INR 1.8 potassium 4 creatinine 0.85 Chest x-ray film personally reviewed by me-some cardiomegaly Carotid Doppler-no significant stenosis Assessment: -Status post ascending aortic aneurysm repair, , with redo sternotomy -Persistent atrial fibrillation chronically on Coumadin -Essential hypertension -Hyperlipidemia -History of mechanical aortic valve, -Ascending aortic aneurysm 62 mm pending surgery -Dilutional thrombocytopenia -Acute postprocedure blood loss anemia, as expected from surgery -Acute hypoxic respiratory on ventilator support, postoperatively -Cardiac catheterization-normal coronaries -Hypoalbuminemia-Acute phase reactant Plan: Continue current medication treatment plan. Chest tubes removed. Patient off drips. I encouraged to use incentive spirometry. Thank you Dr. Cole
[2020-12-15] MEDS: SENNOSIDES-DOCUSATE SODIUM 1 EACH TAB PO SCH (21:19)
[2020-12-15] MEDS: LACTATED RINGERS 1,000 ML IV SCH (21:21)
[2020-12-15 21:24] LABS: Glucose,Whole Blood 148 mg/dL (75-99)
[2020-12-16] MEDS: KETOROLAC 15 MG/ML 1 ML VIAL IVP SCH ×2 (00:13→05:16)
--- NOTE | 2020-12-16 03:59 | XR ---
EXAM: XR Chest, 2 Views CLINICAL HISTORY: ITS.REASON XR Reason: Chest tube status and cough TECHNIQUE: Frontal and lateral views of the chest. COMPARISON: 12/15/20 FINDINGS: Lungs: Mild bibasilar atelectasis. Query small left pleural effusion. Pleural space: No pneumothorax. Heart: Unremarkable. No cardiomegaly. Mediastinum: Unremarkable. Bones/joints: Median sternotomy wires as on the prior. Tubes, lines and devices: Interval removal of the right IJ Bath-Manny catheter and bilateral chest tubes. IMPRESSION: 1. Interval removal of the Bath-Manny catheter and bilateral chest tubes. 2. Mild bibasilar atelectasis. Query small left pleural effusion.
[2020-12-16] MEDS: ONDANSETRON 4 MG/2 ML VIAL IVP PRN (05:14)
[2020-12-16] MEDS: LACTATED RINGERS 1,000 ML IV SCH (05:14)
--- NOTE | 2020-12-16 07:22 | P.PN ---
Subjective Progress Note Date: 12/16/20 Principal diagnosis: Ascending aortic aneurysm. 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 Postoperative acute blood loss anemia, expected due to hemodilution and cardiopulmonary bypass. Postoperative hypotension requiring vasopressor support, unexpected The patient currently sitting up in a recliner in the intensive care unit in no acute distress. States pain is well controlled on current medication regimen, no need for narcotics. Denies shortness of breath. The patient has been ambulatory in his room as well as in the hallway without difficulty. Right internal jugular Cordis remains, all of the lines and tubes have been removed. Remains in atrial fibrillation, hemodynamically stable on no inotropes or pressors, he has been started on Coumadin. Actively using incentive spirometry. No new concerns. Objective - Vital Signs Vital signs: Vital Signs Temp 97.6 F 12/16/20 04:00 Pulse 105 H 12/16/20 06:00 Resp 13 12/16/20 06:00 BP 115/86 12/16/20 05:00 Pulse Ox 84 L 12/16/20 04:00 Intake & Output 12/15/20 12/16/20 12/16/20 18:59 06:59 18:59 Intake Total 867.843 276 Output Total 665 1956 Balance 202.843 -1680 Weight 124.5 kg Intake: IV 311 276 CO/CI 20 Lactated Ringers 1,000 ml 240 240 @ 20 mls/hr IV .Q24H [facility] Rx#:[id number] Pressure bags 51 36 Intake, IV Titration 56.843 Amount Milrinone-D5w Pmx 20 mg 56.843 In Dextrose/Water 1 100ml .bag @ 0.1 MCG/KG/MIN 3. 549 mls/hr IV .Q24H [facility] Rx#:[id number] Oral 500 Output: Chest Tube Drainage 49 Left Lateral Chest 19 Right Lateral Chest 30 Urine 615 1555 Stool 1 1 Urine/Stool Mix 400 Other: Voiding Method Indwelling Catheter Indwelling Catheter # Voids 1 # Bowel Movements 1 ABP, PAP, CO, CI - Last Documented Arterial Blood Pressure 195/181 Pulmonary Artery Pressure 262/262 Cardiac Output 6.2 Cardiac Index 2.6 - Constitutional General appearance: Present: cooperative, no acute distress, obese - Respiratory Details: Lungs sounds diminished in the left lung base. Respirations even, nonlabored. Currently on room air with oxygen saturation in the low to mid 90s. Able to achieve 1500 mL on his incentive spirometry. Strong cough. - Cardiovascular Details: S1, S2 present. Irregular rate and rhythm, atrial fibrillation on telemetry. Sternum stable. Palpable peripheral pulses bilaterally. Bilateral lower extremity edema present. Heart hugger placed patient demonstrating appropriate use. Antiembolism stockings, SCDs present. Right internal jugular Cordis present, capped. - Gastrointestinal Gastrointestinal Comment(s): Abdomen soft, nontender, nondistended. Active bowel sounds present 4 quadrants. Tolerating diet. Positive bowel movement yesterday - Genitourinary Genitourinary Comment(s): Continues to void clear, yellow urine. Output 2170 mL in the last 24 hours. - Integumentary Integumentary Comment(s): Skin is warm and dry with evidence of good perfusion. Anterior chest incision well approximated and covered with dry intact dressing. - Neurologic Neurologic: Present: CNII-XII intact - Musculoskeletal Musculoskeletal: Present: gait normal, strength equal bilaterally - Psychiatric Psychiatric: Present: A&O x's 3, appropriate affect, intact judgment & insight - Allied health notes Allied health notes reviewed: nursing - Labs CBC & Chem 7: 12/15/20 03:55 12/15/20 03:55 Labs: Abnormal Lab Results - Last 24 Hours (Table) 12/15/20 12/15/20 Range/Units 17:50 21:23 POC Glucose (mg/dL) 108 H 148 H (75-99) mg/dL - Imaging and Cardiology Chest x-ray: report reviewed, image reviewed Assessment and Plan Assessment: 1. Ascending aortic aneurysm, 62 mm per radiology read on CT, [address] Cole's read, status post redo sternotomy, resection of a ascending aorta and noncoronary sinus of Valsalva aneurysms with replacement with a 32 mm tailored tube graft 2. History of bicuspid aortic valve with mechanical aortic valve replacement in December 1994 3. Chronic atrial fibrillation, currently on Coumadin for anticoagulation with previous cardioversion 4. History of hypertension 5. History of hyperlipidemia, treated, cholesterol 124, LDL 25 6. Obstructive sleep apnea with home CPAP use 7. Obesity 8. Never smoker with preoperative FEV1 91% of predicted 9. Normal coronaries 10. Postoperative acute blood loss anemia, expected due to hemodilution and cardiopulmonary bypass 11. Postoperative hypotension requiring vasopressor support, unexpected, resolved Plan: 1. Continue aspirin, statin and beta jerrell. Will increase beta jerrell as tolerated, increased to 50 mg twice daily today 2. Coumadin to be dosed daily per PT INR for goal INR 2.5-3 3. Encourage incentive spirometry use 10 times every hour while awake. Bronchodilators per pulmonary/critical care management. 4. Increase activity as tolerated. Physical therapy/occupational therapy and cardiac rehabilitation following. 5. Establish peripheral IV, remove IJ Cordis 6. Will monitor daily labs and a chest x-rays. Electrolyte replacement per pr otocol. 7. Insulin management per primary care service. 8. Pain control with current medication regimen. 9. Record accurate I's and O's, daily weights. 10. GI/DVT prophylaxis 11. Continue Lasix 20 mg IV twice a day, Zaroxolyn added for 3 days. Continue potassium while on Lasix. 12. Will place transfer orders for 3 S. cardiac stepdown unit. May transfer when bed available 13. Discharge planning in progress. Anticipate discharge home with home care in the next 48 hours dependent on Coumadin level being therapeutic 14. More recommendations to follow Time with Patient: Greater than 30
[2020-12-16 07:24] LABS: Basophils % (A) 0 %; Eosinophils # (A) 0.1 k/uL (0-0.7); Eosinophils % (A) 3 %; HCT 30.5 % (39.0-53.0); Lymphocytes # (A) 0.8 k/uL (1.0-4.8); Lymphocytes % (A) 15 %; MCH 29.5 pg (25.0-35.0); MCHC 32.7 g/dL (31.0-37.0); MCV 90.2 fL (80.0-100.0); Mean Platelet Volume 9.2; Monocytes # (A) 0.4 k/uL (0-1.0); Monocytes % (A) 7 %; Neutrophils # (A) 3.6 k/uL (1.3-7.7); Neutrophils % (A) 72 %; RBC 3.38 m/uL (4.30-5.90); RDW 13.9 % (11.5-15.5)
[2020-12-16 07:31] LABS: Platelet Count 158 k/uL (150-450)
[2020-12-16 07:35] LABS: Calcium 8.4 mg/dL (8.4-10.2); Potassium 3.6 mmol/L (3.5-5.1); Total Bilirubin 0.9 mg/dL (0.2-1.3); Total Protein 5.3 g/dL (6.3-8.2)
[2020-12-16 07:36] LABS: INR 1.3 (<1.2); Prothrombin Time 13.3 sec (9.0-12.0)
[2020-12-16] MEDS: IPRATROPIUM-ALBUTEROL 3 ML NEB INHALATION SCH ×4 (07:49→21:00)
[2020-12-16] MEDS ORDERED: POTASSIUM CHLORIDE ER 20 MEQ TAB.ER PO SCH (08:00)
[2020-12-16] MEDS: METOPROLOL TARTRATE 50 MG TAB PO SCH ×2 (08:18→20:00)
[2020-12-16] MEDS: ASPIRIN 81 MG PO SCH (08:19)
[2020-12-16] MEDS: ATORVASTATIN 40 MG TAB PO SCH (08:19)
[2020-12-16] MEDS: PANTOPRAZOLE 40 MG TABLET PO SCH (08:19)
[2020-12-16] MEDS: POTASSIUM CHLORIDE ER 10 MEQ TAB.ER.PRT PO SCH (08:19)
[2020-12-16] MEDS: INSULIN ASPART (NovoLOG) 100 UNIT/ML VIAL SQ SCH ×4 (08:30→22:47)
[2020-12-16] MEDS: FUROSEMIDE 10 MG/ML 2 ML VIAL IV SCH ×2 (08:54→16:13)
--- NOTE | 2020-12-16 09:21 | PN ---
PROGRESS NOTE This is a 70-year-old gentleman with a known history of chronic atrial fibrillation with a previous mechanical aortic valve replacement for bicuspid valve in 1994, had a recent resection of ascending aorta with repair with a #32 tailored tube graft. He is doing well overall. He is off all pressors ambulating without any major symptoms. However, his INR is 1.1 as of yesterday and today's labs are pending. He is in atrial fib which is his chronic rhythm. Rate is fairly well controlled. He has no chest pain or shortness of breath. He seems to be resting comfortably. Hemoglobin is about 9.6. He has no episodes of any SVT or VT on the monitor. PHYSICAL EXAMINATION: On examination, blood pressure is 118/70, pulse rate is about 90-100, irregular. HEENT unremarkable. Fundus was not examined. There is JVD of 1 cm no carotid bruit. Prosthetic valve clicks are audible at the base with a short systolic murmur. Lungs reveal fair air entry. IMPRESSION: 1. Status post repair of ascending aorta in a patient with previous aortic valve replacement with mechanical valve. 2. Chronic atrial fibrillation. 3. History of some nonsustained VT, which is not an issue at this time. RECOMMENDATIONS: I am recommending that we should resume Coumadin as soon as possible. If the hemoglobin is reasonably stable in view of the fact patient has a mechanical prosthetic aortic valve. Otherwise we will continue all his other medications including aspirin and atorvastatin. He is receiving Lasix 20 mg IV push q.12 hours. We can probably switch to oral Lasix. Also we will resume Coumadin. Overall, patient is doing well. MMODL / IJN: [id number] /
[2020-12-16 11:51] LABS: Glucose,Whole Blood 104 mg/dL (75-99)
--- NOTE | 2020-12-16 14:28 | P.PN ---
Subjective Progress Note Date: 12/16/20 Principal diagnosis: Status post redo sternotomy, resection of ascending aortic aneurysm, postoperative day #3. On 12/13/2020 mom seeing the patient for a follow-up. Noted the patient was taken to the operating room yesterday. The patient had redo sternotomy, resection of an ascending aortic aneurysm with a replacement of a 32 mm tailored tube graft. Percutaneous placement of intra-aortic balloon pump was done as the patient required intra-aortic balloon pump for hemodynamic support intraoperatively. The patient was brought into the intensive care unit intubated on a mechanical ventilator. The patient is currently on assist control mode at the rate of 20 with a tidal volume of 550 and PEEP of 10 with an FiO2 of 70%. Morning blood gases showed a pH of 7.41 with a pCO2 of 39 and pO2 of 76 and above-mentioned vent setting. Ever pressures are not elevated. Chest x-ray showing routine postoperative changes. The patient has a right pleural chest tube, left pleural chest tube and 2 mediastinal chest tubes all of them are in place. The patient has a Oberlin-Manny catheter and the patient has an orogastric and orotracheal tube both of them are being in place. The output from the right and left pleural chest tubes are minimal in the order of 20 mL's over the past 8 hours, the mediastinal chest tubes is producing approximately 70 mL's over the past 8 hours and for 32 mL over the past 12 hours. Output from the chest tubes are minimal for now. The patient is in a normal sinus rhythm. The patient has an intra-aortic balloon pump in her urine this morning the augmentation was 1:1 and augment the blood pressure was 80. The patient had pulmonary artery pressures of 36/21. Cardiac index was 2.8 and the CVP was 9. The patient was having episodes of nonsustained V. tach. He was on epinephrine drip earlier this morning and epinephrine drip was gradually weaned off. Levo fed was also weaned off. The patient was ultimately switched to Chuck-Synephrine drip. Note that these aren't short runs of nonsustained V. tach not causing any significant hemodynamic instability. The patient remains sedated with propofol. Hemoglobin today is at 10.8. Intraoperatively the patient required a total of 4 units of platelets and 4 units of fresh frozen plasma. On 12/14/2020, the patient is extubated sitting up on a chair on oxygen at 2 L per minute nasal cannula. Doing well. Still having sternal pain and the patient is taking [place] for that. He was extubated yesterday to a BiPAP at around 6 PM. He was placed on a BiPAP at a pressure of 10/5 with an FiO2 of 40% and subsequently BiPAP was discontinued. In terms of pressors, the patient is currently off epinephrine. He is taking Primacor 0.2 mcg/kg per minute. He is off epinephrine. No further episodes of nonsustained V. tach. The patient had 2 rounds of SVT that converted spontaneously. Chuck-Synephrine is running at 0.7 mcg/kg per minute. He is on no sedation for now. Propofol has been dis continued. Precedex has been discontinued. Intra-aortic balloon pump has also been discontinued. OG tube is out. His chest x-ray from today shows adequate expansion of both lungs. Chest tubes are all in place and the patient has a right and left pleural chest tube and mediastinal chest tubes. The hemoglobin today is at 9.9 with a white cell 9.4 and a platelet count of 113. The pleural chest tubes have been approximately 40 mL over the past 12 hours. The pacer is unplugged. Current cardiac rhythm is sinus. Cardiac Index is at 2.6 with an output of. Most recent SVR is 799 12/15, the patient remains extubated on 2 L of oxygen by nasal cannula. He is sitting up on a chair. He is calm and comfortable using his progress pulling approximately 800 mL. Mediastinal chest tube chest is a removed. The left pleural chest tube has drained 65 mL over the past 8 hours in the right pleural chest tube was drained around 125 mL over the past 8 hours. He is off the Chuck- Synephrine. He is on Primacor at 0.1 g. Is off the insulin drip. His chest x-ray shows some limited atelectatic changes in the left lung base. Otherwise the right lung is clear. I do not appreciate any pneumothorax. Oberlin-Manny catheter is in a good location. The chest tubes including the right pleural and left pleural or both in a good location. Urine output is no order of Lasix. She is easily and 25-30 mL an hour and the patient received a dose of Lasix 20 mg. The patient is back into atrial fibrillation. The patient is in a controlled rate. He was started back on Coumadin at a dose of 5 mg by mouth daily. PT/INR is being monitored. He is using an EPAP overnight at a minimum pressure of 5 and a maximum of 12. The Primacor will be weaned off today. Index is at 2.5. No further episodes of nonsustained V. tach. The patient is in a atrial fibrillation rhythm. The patient also is on beta blockers. Hemoglobin today is at 9.6. Reevaluated today on 12/16/2020, patient is sitting in bed, doing quite well, presently on room air, not in any form of distress. Patient has been ambulatory in the room as well as in the hallway. His right internal jugular cordis remains in place, all of his other lines and tubes have been removed. Remains in atrial fibrillation, but hemodynamically stable, started on Coumadin. Doing well with incentive spirometry at bedside. Patient denies any pulmonary symptoms whatsoever. CBC is relatively normal hemoglobin is 10 INR is 1.3 electrolytes are normal renal profile is normal. Chest x-ray showed mild bibasilar atelectasis Objective - Vital Signs Vital signs: Vital Signs Temp 98.3 F 12/16/20 12:00 Pulse 112 H 12/16/20 12:00 Resp 20 12/16/20 12:00 BP 112/77 12/16/20 12:00 Pulse Ox 93 L 12/16/20 12:00 Intake & Output 12/15/20 12/16/20 12/16/20 18:59 06:59 18:59 Intake Total 867.843 276 23 Output Total 665 1958 925 Balance 202.843 -1682 -902 Weight 124.5 kg Intake: IV 311 276 23 CO/CI 20 Lactated Ringers 1,000 ml 240 240 20 @ 20 mls/hr IV .Q24H [facility] Rx#:[id number] Pressure bags 51 36 3 Intake, IV Titration 56.843 Amount Milrinone-D5w Pmx 20 mg 56.843 In Dextrose/Water 1 100ml .bag @ 0.1 MCG/KG/MIN 3. 549 mls/hr IV .Q24H [facility] Rx#:[id number] Oral 500 Output: Chest Tube Drainage 49 Left Lateral Chest 19 Right Lateral Chest 30 Urine 615 1555 925 Stool 1 3 Urine/Stool Mix 400 Other: Voiding Method Indwelling Catheter Indwelling Catheter Urinal # Voids 1 # Bowel Movements 1 ABP, PAP, CO, CI - Last Documented Arterial Blood Pressure 195/181 Pulmonary Artery Pressure 262/262 Cardiac Output 6.2 Cardiac Index 2.6 - Exam Gen. Revealed 70-year-old white male pleasant in no distress, on room air. Head exam : Atraumatic, normocephalic. EENT: PERRLA, EOMI, nonicteric. Moist mucous membranes. No neck masses no JVD no stridor. Lungs symmetrical chest expansion, clear bilaterally no crackles or rhonchi or wheezes. Heart normal S1 and S2, no S3 gallop, positive mechanical valve click heard over the precordium. Abdominal soft nontender no megaly no rebound no guarding. Examination : No clubbing edema or cyanosis. Examination of the skin revealed no evidence of significant rashes Neurologically, alert and oriented 3 focal neurologic deficits Psychiatric: Normal mood affect and normal mental status examination. - Labs CBC & Chem 7: 12/16/20 07:04 12/16/20 07:04 Labs: Abnormal Lab Results - Last 24 Hours (Table) 12/15/20 12/15/20 12/16/20 Range/Units 17:50 21:23 07:04 RBC (4.30-5.90) m/uL Hgb (13.0-17.5) gm/dL Hct (39.0-53.0) % Lymphocytes # (1.0-4.8) k/uL PT 13.3 H (9.0-12.0) sec INR 1.3 H (<1.2) BUN (9-20) mg/dL Glucose (74-99) mg/dL POC Glucose (mg/dL) 108 H 148 H (75-99) mg/dL Total Protein (6.3-8.2) g/dL Albumin (3.5-5.0) g/dL 12/16/20 12/16/20 12/16/20 Range/Units 07:04 07:04 11:50 RBC 3.38 L (4.30-5.90) m/uL Hgb 10.0 L (13.0-17.5) gm/dL Hct 30.5 L (39.0-53.0) % Lymphocytes # 0.8 L (1.0-4.8) k/uL PT (9.0-12.0) sec INR (<1.2) BUN 38 H (9-20) mg/dL Glucose 104 H (74-99) mg/dL POC Glucose (mg/dL) 104 H (75-99) mg/dL Total Protein 5.3 L (6.3-8.2) g/dL Albumin 3.0 L (3.5-5.0) g/dL Assessment and Plan Assessment: Impression: Status post redo sternotomy and resection of ascending aortic aneurysm postoperative day #4 History of bicuspid aortic valve and previous aortic valve replacement. Chronic atrial fibrillation. Obstructive sleep apnea syndrome. Postoperative atelectasis, expected. Benign essential hypertension. Dyslipidemia. Recommendation: Continue incentive spirometer. Continue present cardiac meds including aspirin statins and beta blockers. Continue Coumadin until therapeutic. And dose will be adjusted accordingly. Increase activity as tolerates. Monitor daily x-rays labs and INR. Continue GI and DVT prophylaxis. Continue diuretics as needed. Agree with transfer to a monitor bed on selective. Discharge planning in the next 24 hours. We will continue to follow Time with Patient: Less than 30
[2020-12-16] MEDS: ACETAMINOPHEN TAB 500 MG TAB PO PRN (14:40)
[2020-12-16 16:59] LABS: Glucose,Whole Blood 112 mg/dL (75-99)
[2020-12-16] MEDS ORDERED: WARFARIN 5 MG TAB PO ONE (18:00)
[2020-12-16] MEDS: SENNOSIDES-DOCUSATE SODIUM 1 EACH TAB PO SCH (20:00)
[2020-12-16 20:09] LABS: Glucose,Whole Blood 118 mg/dL (75-99)
[2020-12-16] MEDS ORDERED: MELATONIN 3 MG TABLET PO PRN (21:00)
--- NOTE | 2020-12-17 00:24 | P.PN ---
Progress Note - Text Progress Note Date: 12/17/20 - Chief Complaint Ascending aorta aneurysm Consultation: This is a pleasant 70-year-old patient of Dr. Guillaume Latham. Chronic stable medical conditions include atrial fibrillation, hypertension, hyperlipidemia, [facility] mechanical aortic valve replacement in December 1994. Patient was admitted yesterday, to be bridged to from warfarin to heparin, with a view to cardiothoracic surgery. December 11-cardiac catheterization that showed normal coronaries. December 12: aortic arch aneurysm replacement. EBL-500 mL. Today-moved out of the ICU. Fair oral intake. Breathing better. Has been out of bed. Review of systems: Was done for constitutional, cardiovascular, GI, pulmonary. relevant finding as above Active Medications Acetaminophen (Acetaminophen Tab 500 Mg Tab) 1,000 mg PO Q6HR PRN PRN Reason: Fever and/ or Mild Pain Last Admin: 12/16/20 14:40 Dose: 1,000 mg Documented by: Albuterol/Ipratropium (Ipratropium-Albuterol 3 Ml Neb) 3 ml INHALATION RT-Q2H PRN PRN Reason: Shortness Of Breath Or Wheezing Albuterol/Ipratropium (Ipratropium-Albuterol 3 Ml Neb) 3 ml INHALATION RT-QID REPLACED BY [facility] Last Admin: 12/16/20 21:00 Dose: Not Given Documented by: Aspirin (Aspirin 81 Mg) 81 mg PO DAILY REPLACED BY [facility] Last Admin: 12/16/20 08:19 Dose: 81 mg Documented by: Atorvastatin Calcium (Atorvastatin 40 Mg Tab) 40 mg PO DAILY REPLACED BY [facility] Last Admin: 12/16/20 08:19 Dose: 40 mg Documented by: Benzocaine/Menthol (Benzocaine/Menthol Lozeng 1 Each Lozenge) 1 each MUCOUS MEM Q2H PRN PRN Reason: Sore Throat Bisacodyl (Bisacodyl 10 Mg Supp) 10 mg RECTAL DAILY PRN PRN Reason: Constipation Furosemide (Furosemide 10 Mg/Ml 2 Ml Vial) 20 mg IV BID@0800,1600 REPLACED BY [facility] Last Admin: 12/16/20 16:13 Dose: 20 mg Documented by: Insulin Aspart (Insulin Aspart (Novolog) 100 Unit/Ml Vial) 0 unit SQ [facility] REPLACED BY [facility]; Protocol Last Admin: 12/16/20 22:47 Dose: Not Given Documented by: Magnesium Hydroxide (Magnesium Hydroxide 2,400 Mg/10 Ml Cup) 2,400 mg PO BID PRN PRN Reason: Constipation Melatonin (Melatonin 3 Mg Tablet) 6 mg PO HS PRN PRN Reason: Insomnia Last Admin: 12/16/20 20:00 Dose: 6 mg Documented by: Metoprolol Tartrate (Metoprolol Tartrate 50 Mg Tab) 50 mg PO BID REPLACED BY [facility] Last Admin: 12/16/20 20:00 Dose: 50 mg Documented by: Miscellaneous Information (Potassium Replacement Protocol 1 Each Mis) 1 each MISCELLANE DAILY PRN; Protocol PRN Reason: Per Protocol Miscellaneous Information (Magnesium Replacement Protocol 1 Each Misc) 1 each MISCELLANE DAILY PRN; Protocol PRN Reason: Per Protocol Miscellaneous Information (Phosphorus Replacement Protoco 1 Each Misc) 1 each MISCELLANE DAILY PRN; Protocol PRN Reason: Per Protocol Ondansetron HCl (Ondansetron 4 Mg/2 Ml Vial) 4 mg IVP Q6HR PRN PRN Reason: Nausea And Vomiting Last Admin: 12/16/20 05:14 Dose: 4 mg Documented by: Pantoprazole Sodium (Pantoprazole 40 Mg Tablet) 40 mg PO AC-BRKFST REPLACED BY [facility] Last Admin: 12/16/20 08:19 Dose: 40 mg Documented by: Potassium Chloride (Potassium Chloride Er 10 Meq Tab.Er.Prt) 10 meq PO DAILY REPLACED BY [facility] Last Admin: 12/16/20 08:19 Dose: 10 meq Documented by: Senna/Docusate Sodium (Sennosides-Docusate Sodium 1 Each Tab) 2 each PO HS REPLACED BY [facility] Last Admin: 12/16/20 20:00 Dose: Not Given Documented by: Sodium Chloride (Sodium Chloride 0.9% Flush 10 Ml Syringe) 10 ml IV BID REPLACED BY [facility] Last Admin: 12/16/20 22:53 Dose: 10 ml Documented by: Past medical history to include: Atrial fibrillation, hypertension, hyperlipidemia, [facility] mechanical aortic valve replacement in December 1994. Social history: No history of smoking. Alcohol rarely. Physical examination: VITAL SIGNS: 98.3, 110, 18, 123/84, GENERAL:, Laying in bed, comfortable EYES: Pupils equal. Conjunctiva pale HEENT: External appearance of nose and ears normal, NECK: JVD not raised; masses not palpable. HEART: Irregular; no edema. LUNGS: Respiratory rate normal; decreased breath sounds. ABDOMEN: Soft, nontender, liver spleen not palpable, no masses palpable. PSYCH: Awake, answering questions NEUROLOGICAL: Cranial nerves grossly intact; no facial asymmetry, INVESTIGATIONS, reviewed in the clinical context: December 16: White count 5 hemoglobin 10 potassium 3.6 creatinine 1.02 December 15: Count 5.6 hemoglobin 9.6 potassium 4.3 creatinine 0.89 December 14: White count 9.4 hemoglobin 9.9 platelets 113 potassium 4.2 creatinine 0.88 albumin 2.6 December 13: White count 9.4 hemoglobin 10.8 potassium 4 creatinine 1.04 December 12: White count 10.5 hemoglobin 11 platelets 133 potassium 4.3 creatinine 0.86 White count 3.9 hemoglobin 14.7 platelets 178 INR 1.8 potassium 4 creatinine 0.85 Chest x-ray film personally reviewed by me-some cardiomegaly Carotid Doppler-no significant stenosis Assessment: -Status post ascending aortic aneurysm repair, , with redo sternotomy -Persistent atrial fibrillation chronically on Coumadin -Essential hypertension -Hyperlipidemia -History of mechanical aortic valve, -Ascending aortic aneurysm 62 mm pending surgery -Dilutional thrombocytopenia -Acute postprocedure blood loss anemia, as expected from surgery -Acute hypoxic respiratory on ventilator support, postoperatively -Cardiac catheterization-normal coronaries -Hypoalbuminemia-Acute phase reactant Plan: Continue current medication treatment plan. Patient recovering well. Discussed with the patient. Thank you Dr. Cole
[2020-12-17 06:24] LABS: Glucose,Whole Blood 104 mg/dL (75-99)
[2020-12-17] MEDS: PANTOPRAZOLE 40 MG TABLET PO SCH (06:29)
[2020-12-17 07:44] LABS: HCT 30.3 % (39.0-53.0); HGB 10.1 gm/dL (13.0-17.5); MCH 30.3 pg (25.0-35.0); MCHC 33.5 g/dL (31.0-37.0); MCV 90.5 fL (80.0-100.0); Mean Platelet Volume 8.3; Platelet Count 203 k/uL (150-450); RBC 3.35 m/uL (4.30-5.90); RDW 13.7 % (11.5-15.5); WBC 6.4 k/uL (3.8-10.6)
[2020-12-17 07:55] LABS: INR 1.8 (<1.2); Prothrombin Time 18.2 sec (9.0-12.0)
[2020-12-17 08:06] LABS: Calcium 8.5 mg/dL (8.4-10.2); Potassium 3.6 mmol/L (3.5-5.1)
[2020-12-17] MEDS: IPRATROPIUM-ALBUTEROL 3 ML NEB INHALATION SCH ×2 (08:25→12:35)
[2020-12-17] MEDS: INSULIN ASPART (NovoLOG) 100 UNIT/ML VIAL SQ SCH ×2 (08:36→12:34)
[2020-12-17] MEDS: ATORVASTATIN 40 MG TAB PO SCH (08:37)
[2020-12-17] MEDS: FUROSEMIDE 10 MG/ML 2 ML VIAL IV SCH (08:37)
[2020-12-17] MEDS: ASPIRIN 81 MG PO SCH (08:37)
[2020-12-17] MEDS: ACETAMINOPHEN TAB 500 MG TAB PO PRN (08:37)
[2020-12-17] MEDS ORDERED: METOPROLOL TARTRATE 25 MG TAB PO SCH ×2 (09:00→21:00)
[2020-12-17] MEDS ORDERED: POTASSIUM CHLORIDE ER 20 MEQ TAB.ER PO SCH (09:00)
--- NOTE | 2020-12-17 09:59 | XR ---
EXAMINATION TYPE: XR chest 2V DATE OF EXAM: 12/17/2020 COMPARISON: 12/16/2020 HISTORY: 70-year-old male postcardiac surgery TECHNIQUE: PA and lateral views FINDINGS: Median sternotomy wires are present. Heart remains enlarged. Diffuse interstitial/vascular prominence is similar. Small effusions with some strandy left basilar atelectasis unchanged. IMPRESSION: Cardiomegaly with possible residual mild pulmonary vascular congestion. Continued small effusions wit h some strandy left basilar atelectasis.
--- NOTE | 2020-12-17 11:15 | P.PN ---
Subjective Progress Note Date: 12/17/20 Principal diagnosis: Ascending aortic aneurysm. Past medical history significant for bicuspid aortic valve with mechanical aortic valve replacement in December of 1994, chronic at rial fibrillation, currently on Coumadin for anticoagulation with previous cardioversion, hypertension, hyperlipidemia, obstructive sleep apnea with home CPAP use, obesity, never smoker with preoperative FEV1 91% of predicted value. POD #5 redo sternotomy, resection of ascending aorta and noncoronary sinus of valsalva aneurysms with replacement with a 32 mm tailored tube graft, percutaneous placement intra-aortic balloon pump via left transfemoral approach. Postoperative acute blood loss anemia, expected due to hemodilution and cardiopulmonary bypass. Postoperative hypotension requiring vasopressor support, unexpected, resolved. The patient was seen in follow-up today 12/17/2020 at his bedside on the cardiac stepdown unit. Currently he is sitting up to the bedside chair. His awake, alert and oriented 3 and is in no acute distress. Denies any complaints of shortness of breath or pain at this time. He reports he had a postoperative shower yesterday. He remains hemodynamically stable and is currently on no inotropic or pressor support. Remote telemetry showing atrial fibrillation heart rate 103 BPM. INR was 1.3 yesterday and he was given Coumadin 5 mg by mouth 1, INR level today is 1.8. Oxygen saturations are 96% on room air, and he is achieving 2760-4262 mL on his incentive spirometry with encouragement. Objective - Vital Signs Vital signs: Vital Signs Temp 96.9 F L 12/17/20 08:14 Pulse 112 H 12/17/20 08:14 Resp 18 12/17/20 08:14 BP 117/79 12/17/20 08:14 Pulse Ox 94 L 12/17/20 08:14 Intake & Output 12/16/20 12/17/20 12/17/20 18:59 06:59 18:59 Intake Total 23 Output Total 925 Balance -902 Weight 124.4 kg Intake: IV 23 Lactated Ringers 1,000 ml 20 @ 20 mls/hr IV .Q24H [facility] Rx#:[id number] Pressure bags 3 Output: Urine 925 Other: Voiding Method Urinal Urinal # Voids 1 # Bowel Movements 1 ABP, PAP, CO, CI - Last Documented Arterial Blood Pressure 195/181 Pulmonary Artery Pressure 262/262 Cardiac Output 6.2 Cardiac Index 2.6 - Constitutional General appearance: Present: cooperative, no acute distress, obese - EENT Eyes: Present: normal appearance. Absent: scleral icterus ENT: Present: hearing grossly normal - Neck Details: Neck is supple, no JVD. - Respiratory Details: Lungs sounds essentially clear throughout, diminished to his bilateral bases. No wheezes, rhonchi or crackles. Oxygen saturation are 96% on room air. Achieving 4584-9785 mL on his incentive spirometry with encouragement. - Cardiovascular Details: Irregular rhythm and tachycardic rate. S1 and S2 present, negative for S3, gallop or murmur. Positive valve click. Sternum is stable. Remote telemetry showing atrial fibrillation heart rate 103 BPM. Heart hugger is in place and he is demonstrating appropriate use. Knee-high KELLE hose and sequential compression devices in place to his bilateral lower extremities. +1 edema to his bilateral lower extremities. - Gastrointestinal Gastrointestinal Comment(s): Abdomen is soft, nontender and nondistended. Active bowel sounds present in all 4 abdominal quadrants. No guarding or rigidity. Tolerating oral intake. Bowel movement on 12/15/2020. - Genitourinary Genitourinary Comment(s): Continues to void. - Integumentary Integumentary Comment(s): Skin is warm and dry. No clubbing or cyanosis is present. Midline sternal incision is clean, dry and approximated. No drainage or redness is present. - Neurologic Neurologic: Present: CNII-XII intact. Absent: focal deficits - Musculoskeletal Musculoskeletal: Present: gait normal, strength equal bilaterally - Psychiatric Psychiatric: Present: A&O x's 3, appropriate affect, intact judgment & insight - Allied health notes Allied health notes reviewed: nursing - Labs CBC & Chem 7: 12/17/20 06:55 12/17/20 06:55 Labs: Abnormal Lab Results - Last 24 Hours (Table) 12/16/20 12/16/20 12/16/20 Range/Units 11:50 16:46 20:08 RBC (4.30-5.90) m/uL Hgb (13.0-17.5) gm/dL Hct (39.0-53.0) % PT (9.0-12.0) sec INR (<1.2) Carbon Dioxide (22-30) mmol/L BUN (9-20) mg/dL Glucose (74-99) mg/dL POC Glucose (mg/dL) 104 H 112 H 118 H (75-99) mg/dL 12/17/20 12/17/20 12/17/20 Range/Units 06:22 06:55 06:55 RBC 3.35 L (4.30-5.90) m/uL Hgb 10.1 L (13.0-17.5) gm/dL Hct 30.3 L (39.0-53.0) % PT 18.2 H (9.0-12.0) sec INR 1.8 H (<1.2) Carbon Dioxide (22-30) mmol/L BUN (9-20) mg/dL Glucose (74-99) mg/dL POC Glucose (mg/dL) 104 H (75-99) mg/dL 12/17/20 Range/Units 06:55 RBC (4.30-5.90) m/uL Hgb (13.0-17.5) gm/dL Hct (39.0-53.0) % PT (9.0-12.0) sec INR (<1.2) Carbon Dioxide 32 H (22-30) mmol/L BUN 36 H (9-20) mg/dL Glucose 100 H (74-99) mg/dL POC Glucose (mg/dL) (75-99) mg/dL - Imaging and Cardiology Chest x-ray: report reviewed, image reviewed Assessment and Plan Assessment: 1. Ascending aortic aneurysm, 62 mm per radiology read on CT, [address] Cole's read, status post redo sternotomy, resection of a ascending aorta and noncoronary sinus of Valsalva aneurysms with replacement with a 32 mm tailored t ube graft 2. History of bicuspid aortic valve with mechanical aortic valve replacement in December 1994 3. Chronic atrial fibrillation, currently on Coumadin on an outpatient for anticoagulation with previous cardioversion 4. History of hypertension 5. History of hyperlipidemia, treated, cholesterol 124, LDL 25 6. Obstructive sleep apnea with home CPAP use 7. Obesity 8. Never smoker with preoperative FEV1 91% of predicted 9. Normal coronary arteries, status post selective left and right coronary angiography 10. Postoperative acute blood loss anemia, expected due to hemodilution and ca rdiopulmonary bypass 11. Postoperative hypotension requiring vasopressor support, unexpected, resol ethan Plan: 1. Continue aspirin 81 mg by mouth daily, statin and beta jerrell. We will increase metoprolol tartrate as tolerated. 2. Encourage use of his incentive spirometry 10 times every hour while awake. Bronchodilators and oxygen management per pulmonary/critical care management. 3. INR today is 1.8, Coumadin 5 mg by mouth times one ordered for goal rate of an INR of 2.5-3 as he has mechanical aortic valve. Upon discharge we will check his PT and INRs Mondays and 2 weeks. 4. Will monitor daily labs and a chest x-rays. Electrolyte replacement per protocol. 5. Pain control with current medication regimen. 6. Insulin management per primary care service. 7. Increase activity as tolerated. Physical therapy/occupational therapy and cardiac rehabilitation following. 8. Continue Lasix 20 mg IV twice a day. Potassium chloride ER increased to 20 mEq by mouth daily. 9. Continue GI and DVT prophylaxis. 10. Discharge planning is in place, anticipate discharge home with home health care today. 11. More recommendations to follow based on patient's clinical course. Time with Patient: Greater than 30
[2020-12-17 11:41] LABS: Glucose,Whole Blood 99 mg/dL (75-99)
--- NOTE | 2020-12-17 12:23 | P.DS ---
Providers Date of admission: 12/10/20 10:27 Expected date of discharge: 12/17/20 Attending physician: Mehrdad Cole Consults: 12/10/20 11:35 Consult Physician Routine Consulting Provider: Carley Vazquez Consult Reason/Comments: preop pulm clearance; known to you Do you want consulting provider notified?: Yes 12/10/20 16:30 Consult Physician Routine Consulting Provider: Cele Hillman Consult Reason/Comments: heart catheterization Do you want consulting provider notified?: Already Contacted 12/10/20 16:32 Consult Physician Routine Consulting Provider: Rodrick Ellis Consult Reason/Comments: med mgmt; Bruer patient Do you want consulting provider notified?: Yes 12/11/20 10:28 Consult to Anesthesia Routine Consulting Provider: Anesthesia,Services Consult Reason/Comments: Cardiac Surgery Pre-Op Primary care physician: Stated None Hospital Course: FINAL DIAGNOSIS: 1. Ascending aortic aneurysm, 62 mm per radiology read on CT, [address] Cole's read, status post redo sternotomy, resection of a ascending aorta and noncoronary sinus of Valsalva aneurysms with replacement with a 32 mm tailored tube graft 2. History of bicuspid aortic valve with mechanical aortic valve replacement in December 1994 on Coumadin for anticoagulation as an outpatient 3. Chronic atrial fibrillation, currently on Coumadin on an outpatient for anticoagulation with previous cardioversion 4. History of hypertension 5. History of hyperlipidemia, treated, cholesterol 124, LDL 25 6. Obstructive sleep apnea with home CPAP use 7. Obesity 8. Never smoker with preoperative FEV1 91% of predicted 9. Normal coronary arteries, status post selective left and right coronary angiography 10. Postoperative acute blood loss anemia, expected due to hemodilution and cardiopulmonary bypass 11. Postoperative hypotension requiring vasopressor support, unexpected, resolved PRINCIPAL PROCEDURE: 1. Redo sternotomy, resection of ascending aorta and noncoronary sinus of valsalva aneurysms with replacement with a 32 mm tailored tube graft. 2. Percutaneous placement intra-aortic balloon pump via left transfemoral. HISTORY OF PRESENT ILLNESS: This is a 70-year-old gentleman who follows on an outpatient basis with Dr. Guillaume Latham for his primary care, Dr. Hillman from cardiology associates and Dr. Vazquez for management of his sleep apnea. He has a past medical history significant for a bicuspid aortic valve, status post aortic valve replacement w ith a #[address] [facility] [employer] mechanical aortic valve in December of 1994, chronic atrial fibrillation, hypertension, hyperlipidemia, obstructive sleep apnea, and obesity. Recently, the patient underwent a computed tomography scan of his chest which demonstrated an ascending aortic aneurysm 62 mm in diameter. Due to this finding of ascending aortic aneurysm a consultation was placed to Dr. Mehrdad Cole from cardiothoracic surgery for further evaluation and treatment recommendations. Dr. Cole met with the patient, discussed treatment options with the patient including redo sternotomy and resection of his ascending aorta. Risks and benefits of surgery were discussed with the patient by Dr. Cole and knowing and understanding these risks the patient did wish to proceed with the surgical option. HOSPITAL COURSE: The patient was admitted to the hospital on 12/10/2020 for bridging off his Coumadin to heparin drip as he has a history of mechanical aortic valve replacement. He also underwent a cardiac catheterization on 12/11/[address] Hillman which demonstrated normal coronary arteries and a normal functioning of his prosthetic aortic valve. On 12/12/2020 after obtaining co nsent the patient was brought to the preoperative area, prepared in the usual fashion and subsequently taken the operating room where Dr. Mehrdad Cole performed a redo sternotomy, resection of ascending aorta and noncoronary sinus of valsalva aneurysms with replacement with a 32 mm tailored tube graft and percutaneous placement intra-aortic balloon pump via left transfemoral. Upon completion of the surgery the patient was transferred to the cardiovascular intensive care unit where he was recovered, monitored hemodynamically and where he progressed cardiac rehabilitation phase 1. He was extubated, all lines, intra-aortic balloon pump, tubes and supportive drips were discontinued when appropriate and transfer orders were placed to the cardiac stepdown unit for further monitoring and rehabilitation. His oxygen was titrated down, he continued to work with physical/occupational therapy and cardiac rehab, he was tolerating an oral diet, his pain was well-controlled and he was ready to be discharged home with [facility] on postoperative day #5. He has received written and verbal instructions regarding his medications, activity restrictions, signs and symptoms requiring physician notification and his follow-up appointments. COMPLICATIONS: The patient experienced episodes of intraoperative and postoperative hypotension requiring placement of anterior aortic balloon pump and vasopressor support which was treated accordingly. CONSULTATIONS: 1. Dr. Hillman for cardiology management. 2. Dr. Vazquez for pulmonary and ventilator management. 3. Dr. Ellis for medical management. Plan - Discharge Summary Discharge Rx Participant: Yes New Discharge Prescriptions: New Aspirin 81 mg PO DAILY #30 chew Warfarin [Coumadin] 5 mg PO DAILY #30 tab Potassium Chloride ER [K-Dur 20] 20 meq PO DAILY #7 tab.er.prt Furosemide [Lasix] 20 mg PO DAILY #7 tab Metoprolol Tartrate [Lopressor] 50 mg PO BID #120 tab Pantoprazole [Protonix] 40 mg PO AC-BRKFST #30 tablet.dr Barker-Docusate Sodium [Senokot-S] 2 each PO HS #7 tab Acetaminophen Tab [Tylenol] 1,000 mg PO Q6HR PRN tab PRN Reason: Fever and/ or Mild Pain Continue Simvastatin [Zocor] 10 mg PO HS Cholecalciferol [Vitamin D3 (25 Mcg = 1000 Iu)] 25 mcg PO DAILY Discontinued Warfarin Sodium 2.5 mg PO SUMOTUWETHFR@2100 Lisinopril [Prinivil] 10 mg PO DAILY hydroCHLOROthiazide [Hydrodiuril] 50 mg PO DAILY Warfarin Sodium [Coumadin] 5 mg PO SA@2100 Acetaminophen [Tylenol Extra Strength] 500 mg PO DAILY PRN PRN Reason: Pain Multivit-Min/Folic/Vit K/Lycop [Men's Multivitamin Tablet] 1 tab PO DAILY Discharge Medication List Simvastatin [Zocor] 10 mg PO HS 01/30/18 [History] Cholecalciferol [Vitamin D3 (25 Mcg = 1000 Iu)] 25 mcg PO DAILY 12/10/20 [History] Acetaminophen Tab [Tylenol] 1,000 mg PO Q6HR PRN tab 12/17/20 [Rx] Aspirin 81 mg PO DAILY #30 chew 12/17/20 [Rx] Furosemide [Lasix] 20 mg PO DAILY #7 tab 12/17/20 [Rx] Metoprolol Tartrate [Lopressor] 50 mg PO BID #120 tab 12/17/20 [Rx] Pantoprazole [Protonix] 40 mg PO AC-BRKFST #30 tablet. 12/17/20 [Rx] Potassium Chloride ER [K-Dur 20] 20 meq PO DAILY #7 tab.er.prt 12/17/20 [Rx] Sennosides-Docusate Sodium [Senokot-S] 2 each PO HS #7 tab 12/17/20 [Rx] Warfarin [Coumadin] 5 mg PO DAILY #30 tab 12/17/20 [Rx] Follow up Appointment(s)/Referral(s): Praveena Bolivar NPC [Nurse Practitioner] - 12/25/20 11:00 am Cele Hillman MD [STAFF PHYSICIAN] - 01/01/21 3:30 pm Rehab [facility],Cardiac [NON-STAFF] - 4 Weeks (You will receive a phone call approximately 4 weeks after surgery for evaluation for cardiac rehab) Mehrdad Cole MD [STAFF PHYSICIAN] - 01/09/21 9:30 am [facility], [NON-STAFF] - Guillaume Latham MD [STAFF PHYSICIAN] - 12/24/20 11:00 am Carley Vazquez MD [STAFF PHYSICIAN] - 01/17/21 10:30 am Ambulatory/Diagnostic Orders: Complete Blood Count w/diff [LAB.AMB] Time Frame: 12/19/20, Facility: [facility], Location: [facility] Comprehensive Metabolic Panel [LAB.AMB] Time Frame: 12/19/20, Facility: [facility], Location: Laboratory [facility] Prothrombin Time INR [LAB.AMB] Time Frame: 12/19/20, Facility: [facility], Location: [facility] Activity/Diet/Wound Care/Special Instructions: DISCHARGE INSTRUCTIONS: 1. No driving for 4 weeks, or until physician gives their ok. 2. The patient should sleep in their own bed, no medical bed needed. 3. Stairs are not an issue. If the bedroom is upstairs, it is advised that the patient go up at night and down in the morning for the first week. Go slowly, using handrail and take 1 step at a time. 4. KELLE hose are to be worn for 30 days or until physician discontinues. 5. Heart hugger is to be worn 100% of the time until physician discontinues.(except when showering) 6. No lifting, pushing, or pulling more than 10 pounds for 12 weeks. The physician will advise of any restriction changes. 7. The patient is expected to continue the prescribed walking program. 8. Continue pain control per as needed orders. 9. Continue with incentive spirometry and splinting/heart hugger until otherwise directed by the physician. 10. Must shower daily using liquid antibacterial soap and a separate white washcloth for each individual incision. 11. Routine sternal incision care. No powders, lotions, ointments on incisions. No dressings are necessary on incisions unless they are draining. Dermabond tape is to remain on sternal incision until surgeon follow-up. 12. Please call surgeon/BUTTON CUTTING MACHINE OPERATOR for temp greater than 101 F or purulent drainage from incisions. 13. All prescriptions given by surgeon for 30 days. Refills need to be filled through research pharmacist/primary care physician. 14. A Red armband has been placed on the patient. It should be worn for 30 days post surgery and will be removed by the cardiac surgeons. If an ER visit is necessary, please make sure the number on the Red armband is called. 15. You have been referred to and are expected to begin Cardiac Rehab in approximately 4-6 weeks. 16. Please check PT and INRs every Mondays and with the results faxed to [phone] for Coumadin dosing. Goal range for INR is 2.5-3 as he has a mechanical aortic valve. HOME HEALTH SERVICES TO PROVIDE: RN SKILLED HOME CARE SERVICES FOR POST-OP SURGICAL PATIENTS WITH THE FOLL OWING: Ascending aorta replacement RN TO CONTINUE EDUCATION FROM ``ROAD TO A HEALTH HEART PATIENT EDUCATION MANUAL (GIVEN TO PATIENT IN THE HOSPITAL) MEDICATION RECONCILIATION WITH EDUCATION NEEDED ON FIRST HOME VISIT EMPHASIZE IMPORTANCE OF WEARING BREAST SUPPORT/HEART HUGGER ENCOURAGE USE OF INCENTIVE SPIROMETER 10 X EVERY HOUR WHILE AWAKE ENCOURAGE UTILIZATION OF LOWER EXTREMITY COMPRESSION STOCKINGS/KELLE HOSE and ELEVATE LEGS ABOVE LEVEL OF HEART WHILE AT REST. ENCOURAGE AMBULATION 3-5x/day INCREASING TOLERATES, WHILE AVOIDING EXTREMES IN TEMPERATURE FREQUENCY: RN TO OPEN THE PATIENT WITHIN 24 HOURS OF DISCHARGE FROM THE HOSPITAL WITH TELEHEALTH INSTALLED AT [facility] [place], RN TO VISIT 2-3 X A WEEK FOR 4 WEEKS ESTABLISHED BY PATIENT NEEDS. LABORATORY: CBC, CMP TO BE DRAWN ON THE THIRD DAY HOME, (RAN STAT) FAX RESULTS TO [phone]. Please draw PT/INR every Mondays and 2 weeks, run as STAT, and results faxed to a [phone] Coumadin dosing. TELEHEALTH PARAMETERS: WEIGHT: NOTIFY OF WEIGHT GAIN OF 2 LBS IN 24 HOURS OR 5 LBS IN ONE WEEK HR: NOTIFY MD OF HR <55 BPM OR HR>100 BPM BP: NOTIFY MD IF BP <90/55 OR BP>140/100 O2 SAT: NOTIFY MD IF PO2<93% ON ROOM AIR SEND TELEHEALTH REPORT TO FAMILY PRACTICE PHYSICIAN AND CARDIOVASCULAR SURGEON THE FIRST WEEK OF CARE AND THEN BI-WEEKLY. PLEASE ADDITIONALLY COMMUNICATE ANY ABNORMALS AND NEW FINDINGS TO THE SURGEONS OFFICE. For any questions or concerns please call automobile parker Praveena @ or Hemant @ Discharge Disposition: HOME WITH HOME HEALTH SERVICES
--- NOTE | 2020-12-17 12:28 | P.CNPUL ---
History of Present Illness Consult date: 12/10/20 History of present illness: 70-year-old male patient, known history of aortic valve disease, bicuspid aortic valve and the patient is post aortic valve replacement and the patient has a [employer] Gian's mechanical valve that was inserted back in December 2093. The patient s ubsequently developed a ascending aortic aneurysm measuring 62 mm in size and currently is admitted for cardiac catheterizationin further workup with subsequent repair ofthe ascending aortic aneurysm. This is an elective procedure. The patient was admitted to bridge his Coumadin with IV heparin as the patient has mechanical valve and he has chronic atrial fibrillation. A cardiac catheterization is to follow in a.m. I have. This patient for obstructive sleep apnea. Note that he has severe GEOFF with an AHI of 47 and LFTs in with CPAP pressure of 9 cm of water. I last saw this patient at the sleep clinic on 11/26/2020 and the patient was quite compliant to his treatment. He is known to have chronic atrial fibrillation, hypertension and hyperlipidemia as comorbid conditions. He is obese and he carries a BMI of 37.4. The CT of the chest that was done on 10/11/2020 showed an ascending aortic aneurysm measuring 6.2 cm in size. No complicating factors. Lungs were essentially clear. No mediastinal lymphadenopathy. No other abnormalities noted. Review of Systems Constitutional: Denies chills, Denies fever Eyes: denies as per HPI, denies blurred vision, denies bulging eye, denies decreased vision, denies diplopia, denies discharge, denies dry eye, denies irritation, denies itching, denies pain, denies photophobia, denies loss of peripheral vision, denies loss of vision, denies tunnel vision/blind spots Ears: deny: decreased hearing, ear discharge, earache, tinnitus Ears, nose, mouth and throat: Reports as per HPI Breasts: absent: as per HPI, gynecomastia Cardiovascular: Reports as per HPI Respiratory: Reports as per HPI Gastrointestinal: Reports as per HPI Genitourinary: Reports as per HPI Musculoskeletal: Reports as per HPI Musculoskeletal: absent: ankle pain, ankle stiffness, ankle swelling Integumentary: Reports as per HPI Neurological: Reports as per HPI Psychiatric: Reports as per HPI Endocrine: Reports as per HPI Hematologic/Lymphatic: Reports as per HPI Allergic/Immunologic: Reports as per HPI Past Medical History Past Medical History: Atrial Fibrillation, Hyperlipidemia, Hypertension Additional Past Medical History / Comment(s): Ascending aortic aneurysm measuring 6.2 cm in size, severe obstructive sleep apnea with an AHI of 47, Obesity History of Any Multi-Drug Resistant Organisms: None Reported Past Surgical History: Cardiac Valve Replacement, Hernia Repair, Orthopedic Surgery, Tonsillectomy Additional Past Surgical History / Comment(s): #25 [employer] Gian mechanical aortic valve replacement December 1994,bilateral shoulder repair, cardioversion Past Anesthesia/Blood Transfusion Reactions: No Reported Reaction Past Psychological History: Anxiety Past Alcohol Use History: Occasional Past Drug Use History: None Reported - Past Family History Father Family Medical History: Cancer Brother(s) Family Medical History: Cancer Additional Family Medical History / Comment(s): 1/2 BROTHER Medications and Allergies Home Medications Medication Instructions Recorded Confirmed Type Lisinopril [Prinivil] 10 mg PO DAILY 01/30/18 12/10/20 History Simvastatin [Zocor] 10 mg PO HS 01/30/18 12/10/20 History Warfarin Sodium 2.5 mg PO [id number]@209901/30/18 12/10/20 History Warfarin Sodium [Coumadin] 5 mg PO SA@2100 01/30/18 12/10/20 History hydroCHLOROthiazide [Hydrodiuril] 50 mg PO DAILY 01/30/18 12/10/20 History Acetaminophen [Tylenol Extra 500 mg PO DAILY PRN 12/27/18 12/10/20 History Strength] Cholecalciferol [Vitamin D3 (25 25 mcg PO DAILY 12/10/20 12/10/20 History Mcg = 1000 Iu)] Multivit-Min/Folic/Vit K/Lycop 1 tab PO DAILY 12/10/20 12/10/20 History [Men's Multivitamin Tablet] Allergies Allergy/AdvReac Type Severity Reaction Status Date / Time No Known Allergies Allergy Verified 12/10/20 11:18 Physical Exam Gen. appearance, comfortable no acute distress Head exam was generally normal. There was no scleral icterus or corneal arcus. Mucous membranes were moist. Neck was supple and without jugular venous distension, thyromegaly, or carotid bruits. Carotids were easily palpable bilaterally. There was no adenopathy. Lungs were clear to auscultation and percussion, and with normal diaphragmatic excursion. No wheezes or rales were noted. Heart sounds are irregular and there is a positive mechanical valve click heard over the precordium Abdominal exam revealed normal bowel sounds. The abdomen was soft, non-tender, and without masses, organomegaly, or appreciable enlargement of the abdominal a lara. Examination of the extremities revealed easily palpable radial, femoral and pedal pulses. There was no cyanosis, clubbing or edema. Pulses in lower extremities are slightly diminished. Examination of the skin revealed no evidence of significant rashes, suspicious appearing nevi or other concerning lesions. Neurologically, the patient is awake and alert and the patient does not have any focal neurological deficit. Cranial nerves are essentially intact. Results - Laboratory Findings CBC and BMP: 12/10/20 11:30 PT/INR, D-dimer PT 20.7 sec (9.0-12.0) H 12/10/20 11:30 INR 2.1 (<1.2) H 12/10/20 11:30 Abnormal lab findings: Abnormal Labs 12/10/20 11:30 PT 20.7 H INR 2.1 H APTT 30.7 H - Diagnostic Findings CT scan - chest: image reviewed Assessment and Plan Plan: 1 ascending aortic aneurysm, 6.2 cm, being considered for elective aneurysmal r epair by cardiothoracic surgery. The patient was admitted to the hospital accordingly. Cardiac catheterization is to follow 2 history of bicuspid aortic valve post aortic valve replacement with a [employer] Gian mechanical valve 3 chronic atrial fibrillation maintained on long-term anticoagulation with warfarin 4 obstructive sleep apnea an AHI of 47 currently on CPAP 5 obesity with a BMI of 37.4 6 hypertension 7 hyperlipidemia Plan Carotid Dopplers Cardiac catheterization Stop Coumadin and replace this with IV heparin bedside spirometry and provide the patient incentive spirometer will continue to follow
--- NOTE | 2020-12-17 15:52 | P.PN ---
Subjective Progress Note Date: 12/17/20 Principal diagnosis: Status post redo sternotomy, resection of ascending aortic aneurysm, postoperative day #5 On 12/13/2020 mom seeing the patient for a follow-up. Noted the patient was taken to the operating room yesterday. The patient had redo sternotomy, resection of an ascending aortic aneurysm with a replacement of a 32 mm tailored tube graft. Percutaneous placement of intra-aortic balloon pump was done as the patient required intra-aortic balloon pump for hemodynamic support intraoperatively. The patient was brought into the intensive care unit intubated on a mechanical ventilator. The patient is currently on assist control mode at the rate of 20 with a tidal volume of 550 and PEEP of 10 with an FiO2 of 70%. Morning blood gases showed a pH of 7.41 with a pCO2 of 39 and pO2 of 76 and above-mentioned vent setting. Ever pressures are not elevated. Chest x-ray showing routine postoperative changes. The patient has a right pleural chest tube, left pleural chest tube and 2 mediastinal chest tubes all of them are in place. The patient has a [place]-Manny catheter and the patient has an orogastric and orotracheal tube both of them are being in place. The output from the right and left pleural chest tubes are minimal in the order of 20 mL's over the past 8 hours, the mediastinal chest tubes is producing approximately 70 mL's over the past 8 hours and for 32 mL over the past 12 hours. Output from the chest tubes are minimal for now. The patient is in a normal sinus rhythm. The patient has an intra-aortic balloon pump in her urine this morning the augmentation was 1:1 and augment the blood pressure was 80. The patient had pulmonary artery pressures of 36/21. Cardiac index was 2.8 and the CVP was 9. The patient was having episodes of nonsustained V. tach. He was on epinephrine drip earlier this morning and epinephrine drip was gradually weaned off. Levo fed was also weaned off. The patient was ultimately switched to Chuck-Synephrine drip. Note that these aren't short runs of nonsustained V. tach not causing any significant hemodynamic instability. The patient remains sedated with propofol. Hemoglobin today is at 10.8. Intraoperatively the patient required a total of 4 units of platelets and 4 units of fresh frozen plasma. On 12/14/2020, the patient is extubated sitting up on a chair on oxygen at 2 L per minute nasal cannula. Doing well. Still having sternal pain and the patient is taking [place] for that. He was extubated yesterday to a BiPAP at around 6 PM. He was placed on a BiPAP at a pressure of 10/5 with an FiO2 of 40% and subsequently BiPAP was discontinued. In terms of pressors, the patient is currently off epinephrine. He is taking Primacor 0.2 mcg/kg per minute. He is off epinephrine. No further episodes of nonsustained V. tach. The patient had 2 rounds of SVT that converted spontaneously. Chuck-Synephrine is running at 0.7 mcg/kg per minute. He is on no sedation for now. Propofol has been disc ontinued. Precedex has been discontinued. Intra-aortic balloon pump has also been discontinued. OG tube is out. His chest x-ray from today shows adequate expansion of both lungs. Chest tubes are all in place and the patient has a right and left pleural chest tube and mediastinal chest tubes. The hemoglobin today is at 9.9 with a white cell 9.4 and a platelet count of 113. The pleural chest tubes have been approximately 40 mL over the past 12 hours. The pacer is unplugged. Current cardiac rhythm is sinus. Cardiac Index is at 2.6 with an output of. Most recent SVR is 799 12/15, the patient remains extubated on 2 L of oxygen by nasal cannula. He is sitting up on a chair. He is calm and comfortable using his progress pulling approximately 800 mL. Mediastinal chest tube chest is a removed. The left pleural chest tube has drained 65 mL over the past 8 hours in the right pleural chest tube was drained around 125 mL over the past 8 hours. He is off the Chuck- Synephrine. He is on Primacor at 0.1 g. Is off the insulin drip. His chest x-ray shows some limited atelectatic changes in the left lung base. Otherwise the right lung is clear. I do not appreciate any pneumothorax. Washington-Manny catheter is in a good location. The chest tubes including the right pleural and left pleural or both in a good location. Urine output is no order of Lasix. She is easily and 25-30 mL an hour and the patient received a dose of Lasix 20 mg. The patient is back into atrial fibrillation. The patient is in a controlled rate. He was started back on Coumadin at a dose of 5 mg by mouth daily. PT/INR is being monitored. He is using an EPAP overnight at a minimum pressure of 5 and a maximum of 12. The Primacor will be weaned off today. Index is at 2.5. No further episodes of nonsustained V. tach. The patient is in a atrial fibrillation rhythm. The patient also is on beta blockers. Hemoglobin today is at 9.6. Reevaluated today on 12/16/2020, patient is sitting in bed, doing quite well, presently on room air, not in any form of distress. Patient has been ambulatory in the room as well as in the hallway. His right internal jugular cordis remains in place, all of his other lines and tubes have been removed. Remains in atrial fibrillation, but hemodynamically stable, started on Coumadin. Doing well with incentive spirometry at bedside. Patient denies any pulmonary symptoms whatsoever. CBC is relatively normal hemoglobin is 10 INR is 1.3 electrolytes are normal renal profile is normal. Chest x-ray showed mild bibasilar atelectasis Reevaluated today on 12/17/2020, patient is on room air, sitting at a bedside chair, doing great, asymptomatic, hemodynamically stable, telemetry showed irregular heartbeat with atrial fibrillation of 103 bpm, INR today is 1.8. Patient is doing extremely well with incentive spirometry, almost 2000 mL being achieved. Chest x-ray is excellent no acute process is noted, minimal atelectasis otherwise normal Objective - Vital Signs Vital signs: Vital Signs Temp 98.3 F 12/17/20 11:44 Pulse 86 12/17/20 14:00 Resp 16 12/17/20 14:00 BP 109/72 12/17/20 11:44 Pulse Ox 95 12/17/20 11:44 Intake & Output 12/16/20 12/17/20 12/17/20 18:59 06:59 18:59 Intake Total 23 240 Output Total 925 301 Balance -902 -61 Weight 124.4 kg Intake: IV 23 Lactated Ringers 1,000 ml 20 @ 20 mls/hr IV .Q24H [facility] Rx#:[id number] Pressure bags 3 Oral 240 Output: Urine 925 300 Stool 1 Other: Voiding Method Urinal Urinal Toilet Urinal # Voids 1 1 # Bowel Movements 1 ABP, PAP, CO, CI - Last Documented Arterial Blood Pressure 195/181 Pulmonary Artery Pressure 262/262 Cardiac Output 6.2 Cardiac Index 2.6 - Exam Gen. Revealed 70-year-old white male pleasant in no distress, on room air. Head exam : Atraumatic, normocephalic. EENT: PERRLA, EOMI, nonicteric. Moist mucous membranes. No neck masses no JVD no stridor. Lungs symmetrical chest expansion, clear bilaterally no crackles or rhonchi or wheezes. Heart normal S1 and S2, no S3 gallop, positive mechanical valve click heard over the precordium. Abdominal soft nontender no megaly no rebound no guarding. Examination : No clubbing edema or cyanosis. Examination of the skin revealed no evidence of significant rashes Neurologically, alert and oriented 3 focal neurologic deficits Psychiatric: Normal mood affect and normal mental status examination. - Labs CBC & Chem 7: 12/17/20 06:55 12/17/20 06:55 Labs: Abnormal Lab Results - Last 24 Hours (Table) 12/16/20 12/16/20 12/17/20 Range/Units 16:46 20:08 06:22 RBC (4.30-5.90) m/uL Hgb (13.0-17.5) gm/dL Hct (39.0-53.0) % PT (9.0-12.0) sec INR (<1.2) Carbon Dioxide (22-30) mmol/L BUN (9-20) mg/dL Glucose (74-99) mg/dL POC Glucose (mg/dL) 112 H 118 H 104 H (75-99) mg/dL 12/17/20 12/17/20 12/17/20 Range/Units 06:55 06:55 06:55 RBC 3.35 L (4.30-5.90) m/uL Hgb 10.1 L (13.0-17.5) gm/dL Hct 30.3 L (39.0-53.0) % PT 18.2 H (9.0-12.0) sec INR 1.8 H (<1.2) Carbon Dioxide 32 H (22-30) mmol/L BUN 36 H (9-20) mg/dL Glucose 100 H (74-99) mg/dL POC Glucose (mg/dL) (75-99) mg/dL Assessment and Plan Assessment: Impression: Status post redo sternotomy and resection of ascending aortic aneurysm postoperative day #5 History of bicuspid aortic valve and previous aortic valve replacement. Chronic atrial fibrillation. Obstructive sleep apnea syndrome. Postoperative atelectasis, expected. Benign essential hypertension. Dyslipidemia. Recommendation: Continue incentive spirometer. Agree with discharge planning today. Follow-up on outpatient basis Time with Patient: Less than 30
[2020-12-17 16:17] VITALS: BP 112/75; PULSE 100; RESP 17; TEMP 97.9
[2020-12-17] MEDS ORDERED: WARFARIN 5 MG TAB PO ONE (18:00)
--- NOTE | 2020-12-19 08:37 | CDI ---
Documentation Clarification Form Date: 12/19/2020 08:11:08 AM From: Monie Izaguirre CCS, CCDS Admit Date: 12/10/2020 10:27:00 AM Patient Name: Rishi Luong Visit Number: [id number] Discharge Date: 12/17/2020 04:14:00 PM ATTENTION: The Clinical Documentation Specialists (CDI) and [facility] Coding Staff appreciate your assistance in clarifying documentation. Please respond to the clarification below the line at the bottom and electronically sign. The CDI & [facility] Coding staff will review the response and follow-up if needed. Please note: Queries are made part of the Legal Health Record. If you have any questions, please contact the author of this message via ITS. Dr. Asia Fung: "Acute Hypoxic Respiratory on ventilator support, postoperatively" is documented beginning with the 12/12 Medical Management Progress Note and in subsequent Progress Notes. Patients Admitting Diagnosis: Ascending aortic aneurysm, status post aortic valve replacement with [employer]. Gian aortic valve prosthesis 15 years ago for bicuspid aortic valve. 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 History/Risk Factors: Chronic Atrial Fibrillation on Coumadin status post previous cardioversion, Hypertension, Hyperlipidemia, GEOFF on Home CPAP, Obesity with BMI 39.4. Clinical Indicators: 70 yo male, presented on 12/10 with anticipated AAA repair & redo of AVR requiring bridge from Coumadin and Cardiac Catheterization preoperatively 12/11, AAA & AVR on 12/12. Pulse Ox 12/10: 96-99 RA. VS 12/12 postop AAA & AVR: R 18, BP 92/55, PO 96 intubated on vent. VS 12/13 R 13-22, PO 93-99 on vent. Extubated to BiPAP. VS 12/14: R 10-22, PO 97 - 100 on BiPAP; 94 - 98 on High Flow O2; 97 - 100 2Lnc; 92 RA, using home CPAP. Treatment Postop 12/12: IV Epinephrine, IV Milrinone Lactate/Dextrose, INH Albuterol/Ipratropium Duoneb, IV Cefazolin, IV Precedex, IV Insulin, IV Reglan & Zofran, IV Propofol, K Lyte. Postop recovery in ICU 12/12 - 12/16, transferred to step down/telemetry floor 12/16. In order to accurately reflect this patients severity of illness, please clarify if the Acute Hypoxic Respiratory Failure: -has been ruled out -is a complication of surgical procedure -is an expected outcome of the surgical procedure, please specify due to: -is related to co-morbid condition(s) of: (please specify condition(s)) -Other please specify: -Unable to determine (Last Revision: December 2019) MTDD
== END 2020-12-17 16:14 | disposition home health service (06) | DRG 216 ==
LOC: 3SCARD 10:27 → 2SICU 12-12 05:55 → 3SCARD 12-16 19:13
PROVIDERS: ADMIT Thoracic Surgery (Cardiothoracic Vascular Surgery); ATTEND Thoracic Surgery (Cardiothoracic Vascular Surgery)
PROC: 02RX0JZ Replacement of Thoracic Aorta, Ascending/Arch with Synthetic Substitute, Open Approach (ICD-10-PCS; principal; 2020-12-11 09:00)
PROC: B2111ZZ Fluoroscopy of Multiple Coronary Arteries using Low Osmolar Contrast (ICD-10-PCS; principal; 2020-12-11 09:00)
PROC: 5A02210 Assistance with Cardiac Output using Balloon Pump, Continuous (ICD-10-PCS; principal; 2020-12-11 09:00)
PROC: B24BZZ4 Ultrasonography of Heart with Aorta, Transesophageal (ICD-10-PCS; principal; 2020-12-11 09:00)
PROC: 5A1221Z Performance of Cardiac Output, Continuous (ICD-10-PCS; principal; 2020-12-11 09:00)
PROC: 4A133J1 Monitoring of Arterial Pulse, Peripheral, Percutaneous Approach (ICD-10-PCS; 2020-12-12)
PROC: 03HY32Z Insertion of Monitoring Device into Upper Artery, Percutaneous Approach (ICD-10-PCS; 2020-12-12)
PROC: 4A133B1 Monitoring of Arterial Pressure, Peripheral, Percutaneous Approach (ICD-10-PCS; 2020-12-12)
PROC: 3E043XZ Introduction of Vasopressor into Central Vein, Percutaneous Approach (ICD-10-PCS; 2020-12-12)
PROC: 0D9670Z Drainage of Stomach with Drainage Device, Via Natural or Artificial Opening (ICD-10-PCS; 2020-12-12)
PROC: 30243K1 Transfusion of Nonautologous Frozen Plasma into Central Vein, Percutaneous Approach (ICD-10-PCS; 2020-12-12)
PROC: 30243R1 Transfusion of Nonautologous Platelets into Central Vein, Percutaneous Approach (ICD-10-PCS; 2020-12-12)
PROC: 5A09357 Assistance with Respiratory Ventilation, Less than 24 Consecutive Hours, Continuous Positive Airway Pressure (ICD-10-PCS; 2020-12-13)
PROC: 5A09457 Assistance with Respiratory Ventilation, 24-96 Consecutive Hours, Continuous Positive Airway Pressure (ICD-10-PCS; 2020-12-14)
DX: I71.2 Thoracic aortic aneurysm, without rupture (principal); J96.01 Acute respiratory failure with hypoxia; I47.2 Ventricular tachycardia; I48.19 Other persistent atrial fibrillation; D62 Acute posthemorrhagic anemia; Z68.41 Body mass index [BMI] 40.0-44.9, adult; I47.1 Supraventricular tachycardia; J98.11 Atelectasis; E88.09 Other disorders of plasma-protein metabolism, not elsewhere classified; D69.59 Other secondary thrombocytopenia; I95.81 Postprocedural hypotension; E66.9 Obesity, unspecified; I35.1 Nonrheumatic aortic (valve) insufficiency; G47.33 Obstructive sleep apnea (adult) (pediatric); E78.5 Hyperlipidemia, unspecified; I10 Essential (primary) hypertension; F41.9 Anxiety disorder, unspecified; Z79.01 Long term (current) use of anticoagulants; Z79.899 Other long term (current) drug therapy; Z95.2 Presence of prosthetic heart valve; Z87.19 Personal history of other diseases of the digestive system; Z87.39 Personal history of other diseases of the musculoskeletal system and connective tissue; Z90.89 Acquired absence of other organs; Z98.890 Other specified postprocedural states; Z80.9 Family history of malignant neoplasm, unspecified
CPT/HCPCS: 36415; 71045; 71046; 80048; 80051; 80053; 80074; 81001; 82330; 82565; 82805; 82947; 83036; 83735; 84132; 84443; 84520; 85025; 85027; 85384; 85520; 85610; 85730; 86022; 86850; 86891; 86900; 86901; 86920; 87070; 87086; 88304; 93454; 93880; 94002; 94003; 94150; 94640; 94660; 94760

== ENCOUNTER 2021-01-19 09:52 | Inpatient (IN) | payer MEDICARE ==
--- NOTE | 2021-01-19 10:36 | ED ---
General Adult HPI <Brian Pitts - Last Filed: 01/19/21 11:59> - General Source: patient Mode of arrival: ambulatory Limitations: no limitations <Sergio Carter - Last Filed: 01/19/21 12:13> - General Chief complaint: Shortness of Breath Stated complaint: sob - History of Present Illness Initial comments: Patient is a 70-year-old male with a past medical history of atrial fibrillation, hyperlipidemia, hypertension, mechanical heart valve, ascending aortic aneurysm repair one month ago on Coumadin presents to the emergency room for a chief shortness of breath. Patient reports that he has had fluid on his lung which has been causing him shortness of breath since his surgery. He reports that he has been following with Dr. Zamora and pulmonology for this. Patient was supposed to have this drained 6 days from now however states that the shortness of breath is worsening. He called Dr. Zamora who stated to come to the emergency room and have his INR checked as well as be admitted for this procedure.Patient has no other complaints at this time including chest pain, abdominal pain, nausea or vomiting, headache, or visual changes. (Sergio Carter) - Related Data Home Medications Medication Instructions Recorded Confirmed Simvastatin [Zocor] 10 mg PO HS 01/30/18 01/19/21 Cholecalciferol [Vitamin D3 (25 25 mcg PO DAILY 12/10/20 01/19/21 Mcg = 1000 Iu)] Metoprolol Tartrate [Lopressor] 100 mg PO BID 01/19/21 01/19/21 Multivit-Mins/Iron/Folic/Lycop 1 tab PO DAILY 01/19/21 01/19/21 [Centrum Men's Tablet] Warfarin [Coumadin] 2.5 mg PO SUMOTUWETHFR@199901/19/21 01/19/21 Warfarin [Coumadin] 5 mg PO SA@199901/19/21 01/19/21 lisinopriL [Zestril] 10 mg PO DAILY 01/19/21 01/19/21 Previous Rx's Medication Instructions Recorded Pantoprazole [Protonix] 40 mg PO AC-BRKFST #30 tablet. 12/17/20 Allergies Allergy/AdvReac Type Severity Reaction Status Date / Time No Known Allergies Allergy Verified 01/19/21 11:45 Review of Systems ROS Other: All systems not noted in ROS Statement are negative. <Brian Pitts - Last Filed: 01/19/21 11:59> ROS Other: All systems not noted in ROS Statement are negative. <Sergio Carter - Last Filed: 01/19/21 12:13> ROS Statement: Those systems with pertinent positive or pertinent negative responses have been documented in the HPI. Past Medical History Past Medical History: Atrial Fibrillation, Hyperlipidemia, Hypertension Additional Past Medical History / Comment(s): Ascending aortic aneurysm measuring 6.2 cm in size, severe obstructive sleep apnea with an AHI of 47, Obesity History of Any Multi-Drug Resistant Organisms: None Reported Past Surgical History: Cardiac Valve Replacement, Hernia Repair, Orthopedic Surgery, Tonsillectomy Additional Past Surgical History / Comment(s): #25 [facility] mechanical aortic valve replacement December 1994,bilateral shoulder repair, cardioversion Past Anesthesia/Blood Transfusion Reactions: No Reported Reaction Past Psychological History: Anxiety Smoking Status: Never smoker Past Alcohol Use History: Occasional Past Drug Use History: None Reported - Past Family History Father Family Medical History: Cancer Brother(s) Family Medical History: Cancer Additional Family Medical History / Comment(s): 1/2 BROTHER <Sergio Carter - Last Filed: 01/19/21 12:13> General Exam Limitations: no limitations General appearance: alert, in no apparent distress Head exam: Present: atraumatic, normocephalic, normal inspection Eye exam: Present: normal appearance, PERRL, EOMI. Absent: scleral icterus, conjunctival injection, periorbital swelling ENT exam: Present: normal exam, mucous membranes moist Neck exam: Present: normal inspection, full ROM. Absent: tenderness, meningismus, lymphadenopathy Respiratory exam: Present: normal lung sounds bilaterally. Absent: respiratory distress, wheezes, rales, rhonchi, stridor Cardiovascular Exam: Present: regular rate, normal rhythm, normal heart sounds. Absent: systolic murmur, diastolic murmur, rubs, gallop, clicks GI/Abdominal exam: Present: soft, normal bowel sounds. Absent: distended, tenderness, guarding, rebound, rigid Neurological exam: Present: alert <Sergio Carter - Last Filed: 01/19/21 12:13> Course <Brian Pitts - Last Filed: 01/19/21 11:59> Vital Signs 01/19/21 01/19/21 01/19/21 09:55 10:55 11:15 Temperature 97.9 F 97.9 F Pulse Rate 70 71 69 Respiratory 20 22 22 Rate Blood Pressure 153/107 109/81 124/90 O2 Sat by Pulse 99 98 95 Oximetry - Reevaluation(s) Reevaluation #1: 01/19/21 12:00 Patient reevaluated and reexamined by myself, Dr. Pitts. I agree with PA findings. This includes diagnostic interpretation and treatment plan. Patient has exertional dyspnea, limiting him to 10 or 15 feet. Patient also has orthopnea. Lung sounds with decreased air exchange right greater than left. X- ray and results reviewed. Case discussed with Dr. Zamora would like patient admitted and will do thoracentesis. He does request ultrasound. Case also discussed with Dr. Granado, covering for Dr. Ellis, who will admit covering for Dr. Arguello. (Brian Pitts) EKG Findings - EKG Comments: EKG Findings:: Atrial fibrillation, ventricular rate 74, QRS duration 118, QTC 472 <Sergio Carter - Last Filed: 01/19/21 12:13> Medical Decision Making - Lab Data Result diagrams: 01/19/21 10:28 01/19/21 10:28 <Brian Pitts - Last Filed: 01/19/21 11:59> - Lab Data Result diagrams: 01/19/21 10:28 01/19/21 10:28 <Sergio Carter - Last Filed: 01/19/21 12:13> - Medical Decision Making Vitals are stable. CBC CMP unremarkable. INR 2.4. BNP 1590. Chest x-ray does show suspected CHF exacerbation or fluid overload state. Small to moderate- sized bilateral pleural effusions not significantly changed from 2 days earlier. They are more prominent from one month ago. Dr. Pitts spoke with Dr. Zamora who does want to do thoracentesis on patient, will admit to Dr. Granado (Sergio Mccoy) - Lab Data Lab Results 01/19/21 01/19/21 01/19/21 Range/Units 10:28 10: 10: WBC 5.5 (3.8-10.6) k/uL RBC 4.40 (4.30-5.90) m/uL Hgb 12.4 L (13.0-17.5) gm/dL Hct 39.1 (39.0-53.0) % MCV 89.0 (80.0-100.0) fL MCH 28.2 (25.0-35.0) pg MCHC 31.7 (31.0-37.0) g/dL RDW 14.2 (11.5-15.5) % Plt Count 266 (150-450) k/uL MPV 7.3 Neutrophils % 71 % Lymphocytes % 15 % Monocytes % 8 % Eosinophils % 3 % Basophils % 1 % Neutrophils # 3.9 (1.3-7.7) k/uL Lymphocytes # 0.9 L (1.0-4.8) k/uL Monocytes # 0.5 (0-1.0) k/uL Eosinophils # 0.2 (0-0.7) k/uL Basophils # 0.0 (0-0.2) k/uL Hypochromasia Slight PT 23.1 H (9.0-12.0) sec INR 2.4 H (<1.2) APTT 33.4 H (22.0-30.0) sec Sodium 140 (137-145) mmol/L Potassium 4.3 (3.5-5.1) mmol/L Chloride 104 (98-107) mmol/L Carbon Dioxide 27 (22-30) mmol/L Anion Gap 9 mmol/L BUN 20 (9-20) mg/dL Creatinine 0.82 (0.66-1.25) mg/dL Est GFR (CKD-EPI)AfAm >90 (>60 ml/min/1.73 sqM) Est GFR (CKD-EPI)NonAf >90 (>60 ml/min/1.73 sqM) Glucose 94 (74-99) mg/dL Calcium 9.3 (8.4-10.2) mg/dL Total Bilirubin 0.8 (0.2-1.3) mg/dL AST 35 (17-59) U/L ALT 40 (4-49) U/L Alkaline Phosphatase 67 (38-126) U/L Troponin I (0.000-0.034) ng/mL NT-Pro-B Natriuret Pep pg/mL Total Protein 6.7 (6.3-8.2) g/dL Albumin 3.9 (3.5-5.0) g/dL Coronavirus (PCR) (Not Detectd) 01/19/21 01/19/21 01/19/21 Range/Units 10:28 10:28 10:28 WBC (3.8-10.6) k/uL RBC (4.30-5.90) m/uL Hgb (13.0-17.5) gm/dL Hct (39.0-53.0) % MCV (80.0-100.0) fL MCH (25.0-35.0) pg MCHC (31.0-37.0) g/dL RDW (11.5-15.5) % Plt Count (150-450) k/uL MPV Neutrophils % % Lymphocytes % % Monocytes % % Eosinophils % % Basophils % % Neutrophils # (1.3-7.7) k/uL Lymphocytes # (1.0-4.8) k/uL Monocytes # (0-1.0) k/uL Eosinophils # (0-0.7) k/uL Basophils # (0-0.2) k/uL Hypochromasia PT (9.0-12.0) sec INR (<1.2) APTT (22.0-30.0) sec Sodium (137-145) mmol/L Potassium (3.5-5.1) mmol/L Chloride (98-107) mmol/L Carbon Dioxide (22-30) mmol/L Anion Gap mmol/L BUN (9-20) mg/dL Creatinine (0.66-1.25) mg/dL Est GFR (CKD-EPI)AfAm (>60 ml/min/1.73 sqM) Est GFR (CKD-EPI)NonAf (>60 ml/min/1.73 sqM) Glucose (74-99) mg/dL Calcium (8.4-10.2) mg/dL Total Bilirubin (0.2-1.3) mg/dL AST (17-59) U/L ALT (4-49) U/L Alkaline Phosphatase (38-126) U/L Troponin I <0.012 (0.000-0.034) ng/mL NT-Pro-B Natriuret Pep 1590 pg/mL Total Protein (6.3-8.2) g/dL Albumin (3.5-5.0) g/dL Coronavirus (PCR) Not Detected (Not Detectd) Disposition <Brian Pitts - Last Filed: 01/19/21 11:59> Time of Disposition: 12:13 <Sergio Carter - Last Filed: 01/19/21 12:13> Clinical Impression: Status post ascending aortic aneurysm repair, History of aortic valve replacement, Pleural effusion, Shortness of breath, Elevated brain natriuretic peptide (BNP) level Disposition: ADMITTED IP TO THIS HOSP Referrals: Guillaume Latham MD [Primary Care Provider] - 1-2 days
[2021-01-19 10:39] LABS: Basophils % (A) 1 %; Eosinophils # (A) 0.2 k/uL (0-0.7); Eosinophils % (A) 3 %; HCT 39.1 % (39.0-53.0); HGB 12.4 gm/dL (13.0-17.5); Hypochromasia Slight; Lymphocytes # (A) 0.9 k/uL (1.0-4.8); Lymphocytes % (A) 15 %; MCH 28.2 pg (25.0-35.0); MCHC 31.7 g/dL (31.0-37.0); Mean Platelet Volume 7.3; Monocytes # (A) 0.5 k/uL (0-1.0); Monocytes % (A) 8 %; Neutrophils # (A) 3.9 k/uL (1.3-7.7); Neutrophils % (A) 71 %; Platelet Count 266 k/uL (150-450); RDW 14.2 % (11.5-15.5); WBC 5.5 k/uL (3.8-10.6)
[2021-01-19 10:52] LABS: INR 2.4 (<1.2); Partial Thromboplastin Time 33.4 sec (22.0-30.0); Prothrombin Time 23.1 sec (9.0-12.0)
[2021-01-19 10:53] LABS: ALT 40 U/L (4-49); AST 35 U/L (17-59); African American GFR (CKD) >90 (>60 ml/min/1.73 sqM); Albumin 3.9 g/dL (3.5-5.0); Alkaline Phosphatase 67 U/L (38-126); Anion Gap 9 mmol/L; Blood Urea Nitrogen 20 mg/dL (9-20); Calcium 9.3 mg/dL (8.4-10.2); Carbon Dioxide 27 mmol/L (22-30); Chloride 104 mmol/L (98-107); Glucose 94 mg/dL (74-99); Non-African American GFR(CKD) >90 (>60 ml/min/1.73 sqM); Potassium 4.3 mmol/L (3.5-5.1); Sodium 140 mmol/L (137-145); Total Bilirubin 0.8 mg/dL (0.2-1.3); Total Protein 6.7 g/dL (6.3-8.2)
--- NOTE | 2021-01-19 10:55 | XR ---
EXAMINATION TYPE: XR chest 1V portable DATE OF EXAM: 01/19/2021 COMPARISON: Chest x-ray 2 days ago and older studies HISTORY: Recent open heart surgery with shortness of breath TECHNIQUE: Single AP portable frontal upright view of the chest is obtained. FINDINGS: There is persistent cardiomegaly with small to moderate sized bilateral pleural effusions. Overlying sternal wires and mediastinal clips along with ectatic thoracic aorta. Background chroni c parenchymal changes without new focal airspace opacity or pneumothorax seen. The osseous structures remain intact. IMPRESSION: Suspected CHF exacerbation or fluid overload status there is cardiomegaly with small to moderate size bilateral pleural effusions. Findings not significantly changed from 2 days earlier. Fi ndings more prominent from one month earlier.
[2021-01-19] MEDS ORDERED: NALOXONE 0.4 MG/ML 1 ML VIAL IV PRN (12:13)
--- NOTE | 2021-01-19 12:41 | US ---
EXAMINATION TYPE: US chest DATE OF EXAM: 01/19/2021 COMPARISON: NONE CLINICAL HISTORY: Bilat Lung markings for thoracentesis for Dr. Zamora. TECHNIQUE: Targeted ultrasound of the posterior lower bilateral hemithoraces EXAM MEASUREMENTS: Right Pleural Effusion pocket size: 11.5 cm Right skin surface to fluid distance: 2.3 cm Left Pleural Effusion pocket size: 2.4cm Left skin surface to fluid distance: 3.3 cm Right side marked for possible thoracentesis outside the dept. Pulmonologists are able to review the images in the patient?s EMR. Small to moderate size right pleural effusion with tiny left pleural effusion is seen on images saved . IMPRESSIONS: As above.
--- NOTE | 2021-01-19 13:14 | P.HPIM ---
History of Present Illness H&P Date: 01/19/21 Chief Complaint: Shortness of breath This is a 70-year-old male with very complex past medical history noted below who presented to the emergency room with worsening shortness of breath and bilateral lower extremity edema. 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 Patient did well post operatively but started having worsening shortness of breath over the past week or 2. Patient told me that he is unable to lay flat. Both legs are extremely swollen and this is persistent. He told me that his legs are not any better first thing in the morning. Patient said that he's been sleeping in a chair and unable to lay back. He had follow-up with cardiology and cardiac surgery in the office and was maintained on Lasix for approximately 10 days then he was advised to discontinue his Lasix. Chest x-ray in the ER showed evidence of bilateral pleural effusion. Patient will be admitted to the hospital for further management of his medical problems noted below. Review of Systems Review of system: 14 points review of systems were obtained and were negative except to what were mentioned in the HPI. Past Medical History Past Medical History: Atrial Fibrillation, Hyperlipidemia, Hypertension Additional Past Medical History / Comment(s): Ascending aortic aneurysm measuring 6.2 cm in size, severe obstructive sleep apnea with an AHI of 47, Obesity History of Any Multi-Drug Resistant Organisms: None Reported Past Surgical History: Cardiac Valve Replacement, Hernia Repair, Orthopedic Surgery, Tonsillectomy Additional Past Surgical History / Comment(s): #25 [facility] mechanical aortic valve replacement December 1994,bilateral shoulder repair, cardioversion Past Anesthesia/Blood Transfusion Reactions: No Reported Reaction Past Psychological History: Anxiety Smoking Status: Never smoker Past Alcohol Use History: Occasional Past Drug Use History: None Reported - Past Family History Father Family Medical History: Cancer Brother(s) Family Medical History: Cancer Additional Family Medical History / Comment(s): 1/2 BROTHER Medications and Allergies Home Medications Medication Instructions Recorded Confirmed Type Simvastatin [Zocor] 10 mg PO HS 01/30/18 01/19/21 History Cholecalciferol [Vitamin D3 (25 25 mcg PO DAILY 12/10/20 01/19/21 History Mcg = 1000 Iu)] Pantoprazole [Protonix] 40 mg PO AC-BRKFST #30 tablet. 12/17/20 01/19/21 Rx Metoprolol Tartrate [Lopressor] 100 mg PO BID 01/19/21 01/19/21 History Multivit-Mins/Iron/Folic/Lycop 1 tab PO DAILY 01/19/21 01/19/21 History [Centrum Men's Tablet] Warfarin [Coumadin] 2.5 mg PO SUMOTUWETHFR@199901/19/21 01/19/21 History Warfarin [Coumadin] 5 mg PO SA@199901/19/21 01/19/21 History lisinopriL [Zestril] 10 mg PO DAILY 01/19/21 01/19/21 History Allergies Allergy/AdvReac Type Severity Reaction Status Date / Time No Known Allergies Allergy Verified 01/19/21 11:45 Physical Exam Vitals: Vital Signs Temp Pulse Resp BP Pulse Ox 01/19/21 12:56 98.0 F 66 22 122/78 96 01/19/21 12:00 66 22 124/88 98 01/19/21 11:15 69 22 124/90 95 01/19/21 10:55 97.9 F 71 22 109/81 98 01/19/21 09:55 97.9 F 70 20 153/107 99 Intake and Output 01/18/21 01/19/21 01/19/21 22:59 06:59 14:59 Other: Weight 116.573 kg General: The patient is awake and alert, in no distress Eye: there is normal conjunctiva bilaterally. Neck: The neck is supple, there is no JVD. Cardiovascular: Normal S1-S2, no S3-S4, no murmurs. Respiratory: Lungs clear to auscultation bilaterally. His decreased lung sounds in the right base Gastrointestinal: Abdomen is soft, nontender Musculoskeletal: There is +3 pedal edema. Up to the knee Neurological:. Speech is normal. Skin: Skin is warm and dry Results CBC & Chem 7: 01/19/21 10:28 01/19/21 10:28 Labs: Abnormal Lab Results - Last 24 Hours (Table) 01/19/21 01/19/21 Range/Units 10:28 10:28 Hgb 12.4 L (13.0-17.5) gm/dL Lymphocytes # 0.9 L (1.0-4.8) k/uL PT 23.1 H (9.0-12.0) sec INR 2.4 H (<1.2) APTT 33.4 H (22.0-30.0) sec Assessment and Plan Assessment: This is a 70-year-old male with very complex past medical history of presented to the emergency room with worsening shortness of breath and +3 bilateral lower extremity edema. Patient was evaluated and will be admitted to the hospital for further management of his medical problems noted below. 1. Bilateral pleural effusion worse on the right, status post ultrasound marking. Awaiting pulmonology recommendation for possible thoracentesis. 2. Acute CHF exacerbation, possibly diastolic. BNP is not significantly elevated that patient is extremely fluid overloaded. I would start IV Lasix 40 mg every 12 hours. Consult cardiology for further evaluation. Obtain repeat echocardiogram. Strict I's and O's. Daily weight. Check PVR with bladder scan to rule out urinary retention. 3. Status post ascending aortic aneurysm resection with a redo sternotomy and replacement with 32 mm tailored tube graft last month. Patient has postoperative follow-up with Dr. Cole in the office. Appears stable. 4. History of bicuspid aortic valve status post mechanical aortic valve replacement in 1994 5. Chronic atrial fibrillation on anticoagulation with Coumadin 6. Hypertension, hyperlipidemia, obstructive sleep apnea on CPAP at home, Hold Coumadin as directed per pulmonology for possible thoracentesis in the morning
[2021-01-19] MEDS: FUROSEMIDE 10 MG/ML 4 ML VIAL IV SCH ×2 (13:53→21:12)
[2021-01-19] MEDS ORDERED: WARFARIN 5 MG TAB PO SCH (20:00)
[2021-01-19] MEDS: ATORVASTATIN 10 MG TAB PO SCH (21:11)
[2021-01-19] MEDS: METOPROLOL TARTRATE 50 MG TAB PO SCH (21:12)
[2021-01-19] MEDS: MELATONIN 5 MG TABLET PO PRN (21:12)
[2021-01-20 05:56] LABS: INR 2.6 (<1.2); Prothrombin Time 25.4 sec (9.0-12.0)
[2021-01-20] MEDS ORDERED: PANTOPRAZOLE 40 MG/10 ML VIAL IV SCH (09:00)
[2021-01-20] MEDS: MULTIVITAMINS, THERA 1 EACH TAB PO SCH (09:20)
[2021-01-20] MEDS: METOPROLOL TARTRATE 50 MG TAB PO SCH ×2 (09:20→20:58)
[2021-01-20] MEDS: lisinopriL 10 MG TAB PO SCH (09:20)
[2021-01-20] MEDS: PANTOPRAZOLE 40 MG TABLET PO SCH (09:20)
[2021-01-20] MEDS: FUROSEMIDE 10 MG/ML 4 ML VIAL IV SCH ×2 (09:20→20:58)
[2021-01-20] MEDS: CHOLECALCIFEROL 25 MCG (1000 IU) TABLET PO SCH (09:26)
[2021-01-20 09:48] LABS: African American GFR (CKD) >90 (>60 ml/min/1.73 sqM); Anion Gap 8 mmol/L; Blood Urea Nitrogen 21 mg/dL (9-20); Calcium 9.4 mg/dL (8.4-10.2); Carbon Dioxide 31 mmol/L (22-30); Chloride 103 mmol/L (98-107); Glucose 105 mg/dL (74-99); Magnesium 1.8 mg/dL (1.6-2.3); Non-African American GFR(CKD) 88 (>60 ml/min/1.73 sqM); Potassium 4.1 mmol/L (3.5-5.1); Sodium 142 mmol/L (137-145)
--- NOTE | 2021-01-20 12:00 | P.CRDCN ---
History of Present Illness Consult date: 01/20/21 History of present illness: CHIEF COMPLAINT: Shortness of breath HISTORY OF PRESENT ILLNESS: This is a 70-year-old male with a past medical history significant for chronic atrial fibrillation on Coumadin, hypertension, hyperlipidemia, and previous mechanical aortic valve replacement in 1994. 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 Cole. Patient follows in the office with Dr. Hillman. We have been asked to see the patient in consultation for CHF. Patient states he has been doing well postoperatively until recently he started noticing he was having some shortness of breath. Patient states he was prescribed lasix for 3 days by the cardiothoracic nurse practitioner last week. He states his shortness of breath persisted. He reports increased lower extremity edema. Denies chest pain or pressure. Patient was started on IV Lasix 40 mg every 12 hours. Patient states his lower extremity edema has improved. He also reports improvement in his shortness of breath. Fluid balance over the last 24 hours is -5 L. DIAGNOSTICS: EKG reveals atrial fibrillation with controlled ventricular rate Chest xray suspected CHF exacerbation or fluid overload status. Cardiomegaly wi th small to moderate sized bilateral pleural effusions. Laboratory data: WBC 5.5. Hemoglobin 12.4. Platelet count 266. INR 2.6. Sodium 142. Potassium 4.1. BUN 21. Creatinine 0.87. Magnesium 1.8. Troponin negative 1. BNP 1590. Current home cardiac medications include Coumadin 2.5 mg Wednesday and 5 mg Wednesday, lisinopril 10 mg daily, Zocor 10 mg daily, and metoprolol 100 mg twice a day REVIEW OF SYSTEMS: At the time of my exam: CONSTITUTIONAL: Denies fever or chills. HEENT: Denies blurred vision, vision changes, or eye pain. Denies hemoptysis CARDIOVASCULAR: Denies chest pain, orthopnea, PND or palpitations RESPIRATORY: No shortness of breath. GASTROINTESTINAL: Denies abdominal pain. Denies nausea or vomiting. HEMATOLOGIC: Denies bleeding disorders. GENITOURINARY: Denies any blood in urine. SKIN: Denies pruitis. Denies rash. PHYSICAL EXAM: VITAL SIGNS: Reviewed. GENERAL: Well-developed in no acute distress. HEENT: Head is normocephalic. Pupils are equal, round. Sclerae anicteric. Mucous membranes of the mouth are moist. Neck supple. No JVD or thyromegaly LUNGS: Respirations even and unlabored. Lungs diminished bilaterally. HEART: Irregular rate and rhythm. S1 and S2 heard. Sternal incision clean and dry without drainage or erythema. ABDOMEN: Soft. Nondistended. Nontender. EXTREMITIES: Normal range of motion. No clubbing or cyanosis. Peripheral pulses intact. 1-2+ bilateral lower extremity edema NEUROLOGIC: Awake and alert. Oriented x 3. 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 Monitor INR. Further recommendations pending patient's course Nurse practitioner note has been reviewed by physician. Signing provider agrees with the documented findings, assessment, and plan of care. Past Medical History Past Medical History: Atrial Fibrillation, Hyperlipidemia, Hypertension Additional Past Medical History / Comment(s): Ascending aortic aneurysm measuring 6.2 cm in size, severe obstructive sleep apnea with an AHI of 47, Obesity History of Any Multi-Drug Resistant Organisms: None Reported Past Surgical History: Cardiac Valve Replacement, Hernia Repair, Orthopedic Surgery, Tonsillectomy Additional Past Surgical History / Comment(s): #25 [facility] mechanical aortic valve replacement December 1994,bilateral shoulder repair, cardioversion Past Anesthesia/Blood Transfusion Reactions: No Reported Reaction Past Psychological History: Anxiety Smoking Status: Never smoker Past Alcohol Use History: Occasional Past Drug Use History: None Reported - Past Family History Father Family Medical History: Cancer Brother(s) Family Medical History: Cancer Additional Family Medical History / Comment(s): 1/2 BROTHER Medications and Allergies Home Medications Medication Instructions Recorded Confirmed Type Simvastatin [Zocor] 10 mg PO HS 01/30/18 01/19/21 History Cholecalciferol [Vitamin D3 (25 25 mcg PO DAILY 12/10/20 01/19/21 History Mcg = 1000 Iu)] Pantoprazole [Protonix] 40 mg PO AC-BRKFST #30 tablet. 12/17/20 01/19/21 Rx Metoprolol Tartrate [Lopressor] 100 mg PO BID 01/19/21 01/19/21 History Multivit-Mins/Iron/Folic/Lycop 1 tab PO DAILY 01/19/21 01/19/21 History [Centrum Men's Tablet] Warfarin [Coumadin] 2.5 mg PO SUMOTUWETHFR@199901/19/21 01/19/21 History Warfarin [Coumadin] 5 mg PO SA@199901/19/21 01/19/21 History lisinopriL [Zestril] 10 mg PO DAILY 01/19/21 01/19/21 History Allergies Allergy/AdvReac Type Severity Reaction Status Date / Time No Known Allergies Allergy Verified 01/19/21 11:45 Physical Exam Vitals: Vital Signs Temp Pulse Pulse Resp BP BP BP 01/20/21 08:00 17 01/20/21 07:00 98.1 F 79 17 128/89 01/20/21 01:30 97.9 F 67 17 01/19/21 19:44 98.0 F 78 18 01/19/21 13:43 98 F 76 16 143/94 01/19/21 12:56 98.0 F 66 22 122/78 01/19/21 12:00 66 22 124/88 BP Pulse Ox 01/20/21 08:00 01/20/21 07:00 95 01/20/21 01:30 112/74 94 L 01/19/21 19:44 115/78 01/19/21 13:43 96 01/19/21 12:56 96 01/19/21 12:00 98 Intake and Output 01/19/21 01/20/21 01/20/21 22:59 06:59 14:59 Intake Total 477 Output Total 2933 2600 1060 Balance -1129 -2606 -106 Intake: Oral 477 Output: Urine 2935 2600 1064 Other: Voiding Method Urinal Urinal Weight 114.2 kg Results 01/19/21 10:28 01/20/21 09:05 Cardiac Enzymes 01/19/21 Range/Units 10:28 Troponin I <0.012 (0.000-0.034) ng/mL Coagulation 01/20/21 Range/Units 05:09 PT 25.4 H (9.0-12.0) sec Comprehensive Metabolic Panel 01/20/21 Range/Units 09:05 Sodium 142 (137-145) mmol/L Potassium 4.1 (3.5-5.1) mmol/L Chloride 103 (98-107) mmol/L Carbon Dioxide 31 H (22-30) mmol/L BUN 21 H (9-20) mg/dL Creatinine 0.87 (0.66-1.25) mg/dL Glucose 105 H (74-99) mg/dL Calcium 9.4 (8.4-10.2) mg/dL Current Medications Generic Name Dose Route Start Last Admin Trade Name Freq PRN Reason Stop Dose Admin Atorvastatin Calcium 10 mg 01/19/21 21:00 01/19/21 21:11 Atorvastatin 10 Mg Tab PO 10 mg HS CHAO Administration Cholecalciferol 25 mcg 01/20/21 09:00 01/20/21 09:26 Cholecalciferol 25 Mcg (1000 Iu) Tablet PO 25 mcg DAILY CHAO Administration Furosemide 40 mg 01/19/21 13:15 01/20/21 09:20 Furosemide 10 Mg/Ml 4 Ml Vial IV 40 mg Q12HR CHAO Administration Lisinopril 10 mg 01/20/21 09:00 01/20/21 09:20 Lisinopril 10 Mg Tab PO 10 mg DAILY CHAO Administration Melatonin 5 mg 01/19/21 19:57 01/19/21 21:12 Melatonin 5 Mg Tablet PO 5 mg HS PRN Administration Insomnia Metoprolol Tartrate 100 mg 01/19/21 21:00 01/20/21 09:20 Metoprolol Tartrate 50 Mg Tab PO 100 mg BID CHAO Administration Multivitamins 1 each 01/20/21 09:00 01/20/21 09:20 Multivitamins, Thera 1 Each Tab PO 1 each DAILY CHAO Administration Naloxone HCl 0.2 mg 01/19/21 12:13 Naloxone 0.4 Mg/Ml 1 Ml Vial IV Q2M PRN Opioid Reversal Pantoprazole Sodium 40 mg 01/20/21 07:30 01/20/21 09:20 Pantoprazole 40 Mg Tablet PO 40 mg AC-BRKFST CHAO Administration Intake and Output 01/19/21 01/20/21 01/20/21 22:59 06:59 14:59 Intake Total 477 Output Total 2939 2600 106 [facility] [id number] [id number] [id number] Intake: Oral 477 Output: Urine 2935 2600 1064 Other: Voiding Method Urinal Urinal Weight 114.2 kg Patient Weight 01/21/21 06:59 Weight 114.2 kg 01/19/21 10:28 01/20/21 09:05
--- NOTE | 2021-01-20 12:51 | P.PN ---
Subjective Progress Note Date: 01/20/21 Patient is diuresing well. Lower extremity edema is improving. He still complaining of orthopnea. Objective - Vital Signs Vital signs: Vital Signs Temp 98.1 F 01/20/21 07:00 Pulse 79 01/20/21 07:00 Resp 17 01/20/21 08:00 BP 128/89 01/20/21 07:00 Pulse Ox 95 01/20/21 07:00 Intake & Output 01/19/21 01/20/21 01/20/21 18:59 06:59 18:59 Intake Total 477 Output Total 2700 2835 1115 Balance -2223 -2835 -1115 Weight 119 kg 114.2 kg Intake: Oral 477 Output: Urine 2700 2835 1064 Post Void Residual 51 Other: Voiding Method Urinal Urinal Urinal # Voids 0 - Exam General: The patient is awake and alert, in no distress Eye: there is normal conjunctiva bilaterally. Neck: The neck is supple, there is no JVD. Cardiovascular: Normal S1-S2, no S3-S4, no murmurs. Respiratory: Lungs clear to auscultation bilaterally Gastrointestinal: Abdomen is soft, nontender Musculoskeletal: There is no pedal edema. Neurological:. Speech is normal. Skin: Skin is warm and dry - Labs CBC & Chem 7: 01/19/21 10:28 01/20/21 09:05 Labs: Abnormal Lab Results - Last 24 Hours (Table) 01/20/21 01/20/21 Range/Units 05:09 09:05 PT 25.4 H (9.0-12.0) sec INR 2.6 H (<1.2) Carbon Dioxide 31 H (22-30) mmol/L BUN 21 H (9-20) mg/dL Glucose 105 H (74-99) mg/dL Assessment and Plan Assessment: This is a 70-year-old male with very complex past medical history of presented to the emergency room with worsening shortness of breath and +3 bilateral lower extremity edema. Patient was evaluated and will be admitted to the hospital for further management of his medical problems noted below. 1. Bilateral pleural effusion worse on the right, status post ultrasound marking. Awaiting pulmonology recommendation for possible thoracentesis. 2. Acute CHF exacerbation, possibly diastolic. IV Lasix 40 mg every 12 hours. Consulted cardiology for further evaluation. Obtain repeat echocardiogram. Strict I's and O's. Daily weight. Check PVR with bladder scan to rule out urinary retention. 3. Status post ascending aortic aneurysm resection with a redo sternotomy and replacement with 32 mm tailored tube graft last month. Patient has postoperative follow-up with Dr. Cole in the office. Appears stable. 4. History of bicuspid aortic valve status post mechanical aortic valve replacement in 1994 5. Chronic atrial fibrillation on anticoagulation with Coumadin 6. Hypertension, hyperlipidemia, obstructive sleep apnea on CPAP at home, Hold Coumadin as directed per pulmonology for possible thoracentesis in the morning Repeat lab work in the morning Patient with consultants recommendation
--- NOTE | 2021-01-20 13:00 | ECHOF ---
Referral Reason:CHF? MEASUREMENTS -------- HEIGHT: 177.8 cm WEIGHT: 118.8 kg BP: 112/74 RVIDd: 3.8 cm (< 3.3) IVSd: 1.3 cm (0.6 - 1.1) LVIDd: 5.1 cm (3.9 - 5.3) LVPWd: 1.8 cm (0.6 - 1.1) IVSs: 1.9 cm LVIDs: 3.4 cm LVPWs: 1.7 cm LAESV Index (A-L): 59.90 ml/m Ao Diam: 3.7 cm (2.0 - 3.7) AV Cusp: 1.6 cm (1.5 - 2.6) AV maxP.56 mmHg AV meanP.18 mmHg RAP: 5.00 mmHg RVSP: 32.04 mmHg FINDINGS -------- This was a technically difficult study with suboptimal views. Previous open heart. The left ventricular size is normal. There is mild concentric left ventricular hypertrophy. Overa ll left ventricular systolic function is mildly impaired with, an EF between 45 - 50 %. Septal wall motion is delayed and consistent with prior cardiac surgery. The right ventricle is mild to moderately enlarged. LA is severely dilated >40 ml/m2 The right atrium is mildly enlarged. 5.0mg of Lumason was utilized for enhancement of images Interatrial and interventricular septum intact. Normally functioning mechanical prosthetic valve. Mild mitral annular calcification present. Rsoh-ki-jdsfhbuo mitral regurgitation is present. Jbhm-ov-xpeydmhc tricuspid regurgitation present. There is mild pulmonary hypertension. The right ventricular systolic pressure, as measured by Doppler, is 32.04mmHg. There is no pulmonic regurgitation present. The ascending aorta is dilated measuring up to {4.3 cm} S/P REPAIR. IVC Not well visulized. There is no pericardial effusion. CONCLUSIONS -------- 1. The left ventricular size is normal. 2. There is mild concentric left ventricular hypertrophy. 3. Overall left ventricular systolic function is mildly impaired with, an EF between 45 - 50 %. 4. Septal wall motion is delayed and consistent with prior cardiac surgery. 5. The right ventricle is mild to moderately enlarged. 6. LA is severely dilated >40 ml/m2 7. The right atrium is mildly enlarged. 8. Mild mitral annular calcification present. 9. Egro-zr-eopdjrnm mitral regurgitation is present. 10. Tclr-zt-yoabkuyz tricuspid regurgitation present. 11. There is mild pulmonary hypertension. 12. The right ventricular systolic pressure, as measured by Doppler, is 32.04mmHg. 13. The ascending aorta is dilated measuring up to {4.3cm} S/P REPAIR. VACUUM DRIER OPERATOR: Karli Marquez RDCS
--- NOTE | 2021-01-20 13:56 | P.CNPUL ---
History of Present Illness Consult date: 01/20/21 Reason for consult: pleural effusion History of present illness: This is a 70-year-old gentleman who follows on an outpatient basis with Dr. Guillaume Latham for his primary care, Dr. Hillman from [facility] and myself for management of his sleep apnea. He has a past medical history significant for a bicuspid aortic valve, status post aortic valve replacement with a #[address] Gian's mechanical aortic valve in December of 1994, chronic atrial fibrillation, hypertension, hyperlipidemia, obstructive sleep apnea, and obesity. Recently, the patient underwent a computed tomography scan of his chest which demonstrated an ascending aortic aneurysm 62 mm in diameter. Due to this finding of ascending aortic aneurysm a consultation was placed to Dr. Mehrdad Cole from cardiothoracic surgery for further evaluation and treatment recommendations. Dr. Cole met with the patient, discussed treatment options with the patient including redo sternotomy and resection of his ascending aorta. Risks and benefits of surgery were discussed with the patient by Dr. Cole and knowing and understanding these risks the patient did wish to proceed with the surgical option. The patient was admitted to the hospital on 12/10/2020 for bridging off his Coumadin to heparin drip as he has a history of mechanical aortic valve replac ement. He also underwent a cardiac catheterization on 12/11/[address] Hillman which demonstrated normal coronary arteries and a normal functioning of his prosthetic aortic valve. On 12/12/2020 after obtaining consent the patient was brought to the preoperative area, prepared in the usual fashion and subsequently taken the operating room where Dr. Mehrdad Cole performed a redo sternotomy, resection of ascending aorta and noncoronary sinus of valsalva aneurysms with replacement with a 32 mm tailored tube graft and percutaneous placement intra-aortic balloon pump via left transfemoral. Upon completion of the surgery the patient was transferred to the cardiovascular intensive care [facility] where he was recovered, monitored hemodynamically and where he progressed cardiac rehabilitation phase 1. He was extubated, all lines, intra-aortic balloon pump, tubes and supportive drips were discontinued when appropriate and transfer orders were placed to the cardiac stepdown unit for further monitoring and rehabilitation. His oxygen was titrated down, he continued to work with physical/occupational therapy and cardiac rehab, he was tolerating an oral diet, his pain was well-controlled and he was ready to be discharged home with [facility] on postoperative day #5. On 01/17/2021 Seeing this patient in follow-up in my office. I would say overall he is on extremely well. He got discharged home 5 days after surgery. The surgical wound site has healed nicely. The chest tube sites are also healed nicely. He does have some trace edema in lower extremities and he was placed on Lasix 20 mg on a daily basis and he was given a total of 3 day treatment. He is having some shortness of breath especially with activity. A follow-up chest x- ray was done today showed a small to moderate-sized right-sided pleural effusion. There is also a small left-sided pleural effusion still present. He is in atrial fibrillation. He has a mechanical valve. He is on long-term articulation with warfarin. Hemoglobin at time of discharge from the hospital was around 10. No renal insufficiency. he is sleeping on a recliner. He has not transitioned himself to bed. Upon laying down flat, he gets more short of breath. Also, this patient has obstructive sleep apnea. I diagnosed having severe GEOFF heart his cardiac surgery and his AHI was 47. Subsequently was titrated to CPAP pressure of 9 cm of water. Since his surgery, trying to become more compliant to the CPAP, yet, he is having difficulties in maintaining the CPAP machine and the patient feels suffocating. He is currently sleeping in a recliner and based on the compliance data I noted that the patient is using the machine every night, however, is unable to achieve more than 1 hour. While on treatment, his AHI is down to 3 indicating successful treatment. It's possible that his surgery in addition to the pleural effusion which is making her shortness of breath is not allowing him to maintain CPAP therapy. He has a Brevida ML mask . Note that the patient was having worsening shortness of breath and had arranged for this patient to undergo a outpatient thoracentesis on 01/20/2022. Meanwhile the patient gets more short of breath and he gets admitted to the hospital. A chest x-ray was repeated sedated showed right-sided pleural effusion and ultrasound of the chest confirms presence of a moderate- sized right-sided pleural effusion on the right more than the left. The patient's blood work showed a proBNP level of 1519. INR is at 2.4. COVID was negative. Troponins were negative. The patient was started on IV Lasix 40 mg every 12 hours. Coumadin was placed on hold. Cigarette INR came back at 2.6. Overnight the patient was on Lasix 40 mg every 12 hours and his net fluid balance has been -5 L. He is already feeling better. He still unable to lay down flat. Is currently on room air oxygen and sitting on recliner. He is able to speak up. This is. Review of Systems Patient reports shortness of breath when walking but reports no chest pain, no arm pain on exertion, no shortness of breath when lying down, no palpitations, and no known heart murmur. He reports shortness of breath but reports no cough, no wheezing, no coughing up blood, and no sleep apnea. He reports no fever, no night sweats, no significant weight gain, no significant weight loss, and no exe rcise intolerance. He reports no dry eyes, no vision change, and no irritation. He reports no difficulty hearing and no ear pain. He reports no frequent nosebleeds, no nose problems, and no sinus problems. He reports no sore throat, no bleeding gums, no snoring, no dry mouth, no mouth ulcers, no oral abnormalities, and no teeth problems. He reports no abdominal pain, no nausea, no vomiting, no constipation, normal appetite, no diarrhea, not vomiting blood, no dyspepsia, and no GERD. He reports no incontinence, no difficulty urinating, no hematuria, and no increased frequency. He reports no muscle aches, no muscle weakness, no arthralgias/joint pain, no back pain, and no swelling in the extre mities. He reports no abnormal mole, no jaundice, no rashes, and no laceration. He reports no loss of consciousness, no weakness, no numbness, no seizures, no dizziness, no migraines, no headaches, and no tremor. He reports no depression, no sleep disturbances, feeling safe in a relationship, no alcohol abuse, no anxiety, no hallucinations, and no suicidal thoughts. He reports no fatigue. He reports no swollen glands, no bruising, and no excessive bleeding. He reports no runny nose, no sinus pressure, no itching, no hives, and no frequent sneezing. Past Medical History Past Medical History: Atrial Fibrillation, Hyperlipidemia, Hypertension Additional Past Medical History / Comment(s): Ascending aortic aneurysm m easuring 6.2 cm in size, severe obstructive sleep apnea with an AHI of 47, Obesity History of Any Multi-Drug Resistant Organisms: None Reported Past Surgical History: Cardiac Valve Replacement, Hernia Repair, Orthopedic Surgery, Tonsillectomy Additional Past Surgical History / Comment(s): #25 [facility] mechanical aortic valve replacement December 1994,bilateral shoulder repair, cardioversion Past Anesthesia/Blood Transfusion Reactions: No Reported Reaction Past Psychological History: Anxiety Smoking Status: Never smoker Past Alcohol Use History: Occasional Past Drug Use History: None Reported - Past Family History Father Family Medical History: Cancer Brother(s) Family Medical History: Cancer Additional Family Medical History / Comment(s): 1/2 BROTHER Medications and Allergies Home Medications Medication Instructions Recorded Confirmed Type Simvastatin [Zocor] 10 mg PO HS 01/30/18 01/19/21 History Cholecalciferol [Vitamin D3 (25 25 mcg PO DAILY 12/10/20 01/19/21 History Mcg = 1000 Iu)] Pantoprazole [Protonix] 40 mg PO AC-BRKFST #30 tablet. 12/17/20 01/19/21 Rx Metoprolol Tartrate [Lopressor] 100 mg PO BID 01/19/21 01/19/21 History Multivit-Mins/Iron/Folic/Lycop 1 tab PO DAILY 01/19/21 01/19/21 History [Centrum Men's Tablet] Warfarin [Coumadin] 2.5 mg PO SUMOTUWETHFR@199901/19/21 01/19/21 History Warfarin [Coumadin] 5 mg PO SA@199901/19/21 01/19/21 History lisinopriL [Zestril] 10 mg PO DAILY 01/19/21 01/19/21 History Allergies Allergy/AdvReac Type Severity Reaction Status Date / Time No Known Allergies Allergy Verified 01/19/21 11:45 Physical Exam Vitals: Vital Signs Temp Pulse Resp BP BP Pulse Ox 01/20/21 08:00 17 01/20/21 07:00 98.1 F 79 17 128/89 95 01/20/21 01:30 97.9 F 67 17 112/74 94 L 01/19/21 19:44 98.0 F 78 18 115/78 Intake and Output 01/19/21 01/20/21 01/20/21 22:59 06:59 14:59 Intake Total 477 Output Total 2935 2600 1115 Balance -6486 -3922 -1115 Intake: Oral 477 Output: Urine 2935 2600 1064 Post Void Residual 51 Other: Voiding Method Urinal Urinal Weight 114.2 kg COPD: General Appearance no diaphoresis, dyspnea, pallor, or respiratory distress and speech not interrupted by breaths, not cachectic, well nourished, appears well, and morbid obesity. HEENT no pursed lip breathing, jugular venous distention, mucous membrane cyanosis, or perioral cyanosis and mallampati classification: class 1 and Mallampati Classification: Class 4. Chest no retractions, rhonchi, hyperinflation, barrel chest, sternocleidomastoid muscle contractions, supraclavicular retractions, intercostal retractions, prolonged expiratory wheezing, or decreased air movement and decreased air movement and (normal) adventitious sounds: rales / crackles: bilaterally: midlung rowell; she has diminished breath sounds on the right. Heart no right ventricular heave, distant heart sounds, or s3 gallop; (normal) jugular vein and vein: jugular venous distention: by 0cm; and Heart Valve Replacement: Prosthetic, prosthetic valve sounds: aortic: appropriate, and irregular heart rhythm: totally irregular. GI bowel sounds: hyperactive (borborygmi) and diminished or absent. Extremities no cyanosis or clubbing and edema. Neurologic no somnolence, confusion, or decreased mental status. Assisstive Devices: ambulates with no assitive devices. Gait and Mobility: gait WNL and full weight bearing. Results - Laboratory Findings CBC and BMP: 01/19/21 10:28 01/20/21 09:05 PT/INR, D-dimer PT 25.4 sec (9.0-12.0) H 01/20/21 05:09 INR 2.6 (<1.2) H 01/20/21 05:09 Abnormal lab findings: Abnormal Labs 01/19/21 01/19/21 01/20/21 10:28 10:28 05:09 Hgb 12.4 L Lymphocytes # 0.9 L PT 23.1 H 25.4 H INR 2.4 H 2.6 H APTT 33.4 H Carbon Dioxide BUN Glucose 01/20/21 09:05 Hgb Lymphocytes # PT INR APTT Carbon Dioxide 31 H BUN 21 H Glucose 105 H Assessment and Plan Plan: 1 Aneurysm of thoracic aorta - the patient had a repair of the ascending aortic aneurysm measuring 62 mm in size. His postoperative course was essentially smooth. The patient was discha rged home March 26 postop on oxygen. Currently is having some pleural effusion on the right. He is having difficulty in breathing and is unable to lay down flat. I think it's reasonable to proceed with a therapeutic thoracentesis and drained a right-sided pleural effusion. ultrasound of the chest was done for markings. Warfarin has been discontinued and the patient is currently on IV Lasix. 2 Pleural effusion - right-sided pleural effusion along with a small left-sided pleural effusion, expected outcome of thoracic surgery 3 Obstructive sleep apnea syndrome - the patient has severe GEOFF with an AHI of 47. Compliance has been suboptimal partly because of his thoracotomy cardiac surgeon and partly because of the large right-sided pleural effusion which is causing some increased shortness of breath and the patient is unable to lay down flat in bed. He has a noise and mask and he is wearing the CPAP every night. My recommendation is to drop the pressure down to 8 cm of water from 9. I set him up with a pressure of 8 with a climate line at a temperature of 60F with the humidity level of 4. Will recheck his compliance data in few weeks time and I would anticipate improvement in his compliance he once the right-sided pleural effusion has been removed and the patient is feeling better.. 4 History of mechanical aortic valve replacement - mechanical aortic valve 5 Chronic atrial fibrillation - chronic atrial fibrillation the patient has been on warfarin 6 Hypertensive disorder 7 Hyperlipidemia 8 dyspnea secondary to above. The patient had significant fluid overload with lower extremity edema and pleural effusion and he is responding massive the diuretics. Plan The patient had significant fluid overload and the patient is responding nicely to diuretics. The patient is currently on Lasix 40 mg every 12 hours. He has lost approximately 5 L over the past 24 hours and he is in a negative fluid balance of 5 L. Continue Lasix at the same dose. Ultrasound marking of the right chest was done and the fluid was marked. He may ultimately not even required a thoracentesis as long as he is responding to diuretics. We'll monitor his course very closely. Today's INR is at 2.6 and obviously we cannot do the procedure. He has a mechanical aortic valve and the very reasonable to hold the Coumadin and watch his progress. The procedure will be done if there is persistent and sizable pleural effusion that remains unchanged despite diuretics. We'll continue to follow.
[2021-01-20] MEDS ORDERED: HYDROcodone/APAP 5-325MG 1 EACH TAB PO PRN (16:24)
[2021-01-20 20:10] LABS: Magnesium 1.7 mg/dL (1.5-2.4); Potassium 3.7 mmol/L (3.5-5.5)
[2021-01-20] MEDS: ATORVASTATIN 10 MG TAB PO SCH (20:58)
[2021-01-20] MEDS: MELATONIN 5 MG TABLET PO PRN (20:58)
[2021-01-21 08:01] VITALS: BP 124/81; PULSE 73; RESP 16; TEMP 97.6
[2021-01-21] MEDS: PANTOPRAZOLE 40 MG TABLET PO SCH (08:41)
[2021-01-21] MEDS: CHOLECALCIFEROL 25 MCG (1000 IU) TABLET PO SCH (08:41)
[2021-01-21] MEDS: MULTIVITAMINS, THERA 1 EACH TAB PO SCH (08:41)
[2021-01-21] MEDS: METOPROLOL TARTRATE 50 MG TAB PO SCH (08:41)
[2021-01-21] MEDS: lisinopriL 10 MG TAB PO SCH (08:41)
[2021-01-21] MEDS: FUROSEMIDE 10 MG/ML 4 ML VIAL IV SCH (08:41)
[2021-01-21 09:08] LABS: African American GFR (CKD) 100.6 (60.0-200.0); Anion Gap 10.6 mmol/L (4.00-12.00); BUN/Creat Ratio 24.44 Ratio (12.00-20.00); Calcium 9.7 mg/dL (8.7-10.3); Carbon Dioxide 32.4 mmol/L (21.6-31.8); Non-African American GFR(CKD) 86.8 (60.0-200.0); Potassium 4.1 mmol/L (3.5-5.5)
[2021-01-21 09:58] LABS: INR 1.92 (0.90-1.11); Prothrombin Time 20.1 sec (9.9-11.9)
--- NOTE | 2021-01-21 10:49 | P.PN ---
Subjective Progress Note Date: 01/21/21 CHIEF COMPLAINT: Shortness of breath HISTORY OF PRESENT ILLNESS: 01/20/2021 This is a 70-year-old male with a past medical history significant for chronic atrial fibrillation on Coumadin, hypertension, hyperlipidemia, and previous mechanical aortic valve replacement in 1994. 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 Cole. Patient follows in the office with Dr. Hillman. We have been asked to see the patient in consultation for CHF. Patient states he has been doing well postoperatively until recently he started noticing he was having some shortness of breath. Patient states he was prescribed lasix for 3 days by the cardiothoracic nurse practitioner last week. He states his shortness of breath persisted. He reports increased lower extremity edema. Denies chest pain or pressure. Patient was started on IV Lasix 40 mg every 12 hours. Patient states his lower extremity edema has improved. He also reports improvement in his shortness of breath. Fluid balance over the last 24 hours is -5 L. EKG reveals atrial fibrillation with controlled ventricular rate Chest xray suspected CHF exacerbation or fluid overload status. Cardiomegaly with small to moderate sized bilateral pleural effusions. 01/21/2021 Patient examined this morning at the bedside. He denies chest pain or pressure. He reports improvement in shortness of breath and lower extremity edema. Vital signs are stable. He remains on IV Lasix. Fluid balance over the last 24 hours is -2446 mL. Coumadin remains on hold. INR today 1.92. Echocardiogram completed revealed ejection fraction 45-50%, iyjk-lg-cxfzmbin mitral regurgitation, wyrz-bj-jexmnuam tricuspid regurgitation, and mild pulmonary hypertension PHYSICAL EXAM: VITAL SIGNS: Reviewed. GENERAL: Well-developed in no acute distress. HEENT: Head is normocephalic. Pupils are equal, round. Sclerae anicteric. Mucous membranes of the mouth are moist. Neck supple. No JVD or thyromegaly LUNGS: Respirations even and unlabored. Lungs diminished bilaterally. HEART: Irregular rate and rhythm. S1 and S2 heard. Sternal incision clean and dry without drainage or erythema. ABDOMEN: Soft. Nondistended. Nontender. EXTREMITIES: Normal range of motion. No clubbing or cyanosis. Peripheral pulses intact. 1-2+ bilateral lower extremity edema NEUROLOGIC: Awake and alert. Oriented x 3. 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 Monitor INR. Further recommendations pending patient's course Nurse practitioner note has been reviewed by physician. Signing provider agrees with the documented findings, assessment, and plan of care. Objective - Vital Signs Vital signs: Vital Signs Temp 97.6 F 01/21/21 07:00 Pulse 73 01/21/21 07:00 Resp 16 01/21/21 07:00 BP 124/81 01/21/21 07:00 Pulse Ox 97 01/21/21 07:00 Intake & Output 01/20/21 01/21/21 01/21/21 18:59 06:59 18:59 Intake Total 340 Output Total 1617 1169 9462 Balance -1277 -5089 -9462 Weight 114.2 kg 112.8 kg Intake: Oral 340 Output: Urine 1566 1169 9462 Post Void Residual 51 Other: Voiding Method Urinal Urinal Urinal # Voids 118 0 - Labs CBC & Chem 7: 01/19/21 10:28 01/21/21 04:22 Labs: Abnormal Lab Results - Last 24 Hours (Table) 01/21/21 01/21/21 Range/Units 04:22 04:22 PT 20.1 H (9.9-11.9) sec INR 1.92 H (0.90-1.11) Carbon Dioxide 32.4 H (21.6-31.8) mmol/L BUN/Creatinine Ratio 24.44 H (12.00-20.00) Ratio
--- NOTE | 2021-01-21 12:06 | XR ---
EXAMINATION TYPE: XR chest 2V DATE OF EXAM: 01/21/2021 COMPARISON: 01/19/2021 INDICATION: Follow-up effusion TECHNIQUE: Frontal and lateral views of the chest are obtained. FINDINGS: The heart size is mildly prominent. The pulmonary vasculature is normal. There is a small right pleural effusion similar to prior exam. Very minimal left pleural effusion at the costophrenic angle is present.. IMPRESSION: 1. Minimal left and small right pleural effusions, stable from comparison.
--- NOTE | 2021-01-21 12:41 | P.PN ---
Subjective Progress Note Date: 01/21/21 This is a 70-year-old gentleman who follows on an outpatient basis with Dr. Guillaume Latham for his primary care, Dr. Hillman from [facility] and myself for management of his sleep apnea. He has a past medical history significant for a bicuspid aortic valve, status post aortic valve replacement with a #[address] [facility] [employer] mechanical aortic valve in December of 1994, chronic atrial fibrillation, hypertension, hyperlipidemia, obstructive sleep apnea, and obesity. Recently, the patient underwent a computed tomography scan of his chest which demonstrated an ascending aortic aneurysm 62 mm in diameter. Due to this finding of ascending aortic aneurysm a consultation was placed to Dr. Mehrdad Cole from cardiothoracic surgery for further evaluation and treatment recommendations. Dr. Cole met with the patient, discussed treatment options with the patient including redo sternotomy and resection of his ascending aorta. Risks and benefits of surgery were discussed with the patient by Dr. Cole and knowing and understanding these risks the patient did wish to proceed with the surgical option. The patient was admitted to the hospital on 12/10/2020 for bridging off his Coumadin to heparin drip as he has a history of mechanical aortic valve replacement. He also underwent a cardiac catheterization on 12/11/[address] Hillman which demonstrated normal coronary arteries and a normal f unctioning of his prosthetic aortic valve. On 12/12/2020 after obtaining consent the patient was brought to the preoperative area, prepared in the usual fashion and subsequently taken the operating room where Dr. Mehrdad Cole performed a redo sternotomy, resection of ascending aorta and noncoronary sinus of valsalva aneurysms with replacement with a 32 mm tailored tube graft and percutaneous placement intra-aortic balloon pump via left transfemoral. Upon completion of the surgery the patient was transferred to the cardiovascular intensive care unit where he was recovered, monitored hemodynamically and where he progressed cardiac rehabilitation phase 1. He was extubated, all lines, intra-aortic balloon pump, tubes and supportive drips were discontinued when appropriate and transfer orders were placed to the cardiac stepdown unit for further monitoring and rehabilitation. His oxygen was titrated down, he continued to work with physical/occupational therapy and cardiac rehab, he was tolerating an oral diet, his pain was well-controlled and he was ready to be discharged home with [facility] on postoperative day #5. On 01/17/2021 Seeing this patient in follow-up in my office. I would say overall he is on extremely well. He got discharged home 5 days after surgery. The s urgical wound site has healed nicely. The chest tube sites are also healed nicely. He does have some trace edema in lower extremities and he was placed on Lasix 20 mg on a daily basis and he was given a total of 3 day treatment. He is having some shortness of breath especially with activity. A follow-up chest x- ray was done today showed a small to moderate-sized right-sided pleural effusion. There is also a small left-sided pleural effusion still present. He is in atrial fibrillation. He has a mechanical valve. He is on long-term articulation with warfarin. Hemoglobin at time of discharge from the hospital was around 10. No renal insufficiency. he is sleeping on a recliner. He has not transitioned himself to bed. Upon laying down flat, he gets more short of breath. Also, this patient has obstructive sleep apnea. I diagnosed having severe GEOFF heart his cardiac surgery and his AHI was 47. Subsequently was titrated to CPAP pressure of 9 cm of water. Since his surgery, trying to become more compliant to the CPAP, yet, he is having difficulties in maintaining the CPAP machine and the patient feels suffocating. He is currently sleeping in a recliner and based on the compliance data I noted that the patient is using the machine every night, however, is unable to achieve more than 1 hour. While on treatment, his AHI is down to 3 indicating successful treatment. It's possible that his surgery in addition to the pleural effusion which is making her shortness of breath is not allowing him to maintain CPAP therapy. He has a Brevida ML mask . Note that the patient was having worsening shortness of breath and had arranged for this patient to undergo a outpatient thoracentesis on 01/20/2022. Meanwhile the patient gets more short of breath and he gets admitted to the hospital. A chest x-ray was repeated sedated showed right-sided pleural effusion and ultrasound of the chest confirms presence of a moderate- sized right-sided pleural effusion on the right more than the left. The p atient's blood work showed a proBNP level of 1519. INR is at 2.4. COVID was negative. Troponins were negative. The patient was started on IV Lasix 40 mg every 12 hours. Coumadin was placed on hold. Cigarette INR came back at 2.6. Overnight the patient was on Lasix 40 mg every 12 hours and his net fluid balance has been -5 L. He is already feeling better. He still unable to lay down flat. Is currently on room air oxygen and sitting on recliner. He is able to speak up. On 01/21/2021 I'm seeing the patient for a follow-up. The patient is being diuresed adequately and the patient is a negative fluid balance of around 2.44 L over the past 24 hours. He is improved and is currently on room air oxygen. He is off the Coumadin and his INR is down to 1.9. The chest x-ray from today shows some interval reduction in the right side for effusion which is considered to be small at this point in time. There is minimal and small right-sided pleural effusion seen on today's chest x-ray. The volume status improved considerably. The patient is ambulating. Objective - Vital Signs Vital signs: Vital Signs Temp 97.6 F 01/21/21 07:00 Pulse 73 01/21/21 07:00 Resp 16 01/21/21 07:00 BP 124/81 01/21/21 07:00 Pulse Ox 97 01/21/21 07:00 Intake & Output 01/20/21 01/21/21 01/21/21 18:59 06:59 18:59 Intake Total 340 Output Total 8777 1169 9491 Balance -1277 -1169 -9462 Weight 114.2 kg 112.8 kg Intake: Oral 340 Output: Urine 1566 1169 9462 Post Void Residual 51 Other: Voiding Method Urinal Urinal Urinal # Voids 118 0 - Exam COPD: General Appearance no diaphoresis, dyspnea, pallor, or respiratory di stress and speech not interrupted by breaths, not cachectic, well nourished, appears well, and morbid obesity. HEENT no pursed lip breathing, jugular venous distention, mucous membrane cyanosis, or perioral cyanosis and mallampati classification: class 1 and Mallampati Classification: Class 4. Chest no retractions, rhonchi, hyperinflation, barrel chest, sternocleidomastoid muscle contractions, supraclavicular retractions, intercostal retractions, prolonged expiratory wheezing, or decreased air movement and decreased air movement and (normal) adventitious sounds: rales / crackles: bilaterally: midlung rowell; she has diminished breath sounds on the right. The breath sounds on the right side is improved considerably Heart no right ventricular heave, distant heart sounds, or s3 gallop; (normal) jugular vein and vein: jugular venous distention: by 0cm; and Heart Valve Replacement: Prosthetic, prosthetic valve sounds: aortic: appropriate, and irregular heart rhythm: totally irregular. GI bowel sounds: hyperactive (borborygmi) and diminished or absent. Extremities no cyanosis or clubbing and edema. Neurologic no somnolence, confusion, or decreased mental status. Assisstive Devices: ambulates with no assitive devices. Gait and Mobility: gait WNL and full weight bearing. - Labs CBC & Chem 7: 01/19/21 10:28 01/21/21 04:22 Labs: Abnormal Lab Results - Last 24 Hours (Table) 01/21/21 01/21/21 Range/Units 04:22 04:22 PT 20.1 H (9.9-11.9) sec INR 1.92 H (0.90-1.11) Carbon Dioxide 32.4 H (21.6-31.8) mmol/L BUN/Creatinine Ratio 24.44 H (12.00-20.00) Ratio Assessment and Plan Plan: 1 Aneurysm of thoracic aorta - the patient had a repair of the ascending aortic aneurysm measuring 62 mm in size. His postoperative course was essentially smooth. The patient was discharged home March 26 postop on oxygen. Currently is having some pleural effusion on the right. He is having difficulty in breathing and is unable to lay down flat. I think it's reasonable to proceed with a therapeutic thoracentesis a nd drained a right-sided pleural effusion. ultrasound of the chest was done for markings. Warfarin has been discontinued and the patient is currently on IV Lasix. 2 Pleural effusion - right-sided pleural effusion along with a small left-sided pleural effusion, expected outcome of thoracic surgery 3 Obstructive sleep apnea syndrome - the patient has severe GEOFF with an AHI of 47. Compliance has been suboptimal partly because of his thoracotomy cardiac surgeon and partly because of the large right-sided pleural effusion which is causing some increased shortness of breath and the patient is unable to lay down flat in bed. He has a noise and mask and he is wearing the CPAP every night. My recommendation is to drop the pressure down to 8 cm of water from 9. I set him up with a pressure of 8 with a climate line at a temperature of 60F with the humidity level of 4. Will recheck his compliance data in few weeks time and I would anticipate improvement in his compliance he once the right-sided pleural effusion has been removed and the patient is feeling better.. 4 History of mechanical aortic valve replacement - mechanical aortic valve 5 Chronic atrial fibrillation - chronic atrial fibrillation the patient has been on warfarin 6 Hypertensive disorder 7 Hyperlipidemia 8 dyspnea secondary to above. The patient had significant fluid overload with lower extremity edema and pleural effusion and he is responding to diuretics. On today's evaluation the patient is even feeling better. His shortness of breath is improved and the chest x-ray shows a small right-sided pleural effusion. On examination, he doesn't have significant dullness in the right lung base. As such I do not see the need for any thoracentesis. The patient is good to go home on oral Lasix and Coumadin can be restarted Plan Restart warfarin, monitor PT/INR to achieve an INR between 2.5 and 3 The patient can be discharged home on Lasix 40 mg by mouth daily for the next 2 weeks Restart CPAP therapy at home regarding obstructive sleep apnea Continue same cardiac medication Salt restriction We'll follow on an outpatient basis.
--- NOTE | 2021-01-21 13:17 | P.DS ---
Providers Date of admission: 01/20/21 12:48 Expected date of discharge: 01/21/21 Attending physician: Pritesh Lopez MD Consults: 01/19/21 12:14 Consult Physician Routine Consulting Provider: Rikki Zamora Consult Reason/Comments: pleural effusions, bilat Do you want consulting provider notified?: Already Contacted 01/19/21 13:02 Consult Physician Routine Consulting Provider: Cele Hillman Consult Reason/Comments: CHF Do you want consulting provider notified?: Yes Primary care physician: [facility] Course: This is a 70-year-old male with very complex past medical history of presented to the emergency room with worsening shortness of breath and +3 bilateral lower extremity edema. Patient was evaluated and will be admitted to the hospital for further management of his medical problems noted below. 1. Bilateral pleural effusion worse on the right, improved with IV diuresis. Seen and evaluated by pulmonology. No plans for thoracentesis at this time 2. 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 Started on IV Lasix 40 mg every 12 hours with very good response. Consulted cardiology for further evaluation. Continue with Lasix 40 mg daily at home. Advised to monitor weight daily. 3. Status post ascending aortic aneurysm resection with a redo sternotomy and replacement with 32 mm tailored tube graft last month. Patient has postoperative follow-up with Dr. Cole in the office. Appears stable. 4. History of bicuspid aortic valve status post mechanical aortic valve replacement in 1994 5. Chronic atrial fibrillation on anticoagulation with Coumadin 6. Hypertension, hyperlipidemia, obstructive sleep apnea on CPAP at home, Patient will be discharged home in a stable condition. For further details about this hospitalization please refer to that extremity chart. Physical exam: General: The patient is awake and alert, in no distress Eye: there is normal conjunctiva bilaterally. Neck: The neck is supple, there is no JVD. Cardiovascular: Normal S1-S2, no S3-S4, no murmurs. Respiratory: Lungs clear to auscultation bilaterally Gastrointestinal: Abdomen is soft, nontender Musculoskeletal: There is +1 pedal edema to above the ankle Neurological:. Speech is normal. Skin: Skin is warm and dry Patient Condition at Discharge: Stable Plan - Discharge Summary New Discharge Prescriptions: New Furosemide [Lasix] 40 mg PO DAILY 30 Days #30 tablet Continue Simvastatin [Zocor] 10 mg PO HS Cholecalciferol [Vitamin D3 (25 Mcg = 1000 Iu)] 25 mcg PO DAILY Pantoprazole [Protonix] 40 mg PO AC-BRKFST #30 tablet. lisinopriL [Zestril] 10 mg PO DAILY Warfarin [Coumadin] 2.5 mg PO SUMOTUWETHFR@1999 Metoprolol Tartrate [Lopressor] 100 mg PO BID Warfarin [Coumadin] 5 mg PO SA@1999 Multivit-Mins/Iron/Folic/Lycop [Centrum Men's Tablet] 1 tab PO DAILY Discharge Medication List Simvastatin [Zocor] 10 mg PO HS 01/30/18 [History] Cholecalciferol [Vitamin D3 (25 Mcg = 1000 Iu)] 25 mcg PO DAILY 12/10/20 [History] Pantoprazole [Protonix] 40 mg PO AC-BRKFST #30 tablet. 12/17/20 [Rx] Metoprolol Tartrate [Lopressor] 100 mg PO BID 01/19/21 [History] Multivit-Mins/Iron/Folic/Lycop [Centrum Men's Tablet] 1 tab PO DAILY 01/19/21 [History] Warfarin [Coumadin] 2.5 mg PO SUMOTUWETHFR@199901/19/21 [History] Warfarin [Coumadin] 5 mg PO SA@199901/19/21 [History] lisinopriL [Zestril] 10 mg PO DAILY 01/19/21 [History] Furosemide [Lasix] 40 mg PO DAILY 30 Days #30 tablet 01/21/21 [Rx] Follow up Appointment(s)/Referral(s): Guillaume Latham MD [Primary Care Provider] - 1-2 days Carley Vazquez MD [STAFF PHYSICIAN] - 1 Week Discharge Disposition: HOME SELF-CARE
[2021-01-25] MEDS ORDERED: WARFARIN 5 MG TAB PO SCH (20:00)
== END 2021-01-21 13:58 | disposition home or self-care (01) | DRG 291 ==
LOC: SUPCPDRO 09:52 → EC 09:52 → 6NMEDSUR 11:59 → OBSVTOIN 01-20 12:48
PROVIDERS: ADMIT Internal Medicine; ATTEND Internal Medicine
DX: I11.0 Hypertensive heart disease with heart failure (principal); I50.31 Acute diastolic (congestive) heart failure; J90 Pleural effusion, not elsewhere classified; I48.19 Other persistent atrial fibrillation; E78.5 Hyperlipidemia, unspecified; G47.33 Obstructive sleep apnea (adult) (pediatric); E66.9 Obesity, unspecified; Z20.822 Contact with and (suspected) exposure to COVID-19; Z95.2 Presence of prosthetic heart valve; Z79.01 Long term (current) use of anticoagulants; Z87.74 Personal history of (corrected) congenital malformations of heart and circulatory system; Z79.899 Other long term (current) drug therapy
CPT/HCPCS: 36415; 71045; 71046; 76604; 80048; 80053; 83735; 83880; 84132; 84484; 85025; 85610; 85730; 87635; 93005; 93306; 99284; 99285

== ENCOUNTER → 2021-02-21 | Outpatient (CLI) | payer MEDICARE ==
[2021-02-21 23:27] LABS: African American GFR (CKD) 88.6 (60.0-200.0); Albumin 4.3 g/dL (3.80-4.90); Albumin/Globulin Ratio 2.15 (1.60-3.17); Anion Gap 6.8 mmol/L (4.00-12.00); Calcium 9.2 mg/dL (8.7-10.3); Carbon Dioxide 30.2 mmol/L (21.6-31.8); Chol/HDL Ratio 2.87; Non-African American GFR(CKD) 76.5 (60.0-200.0); Potassium 4.3 mmol/L (3.5-5.5); Total Bilirubin 0.9 mg/dL (0.3-1.2); Total Protein 6.3 g/dL (6.2-8.2)
== END | disposition home or self-care (01) ==
LOC: LABWHC1 10:04
PROVIDERS: ATTEND Internal Medicine Interventional Cardiology
DX: E78.2 Mixed hyperlipidemia (principal)
CPT/HCPCS: 36415; 80053; 80061

== ENCOUNTER → 2021-02-24 | Outpatient (CLI) | payer MEDICARE ==
--- NOTE | 2021-02-24 11:18 | US ---
EXAMINATION TYPE: US chest DATE OF EXAM: 02/24/2021 COMPARISON: Radiograph 02/19/2021 CLINICAL HISTORY: 70-year-old male R22.42 swelling in limb, J90 pleural effusion. SOB, known PL EFF TECHNIQUE: Targeted ultrasound of the posterior lower Bilateral FINDINGS: EXAM MEASUREMENTS: Right Pleural Effusion pocket size: 12.2 cm Right skin surface to fluid distance: 4.2 cm Left Pleural Effusion pocket size: 0 cm Right side marked for possible thoracentesis outside the dept. Atelectatic lung seen within pocket* * Left side NOT marked Pulmonologists are able to review the images in the patient?s EMR. IMPRESSIONS: Moderate right pleural effusion with underlying atelectasis.
--- NOTE | 2021-02-24 11:19 | US ---
EXAMINATION TYPE: US venous doppler duplex LE LT DATE OF EXAM: 02/24/2021 10:37 AM COMPARISON: NONE CLINICAL HISTORY: 70-year-old male R22.42 swelling in limb, J90 pleural effusion. Swelling to left fo ot and ankle, patient has pain between 1st and 2nd toe on left foot. SIDE PERFORMED: Left TECHNIQUE: The lower extremity deep venous system is examined utilizing real time linear array sonog nivia with graded compression, doppler sonography and color-flow sonography. FINDINGS: VESSELS IMAGED: Common Femoral Vein Deep Femoral Vein Greater Saphenous Vein * Femoral Vein Popliteal Vein Small Saphenous Vein * Proximal Calf Veins (* superficial vessels) Left Leg: Negative for DVT Lobby Porter notes: scanned area of concern on left foot between 1st and 2nd digit and did not see a ny obvious abnormality IMPRESSION: 1. No evidence for DVT within the left lower extremity imaged from the groin to the upper calves. 2. Additional targeted scanning at the site of patient's pain between the first and second toes shows no discrete sonographic abnormality of the superficial tissues.
== END | disposition home or self-care (01) ==
LOC: RADUSWWP 10:02
PROVIDERS: ATTEND Internal Medicine Critical Care Medicine
DX: R22.42 Localized swelling, mass and lump, left lower limb (principal); J90 Pleural effusion, not elsewhere classified
CPT/HCPCS: 76604

== ENCOUNTER → 2021-06-17 | Outpatient (CLI) | payer MEDICARE | END | disposition home or self-care (01) | LOC: LABWHC1 08:20 | PROVIDERS: ATTEND Family Medicine | DX: Z12.5 Encounter for screening for malignant neoplasm of prostate (principal) | CPT/HCPCS: 36415; 84153 ==

== ENCOUNTER 2021-11-03 16:49 | Emergency (ER) | payer MEDICARE ==
[2021-11-03 17:17] VITALS: BP 141/85; PULSE 71; RESP 16; TEMP 98
[2021-11-03 18:01] LABS: Basophils # (A) 0.1 k/uL (0-0.2); Basophils % (A) 1 %; Eosinophils # (A) 0.2 k/uL (0-0.7); Eosinophils % (A) 3 %; HGB 14.4 gm/dL (13.0-17.5); Lymphocytes # (A) 1.4 k/uL (1.0-4.8); Lymphocytes % (A) 20 %; MCHC 31.4 g/dL (31.0-37.0); MCV 89.3 fL (80.0-100.0); Mean Platelet Volume 8.6; Monocytes # (A) 0.6 k/uL (0-1.0); Monocytes % (A) 9 %; Neutrophils # (A) 4.3 k/uL (1.3-7.7); Neutrophils % (A) 63 %; Platelet Count 212 k/uL (150-450); RBC 5.15 m/uL (4.30-5.90); RDW 14.5 % (11.5-15.5); WBC 6.8 k/uL (3.8-10.6)
[2021-11-03 18:05] LABS: INR 2.9 (<1.2); Partial Thromboplastin Time 35.8 sec (22.0-30.0); Prothrombin Time 27.6 sec (9.0-12.0)
[2021-11-03 18:14] LABS: ALT 44 U/L (4-49); AST 47 U/L (17-59); African American GFR (CKD) >90 (>60 ml/min/1.73 sqM); Albumin 4.2 g/dL (3.5-5.0); Alkaline Phosphatase 50 U/L (38-126); Anion Gap 7 mmol/L; Blood Urea Nitrogen 22 mg/dL (9-20); Calcium 8.9 mg/dL (8.4-10.2); Carbon Dioxide 27 mmol/L (22-30); Chloride 106 mmol/L (98-107); Glucose 96 mg/dL (74-99); Non-African American GFR(CKD) 79 (>60 ml/min/1.73 sqM); Potassium 4.2 mmol/L (3.5-5.1); Sodium 140 mmol/L (137-145); Total Bilirubin 0.8 mg/dL (0.2-1.3)
--- NOTE | 2021-11-03 18:16 | CT ---
EXAMINATION TYPE: CT abdomen pelvis w con DATE OF EXAM: 11/03/2021 COMPARISON: None available HISTORY: FALL, BLOOD IN URINE CT DLP: 2695 mGycm Automated exposure control for dose reduction was used. TECHNIQUE: Helical acquisition of images was performed from the lung bases through the pelvis. CONTRAST: Performed without Oral Contrast and with IV Contrast, patient injected with 100 mL of Isovue 370. FINDINGS: LUNG BASES: No significant abnormality is appreciated. LIVER/GB: No acute abnormality is appreciated. 7 mm low attenuating left hepatic focus, without suspi cious features and suggestive of cyst. PANCREAS: No significant abnormality is seen. SPLEEN: No significant abnormality is seen. ADRENALS: No significant abnormality is seen. KIDNEYS: No acute abnormality is seen. Multiple simple appearing bilateral renal cysts measuring up t o 2.2 cm. FREE AIR: No free air is visualized. RETROPERITONEAL ADENOPATHY: None visualized REPRODUCTIVE ORGANS: No significant abnormality is seen URINARY BLADDER: No significant abnormality is seen. PELVIC ADENOPATHY: None visualized. OSSEOUS STRUCTURES: No significant abnormality is seen. BOWEL: No significant abnormality is seen. OTHER: None IMPRESSION: NO ACUTE ABNORMALITY. RENAL CYSTS AND PROBABLE HEPATIC CYST.
[2021-11-03 18:31] LABS: Appearance,Urine Clear (Clear); Bilirubin,Urine Negative (Negative); Blood,Urine Large (Negative); Color,Urine Yellow; Glucose,Urine (UA) Negative (Negative); Ketones,Urine Negative (Negative); Leukocyte Esterase,Urine Small (Negative); Mucus,Urine Rare /hpf; Nitrite,Urine Negative (Negative); PH, Urine 6.5 (5.0-8.0); Protein,Urine Trace (Negative); RBC,Urine >182 /hpf (0-5); Specific Gravity,Urine 1.026 (1.001-1.035); Urobilinogen,Urine <2.0 mg/dL (<2.0); WBC,Urine 14 /hpf (0-5)
--- NOTE | 2021-11-03 19:05 | ED ---
Fall HPI - General Chief Complaint: Fall Stated Complaint: Fall, Back Injury, Blood in Urine, On Blood Thinne Time Seen by Provider: 11/03/21 17:19 Source: patient Mode of arrival: wheelchair - History of Present Illness Initial Comments: Rishi is a pleasant 71-year-old gentleman who presents to the emergency department today for evaluation of possible injury after fall. Patient does take Coumadin he checked his INR 2 days ago was 3.4 which is cold. 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 He did not hit his head he did not lose consciousness. This fall happened at approximately noon today. Patient felt well he ate lunch at 2 PM. He notes that after the fall he developed some hematuria. He did have a couple episodes of gross hematuria which prompted him to come to the emergency department. Patient does report a distant history of kidney stones, he has had a couple days of flank pain prior to the fall. He has no pain since the fall. Hematuria actually seems to be improving but he thought he should be evaluated. - Related Data Home Medications Medication Instructions Recorded Confirmed Simvastatin [Zocor] 10 mg PO HS 01/30/18 11/03/21 Cholecalciferol [Vitamin D3 (25 25 mcg PO DAILY 12/10/20 11/03/21 Mcg = 1000 Iu)] Metoprolol Tartrate [Lopressor] 50 mg PO BID 01/19/21 11/03/21 Multivit-Mins/Iron/Folic/Lycop 1 tab PO DAILY 01/19/21 11/03/21 [Centrum Men's Tablet] Warfarin [Coumadin] 2.5 mg PO HS 01/19/21 11/03/21 lisinopriL [Zestril] 10 mg PO DAILY 01/19/21 11/03/21 Acetaminophen Tab [Tylenol Tab] 1,000 mg PO Q6HR PRN 11/03/21 11/03/21 Pantoprazole [Protonix] 40 mg PO DAILY 11/03/21 11/03/21 Zinc 50 mg PO DAILY 11/03/21 11/03/21 hydroCHLOROthiazide [Hydrodiuril] 25 mg PO DAILY 11/03/21 11/03/21 Allergies Allergy/AdvReac Type Severity Reaction Status Date / Time No Known Allergies Allergy Verified 11/03/21 18:23 Review of Systems ROS Statement: Those systems with pertinent positive or pertinent negative responses have been documented in the HPI. ROS Other: All systems not noted in ROS Statement are negative. Past Medical History Past Medical History: Atrial Fibrillation, Hyperlipidemia, Hypertension Additional Past Medical History / Comment(s): Ascending aortic aneurysm measuring 6.2 cm in size, severe obstructive sleep apnea with an AHI of 47, Obesity History of Any Multi-Drug Resistant Organisms: None Reported Past Surgical History: Cardiac Valve Replacement, Hernia Repair, Orthopedic Surgery, Tonsillectomy Additional Past Surgical History / Comment(s): #25 [facility] mechanical aortic valve replacement December 1994,bilateral shoulder repair, cardioversion Past Anesthesia/Blood Transfusion Reactions: No Reported Reaction Past Psychological History: Anxiety Smoking Status: Never smoker Past Alcohol Use History: Occasional Past Drug Use History: None Reported - Past Family History Father Family Medical History: Cancer Brother(s) Family Medical History: Cancer Additional Family Medical History / Comment(s): /2 BROTHER General Exam - General Exam Comments Initial Comments: Physical Exam GENERAL: Patient is well-developed and well-nourished. Patient is nontoxic and well- hydrated and is in no distress. HENT: Normocephalic, Atraumatic. EYES: PERRL, EOMI PULMONARY: Unlabored respirations. No audible rales rhonchi or wheezing was noted. CARDIOVASCULAR: There is a regular rate and rhythm without any murmurs gallops or rubs. ABDOMEN: Soft and nontender with normal bowel sounds. SKIN: Skin is clear with no lesions or rashes and otherwise unremarkable. : Deferred NEUROLOGIC: Patient is alert and oriented x3. Moving all extremities spontaneously MUSCULOSKELETAL: Normal extremities with adequate strength and full range of motion. No lower extremity swelling or edema. No calf tenderness. PSYCHIATRIC: Normal psychiatric evaluation. Limitations: no limitations Course Vital Signs 11/03/21 17:12 Temperature 98 F Pulse Rate 71 Respiratory 16 Rate Blood Pressure 141/85 O2 Sat by Pulse 98 Oximetry Medical Decision Making - Medical Decision Making She was seen and evaluated immediately level II trauma was activated due to fall on blood thinners Bedside FAST exam is negative for any free fluid in abdomen CT scan was unremarkable Labs are unremarkable Patient has trace hematuria, urine is dark in color but not grossly red Patient care was discussed with urology on-call doctor Mary Kay who agrees with plan for outpatient follow-up. Patient was advised if he has any worsening or develops any difficulty urinating or any new or concerning symptoms to return to the ER. - Lab Data Result diagrams: 11/03/21 17:48 11/03/21 17:48 Lab Results 11/03/21 11/03/21 11/03/21 Range/Units 17:48 17:48 17:48 WBC 6.8 (3.8-10.6) k/uL RBC 5.15 (4.30-5.90) m/uL Hgb 14.4 (13.0-17.5) gm/dL Hct 46.0 (39.0-53.0) % MCV 89.3 (80.0-100.0) fL MCH 28.0 (25.0-35.0) pg MCHC 31.4 (31.0-37.0) g/dL RDW 14.5 (11.5-15.5) % Plt Count 212 (150-450) k/uL MPV 8.6 Neutrophils % 63 % Lymphocytes % 20 % Monocytes % 9 % Eosinophils % 3 % Basophils % 1 % Neutrophils # 4.3 (1.3-7.7) k/uL Lymphocytes # 1.4 (1.0-4.8) k/uL Monocytes # 0.6 (0-1.0) k/uL Eosinophils # 0.2 (0-0.7) k/uL Basophils # 0.1 (0-0.2) k/uL PT 27.6 H (9.0-12.0) sec INR 2.9 H (<1.2) APTT 35.8 H (22.0-30.0) sec Sodium 140 (137-145) mmol/L Potassium 4.2 (3.5-5.1) mmol/L Chloride 106 (98-107) mmol/L Carbon Dioxide 27 (22-30) mmol/L Anion Gap 7 mmol/L BUN 22 H (9-20) mg/dL Creatinine 0.98 (0.66-1.25) mg/dL Est GFR (CKD-EPI)AfAm >90 (>60 ml/min/1.73 sqM) Est GFR (CKD-EPI)NonAf 79 (>60 ml/min/1.73 sqM) Glucose 96 (74-99) mg/dL Calcium 8.9 (8.4-10.2) mg/dL Total Bilirubin 0.8 (0.2-1.3) mg/dL AST 47 (17-59) U/L ALT 44 (4-49) U/L Alkaline Phosphatase 50 (38-126) U/L Total Protein 7.0 (6.3-8.2) g/dL Albumin 4.2 (3.5-5.0) g/dL Urine Color Urine Appearance (Clear) Urine pH (5.0-8.0) Ur Specific [place] (1.001-1.035) Urine Protein (Negative) Urine Glucose (UA) (Negative) Urine Ketones (Negative) Urine Blood (Negative) Urine Nitrite (Negative) Urine Bilirubin (Negative) Urine Urobilinogen (<2.0) mg/dL Ur Leukocyte Esterase (Negative) Urine RBC (0-5) /hpf Urine WBC (0-5) /hpf Urine Mucus (None) /hpf Blood Type Blood Type Recheck Bld Type Recheck Status Antibody Screen Spec Expiration Date 11/03/21 11/03/21 Range/Units 17:48 18:14 WBC (3.8-10.6) k/uL RBC (4.30-5.90) m/uL Hgb (13.0-17.5) gm/dL Hct (39.0-53.0) % MCV (80.0-100.0) fL MCH (25.0-35.0) pg MCHC (31.0-37.0) g/dL RDW (11.5-15.5) % Plt Count (150-450) k/uL MPV Neutrophils % % Lymphocytes % % Monocytes % % Eosinophils % % Basophils % % Neutrophils # (1.3-7.7) k/uL Lymphocytes # (1.0-4.8) k/uL Monocytes # (0-1.0) k/uL Eosinophils # (0-0.7) k/uL Basophils # (0-0.2) k/uL PT (9.0-12.0) sec INR (<1.2) APTT (22.0-30.0) sec Sodium (137-145) mmol/L Potassium (3.5-5.1) mmol/L Chloride (98-107) mmol/L Carbon Dioxide (22-30) mmol/L Anion Gap mmol/L BUN (9-20) mg/dL Creatinine (0.66-1.25) mg/dL Est GFR (CKD-EPI)AfAm (>60 ml/min/1.73 sqM) Est GFR (CKD-EPI)NonAf (>60 ml/min/1.73 sqM) Glucose (74-99) mg/dL Calcium (8.4-10.2) mg/dL Total Bilirubin (0.2-1.3) mg/dL AST (17-59) U/L ALT (4-49) U/L Alkaline Phosphatase (38-126) U/L Total Protein (6.3-8.2) g/dL Albumin (3.5-5.0) g/dL Urine Color Yellow Urine Appearance Clear (Clear) Urine pH 6.5 (5.0-8.0) Ur Specific [place] 1.026 (1.001-1.035) Urine Protein Trace H (Negative) Urine Glucose (UA) Negative (Negative) Urine Ketones Negative (Negative) Urine Blood Large H (Negative) Urine Nitrite Negative (Negative) Urine Bilirubin Negative (Negative) Urine Urobilinogen <2.0 (<2.0) mg/dL Ur Leukocyte Esterase Small H (Negative) Urine RBC >182 H (0-5) /hpf Urine WBC 14 H (0-5) /hpf Urine Mucus Rare H (None) /hpf Blood Type A Positive Blood Type Recheck A Pos Bld Type Recheck Status No Antibody Screen NEGATIVE Spec Expiration Date 11/06/2021 - 2347 Disposition Clinical Impression: Fall, Hematuria Disposition: HOME SELF-CARE Condition: Stable Additional Instructions: Return to the ER for any worsening bleeding in urine Call Urology office tomorrow to establish follow up Is patient prescribed a controlled substance at d/c from ED?: No Referrals: Guillaume Latham MD [Primary Care Provider] - 1-2 days Ramirez Muñiz MD [STAFF PHYSICIAN] - 1-2 days
== END 2021-11-03 19:15 | disposition home or self-care (01) ==
LOC: EC 16:49
DX: R31.9 Hematuria, unspecified (principal); I48.91 Unspecified atrial fibrillation; I10 Essential (primary) hypertension; E78.5 Hyperlipidemia, unspecified; F41.9 Anxiety disorder, unspecified
CPT/HCPCS: 99284; 36415; 93005; 86900; 86901; 80053; 85025; 85610; 85730; 86850; 81001; 74177; Q9967

== ENCOUNTER → 2022-01-22 | Outpatient (CLI) | payer MEDICARE ==
[2022-01-22 15:10] LABS: ALT 27 U/L (10-49); AST 34 U/L (14-35); African American GFR (CKD) 72.8 (60.0-200.0); Albumin 4.5 g/dL (3.8-4.9); Albumin/Globulin Ratio 1.75 (1.60-3.17); Alkaline Phosphatase 49 U/L (41-126); BUN/Creat Ratio 19.15 Ratio (12.00-20.00); Blood Urea Nitrogen 22.4 mg/dL (9.0-27.0); Calcium 9.6 mg/dL (8.7-10.3); Carbon Dioxide 25.4 mmol/L (20.0-27.5); Chloride 104 mmol/L (96-109); Chol/HDL Ratio 3.62 Ratio; Globulin 2.6 g/dL (1.6-3.3); Glucose 99 mg/dL (70-110); LDL Cholesterol,Calculated 50.4 mg/dL (0.0-131.0); Non-African American GFR(CKD) 62.8 (60.0-200.0); Potassium 4.3 mmol/L (3.5-5.5); Sodium 144 mmol/L (135-145)
== END | disposition home or self-care (01) ==
LOC: LABWHC1 08:35
PROVIDERS: ATTEND Internal Medicine Interventional Cardiology
DX: E78.2 Mixed hyperlipidemia (principal)
CPT/HCPCS: 36415; 80053; 80061

== ENCOUNTER → 2022-07-29 | Outpatient (CLI) | payer MEDICARE ==
[2022-07-29 14:17] LABS: Basophils # (A) 0.01 X 10*3/uL (0.00-0.10); Basophils % (A) 0.1 %; Eosinophils # (A) 0 X 10*3/uL (0.04-0.35); Eosinophils % (A) 0 %; HCT 45.3 % (39.6-50.0); HGB 14.7 g/dL (13.0-17.0); Immature Grans, Automated 1.6 %; Lymphocytes # (A) 0.61 X 10*3/uL (0.90-5.00); Lymphocytes % (A) 5.9 %; MCH 28.7 pg (27.0-32.0); MCHC 32.5 g/dL (32.0-37.0); MCV 88.5 fL (80.0-97.0); Monocytes # (A) 0.98 X 10*3/uL (0.20-1.00); Monocytes % (A) 9.5 %; NRBC Per 100 WBC 0 /100 WBCS (0.0-0.0); Neutrophils # (A) 8.52 X 10*3/uL (1.80-7.70); Neutrophils % (A) 82.9 %; Platelet Count 250 X 10*3/uL (140-440); RBC 5.12 X 10*6/uL (4.40-5.60); RDW 14.9 % (11.5-14.5); WBC 10.28 X 10*3/uL (4.50-10.00)
[2022-07-29 14:41] LABS: ALT 70 U/L (10-49); AST 41 U/L (14-35); African American GFR (CKD) 75.4 (60.0-200.0); Albumin 4.1 g/dL (3.8-4.9); Albumin/Globulin Ratio 1.87 (1.60-3.17); Alkaline Phosphatase 44 U/L (41-126); BUN/Creat Ratio 30.44 Ratio (12.00-20.00); Blood Urea Nitrogen 34.4 mg/dL (9.0-27.0); Chloride 103 mmol/L (96-109); Chol/HDL Ratio 3.93 Ratio; Globulin 2.2 g/dL (1.6-3.3); Glucose 112 mg/dL (70-110); LDL Cholesterol,Calculated 88.8 mg/dL (0.0-131.0); Magnesium 2.6 mg/dL (1.5-2.4); Potassium 4.3 mmol/L (3.5-5.5); Sodium 142 mmol/L (135-145); Total Protein 6.3 g/dL (6.2-8.2)
[2022-07-29 19:18] LABS: Appearance,Urine Clear (Clear); Bilirubin,Urine Negative (Negative); Blood,Urine Negative (Negative); Color,Urine Yellow (Yellow); Ketones,Urine Negative (Negative); Nitrite,Urine Negative (Negative); Specific Gravity,Urine 1.021 (1.001-1.030)
== END | disposition home or self-care (01) ==
LOC: LABWHC1 07:23
PROVIDERS: ATTEND Internal Medicine
DX: I10 Essential (primary) hypertension (principal); E78.2 Mixed hyperlipidemia; N40.1 Benign prostatic hyperplasia with lower urinary tract symptoms; G47.33 Obstructive sleep apnea (adult) (pediatric)
CPT/HCPCS: 36415; 80053; 80061; 81003; 82306; 83036; 83735; 84153; 84439; 84443; 85025

== ENCOUNTER 2022-08-09 10:34 | Emergency (ER) | payer MEDICARE ==
[2022-08-09 11:02] VITALS: BP 120/76; PULSE 60; RESP 18; TEMP 98.2
--- NOTE | 2022-08-09 11:54 | XR ---
EXAMINATION TYPE: XR ankle complete 3 views RT, XR foot complete 3 views RT DATE OF EXAM: 08/09/2022 COMPARISON: None HISTORY: 72-year-old male with pain, no known injury FINDINGS: Ankle: Small corticated bone fragments below the medial malleolus suggesting sequela of remote injury. There is a area of 9 x 10 mm subchondral lucency involving the mid medial talar dome with associated irreg ularity of the subchondral bone plate. Dorsal talar neck spurring. Os trigonum. Small plantar heel sp ur. Otherwise, no acute fracture, subluxation, dislocation. Foot: Bipartite tibial sesamoid. Mild marginal spurring first MTP joint. Os peroneum. No acute fracture, brooks bluxation, or dislocation. IMPRESSION: 1. Ankle: A 10 x 9 mm focal area of severe degenerative change versus osteochondral lesion mid medial talar dome involving the ankle joint. 2. Follow: Small plantar heel spur. No acute osseous abnormality seen.
--- NOTE | 2022-08-09 12:12 | ED ---
Extremity Problem HPI - General Chief complaint: Extremity Problem,Nontraumatic Stated complaint: rt foot injury Time Seen by Provider: 08/09/22 11:04 Source: patient Mode of arrival: wheelchair Limitations: no limitations - History of Present Illness Initial comments: Patient is a 72-year-old male presenting with chief complaint of right ankle pain. 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 He admits to pain with weightbearing. Denies numbness, tingling, weakness, loss of range of motion, joint swelling, redness, fever, chills, nausea, vomiting. - Related Data Home Medications Medication Instructions Recorded Confirmed Simvastatin [Zocor] 10 mg PO HS 01/30/18 11/03/21 Cholecalciferol [Vitamin D3 (25 25 mcg PO DAILY 12/10/20 11/03/21 Mcg = 1000 Iu)] Metoprolol Tartrate [Lopressor] 50 mg PO BID 01/19/21 11/03/21 Multivit-Mins/Iron/Folic/Lycop 1 tab PO DAILY 01/19/21 11/03/21 [Centrum Men's Tablet] Warfarin [Coumadin] 2.5 mg PO HS 01/19/21 11/03/21 lisinopriL [Zestril] 10 mg PO DAILY 01/19/21 11/03/21 Acetaminophen Tab [Tylenol Tab] 1,000 mg PO Q6HR PRN 11/03/21 11/03/21 Pantoprazole [Protonix] 40 mg PO DAILY 11/03/21 11/03/21 Zinc 50 mg PO DAILY 11/03/21 11/03/21 hydroCHLOROthiazide [Hydrodiuril] 25 mg PO DAILY 11/03/21 11/03/21 Allergies Allergy/AdvReac Type Severity Reaction Status Date / Time No Known Allergies Allergy Verified 08/09/22 11:00 Review of Systems ROS Statement: Those systems with pertinent positive or pertinent negative responses have been documented in the HPI. ROS Other: All systems not noted in ROS Statement are negative. Past Medical History Past Medical History: Atrial Fibrillation, Hyperlipidemia, Hypertension Additional Past Medical History / Comment(s): Ascending aortic aneurysm measuring 6.2 cm in size, severe obstructive sleep apnea with an AHI of 47, Obesity History of Any Multi-Drug Resistant Organisms: None Reported Past Surgical History: Cardiac Valve Replacement, Hernia Repair, Orthopedic Surgery, Tonsillectomy Additional Past Surgical History / Comment(s): #25 [facility] mechanical aortic valve replacement December 1994,bilateral shoulder repair, cardioversion Past Anesthesia/Blood Transfusion Reactions: No Reported Reaction Past Psychological History: Anxiety Smoking Status: Never smoker Past Alcohol Use History: Occasional Past Drug Use History: None Reported - Past Family History Father Family Medical History: Cancer Brother(s) Family Medical History: Cancer Additional Family Medical History / Comment(s): 1/2 BROTHER General Exam Limitations: no limitations General appearance: alert, in no apparent distress Head exam: Present: atraumatic, normocephalic, normal inspection Eye exam: Present: normal appearance, EOMI. Absent: scleral icterus, periorbital swelling Neck exam: Present: normal inspection Extremities exam: Present: normal capillary refill Right Ankle exam: Present: normal inspection, tenderness. Absent: full ROM, swelling, abrasion, deformity, erythema Neurovascular tendon exam: Present: no vascular compromise Neurological exam: Present: alert, oriented X3, CN II-XII intact Psychiatric exam: Present: normal affect, normal mood Skin exam: Present: warm, dry, intact, normal color. Absent: rash Course Vital Signs 08/09/22 11:00 Temperature 98.2 F Pulse Rate 60 Respiratory 18 Rate Blood Pressure 120/76 O2 Sat by Pulse 99 Oximetry Medical Decision Making - Medical Decision Making Patient is a 72-year-old male presenting with chief complaint of right ankle pain. Pain is been ongoing for the past few days, admits to pain with weightbearing. On examination there is no erythema or warmth or swelling. Some tenderness to palpation over the dorsal aspect of the foot and anterior aspect of the ankle. Normal capillary refill and distal pulses. Foot is warm and pink. X-ray shows a 10 x 9 mm. Area of severe degenerative change versus osteochondral lesion mid medial patellar dome involving the ankle joint. Patient was placed in an ankle stirrup splint and provided with crutches. Instructed to follow-up with orthopedics. Educated on supportive treatment. Follow-up with PCP. Report back to ER with any new or worsening symptoms. Discussed return parameters and answered all questions. Patient conveyed verbal understanding and agreed to the plan. I discussed this case in detail with my attending Dr. Ragsdale. Disposition Clinical Impression: Osteochondral lesion, Ankle pain Disposition: HOME SELF-CARE Condition: Good Instructions (If sedation given, give patient instructions): Ankle Sprain (ED), Osteoarthritis (ED) Additional Instructions: Follow-up with PCP and orthopedics. Report back to ER with any new or worsening symptoms. Take Motrin and Tylenol as needed for pain control. Rest, ice, compress, elevate the ankle, remain nonweightbearing when possible. Is patient prescribed a controlled substance at d/c from ED?: No Referrals: Nilam Rosario MD [Primary Care Provider] - 1-2 days Tiny Sykes NPC [Nurse Practitioner] - 1-2 days Time of Disposition: 12:12
== END 2022-08-09 13:08 | disposition home or self-care (01) ==
LOC: EC 10:34
DX: M25.871 Other specified joint disorders, right ankle and foot (principal); I48.91 Unspecified atrial fibrillation; I10 Essential (primary) hypertension; E78.5 Hyperlipidemia, unspecified; Z79.899 Other long term (current) drug therapy; Z79.01 Long term (current) use of anticoagulants
CPT/HCPCS: 99283

== ENCOUNTER → 2022-08-19 | Outpatient (CLI) | payer MEDICARE ==
--- NOTE | 2022-08-19 11:06 | CT ---
EXAMINATION TYPE: CT ankle RT wo con DATE OF EXAM: 08/19/2022 COMPARISON: 08/09/2022 right ankle x-ray HISTORY: Osteochondritis dissecans, right ankle CT DLP: 238 mGycm Automated exposure control for dose reduction was used. Contrast: None Technique: Axial images 3 mm thick sections. Reconstructed images in the coronal and sagittal plane. Three-D reconstructed images performed by the technologist on separate computer present. FINDINGS: There appears to be some soft tissue swelling over the distal foreleg. Significant soft tissue swelli ng at the ankle is not identified. No acute fractures are evident. Joint spaces are preserved. Achilles tendon calcaneal heel spurs pres ent. Subchondral cyst formation is evident along the medial aspect of the talus. This appears smooth borde red. No residual calcifications are evident. Suspicious lytic destruction is not identified. Small am ount of subchondral cyst formation is along the medial fibula at the level of the ankle mortise. Some additional subchondral cyst formation within the navicular. Suspicious changes to suggest osteochondritis dissecans is not identified. However, note that there i s a tiny ossification within the mid joint space of the talotibial joint. Series 8 image 28. This remedios sures 0.3 cm. IMPRESSION: 1. FINDINGS APPEARS SUGGESTIVE FOR SUBCHONDRAL CYST FORMATION AT THE ANKLE. ADDITIONAL SUBCHONDRAL CY ST FORMATION IS AT THE MEDIAL FIBULA AND NAVICULAR BONES WITHIN THE [id number]. 2. TINY INTRA-ARTICULAR CALCIFICATION APPEARS TO BE PRESENT WITHIN THE MID TALOTIBIAL JOINT SPACE.
== END | disposition home or self-care (01) ==
LOC: RADCTMAIN 07:34
PROVIDERS: ATTEND Podiatrist
DX: M61.479 Other calcification of muscle, unspecified ankle and foot (principal); R93.0 Abnormal findings on diagnostic imaging of skull and head, not elsewhere classified

== ENCOUNTER 2022-10-09 09:47 | Day surgery (SDC) | payer MEDICARE ==
[~2022-10-09 09:47] MED LIST changes: -ACETAMINOPHEN TAB 500 MG TAB PO PRN; -CHOLECALCIFEROL 1,000 UNIT TAB PO SCH; +DEXAMETHASONE SOD PHOSPHATE 4 MG/ML 1 ML VIAL IV ONE; -FLECAINIDE 50 MG TAB PO SCH; -HYDROCHLOROTHIAZIDE 25 MG TAB PO SCH; +HYDROmorphone 0.5 MG/0.5 ML SYRINGE IVP PRN; -LISINOPRIL 10 MG TAB PO SCH; +MIDAZOLAM 2 MG/2 ML VIAL IV PRN; -MULTIVITAMINS, THERA 1 EACH TAB PO SCH; +ONDANSETRON 4 MG/2 ML VIAL IVP ONE; -PROPOFOL 10 MG/ML 20 ML VIAL IV ONE; +Pre Op ABX Message 1 EACH MISC MISCELLANE ONE; -SIMVASTATIN 10 MG PO SCH; -SODIUM CHLORIDE 0.9% 1,000 ML IV SCH; -WARFARIN 5 MG TAB PO SCH
[2022-10-09 11:06] LABS: INR 1.4 (<1.2); Prothrombin Time 14.8 sec (9.0-12.0)
[2022-10-09] MEDS ORDERED: MIDAZOLAM 2 MG/2 ML VIAL IVP ONE (11:35)
--- NOTE | 2022-10-09 11:59 | P.ANPRN ---
Procedure Note - Anesthesia - Nerve Block Performed Right Adductor Canal Time Out Performed: Yes (11:35) Date of Procedure: 10/09/22 Procedure Start Time: 35 Procedure Stop Time: :40 Location of Patient: PreOp Indication: Acute Post-Operative Pain, Requested by Surgeon (Dr Vallejo) Sedation Type: Sedate with meaningful contact maintained Preparation: Sterile Prep Position: Supine Catheter: None Needle Types: Pajunk Needle Gauge: 21 Ultrasound used to visualize needle placement: Yes Ultrasound used to observe medication spread: Yes Injectate: 0.5% Ropivacaine (see comment for volume) (15cc) Blood Aspirated: No Pain Paresthesia on Injection Noted: No Resistance on Injection: Normal Image Stored and Saved: Yes Events: Uneventful and Well Tolerated
--- NOTE | 2022-10-09 12:00 | P.ANPRN ---
Procedure Note - Anesthesia - Nerve Block Performed Right Popliteal Time Out Performed: Yes Date of Procedure: 10/09/22 Procedure Start Time: 11:42 Procedure Stop Time: 11:47 Location of Patient: PreOp Indication: Acute Post-Operative Pain, Requested by Surgeon (Dr Vallejo) Sedation Type: Sedate with meaningful contact maintained Preparation: Sterile Prep Position: Left Lateral Catheter: None Needle Types: Pajunk Needle Gauge: 21 Ultrasound used to visualize needle placement: Yes Ultrasound used to observe medication spread: Yes Injectate: 0.5% Ropivacaine (see comment for volume) (15cc +5cc PF Normal saline) Blood Aspirated: No Pain Paresthesia on Injection Noted: No Resistance on Injection: Normal Image Stored and Saved: Yes Events: Uneventful and Well Tolerated
[2022-10-09] MEDS ORDERED: diphenhydrAMINE 50 MG/ML 1 ML VIAL ONE (12:24)
[2022-10-09] MEDS ORDERED: SUCCINYLCHOLINE CHLORIDE 200 MG/10 ML VIAL IV ONE (12:24)
[2022-10-09] MEDS ORDERED: ePHEDrine 50 MG/ML 1 ML VIAL ONE (12:24)
[2022-10-09] MEDS ORDERED: PROPOFOL 10 MG/ML 20 ML VIAL IV ONE (12:24)
[2022-10-09] MEDS ORDERED: SODIUM CHLORIDE 0.9% (PF) 10 ML VIAL ONE (12:24)
[2022-10-09] MEDS ORDERED: MIDAZOLAM 2 MG/2 ML VIAL ONE (12:24)
[2022-10-09] MEDS ORDERED: fentaNYL (PF) 50 MCG/ML 2 ML AMP ONE (12:24)
[2022-10-09] MEDS ORDERED: LIDOCAINE 1% (10MG/ML) FOR IV START ONE (12:24)
[2022-10-09] MEDS ORDERED: ROPIVACAINE 5 MG/ML 30 ML VIAL ONE (12:24)
[2022-10-09] MEDS ORDERED: ceFAZolin 1,000 MG VIAL IVPB ONE (12:28)
--- NOTE | 2022-10-09 13:23 | P.OP ---
Date of Procedure: 10/09/22 Preoperative Diagnosis: Osseous cyst right talus Postoperative Diagnosis: Same Procedure(s) Performed: Debridement of bone cysts with allograft filler right talus Implants: 0.5cc of Tactoset Anesthesia: PAUL Surgeon: Fernando Vallejo Estimated Blood Loss (ml): 0 Pathology: none sent Condition: stable Disposition: PACU Description of Procedure: Prior to the patient being brought to the operating room, anesthesia administered a nerve block on the right lower extremity. The patient was then brought into the operating room and placed on table in the supine position. Timeout was taken to confirm correct patient identifiers, correct laterality of surgery, and correct procedure. Once all staff in the room were in agreement with the timeout, the patient was induced and placed under general anesthesia. A well-padded tourniquet was placed on the right calf and a bump underneath the right hip to internally rotate the right leg. The right leg was then prepped and draped usual manner. The leg was exsanguinated and the tourniquet inflated to 250 mmHg. Under direct fluoroscopic visualization a metallic marker was used to locate the lateral aspect of the talus where the body and the neck merged. Once identified a small stab incision was made through the skin and blunt instrumentation was used to dissect down to the talus. The combination cannula and trocar was then placed on a wire catering truck driver and was aligned under fluoroscopy. Then the cannula was advanced until it entered the area of the cyst in the medial aspect of the talus near the ankle articular surface. Once it was satisfactorily positioned, the Tactoset material was mixed on the back table. Once fully mixed, it was allowed to sit for approximately 10 minutes to improve workability. Once the tendon owen arrived one of the syringes was proximally 0.7 mL of material in it was attached to the cannula and was slowly injected until resistance was met. A total of 0.5 mL was injected before resistance was met. The syringe was removed and then the plunger inserted to clear the cannula which was allowed to sit in place for approximately 2 minutes. Once the tendon owen arrived, the plunger and cannula were removed from the surgical field. Then the wound is irrigated with antibiotic saline. The skin was closed with 3- 0 nylon. A bulky dry dressings applied the left ankle and then the tourniquet was released. Capillary refill return to all digits of the right foot. The patient tolerated above procedure and anesthesia well. The patient went to recovery with vital signs stable.
[2022-10-09 13:32] VITALS: TEMP 97
[2022-10-09 13:40] VITALS: RESP 16
[2022-10-09 14:58] VITALS: BP 113/69; PULSE 66
== END 2022-10-09 15:20 | disposition home or self-care (01) ==
LOC: OR 09:47
PROVIDERS: ATTEND Podiatrist
DX: M85.471 Solitary bone cyst, right ankle and foot (principal); I10 Essential (primary) hypertension; E78.5 Hyperlipidemia, unspecified; I51.9 Heart disease, unspecified; Z95.1 Presence of aortocoronary bypass graft; F10.10 Alcohol abuse, uncomplicated; I73.9 Peripheral vascular disease, unspecified; Z79.02 Long term (current) use of antithrombotics/antiplatelets; Z79.01 Long term (current) use of anticoagulants; Z79.899 Other long term (current) drug therapy; Z98.890 Other specified postprocedural states
CPT/HCPCS: 28100; 64447; 64999; 76942; 64445; 85610; C1713; J2250; J0330; J1200; J1100; J2405; J0690; J3010; J2795; J2704

== ENCOUNTER → 2022-11-04 | Outpatient (CLI) | payer MEDICARE ==
--- NOTE | 2022-11-04 16:45 | XR ---
EXAMINATION TYPE: XR KUB DATE OF EXAM: 11/04/2022 COMPARISON: None INDICATION: Hematuria and flank pain and back pain TECHNIQUE: Single view abdomen frontal projection FINDINGS: There is a normal bowel gas pattern. Psoas margins are normal. No organomegaly is present. No suspicious calcifications IMPRESSION: 1. Unremarkable Abdomen
== END | disposition home or self-care (01) ==
LOC: RADXRMAIN 12:13
PROVIDERS: ATTEND Internal Medicine
DX: R31.9 Hematuria, unspecified (principal); R10.9 Unspecified abdominal pain
CPT/HCPCS: 74018

== ENCOUNTER → 2023-02-15 | Outpatient (CLI) | payer MEDICARE ==
--- NOTE | 2023-02-15 11:10 | CT ---
EXAMINATION TYPE: CT angio chest DATE OF EXAM: 02/15/2023 COMPARISON: CTA Chest October 14, 2020 HISTORY: thoracic aorta aneurysm CT DLP: 1763.7 mGycm. Automated Exposure Control for Dose Reduction was Utilized. CONTRAST: CTA scan of the thorax is performed without and with IV Contrast, patient injected with 100 mL of Iso martha 370, aneurysm protocol. 3D reconstructed images are created on an independent workstation and re viewed. FINDINGS: LUNGS: Focal groundglass opacity along the peripheral inferior right upper lobe abutting fissure favo rs atelectasis and/or edema axial image 29. There is some atelectasis also seen along the lung bases. There is no pleural effusion or pneumothorax seen. The tracheobronchial tree is patent. MEDIASTINUM: There is satisfactory enhancement of the pulmonary artery and its branches, there is no CT evidence for pulmonary embolism. There are no greater than 1 cm hilar or mediastinal lymph nodes. No pericardial effusion is seen. Cardiomegaly is redemonstrated. 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 Aneurysm at the aortic root measures 4.2 cm coronal image 78 similar in appearance to prior study. S urgical change level of the aortic valve is redemonstrated. Ascending aorta measures 4.5 x 4.2 cm in diameter axial image 56. No aneurysm in the arch or descending aorta after distal grafting procedure. OTHER: There are simple appearing thin-walled cysts scattered throughout the left kidney. Slight scol iotic curvature with multilevel spurring in the spine. IMPRESSION: Marked improvement in ascending aortic aneurysm now measuring only up to 4.5 cm in diamet er after surgical repair. Patent graft is noted.
== END | disposition home or self-care (01) ==
LOC: RADCTMAIN 08:25
PROVIDERS: ATTEND Internal Medicine Interventional Cardiology
DX: I71.21 Aneurysm of the ascending aorta, without rupture (principal)
CPT/HCPCS: 82565; 84520; 71275; Q9967

== ENCOUNTER 2023-04-02 08:56 | Day surgery (SDC) | payer MEDICARE ==
[~2023-04-02 08:56] MED LIST changes: -DEXAMETHASONE SOD PHOSPHATE 4 MG/ML 1 ML VIAL IV ONE; -HYDROmorphone 0.5 MG/0.5 ML SYRINGE IVP PRN; +LIDOCAINE 1% (10MG/ML) FOR IV START INTRADERMA PRN; -MIDAZOLAM 2 MG/2 ML VIAL IV PRN; -ONDANSETRON 4 MG/2 ML VIAL IVP ONE; -Pre Op ABX Message 1 EACH MISC MISCELLANE ONE
[2023-04-02 09:29] VITALS: RESP 16; TEMP 97.2
[2023-04-02] MEDS ORDERED: PROPOFOL 10 MG/ML 20 ML VIAL IV ONE (09:42)
--- NOTE | 2023-04-02 10:06 | P.PCN ---
Date of Procedure: 04/02/23 Procedure(s) Performed: BRIEF HISTORY: Patient is a 72-year-old pleasant white male scheduled for an elective colonoscopy as a part of screening for colon cancer. PROCEDURE PERFORMED: Colonoscopy. PREOPERATIVE DIAGNOSIS: Screening for colon cancer. IV sedation per Anesthesia. PROCEDURE: After informed consent was obtained, the patient, was brought into the endoscopy unit. IV sedation was administered by Anesthesia under continuous monitoring. Digital rectal examination was normal. Initially the Olympus CF-160 flexible video colonoscope was then inserted in the rectum, gradually advanced into the cecum without any difficulty. Careful examination was performed as the scope was gradually being withdrawn. Ileocecal valve and the appendiceal orifice were visualized and appeared normal. Prep was excellent. Mucosa of the cecum, ascending colon, transverse colon, descending colon, sigmoid colon, and rectum appeared normal. Retroflexion was performed in the rectum and small internal hemorrhoids were seen. The patient tolerated the procedure well. IMPRESSION: Normal-appearing colon from rectum to cecum with no evidence of colorectal neoplasia. RECOMMENDATIONS: Findings of this examination were discussed with the patient as well as his family. He was advised to have a repeat screening colonoscopy in 10 years..
[2023-04-02 10:26] VITALS: BP 131/83; PULSE 58
== END 2023-04-02 10:45 | disposition home or self-care (01) ==
LOC: ORWHC2ENDO 08:56
PROVIDERS: ATTEND Internal Medicine Gastroenterology
DX: Z12.11 Encounter for screening for malignant neoplasm of colon (principal); K64.8 Other hemorrhoids; I48.91 Unspecified atrial fibrillation; I10 Essential (primary) hypertension; E78.5 Hyperlipidemia, unspecified; I71.21 Aneurysm of the ascending aorta, without rupture; G47.33 Obstructive sleep apnea (adult) (pediatric); Z99.89 Dependence on other enabling machines and devices; K21.9 Gastro-esophageal reflux disease without esophagitis; Z79.899 Other long term (current) drug therapy
CPT/HCPCS: G0121; J2704; 45378

== ENCOUNTER → 2023-09-21 | Outpatient (CLI) | payer MEDICARE ==
[2023-09-21 08:33] LABS: African American GFR (CKD) 77 (>60 ml/min/1.73 sqM); Blood Urea Nitrogen 27 mg/dL (9-20); Non-African American GFR(CKD) 67 (>60 ml/min/1.73 sqM)
--- NOTE | 2023-09-21 13:15 | CT ---
EXAMINATION TYPE: CT angio chest DATE OF EXAM: 09/21/2023 COMPARISON: 02/15/2023 HISTORY: 73-year-old male I71.2, Thoracic aortic aneurysm TECHNIQUE: Contiguous axial scanning of the chest performed without and with IV Contrast, patient inj ected with 100 ml mL of Isovue 370. Coronal/sagittal reconstructions performed. 3-D reconstructions g enerated on a dedicated workstation. CT DLP: 1441.60 mGycm Automated exposure control for dose reduction was used. FINDINGS: Median sternotomy wires with post-CABG changes. Additional prosthetic aortic valve. Heart mildly enla rged without pericardial effusion. Enlarged caliber to the main right and left pulmonary arteries measuring up to 3.0 cm suggesting unde rlying pulmonary arterial hypertension. There appears to be interposition graft of the ascending aorta which is normal caliber of 3.5 cm. Borderline aneurysm proximal arch at 4.0 cm, unchanged. Conventional arch vessel branching anatomy. Borderline ectatic upper descending thoracic aorta at 3.2 cm, unchanged. Mid descending thoracic aorta is ectatic at 3.1 cm, unchanged. Ectatic lower descending thoracic aorta 2.8 cm, unchanged. Some minimal emphysematous change. Some mild strandy scarring or atelectasis in the mid to lower lung s. Minimal dependent atelectasis. No consolidation or pleural effusion. Retroaortic left renal vein. Anterior hilar splenule. Visualized upper abdomen otherwise shows no john ss abnormal body. Bones: [facility] mid thoracic spine. IMPRESSION: 1. 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 2. Unchanged borderline aneurysm proximal arch at 4.0 cm and ectatic descending thoracic aorta measur ing up to 3.2 cm. 3. COPD with minimal emphysema and pulmonary hypertension.
== END | disposition home or self-care (01) ==
LOC: RADCTMAIN 07:52
PROVIDERS: ATTEND Internal Medicine Interventional Cardiology
DX: I71.23 Aneurysm of the descending thoracic aorta, without rupture (principal); J43.9 Emphysema, unspecified; I27.20 Pulmonary hypertension, unspecified; Z95.2 Presence of prosthetic heart valve
CPT/HCPCS: 82565; 84520; 71275; 36415; Q9967

== ENCOUNTER → 2023-12-21 | Outpatient (CLI) | payer MEDICARE ==
[2023-12-21 17:48] LABS: ALT 26 U/L (10-49); AST 27 U/L (14-35); Albumin 4.7 g/dL (3.8-4.9); Albumin/Globulin Ratio 2.14 Ratio (1.60-3.17); Alkaline Phosphatase 48 U/L (41-126); BUN/Creat Ratio 21.08 Ratio (12.00-20.00); Blood Urea Nitrogen 25.3 mg/dL (9.0-27.0); Calcium 10.3 mg/dL (8.7-10.3); Carbon Dioxide 28.3 mmol/L (21.6-31.8); Chloride 107 mmol/L (96-109); Chol/HDL Ratio 3.61 Ratio; Globulin 2.2 g/dL (1.6-3.3); Glucose 87 mg/dL (70-110); Potassium 4.3 mmol/L (3.5-5.5); Sodium 147 mmol/L (135-145); Total Bilirubin 1.1 mg/dL (0.3-1.2); Total Protein 6.9 g/dL (6.2-8.2)
== END | disposition home or self-care (01) ==
LOC: LABWHC1 11:40
PROVIDERS: ATTEND Internal Medicine Interventional Cardiology
DX: E78.2 Mixed hyperlipidemia (principal)
CPT/HCPCS: 36415; 80053; 80061

== ENCOUNTER → 2023-12-24 | Outpatient (CLI) | payer MEDICARE ==
--- NOTE | 2023-12-24 12:18 | XR ---
EXAMINATION TYPE: XR foot complete RT DATE OF EXAM: 12/24/2023 CLINICAL HISTORY: pain TECHNIQUE: Frontal, lateral and oblique images of the right foot are obtained. COMPARISON: None. FINDINGS: There is no acute fracture/dislocation evident. The joint spaces appear within normal nichols its. Mild hallux valgus deformity. The overlying soft tissue appears unremarkable. IMPRESSION: There is no acute fracture or dislocation. ICD 10 NO FRACTURE, INITIAL EVALUATION
== END | disposition home or self-care (01) ==
LOC: RADXRMAIN 11:51
PROVIDERS: ATTEND Internal Medicine
DX: M10.9 Gout, unspecified (principal)

== ENCOUNTER → 2024-02-04 | Outpatient (CLI) | payer MEDICARE ==
--- NOTE | 2024-02-06 19:48 | XR ---
EXAMINATION TYPE: XR hand complete RT DATE OF EXAM: 02/04/2024 1:23 PM CLINICAL INDICATION:Male, 73 years old with history of M65.9 Synovitis; [facility] COMPARISON: None TECHNIQUE: 3 views of the right hand. FINDINGS: Osseous mineralization appears appropriate. No destructive bony lesion. No acute fracture or dislocat ion. Moderate diffuse degenerative changes, osteoarthritis pattern, with some lateral subluxation noted at the base of the first proximal metacarpal. Degenerative changes of the DRUJ are also seen, with regan inal look like osteophyte of the ulna. No periarticular erosions are seen. Soft tissue swelling is present about the third digit proximal interphalangeal joint. No radiographic foreign body. IMPRESSION: 1. No evidence of an acute bony abnormality. 2. Moderate diffuse degenerative changes. 3. Soft tissue swelling about the third proximal interphalangeal joint.
== END | disposition home or self-care (01) ==
LOC: RADXRMAIN 13:12
PROVIDERS: ATTEND Internal Medicine
DX: M19.041 Primary osteoarthritis, right hand (principal); M65.841 Other synovitis and tenosynovitis, right hand; M79.89 Other specified soft tissue disorders

== ENCOUNTER → 2024-05-05 | Outpatient (CLI) | payer MEDICARE ==
[2024-05-05 12:01] LABS: Appearance,Urine Clear (Clear); Bilirubin,Urine Negative (Negative); Blood,Urine Small (Negative); Color,Urine Yellow; Glucose,Urine (UA) Negative (Negative); Ketones,Urine Negative (Negative); Leukocyte Esterase,Urine Negative (Negative); Mucus,Urine Rare /hpf; Nitrite,Urine Negative (Negative); PH, Urine 5.5 (5.0-8.0); Protein,Urine Negative (Negative); RBC,Urine 4 /hpf (0-5); Specific Gravity,Urine 1.022 (1.001-1.035); Squamous Epithelial Cell,Urine <1 /hpf (0-4); Urobilinogen,Urine <2.0 mg/dL (<2.0); WBC,Urine 3 /hpf (0-5)
[2024-05-05 17:08] LABS: HCT 45.7 % (39.6-50.0); MCH 28.6 pg (27.0-32.0); MCHC 30.6 g/dL (32.0-37.0); MCV 93.5 FL (80.0-97.0); Mean Platelet Volume 11.5 FL (9.5-12.2); NRBC Per 100 WBC 0 X 10*3/uL (0.00-0.01); Platelet Count 177 X 10*3/uL (140-440); RBC 4.89 X 10*6/uL (4.40-5.60); RDW 15.1 % (11.5-14.5); WBC 5.13 X 10*3/uL (4.50-10.00)
[2024-05-05 17:09] LABS: Basophils # (A) 0.06 X 10*3/uL (0.00-0.10); Basophils % (A) 1.2 %; Eosinophils # (A) 0.17 X 10*3/uL (0.04-0.35); Eosinophils % (A) 3.3 %; Lymphocytes # (A) 0.95 X 10*3/uL (0.90-5.00); Lymphocytes % (A) 18.5 %; Monocytes # (A) 0.52 X 10*3/uL (0.20-1.00); Monocytes % (A) 10.1 %; Neutrophils # (A) 3.42 X 10*3/uL (1.80-7.70); Neutrophils % (A) 66.7 %
[2024-05-05 17:41] LABS: ALT 26 U/L (10-49); AST 32 U/L (14-35); Albumin 4.3 g/dL (3.8-4.9); Albumin/Globulin Ratio 2.26 Ratio (1.60-3.17); Alkaline Phosphatase 48 U/L (41-126); BUN/Creat Ratio 23.36 Ratio (12.00-20.00); Blood Urea Nitrogen 25.7 mg/dL (9.0-27.0); Calcium 9.6 mg/dL (8.7-10.3); Carbon Dioxide 26.2 mmol/L (21.6-31.8); Chloride 106 mmol/L (96-109); Chol/HDL Ratio 2.96 Ratio; Globulin 1.9 g/dL (1.6-3.3); Glucose 107 mg/dL (70-110); LDL Cholesterol,Calculated 47.4 mg/dL (0.0-131.0); Magnesium 1.7 mg/dL (1.5-2.4); Potassium 3.9 mmol/L (3.5-5.5); Prostate Specific Antigen 3.35 ng/mL (0.000-6.500); Sodium 144 mmol/L (135-145); Total Protein 6.2 g/dL (6.2-8.2)
== END | disposition home or self-care (01) ==
LOC: LABWHC1 11:03
PROVIDERS: ATTEND Internal Medicine
DX: Z00.00 Encounter for general adult medical examination without abnormal findings (principal); I10 Essential (primary) hypertension; E78.2 Mixed hyperlipidemia; E11.8 Type 2 diabetes mellitus with unspecified complications; N40.1 Benign prostatic hyperplasia with lower urinary tract symptoms; G47.33 Obstructive sleep apnea (adult) (pediatric)
CPT/HCPCS: 36415; 80053; 80061; 81001; 82043; 82306; 82570; 83036; 83735; 84153; 84443; 85025

== ENCOUNTER → 2024-06-08 | Outpatient (CLI) | payer MEDICARE ==
[2024-06-08 15:52] LABS: BUN/Creat Ratio 28.31 Ratio (12.00-20.00); Blood Urea Nitrogen 36.8 mg/dL (9.0-27.0); Calcium 9.5 mg/dL (8.7-10.3); Carbon Dioxide 25.4 mmol/L (21.6-31.8); Chloride 100 mmol/L (96-109); Glucose 90 mg/dL (70-110); Potassium 3.7 mmol/L (3.5-5.5); Sodium 142 mmol/L (135-145)
[2024-06-08 20:43] LABS: NT-Pro-B-Type Natriuretic Pept 1037 pg/mL (0-125)
== END | disposition home or self-care (01) ==
LOC: LABWHC1 07:59
PROVIDERS: ATTEND Internal Medicine
DX: R06.02 Shortness of breath (principal)
CPT/HCPCS: 36415; 80048; 83880

== ENCOUNTER → 2024-08-31 | Outpatient (CLI) | payer MEDICARE ==
--- NOTE | 2024-09-01 12:08 | NM ---
EXAMINATION TYPE: NM amyloidosis cardiac DATE OF EXAM: 08/31/2024 COMPARISON: NONE CLINICAL INDICATION: Male, 74 years old with history of E85.9 AMYLOIDOSIS, UNSPECIFIED; Exam was performed following the injection of 20.6 mCi Tc99m Pyrophosphate. Planar imaging was perfo rmed approximately 1 hour post injection and 3 hour post injection, including anterior and lateral. Whole body and SPECT imaging was performed approximately 3 hours post injection. FINDINGS: H/CL ratio of 1 hours 1.2 (N is greater than or equal to 1.5) and at 3 hours 1.18 (N is greater than or equal to 1.3). Imaging fails demonstrate evidence for myocardial uptake. Normal bone uptake is vis ualized. IMPRESSION: No evidence of myocardial uptake to suggest cardiac amyloidosis [facility], , 09/01/2024 12:05 PM
== END | disposition home or self-care (01) ==
LOC: RADNMMAIN 10:42
PROVIDERS: ATTEND Internal Medicine Interventional Cardiology
DX: E85.9 Amyloidosis, unspecified (principal)
CPT/HCPCS: 78803

== ENCOUNTER → 2024-12-25 | Outpatient (CLI) | payer MEDICARE ==
[2024-12-25 19:09] LABS: NT-Pro-B-Type Natriuretic Pept 808 pg/mL (0-125)
[2024-12-25 20:48] LABS: Chol/HDL Ratio 3.17 Ratio; LDL Cholesterol,Calculated 57.8 mg/dL (0.0-131.0)
[2024-12-25 21:01] LABS: ALT 43 U/L (10-49); AST 47 U/L (14-35); Albumin 4.8 g/dL (3.8-4.9); Albumin/Globulin Ratio 2.18 Ratio (1.60-3.17); Alkaline Phosphatase 53 U/L (41-126); BUN/Creat Ratio 35.92 Ratio (12.00-20.00); Blood Urea Nitrogen 46.7 mg/dL (9.0-27.0); Calcium 9.6 mg/dL (8.7-10.3); Carbon Dioxide 25.4 mmol/L (21.6-31.8); Chloride 103 mmol/L (96-109); Globulin 2.2 g/dL (1.6-3.3); Glucose 105 mg/dL (70-110); Potassium 3.8 mmol/L (3.5-5.5); Sodium 145 mmol/L (135-145); Total Bilirubin 0.9 mg/dL (0.3-1.2)
== END | disposition home or self-care (01) ==
LOC: LABWHC1 08:31
PROVIDERS: ATTEND Internal Medicine Interventional Cardiology
DX: E78.2 Mixed hyperlipidemia (principal); R06.02 Shortness of breath
CPT/HCPCS: 36415; 80053; 80061; 83880

== ENCOUNTER → 2025-03-29 | Outpatient (CLI) | payer MEDICARE ==
[2025-03-29 07:34] LABS: African American GFR (CKD) 68 (>60 ml/min/1.73 sqM); Blood Urea Nitrogen 24 mg/dL (9-20); Non-African American GFR(CKD) 59 (>60 ml/min/1.73 sqM)
--- NOTE | 2025-03-29 08:24 | CT ---
EXAMINATION TYPE: CT angio chest DATE OF EXAM: 03/29/2025 COMPARISON: CTA chest September 21, 2023 CLINICAL INDICATION: Male, 74 years old with history of I71.2 Thoracic Aortic Aneurysm w/o rupt, Hist ory of aneurysm, TECHNIQUE: CTA scan of the thorax is performed without and with IV Contrast, patient injected with 80 ml mL of I sovue 370, aneurysm protocol. 3D reconstructed images are created on an independent workstation and reviewed. CT DLP: 1407.9 mGycm. Automated Exposure Control for Dose Reduction was Utilized. FINDINGS: LUNGS: Dependent opacities in bilateral lower lobes favors atelectasis. No focal consolidation. No pl eural effusion or pneumothorax seen bilaterally. HEART: Cardiomegaly is redemonstrated. Persistent moderate biatrial and biventricular dilatation. No significant squaxin coronary artery calcifications. MEDIASTINUM: Enlarged pulmonary arteries are redemonstrated. Surgical change of level of the aortic v alve is redemonstrated. Aorta root just past the valve measures 4.2 cm in diameter axial image 77. Naik rgical change in the ascending aorta just before the great vessels is redemonstrated, aorta measures 3.6 cm in diameter at this level axial image 54 level of main pulmonary artery. Normal three-vessel o rigin from aortic arch redemonstrated. No aneurysm of the descending aorta. Overlying sternal wires a re redemonstrated. Left atrial appendage clip is redemonstrated. OTHER: There is 1.5 cm hypodense lesion in the left hepatic dome on axial image 111 redemonstrated. R etroaortic left renal vein is redemonstrated which is normal variant. Bridging osteophytes in the tho racic spine are redemonstrated. IMPRESSION: Postsurgical change to the distal ascending thoracic aorta redemonstrated. Persistent but stable 4.2 cm aneurysm of the ascending aorta just past metallic aortic valve. [facility] Garcia, , 03/29/2025 8:22 AM
== END | disposition home or self-care (01) ==
LOC: RADCTMAIN 06:51
PROVIDERS: ATTEND Internal Medicine Interventional Cardiology
DX: I71.21 Aneurysm of the ascending aorta, without rupture (principal); Z98.890 Other specified postprocedural states
CPT/HCPCS: 82565; 84520; 71275; 36415; Q9967